=== PATIENT | female | born 1970 | race Caucasian/White ===

== ENCOUNTER 2020-01-05 12:04 | Emergency (ER) | payer OTHER, SELFPAY ==
[2020-01-05 12:15] VITALS: BP 154/70; PULSE 100; RESP 20; TEMP 37.1; O2SAT 98
--- NOTE | 2020-01-05 12:29 | ED.GENADULT ---
HPI - General Adult General Chief complaint: Skin/Abscess/Foreign Body Stated complaint: Bumps on arm Time Seen by Provider: 01/05/20 12:29 Source: patient and RN notes reviewed Mode of arrival: ambulatory Limitations: no limitations History of Present Illness HPI narrative: This is a 49 years old female presented office for evaluations of skin lesions on her left arm. Symptoms began with arm aches and pain prior to the onset of lesion. Lesions is sore at times with pain that goes up to her shoulder. Denies trauma or injury. She suspects this is shingles. 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 Admits to history of chicken pox. Related Data Home Medications Medication Instructions Recorded Confirmed atorvastatin 40 mg tablet 40 mg PO DAILY 05/18/19 01/05/20 Allergies Allergy/AdvReac Type Severity Reaction Status Date / Time Sulfa (Sulfonamide Allergy Unknown Rash Verified 01/05/20 12:23 Antibiotics) sulfanilamide Allergy Unknown Rash Verified 01/05/20 12:23 Review of Systems Review of Systems: Narrative: CONSTITUTIONAL: Denies fever, chills ENT: Denies rhinorrhea, congestion, sore throat, otalgia. CARDIOVASCULAR: Denies chest pain, palpitation RESPIRATORY: Denies dyspnea, wheezing, cough GASTROINTESTINAL: Denies abdominal pain, nausea, vomiting, diarrhea. SKIN: Reports painful lesions on her left arm and chest. MUSCULOSKELETAL: Denies joints pain NEUROLOGIC: Denies lightheaded All other systems reviewed are negative, except as documented in HPI. [facility] Past Medical History Medical History Diabetes mellitus HLD (hyperlipidemia) HTN (hypertension) Family History Family History Mother Depression Hypertension Family history of diabetes mellitus in first degree relative Family history of elevated blood lipids Diabetes mellitus, Onset Age: 64 Family history of coronary artery disease, Onset Age: 64 Family history of congestive heart failure Father Patient's father is in good health Family history of elevated blood lipids Family history of diabetes mellitus in first degree relative Hypertension Diabetes mellitus Acute myocardial infarction Family history of chronic obstructive pulmonary disease Sibling Patient's brother is in good health Other Cerebrovascular accident Family history of attention deficit hyperactivity disorder (ADHD) Family history of cardiovascular disease Family history of malignant neoplasm Family history of malignant neoplasm of breast Family history of premature coronary heart disease Social History Social History Smoking status: Never smoker Alcohol intake: never Gender identity (if verbalized by the patient): Female Comments At time of signature, I agree with nursing past medical, surgical, social and family history. There is no relevant family history pertinent to the presenting complaint. Exam Narrative: Exam Narrative: GENERAL: This is a well-nourished, well-developed patient, in no apparent distress. CARDIOVASCULAR: Regular rate and rhythm without murmurs, gallops, or rubs. RESPIRATORY: Clear to auscultation. Breath sounds equal bilaterally. No wheezes, rales, or rhonchi. GASTROINTESTINAL: Abdomen soft, non-tender, nondistended. Bowel sounds are active. No hepato-splenomegaly, or palpable masses. No guarding. SKIN: left anterior forearm and left upper arm noted group vesicular erythema lesions. Similar lesion noted of her chest; but it does not cross midline. NEURO: awake, alert, and oriented to person, place and time. There were no obvious focal neurologic abnormalities. Steady gait EXTREMITIES: Normal range of motion. No edema. [place] Coma Scale Eye Opening: Spontaneous 4 [place] Coma Scale Motor: Obeys Commands 6 Lori Coma Scale Verbal: Oriented 5 Course Vital Signs Jacque
== END 2020-01-05 12:45 | disposition home or self-care (01) ==
PROVIDERS: Emergency Provider Nurse Practitioner; PCP Emergency Medicine
DX: B02.9 Zoster without complications (principal); E11.9 Type 2 diabetes mellitus without complications; E78.5 Hyperlipidemia, unspecified; I10 Essential (primary) hypertension
CPT/HCPCS: 99213; G0463

== ENCOUNTER 2023-06-04 10:21 | Emergency (ER) | payer BC, SELFPAY ==
[2023-06-04 10:33] VITALS: BP 183/73; PULSE 92; RESP 16; TEMP 36.8; O2SAT 96
--- NOTE | 2023-06-04 10:41 | ED.GENADULT ---
HPI - General Adult General Chief complaint: Upper Respiratory Infection Stated complaint: Cough/Chest Congestion Source: patient, RN notes reviewed and old records reviewed Mode of arrival: ambulatory Limitations: no limitations History of Present Illness HPI narrative: 52-year-old female presents to [facility] with complaints cough, congestion, wheezing, shortness of breath this started 1 week ago. Patient taking [id number] medications with no relief. MD complaint: Cough, congestion Onset (ago): week(s) (1) Related Data Home Medications Medication Instructions Recorded Confirmed furosemide 80 mg tablet 80 mg PO DAILY 06/04/23 06/04/23 losartan 100 mg tablet 100 mg PO DAILY 06/04/23 06/04/23 metformin 1,000 mg tablet 1,000 mg PO BID 06/04/23 06/04/23 Allergies Allergy/AdvReac Type Severity Reaction Status Date / Time Sulfa (Sulfonamide Allergy Intermediate Rash Verified 06/04/23 10:48 Antibiotics) Review of Systems Constitutional: Constitutional: Reports no additional constitutional complaints, Reports body ache(s), Denies chills, Denies fatigue, Denies fever(s) and Denies headache(s) Eyes: Eyes: Reports no additional eye complaints and Denies blurry vision ENT: Reports system reviewed and no additional complaints, except as documented, Denies vertigo, Denies dizziness, Denies ear discharge, Denies otalgia, Denies facial pain, Denies headache(s), Reports nasal congestion, Denies nasal discharge, Denies sinus pain, Denies sinus pressure and Denies sore throat Cardiovascular: Cardiovascular: Reports no additional cardiovascular complaints, Denies chest pain, Denies chest pain at rest, Denies rapid heart rate and Denies dyspnea Respiratory: Respiratory: Reports no additional respiratory complaints, Denies chest congestion, Reports cough, Denies pain on inspiration, Denies pain with cough and Reports dyspnea Gastrointestinal: Gastrointestinal: Denies abdominal pain, Denies diarrhea, Denies nausea and Denies vomiting Integumentary/Breasts: Skin/Breast: Denies rash Neurologic: Reports system reviewed and no additional complaints, except as documented, Denies vertigo, Denies dizziness and Denies headache(s) Endocrine: Endocrine: Denies fatigue [facility] Past Medical History Medical History (Updated 06/04/23 @ 11:01 by Judi Baptiste APRN) Diabetes mellitus HLD (hyperlipidemia) HTN (hypertension) Family History Family History Mother Depression Hypertension Family history of diabetes mellitus in first degree relative Family history of elevated blood lipids Diabetes mellitus, Onset Age: 64 Family history of coronary artery disease, Onset Age: 64 Family history of congestive heart failure Father Patient's father is in good health Family history of elevated blood lipids Family history of diabetes mellitus in first degree relative Hypertension Diabetes mellitus Acute myocardial infarction Family history of chronic obstructive pulmonary disease Sibling Patient's brother is in good health Other Cerebrovascular accident Family history of attention deficit hyperactivity disorder (ADHD) Family history of cardiovascular disease Family history of malignant neoplasm Family history of malignant neoplasm of breast Family history of premature coronary heart disease Social History Social History Smoking status: Never smoker Alcohol intake: never Gender identity (if verbalized by the patient): Female Comments At the time of my signature, I reviewed and agree with the nursing past medical, surgical, social, and family history. There is no relevant family history pertinent to the patient complaint. Exam Const: General: cooperative, no acute distress, ill appearing acutely and well nourished Nutritional Appearance: well nourished Orientation/consciousness: patient loli
== END 2023-06-04 11:05 | disposition home or self-care (01) ==
PROVIDERS: Emergency Provider Registered Nurse
DX: J06.9 Acute upper respiratory infection, unspecified (principal); Z20.822 Contact with and (suspected) exposure to COVID-19; E11.9 Type 2 diabetes mellitus without complications; E78.5 Hyperlipidemia, unspecified; I10 Essential (primary) hypertension
CPT/HCPCS: 87426; 87804; 99213; C9803; G0463

== ENCOUNTER 2023-08-10 10:02 | Emergency (ER) | payer BC, SELFPAY ==
[2023-08-10 10:07] VITALS: BP 181/78; PULSE 76; RESP 16; TEMP 37.3; O2SAT 99
--- NOTE | 2023-08-10 10:41 | ED.URI ---
HPI - URI/Sore Throat General Chief Complaint: Upper Respiratory Infection Stated Complaint: upper respiratory Time Seen by Provider: 08/10/23 10:42 Source: patient, RN notes reviewed and old records reviewed Mode of arrival: ambulatory Limitations: no limitations History of Present Illness HPI Narrative: 52year old female who presents to [facility] care with complaints of sinus congestion and drainage, acute harsh cough since Tuesday with headache and did not a 100F temperature yesterday. Patient reports that she has history of CHF and hypertension and takes daily Lasix 80 mg and also is diabetic. Patient denies any acute shortness of breath has harsh cough and reports some noted wheezing. Patient reports that she has had exposure to COVID. MD elicited complaint: cough and sore throat Pertinent past history: pneumonia and other (CHF, HTN) Onset (ago): day(s) (4) Pain scale (0-10): 2 Able to tolerate fluids by mouth: Yes Treatments prior to arrival: acetaminophen Related Data Home Medications Medication Instructions Recorded Confirmed furosemide 80 mg tablet 80 mg PO DAILY 06/04/23 06/04/23 losartan 100 mg tablet 100 mg PO DAILY 06/04/23 06/04/23 Jardiance 08/10/23 Metoprolol 08/10/23 Prozac 08/10/23 amlodipine 5 mg tablet mg 08/10/23 Allergies Allergy/AdvReac Type Severity Reaction Status Date / Time Sulfa (Sulfonamide Allergy Intermediate Rash Verified 08/10/23 10:12 Antibiotics) Review of Systems Review of Systems: CONSTITUTIONAL: Reports malaise, chills, sweats, or fever. EYES: Denies visual changes, redness, or discharge. ENT: Reports rhinorrhea, congestion, sinus pain,no otalgia and no sore throat. CARDIOVASCULAR: Denies chest pain, palpitations, or edema. RESPIRATORY: Reports cough.? Denies dyspnea.reports wheezing GASTROINTESTINAL: Denies abdominal pain, nausea, vomiting, diarrhea SKIN: Denies rash or itching. MUSCULOSKELETAL: Denies myalgia. NEUROLOGIC:Reports headache. All systems reviewed & are unremarkable except as noted in HPI and below PMFSH Past Medical History Medical History (Updated 08/11/23 @ 10:05 by Doreen Cárdenas NP) Anxiety and depression Diabetes mellitus HLD (hyperlipidemia) HTN (hypertension) Pneumonia Sleep apnea Surgical History Surgical History (Updated 08/11/23 @ 10:04 by Doreen Cárdenas NP) History of carpal tunnel surgery History of ear surgery Family History Family History Mother Depression Hypertension Family history of diabetes mellitus in first degree relative Family history of elevated blood lipids Diabetes mellitus, Onset Age: 64 Family history of coronary artery disease, Onset Age: 64 Family history of congestive heart failure Father Patient's father is in good health Family history of elevated blood lipids Family history of diabetes mellitus in first degree relative Hypertension Diabetes mellitus Acute myocardial infarction Family history of chronic obstructive pulmonary disease Sibling Patient's brother is in good health Other Cerebrovascular accident Family history of attention deficit hyperactivity disorder (ADHD) Family history of cardiovascular disease Family history of malignant neoplasm Family history of malignant neoplasm of breast Family history of premature coronary heart disease Social History Social History (Updated 08/11/23 @ 10:05 by Doreen Cárdenas NP) Smoking status: Never smoker Alcohol intake: former Substance use type: does not use Gender identity (if verbalized by the patient): Female Comments At time of signature, agree with nursing past medical, surgical, social and family history. There is no relevant family history pertinent to the presenting complaint Exam Narrative: GENERAL: Well-appearing, well-nourished, and in no acute distress. HEAD: Normocephalic EYES: PERRLA, conjunctivae clear
== END 2023-08-10 11:12 | disposition home or self-care (01) ==
PROVIDERS: Emergency Provider Registered Nurse
DX: U07.1 COVID-19 (principal); E11.9 Type 2 diabetes mellitus without complications; E78.5 Hyperlipidemia, unspecified; I11.0 Hypertensive heart disease with heart failure; I50.9 Heart failure, unspecified
CPT/HCPCS: 87426; 87804; 99213; G0463

== ENCOUNTER 2024-05-12 08:03 | Emergency (ER) | payer OTHER, SELFPAY ==
[2024-05-12 08:23] VITALS: BP 140/86; PULSE 100; RESP 17; TEMP 36.8; O2SAT 100
--- NOTE | 2024-05-12 08:50 | ED_ITS ---
HPI - General Adult General Chief complaint: Unspecified Stated complaint: Unspecified Source: patient Mode of arrival: ambulatory Limitations: no limitations History of Present Illness HPI narrative: Patient presents requesting a note that indicates she should be able to perform her ADLs while in alcohol rehab. She is leaving for alcohol rehab tomorrow. She typically drinks 16 glasses of wine per day. Last drink was yesterday. She does have a slight tremor. Denies hallucinations, chest pain, palpitations. Denies any illicit drug use. Related Data Home Medications Medication Instructions Recorded Confirmed metformin 1,000 mg tablet 1,000 mg PO BID 05/12/24 05/12/24 pantoprazole 40 mg tablet,delayed 40 mg PO DAILY 05/12/24 05/12/24 release Allergies Allergy/AdvReac Type Severity Reaction Status Date / Time Sulfa (Sulfonamide Allergy Intermediate Rash Verified 05/12/24 08:32 Antibiotics) Review of Systems Review of Systems: CONSTITUTIONAL: Denies fever, chills, or sweats. EYES: Denies visual changes, redness, or discharge. ENT: Denies rhinorrhea, congestion, sore throat, or otalgia. CARDIOVASCULAR: Denies chest pain, palpitations, or edema. RESPIRATORY: Denies cough or dyspnea. GASTROINTESTINAL: Denies abdominal pain, nausea, vomiting, or diarrhea. GENITOURINARY: Denies dysuria or hematuria. SKIN: Denies rash or itching. MUSCULOSKELETAL: Denies back pain, joint pain, or myalgia. NEUROLOGIC:Reports tremor. Denies headache, numbness, dizziness, or weakness. PSYCHIATRIC: Denies anxiety or depression. [facility] Past Medical History Medical History Anxiety and depression Diabetes mellitus HLD (hyperlipidemia) HTN (hypertension) Pneumonia Sleep apnea Surgical History Surgical History History of carpal tunnel surgery History of ear surgery Family History Family History Mother Depression Hypertension Family history of diabetes mellitus in first degree relative Family history of elevated blood lipids Diabetes mellitus, Onset Age: 64 Family history of coronary artery disease, Onset Age: 64 Family history of congestive heart failure Father Patient's father is in good health Family history of elevated blood lipids Family history of diabetes mellitus in first degree relative Hypertension Diabetes mellitus Acute myocardial infarction Family history of chronic obstructive pulmonary disease Sibling Patient's brother is in good health Other Cerebrovascular accident Family history of attention deficit hyperactivity disorder (ADHD) Family history of cardiovascular disease Family history of malignant neoplasm Family history of malignant neoplasm of breast Family history of premature coronary heart disease Social History Social History Smoking status: Never smoker Alcohol intake: former Drinks per week: 112 Substance use type: does not use Living arrangements: with family Gender identity (if verbalized by the patient): Female Spiritual care concerns: No Exam Narrative: GENERAL: Well-appearing, well-nourished, and in no acute distress. HEAD: Normocephalic, atraumatic. EYES: PERRLA and EOMI. ENT: Overall poor dentition with diffuse dental decay. Nares clear, no rhinorrhea or epistaxis. Mucous membranes moist. Oropharynx without tonsillar hypertrophy exudate or other lesions. Bilateral TMs pearly dubois nonbulging NECK: Supple. No adenopathy or masses. No carotid bruits or JVD CHEST: Clear to auscultation. No respiratory distress. No wheezes rales or rhonchi HEART: Regular rate and rhythm. No murmur heard. Normal peripheral pulses. ABDOMEN: Soft, nontender, nondistended, normal active bowel sounds. EXTREMITIES: Normal range of motion. No edema. SKIN: Warm, dry, no rash. NEURO: Slight tremor present. No focal deficits. Alert and oriented x3. PSYCH: Normal mood and affect. Course Course Emergency Course: This is a 53-year-old female who came in today to receive a note that indicates she should be able to perform her ADL's while in alcohol rehab. This is a reasonable request. She is unable to get an appt with her primary care provider for 1.5 months. She was provided with a note and a small qty of ativan in the event that she experiences withdrawal symptoms. Pt in agreement with plan of care. Level of Care: Express Care Visit Vital Signs Vital signs: Vital Signs Temperature 36.8 C 05/12/24 08:23 Pulse Rate 100 05/12/24 08:23 Respiratory Rate 17 05/12/24 08:23 Blood Pressure 140/86 05/12/24 08:23 Pulse Oximetry 100 05/12/24 08:23 Oxygen Delivery Room Air 05/12/24 08:23 Temperature 36.8 C 05/12/24 08:23 Pulse Rate 100 05/12/24 08:23 Respiratory Rate 17 05/12/24 08:23 Blood Pressure 140/86 05/12/24 08:23 Pulse Oximetry 100 05/12/24 08:23 Oxygen Delivery Room Air 05/12/24 08:23 Medical Decision Making Vital Signs Vital Signs: Vital Signs Temperature 36.8 C 05/12/24 08:23 Pulse Rate 100 05/12/24 08:23 Respiratory Rate 17 05/12/24 08:23 Blood Pressure 140/86 05/12/24 08:23 Pulse Oximetry 100 05/12/24 08:23 Oxygen Delivery Room Air 05/12/24 08:23 Temperature 36.8 C 05/12/24 08:23 Pulse Rate 100 05/12/24 08:23 Respiratory Rate 17 05/12/24 08:23 Blood Pressure 140/86 05/12/24 08:23 Pulse Oximetry 100 05/12/24 08:23 Oxygen Delivery Room Air 05/12/24 08:23 Discharge Plan Discharge Clinical Impression: Anxiety, Alcohol abuse Patient Disposition: Home, Self-Care Condition: Stable Instructions: Antibiotic Form, Anxiety (ED), Alcohol Use Disorder (ED) Additional Instructions: In the event that you have hallucinations, chest pain or racing heart rate, please go to the emergency department Patient Language: Bengali Prescriptions: New lorazepam 1 mg tablet 1 mg PO TID PRN (Reason: alcohol withdrawal) Qty: 6 0RF No Action metformin 1,000 mg tablet 1,000 mg PO BID pantoprazole 40 mg tablet,delayed release (DR/EC) 40 mg PO DAILY Follow-up/Referrals: Moody Vasquez DO [Physician] - Stand Alone Forms: Work/School Release IP Time of Disposition: 08:43
== END 2024-05-12 08:45 | disposition home or self-care (01) ==
PROVIDERS: Emergency Provider Nurse Practitioner
DX: F41.9 Anxiety disorder, unspecified (principal); F10.10 Alcohol abuse, uncomplicated; E11.9 Type 2 diabetes mellitus without complications; Z79.84 Long term (current) use of oral hypoglycemic drugs; I10 Essential (primary) hypertension; E78.5 Hyperlipidemia, unspecified
CPT/HCPCS: 99213; G0463

== ENCOUNTER 2024-10-29 10:04 | Emergency (ER) | payer SELFPAY ==
--- OUTSIDE RECORDS SUMMARY | 2024-10-29 10:07 | XMS_ITS | Encounter Summary ---
Author Organization [employer] Address 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 diff 11/21/2023 11/21/2023 11/21/2023 12:5 2 PM CDT C Diff Comment:11/21/23 11/21/2023 11/21/2023 01/20/2024 1:16 AM C DT documented as of this encounter Care Teams Trolley Worker Relationship Specialty [place] [id number] [place] [address] PCP - General Shadow Graph Weight Operator 09/26/23 documented as of this encounter
--- OUTSIDE RECORDS SUMMARY | 2024-10-29 10:07 | XMS_ITS | Encounter Summary ---
Author Organization [employer] Address 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 diff 11/21/2023 11/21/2023 11/21/2023 12:5 2 PM CDT C Diff Comment:11/21/23 11/21/2023 11/21/2023 01/20/2024 1:16 AM C DT documented as of this encounter Care Teams Manager Category Relationship Specialty [place] [id number] [address] PCP - General Compliance Manager 09/26/23 documented as of this encounter
--- OUTSIDE RECORDS SUMMARY | 2024-10-29 10:07 | XMS_ITS | Encounter Summary ---
Author Organization [employer] Address 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 diff 11/21/2023 11/21/2023 11/21/2023 12:5 2 PM CDT C Diff Comment:11/21/23 11/21/2023 11/21/2023 01/20/2024 1:16 AM C DT documented as of this encounter Care Teams Assignment Editor Relationship Specialty [place] [id number] [address] PCP - General Heel Seat Laster 09/26/23 documented as of this encounter
--- OUTSIDE RECORDS SUMMARY | 2024-10-29 10:07 | XMS_ITS | Encounter Summary ---
Author Organization [employer] Address 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 diff 11/21/2023 11/21/2023 11/21/2023 12:5 2 PM CDT C Diff Comment:11/21/23 11/21/2023 11/21/2023 01/20/2024 1:16 AM C DT documented as of this encounter Care Teams Contamination Consultant Relationship Specialty [place] [id number] [address] PCP - General Firefighter Type One 09/26/23 documented as of this encounter
--- OUTSIDE RECORDS SUMMARY | 2024-10-29 10:07 | XMS_ITS | Encounter Summary ---
Author Organization [facility] Address 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 diff 11/21/2023 11/21/2023 11/21/2023 12:5 2 PM CDT C Diff Comment:11/21/23 11/21/2023 11/21/2023 01/20/2024 1:16 AM C DT documented as of this encounter Care Teams Scale Model Maker Relationship Specialty [place] [id number] [phone] PCP - General Mission Manager 09/26/23 documented as of this encounter
--- OUTSIDE RECORDS SUMMARY | 2024-10-29 10:07 | XMS_ITS | Encounter Summary ---
Author Organization [employer] Address [address] [place] [address] Care Team Providers Care Earth Science Technical Officer Name Role Phone Joss Carpio MD Primary Care Provider [phone] Encounter Details Date Type Department Care Team (Latest Contact Info) Description 07/16/2002 Inpatient Historical [facility] PATIENT IN A BED Fatemeh Schofield MD [address] [facility] [address] [place] [address] DEPRESS PSYCHOSIS-UNSPEC (Primary Dx) Social History Tobacco Use Types Packs/Day Years Used Date Smoking Tobacco: Never Assessed Comments Unknown Sex and Gender Information Value Date Recorded Sex Assigned at Not on file 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 diff 11/21/2023 11/21/2023 11/21/2023 12:5 2 PM CDT C Diff Comment:11/21/23 11/21/2023 11/21/2023 01/20/2024 1:16 AM C DT documented as of this encounter Care Teams Earth Science Technical Officer Relationship Specialty [place] [address] [phone] PCP - General Bar Pointer 09/26/23 documented as of this encounter
--- OUTSIDE RECORDS SUMMARY | 2024-10-29 10:07 | XMS_ITS | Encounter Summary ---
Author Organization [facility] Address 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 diff 11/21/2023 11/21/2023 11/21/2023 12:5 2 PM CDT C Diff Comment:11/21/23 11/21/2023 11/21/2023 01/20/2024 1:16 AM C DT documented as of this encounter Care Teams Ordnance Artificer Relationship Specialty [place] [address] [phone] PCP - General Sales Special Agent 09/26/23 documented as of this encounter
--- OUTSIDE RECORDS SUMMARY | 2024-10-29 10:07 | XMS_ITS | Encounter Summary ---
Author Organization [email or web address] Address 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 diff 11/21/2023 11/21/2023 11/21/2023 12:5 2 PM CDT C Diff Comment:11/21/23 11/21/2023 11/21/2023 01/20/2024 1:16 AM C DT documented as of this encounter Care Teams It Project Manager Relationship Specialty [place] [id number] [phone] PCP - General Deep Fryer Assembler 09/26/23 documented as of this encounter
--- OUTSIDE RECORDS SUMMARY | 2024-10-29 10:07 | XMS_ITS | Encounter Summary ---
Author Organization [employer] Address 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
--- OUTSIDE RECORDS SUMMARY | 2024-10-29 10:07 | XMS_ITS | Encounter Summary ---
Author Organization [facility] Address [address] [place] [address] Care Team Providers Care Tooth Cutter Pinion Name Role Phone Joss Carpio MD Primary Care Provider [phone] Encounter Details Date Type Department Care Team (Late st Contact Info) Description 10/25/2003 Outpatient Historical [facility] [address] [facility] [address] [place] [address] Terrell Le MD [address] [facility] [address] [place] [address] Social History Tobacco Use Types Packs/Day Years Used Date Smoking Tobacco: Never Assessed Comments Unknown Sex and Gender Information Value Date Recorded Sex Assigned at Not on file 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
--- OUTSIDE RECORDS SUMMARY | 2024-10-29 10:07 | XMS_ITS | Data Portability ---
Author Organization MURIEL LedezmaEmilee, [employer] Address [address] [place] [address] Assessment No assessment recorded. Plan of Treatment Reminders Order Date Submit Date Provider Last Modified By Organization Details Last Modified Time Details Appointments None recorded. Lab lipid panel, serum 2022 023 [email or web address] 3 Not available 09:29:53 hepatic function panel, serum 2022 023 [email or web address] 3 [facility], [address], [place], [address], 3 09:29:53 Referral None recorded. Procedures None recorded. Surgeries None recorded. Imaging US, liver 2022 023 [email or web address] 3 [facility], [address] [facility], [place], [address], 3 09:41:06 Medication Orders Cortisporin -TC 3.3 mg-3 mg-10 mg-0.5 mg/mL ear drops,suspe nsion 2022 023 [facility] #39834, [address] [place], [id number], 3 17:22:33 amoxicillin 875 mg tablet 2022 023 [facility] #26807, [address] [place], [id number], 3 17:22:31 Bystolic 20 mg tablet 2022 023 [facility], [address], [place], [place], [id number], 3 16:09:43 losartan 100 mg tablet 2022 023 [facility], [address], [place], [place], [id number], 3 16:09:44 rosuvastati n 10 mg tablet 2022 023 [facility], [address], [place], [place], [id number], 3 16:16:31 fluoxetine 40 mg capsule 2022 023 [facility], [address], [place], [place], [id number], 3 16:12:14 Ozempic 1 mg/dose (4 mg/3 mL) subcutaneou s pen injector 2022 023 Not available 3 16:20:50 fluconazole 150 mg tablet 2021 022 [facility], [address], [place], [place], [id number], 3 16:07:17 Mounjaro 2.5 mg/0.5 mL subcutaneou s pen injector 2021 022 [facility], [address], [place], [place], [id number], 3 16:12:10 pantoprazol e 40 mg tablet,cristina yed release [address] [facility] [facility] #76814, [address] [place], [id number], 10:47:31 Patient TargetsNo targets recorded. Patient Instructions Encounter Date Encounter Id Patient Instructions Last Modified By Organization Details Last Modified Time 09/07/2022 [id number] high blood pressure: care instructions Not available 09/07/2022 16:09:23 learning about high blood pressure Not available 09/07/2022 16:09:24 heart failure: care instructions Not available 09/07/2022 16:16:25 learning about heart failure Not available 09/07/2022 16:16:25 Medications were reviewed and any necessary updates and renewals were made. Discussed potential side effects of medications. Pt is with medications. Counseling was done on care goals and ways to prevent future hospitalizations. Emphasized preventive health measures and educated pt to help reduce health risks and promote healthy living. Scheduled follow-up appointment for / / to review health status and care plan and instructed pt whom to contact in case of emergency. Further treatment per orders below. [email or web address] Not available 09/07/2022 16:01:04 Reason for Referral None Reported. Results Created Date Observation Date Name Description Value Unit Range Abnormal Flag Note LastModifiedBy Organization Detail LastModifiedTime 09/23/1909/22/2022 US, abdom en, compl ete No observ ation record ed. [email or web address] [facility] [address] [place], [address], 09/23/2022 13:46:18 09/30/19 23 09/29/2022 CT, abdom en + pelvi s, w/o contr ast No observ ation record ed. [email or web address] [facility] [address] [place], [address], 09/30/2022 14:49:46 Result Notes None recorded. Problems Name Problem SNOMED Code Status Onset Date Resolution Date Notes Provider Name and Address Organization Details Recorded Time Vaginitis 54278012 Active 2021 Not Available [facility] 10:47:31 Gastroeso phageal reflux disease 579317384 Active 2021 Not Available [facility] 2 10:47:31 Benign hypertens ion 39566083 Active 2021 Not Available [facility] 2 10:47:31 Type 2 diabetes mellitus 56739461 Active 2021 Dr. Van, endocrinol ogy MURIEL Clayton Laurie 3 17:40:39 Congestiv e heart failure 22076943 Active 2021 Dr. 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 065317652 Active 2021 Not Available [facility] 2 10:47:31 Chronic diastolic heart failure 049894460 Active 2021 Not Available [facility] 2 10:47:31 Uncontrol led type 2 diabetes mellitus 751852027 Active 2021 Not Available [facility] 2 10:47:31 Essential hypertens ion 83380699 Active 2022 Emilee Ledezma MD [facility],[address], [address] , Emilee Owens 3 16:07:52 Hyperchol esterolem ia 23547388 Active 2022 Emilee Ledezma MD [facility] [address], [place], [address] , Emilee Owens 3 16:15:35 Liver enzymes level above reference range 134601079 Active 2022 with cirrhosis. Patient counseled to stop drinking. Emilee Ledezma MD [facility] [address], [place], [address] , Emilee Owens 3 16:17:00 Vitamin D deficienc y 40221554 Active 2022 Emilee Ledezma MD [address] [facility],[address], [address] [place] [address] , [place] - SenolEmilee 3 16:24:20 Abdominal pain 38236738 Active 2022 Emilee Ledezma MD [address] [facility],[address], [address] [place] [address] , [place] - SenEmilee rainey 3 17:46:07 Pain of ear 780301048 Active 2022 Emilee Ledezma MD [facility],[address], [address] [place] [address] , [place] - SenEmilee rainey 3 17:20:26 Pain of shoulder region 98632564 Active 2022 Emilee Ledezma MD [facility],[address], [address] [place] [address] , [place] - SenEmilee rainey 3 16:45:54 Anxiety 97865054 Active 2022 Emilee Ledezma MD [facility],[address], [address] [place] [address] , MURIEL - SenEmilee rainey 3 11:24:58 Notes:Some problems listed i n Document: #[id number] could not be added to this patient's chart. Please review this document and add these problems to the patient's chart manually as needed. Problem Notes None recorded. Medical Equipment None Reported. Allergies Allergen ID Allergen Name Allergen Category Reaction Reaction Severity Criticality Documentation Date Start Date Code Code System Note Provider Name and Address Organization Details Recorded Time 0813 Substance with sulfonami de structure and antibacte rial mechanism of action (substanc e) medicatio n Not available Not available Not available 02/11/2022 31919 8003 SNOMED Billie Fonseca MURIEL jorge Laurie 2 15:30:17 Medications Name Sig Start Date Stop Date Status Note LastModified by Organization Details LastModified Time fluoxetin e 40 mg capsule Take 2 capsules every day by oral route. 04/04/ 2023 active Not Available Not Available Not Avai lable potassium chloride ER 10 mEq capsule,e xtended release Take 1 capsule every day by oral route. active noted per Dr. Morrison visit note Not Available Not Available Not Available doxazosin 1 mg tablet Take 1 tablet every day by oral route. 09/07 completed Not Available Not Available Not Available diltiazem CD 180 mg capsule,e xtended release 24 hr 02/11 completed Not Available Not Available Not Available fluconazo le 150 mg tablet Take 1 tablet twice a week by oral route for 4 days. 09/07 completed Not Available Not Available Not Available tramadol 50 mg tablet Take 1 tablet every 6 hours by oral route as needed. 2022 active Not Available Not Available Not Avai lable ondansetr on 8 mg disintegr ating tablet Place 1 tablet twice a day by translin gual route. 2022 active Not Available Not Available Not Avai lable phenoxybe nzamine 10 mg capsule 02/11 completed Not Available Not Available Not Available amoxicill in 875 mg tablet Take 1 tablet every 12 hours by oral route. 2022 active Not Available Not Available Not Avai lable alprazola m 0.25 mg tablet Take 1 tablet 3 times a day by oral route as needed for 30 days. 2022 active Not Available Not Available Not Avai lable furosemid e 80 mg tablet TAKE 1 TABLET BY MOUTH EVERY DAY 2023 active Not Available Not Available Not Avai lable OneTouch Ultra Test strips Use as directed active Not Available Not Available No t Available pantopraz ole 40 mg tablet,de layed release Take 1 tablet every day by oral route. active Not Available Not Available No t Available hyoscyami ne sulfate 0.125 mg tablet Take 1 tablet every 4 hours by oral route as needed. 2022 active Not Available Not Available Not Avai lable metformin 1,000 mg tablet Take 1 tablet twice a day by oral route. active Not Available Not Available No t Available Cortispor in-TC 3.3 mg-3 mg-10 mg-0.5 mg/mL ear drops,ezekiel pension Instill 4 drops 3 times a day by otic route. 2022 active Not Available Not Available Not Avai lable losartan 100 mg tablet Take 1 tablet every day by oral route. 2022 active Not Available Not Available Not Avai lable rosuvasta tin 10 mg tablet Take 1 tablet every day by oral route. 2022 active Not Available Not Available Not Avai lable Bystolic 20 mg tablet Take 1 tablet every day by oral route. 2022 active noted on 08/16/[address] Morrison Not Available Not Available Not Available Farxiga 10 mg tablet Take 1 tablet every day by oral route. active per endocrin ologist Not Available Not Available Not Available OneTouch Delica Plus Lancet 33 gauge active Not Available Not Available Not Available Ozempic 1 mg/dose (4 mg/3 mL) subcutane ous pen injector Inject 1 mg every week by subcutan eous route. 2022 active Not Available Not Available Not Avai lable Mounjaro 2.5 mg/0.5 mL subcutane ous pen injector Inject 2.5 mg every week by subcutan eous route. 09/07 completed Not Available Not Available Not Available Vitals Date Recorded Body height Body mass index (BMI) Body weight Heart rate Oxygen saturation Oxygen saturation in Arterial blood by Pulse oximetry Systolic And Diastolic Provider Name and Address Organization Details Last Updated DateTime 3 140.97 cm 39.2 kg/m2 37714.4 5 g 95 /min 95 % 95 % 160/90 mm[Hg] Emilee Cox 3 16:01:19 Date Recorded Body height Body mass index (BMI) Body weight Heart rate Oxygen saturation Oxygen saturation in Arterial blood by Pulse oximetry Systolic And Diastolic Provider Name and Address Organization Details Last Updated DateTime 3 140.97 cm 38.8 kg/m2 34421.7 g 93 /min 97 % 97 % 194/80 mm[Hg] Emilee Cox 3 17:13:17 Date Recorded Body height Body mass index (BMI) Body weight Heart rate Oxygen saturation Oxygen saturation in Arterial blood by Pulse oximetry Systolic And Diastolic Provider Name and Address Organization Details Last Updated DateTime 2 140.97 cm 40.2 kg/m2 49743.9 8 g 104 /min 96 % 96 % 168/78 mm[Hg] Emilee Cox 15:29:57 Social History Question Answer Notes LastModified by Organizat ion Details LastModified Time Tobacco Smoking Status Never Smoker MURIEL Gresham Laurie 02/11/2022 15:33:39 Are You Blind Or Do You Have Difficulty Seeing? No [email or web address] Information n ot available 02/11/2022 What Is Your Level Of Caffeine Consumption? Occasional [email or web address] Information not available 02/11/2022 In The 14 Days Before Symptom Onset, Have You Had Close Contact With A Laboratory-confirm ed COVID-19 While That Case Was Ill? No [email or web address] Information n ot available 02/11/2022 In The 14 Days Before Symptom Onset, Have You Had Close Contact With A Person Who Is Under Investigation For COVID-19 While That Person Was Ill? No [email or web address] Information not available 02/11/2022 Have You Been To An Area Known To Be High Risk For COVID-19? No [email or web address] Information not available 02/11/2022 Are You Deaf Or Do You Have Serious Difficulty Hearing? No [email or web address] Information not available 02/11/2022 What Type Of Diet Are You Following? REGULAR [email or web address] Information n ot available 02/11/2022 Have You Recently Or Are You Planning To Travel To An Area With Zika Virus? No [email or web address] Information not available 02/11/2022 What Was The Date Of Your Most Recent Tobacco Screening? 02/11/2022 Information not available 02/11/2022 Have You Ever Been Counseled For Unhealthy Alcohol Use? No [email or web address] Information not available 02/11/2022 What Is Your Relationship Status? [email or web address] Information not available 02/11/2022 Do You Use Your Seat Belt Or Car Seat Routinely? Yes [email or web address] Information not available 02/11/2022 Has Tobacco Cessation Counseling Been Provided? No [email or web address] Information not available 02/11/2022 Do You Have Difficulty Walking Or Climbing Stairs? No [email or web address] Information not available 02/11/2022 Sex: Unknown Functional Status Question Answer Note LastModified by Organizat ion Details LastModified Time Do you use any illicit or recreational drugs? No Information not available 02/11/2022 Do you or have you ever used any other forms of tobacco or nicotine? No [email or web address] Information not available 02/11/2022 What is your level of alcohol consumption? Moderate 3-4 glasses wine daily [email or web address] Information not available 02/11/2022 Are you currently employed? Yes [email or web address] Information not available 02/11/2022 Do you have transportation difficulties? No [email or web address] Information not available 02/11/2022 Are you able to walk? YESWOREST [email or web address] Information not available 02/11/2022 Do you have difficulty doing errands alone? No [email or web address] Information not available 02/11/2022 Are you able to care for yourself? Yes [email or web address] Information n ot available 02/11/2022 Do you have difficulty dressing or bathing? No [email or web address] Information not available 02/11/2022 Mental Status Question Answer Note LastModified by Organization D etails LastModified Time Do you have difficulty concentrating, remembering or making decisions? No Information no t available 02/11/2022 Family History Nothing Reported. Medical History No medical history recorded. Gynecological HistoryNo gynecological history recorded. Obstetrics History GPAL:G 0 P 0 0 0 0 Past Encounters Encounter ID Performer Location Encounter Start Date Encounter Closed Date Diagnosis/Indication Diagnosis SNOMED-CT Code Diagnosis ICD10 Code Diagnosis Note [id number] Emilee Ledezma MD Main Office [address] [place], [place] [address] [place] [address] 02/11/2022 15:25:37 02/17/2022 10:42:59 Vaginitis 90132838 N76.0 Most likely due to to elevated blood sugars. Will give regular fluconazol e until blood sugars are controlled . Gastroesop hageal reflux disease 222773670 K21.9 Benign hypertension 1072 5009 I10 patients blood pressure is elevated because she did not take her medication s today Type 2 anthony betes mellitus 07622417 E11.49 Started feeling neuropathy in the last year. Has seen endo in the past. Takes Farxiga when gets samples. discussed with patient that I would like her to take a regular medication Will start her on Mounjaro weekly. Titrate up as needed. Chronic ki dney disease stage [address] Wood Hopson for this in past. Reviewed records from Dr. Hopson. 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 Chronic di astolic heart failure 376926733 I50.[address] Nieves in past for this. Reviewed notes from Dr. Nieves's office as well as ED reports due to this over the last few years. Uncontroll ed type 2 diabetes mellitus 401548520 E11.65 See below. 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 Prescripti on given so patient can show the doctor who will give her samples. [id number] Emilee Ledezma MD [facility] Office [address] [facility] [address] [place] [address] 09/07/2022 16:00:28 09/08/2022 11:25:44 Essential hypertension 20451573 I10 Benign hypertension 1072 5009 I10 Anxiety 00455573 F41.9 Congestive heart failure 91955026 I50.9 Hypercholesterolemia 136 97509 E78.00 Uncontroll ed type 2 diabetes mellitus 765445595 E11.65 Continue on metformin. Liver enzy mes level above reference range 179242362 R74.01 Vitamin D deficiency 347 81823 E55.9 Start 3000 IU vit D daily [id number] Emilee Ledezma MD [facility] Office [address] [facility] [address] [place] [address] 10/26/2022 17:12:45 11/04/2022 10:47:05 Pain of ear 241079163 H92.09 Patient with history of multiple ear infections . In past has been treated with oral antibiotic s as well as ear drops. Will do the same. Benign hypertension 1072 5009 I10 stable on current medication . Continue Liver enzy mes level above reference range 148038243 R74.01 DW patient that she really needs to cut down her alcohol intake, because cirrhosis was seen on previous scan. Patient states she is working on it and now only drinks 3 glasses of wine every other day. DW patient still needs to cut down in order to have her liver re-generat e. Chronic di astolic heart failure 550854784 I50.32 Currently stable. Health Concerns Section Related Observation LastModified by Organization [facility] LastModified Time None Recorded Concern Status LastModified by Organization Details LastModified Time None Recorded Advance Directives Directive None Recorded Payers Encounter Date Sequence Insurance Name Policy Number Policy Anderson Covered Member ID Anderson Member ID Guarantor Name 02/11/2022 1 [facility] [id number] Marlo Davey Bruce [id number] Krystin Bruce 09/07/2022 1 *SELF PAY* Derek Barrera 10/26/2022 1 *SELF PAY* Derek Barrera Notes Date Note Type Note Provider Name and Address Organization Details Recorded Time 02/11/2022 text/html Here to get established. Was in hospital in past for blood pressure. Emilee Ledezma MD [address] [facility] [address], [place], [address], Emilee Owens 02/17/2022 10:42:38 09/07/2022 text/html Here for fu of diabetes, chol Emilee Ledezma MD [address] [facility],[address], [place], [address], Emilee Owens 09/07/2022 16:33:22 10/26/2022 text/html right ear draining, also with pain with opening of jaw. History of cholesteotoma's and surgeries. Didn't take blood pressure meds this am. Sugars have been in 120;s. Abdomin pain is gone.Has a sponsor, goes to AA. Hasn't started cholesterol medication because it would be hard on her liver. Will do rosuvastatin days she doesn't drink wine.(5 mg). Emilee Ledezma MD [address] [facility],[address], [place], [address], Emilee Owens 11/02/2022 16:19:29 OBGyn Episode No OBEpisode recorded.
--- OUTSIDE RECORDS SUMMARY | 2024-10-29 10:07 | XMS_ITS | Encounter Summary ---
Author Organization [employer] Address 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 diff 11/21/2023 11/21/2023 11/21/2023 12:5 2 PM CDT C Diff Comment:11/21/23 11/21/2023 11/21/2023 01/20/2024 1:16 AM C DT documented as of this encounter Care Teams Central Office Inspector Relationship Specialty [place] [address] [address] PCP - General Spaghetti Machine Operator 09/26/23 documented as of this encounter
--- OUTSIDE RECORDS SUMMARY | 2024-10-29 10:07 | XMS_ITS | Encounter Summary ---
Author Organization [employer] Address 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 diff 11/21/2023 11/21/2023 11/21/2023 12:5 2 PM CDT C Diff Comment:11/21/23 11/21/2023 11/21/2023 01/20/2024 1:16 AM C DT documented as of this encounter Care Teams Bell Valet Relationship Specialty [place] [id number] [address] PCP - General Roof Tile Layer 09/26/23 documented as of this encounter
--- OUTSIDE RECORDS SUMMARY | 2024-10-29 10:07 | XMS_ITS | Data Portability ---
Author Organization Amy. Spencer Mai n Office Address [address] [place] [address] [place] [id number] Care Team Providers Care Property Assistant Name Role Phone BOBBY DEE Cloth Examiner Hand LIGIA LENZ Wreath Inspector Assessment Encounter Date Assessment Date Assessment LastModified by Organization Details LastModified Time 04/08/2021 04/08/2021 reviewed signs o f crisis with patient with plan to go to ER for worsening since pheochromocytoma can progress life threatening condition [email or web address] Not available 04/13/2021 12:25:32 Plan of Treatment Reminders Order Date Submit Date Provider Last Modified By Organization Details Last Modified Time Details Appointments None recorded. Lab BMP, serum or plasma 2022 023 [facility], [address], [place], [address], 3 16:53:06 magnesium, serum or plasma 2022 023 [facility], [address], [place], [address], 3 16:53:06 HbA1c (hemoglobin A1c), blood 2021 022 [email or web address] Main Office, [address] [facility], [address], [place], [address], 2 11:12:49 Referral sleep medicine referral - has malignant htn, and presumed obstruction please eval for dipika and treat 2021 022 [email or web address] [facility], [address] [place] [address] Rd, [place], [address], 2 10:54:[address] referral - current patient see my notes, concern for pheochromoc ytoma in nodule, MD mobile 2020 021 [email or web address] Bobby Dee MD, [address], [address], [place], [address], 1 12:34:33 endocrinolo gy referral - records previously sent please contact my office if unable to evaluate 2020 021 [email or web address] Aylin álvarez, [address] [facility], [address], [place], [address], 1 12:34:30 Procedures None recorded. Surgeries None recorded. Imaging XR, chest, 2 view 2022 023 [email or web address] [facility] Scheduling, [address] , [place], [address], 3 11:10:34 US, echocardiog horace, transthorac ic, complete 2022 023 [email or web address] [facility] Scheduling, [address] , [place], [address], 3 11:10:33 electrocard iogram 2022 023 [email or web address] Main Office, [address] [facility] [facility], [address], [place], [address], 3 11:09:05 MAMMO, screening, digital, bilateral 2021 022 [email or web address] [facility] (Radiology Scheduling), [address] [facility], [place], [address], 2 10:14:28 PET, limited - scan lung 1cm nodule [email or web address] (Radiology Scheduling), [address] [place] [address], [address], 10:12:56 PET-CT, skull base to mid-thigh scan - concern for pheochromoc ytoma (in lung nodule) [address] (Radiology Scheduling), [address] [place] [address], [address], 1 12:08:06 Medication Orders potassium chloride ER 10 mEq tablet,exte nded release 2022 023 [facility], [address], [place], [place], [id number], 3 11:35:12 doxazosin 1 mg tablet 2021 022 [facility], [address], [place], [place], [id number], 3 15:55:39 Prozac 40 mg capsule 2021 022 [facility]69288, [address], [place], [place], [id number], 2 12:36:25 Cardizem CD 240 mg capsule,ext ended release 2021 022 [facility], [address], [place], [place], [id number], 3 15:53:38 doxazosin 1 mg tablet 2021 022 [facility], [address], [place], [place], [id number], 3 15:55:39 furosemide 80 mg tablet 2021 022 [facility] #61523, [address] [place], [id number], 12:37:42 doxazosin 2 mg tablet 2020 021 [email or web address] #50686, [address] [place], [id number], 12:34:59 Patient TargetsNo targets recorded. Patient Instructions Encounter Date Encounter Id Patient Instructions Last Modified By Organization Details Last Modified Time 07/17/2021 [id number] learning about type 2 diabetes rkundra Not available 07/20/2021 11:12:49 type 2 diabetes: care instructions [email or web address] Not available 07/20/2021 11:12:49 08/16/2022 [id number] Please check you r blood pressure twice a day for a week and call in readings either to your PCP or to Dr. Morrison. [email or web address] Not available 08/16/2022 16:11:06 Reason for Referral Endocrinology Referral for P heochromocytoma pheochromocytoma records previously sent please contact my office if unable to evaluate [phone] Referring Physician: Wood Stuart, Internal Medicine, Encounter Date: 04/08/2021 Cloth Examiner Hand Referral for S olitary nodule of lung PET of pulmonary nodule complete (pheochromocytoma of concern in nodule) current patient see my notes, concern for pheochromocytoma in nodule, mobile [phone] Referring Physician: Wood Stuart, Internal Medicine, Encounter Date: 04/08/2021 Sleep Medicine Referral for Malignant hypertension has malignant htn, and presumed obstruction please eval for dipika and treat Referring Physician: Wood Stuart, Internal Medicine, Encounter Date: 10/15/2021 Results Created Date Observation Date Name Description Value Unit Range Abnormal Flag Note LastModifiedBy Organization Detail LastModifiedTime 07/17/19 22 07/17/2021 HbA1c (hemo globi n A1c), blood HbA1c 9.5 Not Available Main Offic e [address] [place], [address], 07/17/2021 13:01:52 03/18/2003/18/2021 PET-C T, skull base to mid-t high scan No observ ation record ed. [facility] (Radiology Scheduling) [address] [place] [address], [address], 04/13/2021 11:30:14 03/19/20 21 03/18/2021 PET-C T, skull base to mid-t high scan No observ ation record ed. [facility] (Radiology Scheduling) [address] [place] [address], [address], 04/13/2021 11:30:14 04/02/20 21 04/01/2021 PET, limit ed No observ ation record ed. [facility] (Mammogram) [address] [place] [address], [address], 04/13/2021 11:30:14 08/17/19 23 elect rocar diogr am No observ ation record ed. [email or web address] Main Office [address] [facility] [address], [place], [address], 08/16/2022 16:41:12 08/17/19 elect rocar diogr am No observ ation record ed. [email or web address] Not Available 2022 16:40:03 08/17/19 23 08/16/2022 elect rocar diogr am No observ ation record ed. [email or web address] Not Available 2022 16:56:40 Result Notes None recorded. Problems Name Problem SNOMED Code Status Onset Date Resolution Date Notes Provider Name and Address Organization Details Recorded Time Type 2 diabetes mellitus 83865226 Active MURIEL Nieto Amy. 12:48:45 History of rheumatic fever 169197611 Active MURIEL Nieto Amy. 12:49:21 History of meningitis 956992031 Active 2020 viral 1998 and 2007 MURIEL Nieto Amy. 1 12:50:14 Congestive heart failure 80910297 Active 2022 DO luisito Rees [place] - Beck, Amy. 3 15:51:02 Chronic chest pain 3938906821724 01 Active 2022 [place] l[place]ito [place] - Beck, Amy. 3 16:09:19 Essential hypertensio n 93089290 Active 2022 DO luisito [place] - Beck, Amy. 3 16:09:35 Problem Notes None recorded. Medical Equipment None Reported. Allergies Allergen ID Allergen Name Allergen Category Reaction Reaction Severity Criticality Documentation Date Start Date Code Code System Note Provider Name and Address Organization Details Recorded Time 2863 Substance with sulfonami de structure and antibacte rial mechanism of action (substanc e) medicatio n rash Not available Not available 01/29/2021 03129 8003 SNOMED MURIEL Nieto Amy. 1 16:57:45 Medications Name Sig Start Date Stop Date Status Note LastModified by Organization Details LastModified Time fluoxetine 40 mg capsule Take 2 capsules every day by oral route. active Not Available Not Available No t Available labetalol 200 mg tablet 10/15 completed Not Available Not Available Not Available doxazosin 1 mg tablet Take 1 tablet twice a day by oral route. 08/16 completed Not Available Not Available Not Available diltiazem CD 180 mg capsule,ext ended release 24 hr one cap by mouth twice per day as directed by 07/20 completed Not Available Not Available Not Available tizanidine 4 mg tablet 05/06 completed Not Available Not Available Not Available fluconazole 150 mg tablet Take 1 tablet by oral route. 10/15 completed Not Available Not Available Not Available benzonatate 200 mg capsule Take 1 capsule 3 times a day by oral route as needed. 08/16 completed Not Available Not Available Not Available hydrocodone 5 mg-acetamin ophen 325 mg tablet 01/29 completed Not Available Not Available Not Available prochlorper azine maleate 5 mg tablet 01/29 completed Not Available Not Available Not Available meloxicam 15 mg tablet 01/29 completed Not Available Not Available Not Available potassium chloride ER 10 mEq tablet,exte nded release Take 1 tablet every day by oral route. 2022 active Not Available Not Available Not Avai lable nifedipine ER 30 mg tablet,exte nded release 01/29 completed Not Available Not Available Not Available amlodipine 5 mg tablet Take 1 tablet every day by oral route. 03/09 completed Not Available Not Available Not Available ciprofloxac in 500 mg tablet Take 1 tablet every 12 hours by oral route. 03/09 completed Not Available Not Available Not Available tramadol 50 mg tablet 04/08 completed Not Available Not Available Not Available spironolact one 25 mg tablet active Not Available Not Available Not Available ondansetron 8 mg disintegrat ing tablet 01/29 completed Not Available Not Available Not Available phenoxybenz amine 10 mg capsule 1 cap po bid for 3 days then 1 cap qam and 2 cap qpm for 3 days then 2 cap bid and as directed 07/20 completed Not Available Not Available Not Available nortriptyli ne 25 mg capsule 04/08 completed Not Available Not Available Not Available propranolol 40 mg tablet 01/29 completed Not Available Not Available Not Available Cardizem CD 240 mg capsule,ext ended release Take 1 capsule every day by oral route. 08/16 completed Not Available Not Available Not Available furosemide 80 mg tablet Take 1 tablet every day by oral route. active Not Available Not Available No t Available dicyclomine 20 mg tablet 04/08 completed Not Available Not Available Not Available OneTouch Ultra Test strips Take 1 strip every day by miscell. route. active Not Available Not Available No t Available baclofen 10 mg tablet 01/29 completed Not Available Not Available Not Available pantoprazol e 40 mg tablet,cristina yed release Take 1 tablet every day by oral route. active Not Available Not Available No t Available metformin 1,000 mg tablet Take 1 tablet twice a day by oral route. active Not Available Not Available No t Available gabapentin 300 mg capsule 04/08 completed Not Available Not Available Not Available losartan 100 mg tablet Take 1 tablet every day by oral route. active Not Available Not Available No t Available atenolol 50 mg tablet 04/08 completed Not Available Not Available Not Available doxazosin 2 mg tablet Take 1 tablet every 6 hours by oral route. 07/17 completed Not Available Not Available Not Available amoxicillin 875 mg-potmathewiu m clavulanate 125 mg tablet Take 1 tablet every 12 hours by oral route. 07/17 completed Not Available Not Available Not Available nitrofurant oin monohydrate /macrocryst als 100 mg capsule 01/29 completed Not Available Not Available Not Available Lantus Solostar U-100 Insulin 100 unit/mL (3 mL) subcutaneou s pen 07/20 completed Not Available Not Available Not Available Humalog KwikPen (U-100) Insulin 100 unit/mL subcutaneou s 07/17 completed Not Available Not Available Not Available Bystolic 20 mg tablet Take 1 tablet every day by oral route. active Not Available Not Available No t Available Tradjenta 5 mg tablet 01/29 completed Not Available Not Available Not Available Contour Next Meter active Not Available Not Available N ot Available Farxiga 10 mg tablet Take 1 tablet every day by oral route. active Not Available Not Available No t Available Jardiance 25 mg tablet 07/20 completed Not Available Not Available Not Available Vitals Date Recorded Body weight Body temperature Heart rate Oxygen saturation Oxygen saturation in Arterial blood by Pulse oximetry Provider Name and Address Organization Details Last Updated DateTime 2 55116.9 3 g 98.7 [degF] 92 /min 93 % 93 % Amy. Lakesha 2 11:52:05 Date Recorded Body weight Respiratory rate Body temperature Heart rate Oxygen saturation Oxygen saturation in Arterial blood by Pulse oximetry Systolic And Diastolic Systolic And Diastolic Provider Name and Address Organization Details Last Updated DateTime 3 46884.3 g 16 /min 99.3 [degF] 79 /min 97 % 97 % 160/104 mm[Hg] 160/88 mm[Hg] Amy. Lakesha 3 15:43:57 Date Recorded Body weight Body temperature Heart rate Oxygen saturation Oxygen saturation in Arterial blood by Pulse oximetry Provider Name and Address Organization Details Last Updated DateTime 2 08507.4 8 g 99.4 [degF] 83 /min 96 % 96 % Amy. Lakesha 2 13:00:16 Date Recorded Respiratory rate Systolic And Diastolic Provider Name and Address Organization Details Last Updated DateTime 10/15/2021 0 /min 143/73 mm[Hg] Emelia Teixeira 10/15/2021 13:46:48 Date Recorded Body weight Body temperature Heart rate Oxygen saturation Oxygen saturation in Arterial blood by Pulse oximetry Provider Name and Address Organization Details Last Updated DateTime 1 93435.9 6 g 97.8 [degF] 107 /min 94 % 94 % Amy. Lakesha 1 15:40:41 Date Recorded Body weight Body temperature Heart rate Oxygen saturation Oxygen saturation in Arterial blood by Pulse oximetry Systolic And Diastolic Provider Name and Address Organization Details Last Updated DateTime 1 88215.3 3 g 98.7 [degF] 116 /min 97 % 97 % 186/94 mm[Hg] Amy. Lakesha 1 11:05:00 Social History Question Answer Notes LastModified by [employer] Details LastModified Time Tobacco Smoking Status Never Smoker MURIEL Nieto Amy. 02/04/2021 12:59:22 What Type Of Diet Are You Following? DIABETIC Information not available 02/04/2021 What Was The Date Of Your Most Recent Tobacco Screening? 01/29/2021 Information not available 02/04/2021 What Is Your Relationship Status? Information not available 02/04/2021 Are You Sexually Active? Yes Information not available 02/04/2021 Sex: Unknown Functional Status Question Answer Note LastModified by [employer] Details LastModified Time Do you use any illicit or recreational drugs? No Information not available 02/04/2021 Do you or have you ever used any other forms of tobacco or nicotine? No Information not available 02/04/2021 What is your level of alcohol consumption? None past regular to heavy alcohol ceased 09/04/2020 Information not available 02/04/2021 Mental Status None recorded. 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 Gynecological HistoryNo gynecological history recorded. Obstetrics History GPAL:G 0 P 0 0 0 0 Immunizations Vaccine Type Date Status Note Provider Nam e and Address Organization Details Recorded Time COVID-19, mRNA, LNP-S, PF, 30 mcg/0.3 mL dose 06/26/2020 completed MURIEL Rangel Amy. 01/29/2021 16:01:34 COVID-19, mRNA, LNP-S, PF, 30 mcg/0.3 mL dose 07/17/2020 completed MURIEL Rangel Amy. 01/29/2021 16:01:47 DTP 06/06/1996 completed MURIEL Rangel Amy. 03/11/2021 13:05:59 Hep A, adult 06/06/1996 completed MURIEL Rangel Amy. 03/11/2021 13:06:16 Hep A, pediatric, unspecified formulation 11/04/1998 completed MURIEL Rangel Amy. 03/11/2021 13:06:41 Hep A, pediatric, unspecified formulation 06/06/2020 MURIEL Gomes Amy. 03/11/2021 13:07:18 Hep B, unspecified formulation 11/04/1998 completed MURIEL Rangel Amy. 03/11/2021 13:07:45 Hep B, unspecified formulation 07/07/1998 MURIEL Gomes Amy. 03/11/2021 13:08:02 Hep B, unspecified formulation 06/06/1996 MURIEL Gomes Amy. 03/11/2021 13:08:23 MMR 06/06/1996 MURIEL Gomes Amy. 03/11/2021 13:08:48 OPV, Unspecified 06/06/1996 completed MURIEL Figueroa Amy. 03/11/2021 13:09:05 Tdap 06/06/1996 completed MURIEL Rangel Amy. 03/11/2021 13:09:27 Tdap 06/06/2008 completed MURIEL Rangel Amy. 03/11/2021 13:09:46 Past Encounters Encounter ID Performer Location Encounter Start Date Encounter Closed Date Diagnosis/Indication Diagnosis SNOMED-CT Code Diagnosis ICD10 Code Diagnosis Note [id number] Wood Stuart MD Main Office [address] [place], [place] [address] 01/29/2021 15:59:55 02/05/2021 14:21:13 Fever 619306704 R50.9 extensive blood testing ordered and plan was to treat with Cipro after labs drawn given signs of pyelonephr itis. However she contacted [place] 02/01 and had not started abx or had the labs. Very ill and directed to [facility] ERddx includes, lemierre's , hiv, cancer, tb, pyelonephr itis, osteomyeli tis, or rheum Liver func tion tests outside reference range 812643963 R94.[address] at [facility] with some resolution [id number] Wood Stuart MD Main Office [address] [place], [place] [address] 03/05/2021 15:40:12 03/16/2021 12:08:06 Solitary nodule of lung 589199558 R91.1 PET from skull through pelvis to eval for the Site of pheochromo cytoma as initial CT and imaging during hospitaliz ation was not revealings he has been having difficulty getting to the consultati on appointmen ts - due to work commitment s. and reports that since her visit with Dr. 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 Soco Paz of endocrinol ogy consulted at [facility] but Krystin has not made the recommende d follow up appt. (titrating meds at patient's request since she has been having difficulty getting to the consultati on appointmen ts - due to work commitment s. [id number] Wood Stuart MD Main Office [address] [place] [address] [place] [phone] 04/08/2021 10:03:47 04/13/2021 14:37:12 Pheochromocytoma 437359287 D35.00 increasing doxazoxin to 2 mg q 6 hours over next weekand resumed diltiazem 4 days prior to apptconcer n is that the PET Scan did not show discreet focus for surgerypos sible pheo cells in the pulmonary nodule a concernreq uesting endocrinol ogy assistance in managing and resolving condition as patient also hascholecy stitis signs and may need surgery soonThe patient agrees she will contact Dr. Dee about the follow up appt now that the PET Scan is done. Cholelithi asis without obstruction 06555102 K80.20 If her symptoms of fever and nausea return along with additional pain, will need surgery with close consultati on with endocrinol ogy given the Pheochromo cytoma Type 2 anthony betes mellitus 45147638 E11.9 I asked patient to also discuss ways to improve the diabetes control with endocrinol ogy.on lantus, humalog and metformin Solitary n odule of lung 343796670 R91.1 concern is that the PET Scan did not show discreet focus for surgery for pheochromo cytomaposs ible pheo cells in the pulmonary nodule a concernreq uesting endocrinol ogy assistance in managing and resolving condition as patient also hascholecy stitis signs and may need surgery soonThe patient agrees she will contact Dr. Dee about the follow up appt now that the PET Scan is done. Cirrhosis of liver 007 K74.60 prior history of alcohol use, will need further gi input but is off all alcohol. SIgns of hepatomega ly and splenomega ly on exam and imaging. [id number] Wood Stuart MD Main Office [address] [facility] [address] [place] [address] 07/17/2021 11:51:33 07/21/2021 11:53:14 Malignant hypertension 63858214 I10 responding to Cardiziem CD 180 mg but not at goal renew current meds, has hx of chf and mitral valve murmur possibly due to calcificat ion but no recent echocardio graphy, previous tx with Dr. Carroll of [facility]' 2016 after hospitaliz ation for chf Anxiety 78804014 F41.9 THis medication is helping her with anxiety which contribute s to the htn Type 2 anthony betes mellitus 78386335 E11.9 I asked patient to also discuss ways to improve the diabetes control with endocrinol ogy.off lantus, humalog and ON metformin. A1c 9.5 today done prior to her endocrinol ogy [place]. [id number] Wood Stuart MD Main Office [address] [place] [address] [place], [place] [phone] 10/15/2021 12:59:40 10/15/2021 13:56:33 Malignant hypertension 03899094 I10 responding to Cardiziem CD 240 mg but not at goal renew current meds, needs sleep study at [facility] with notes of malignant htn and presumed obstructio n due to hx of snoring. Screening mammography 24 944369 Z12.31 set up at [facility] digital [id number] Danisha Morrison DO Main Office [address] [place] [phone] 08/16/2022 15:35:05 08/23/2022 11:09:05 Type 2 diabetes mellitus 65070585 E11.9 uncertain control but she will be getting bloodwork done soon with dr Mcclain. Congestive heart failure 77675263 I50.9 uncertain precipitan t although likely dietary indiscreti on, perhaps HTN, hopefully not ACUTE THRMOBUS. she did have chest pain but per pt this is not unusual and she feels better today. she has had several negative LHC per her starting in 2020. Ideally I would admit her to ER to rule out ACS. But pt states she does not have insurance so she is very concerned about cost. she ensures me she will go to ER if chest pain recurs but currently she is asymptomat ic. EKG similar to prior but with long QTc I am hesitant to increase her lasix to bid until I get a BMP and magnesium. if nl, then we will increase her lasix and she will take KCl with it for 3 days. I recommend repeat cxr, TTE as well. she likely needs to see cardiology . I recommend she receive care at [facility] so she can take advantage of the [facility] care there and perhaps have some of her medical cost supplement ed if she qualifies. asked her to check her BP at home twice a day for next few days and call those in to me. Chronic chest pain [address]391 30144 08652 R07.9 per pt she gets chest pain every time she has dyspnea. denies palpitatio ns. see above Essential hypertension 44923902 I10 see above. Dyspnea 577833859 R06.00 nl now. see above. Epigastric pain 81372760 R10.13 possibly gastritis vs hernia with distention from heart failure exacerbati ng her symptoms. resolved with PPI. She eventually should see surgeon to eval if hernia related to intermitte nt pain and if not, go to GI. Heart murmur 78329645 R0 1.1 as above. repeating TTE. Health Concerns Section Related Observation LastModified by Organization Detai ls LastModified Time None Recorded Concern Status LastModified by Organization Details LastModified Time None Recorded Advance Directives Directive None Recorded Payers Encounter Date Sequence Insurance Name Policy Number Policy Anderson Covered Member ID Anderson Member ID Guarantor Name 03/05/2021 1 [facility] [id number] Krystin Foxreharrison [id number] Krystin Barrera 04/08/2021 1 [facility] [id number] Krystin Foxreharrison [id number] Krystin Barrera 07/17/2021 1 [facility] [id number] Krystin Schreharrison [id number] Krystin Foxreharrison 10/15/2021 1 [facility] [id number] Krystin Schreharrison [id number] Krystin Barrera Notes Date Note Type Note Provider Name and Address Organization Details Recorded Time 1 text/html Feb[facility] [address] [facility], [facility], knee pain, diagnosed with pna neg covid and 1 cm lung nodue awaiting PET scanprior in september quit alcohol and to[place]ecame ill again with malignant htn [facility] the [facility], echo and blood cultures negativebut the metanephrines positive without imaging source for presumed pheochromocytomathe incidental finding of cholelithiasis without evidence of obstruction but some prior enhancement on ct c/w inflammationDr. Soco Paz of endocrinology consulted at [facility] but Krystin has not made the recommended follow up appt. MURIEL Nieto Amy. 03/13/2021 13:53:58 1 text/html She is up to doxazosin 1 mg q 6 hours but bp in 180 with elevated hr off diltiazemwe reviewed the 2 PET scans to eval the lung noduleone with general tracer and 2nd with pheo specific tracer.except for mild uptake in lung nodule no specific locus for catecholamine secretion foundshe has had no further fever.intermittent abdomen discomfort but not ruqintermittent soft stool then constipation.continues to monitor blood sugar when she canPreceeding the appt info sent to endocrine office at [facility] reports she has not contacted Dr. Dee of Pulmonology as recommended (Dr. Dee first requested the PET scan shortly after her initial evaluation at hospital in [place])ros negative for further seizure, headache, confusion, syncope, fever, chills, nausea, emesis, bleedingno alcohol for many monthes. MURIEL Nieto Amy. 04/13/2021 12:25:37 2 text/html vitals based on home reading - with correlation to today 129/74 after long period of rest before taking readingDrCory Kay has excluded pheochromocytoma after labs and renal artery stenosis (by doppler u/s).She has no complaints related to the galstones.she has resumed use of alcohol but would prefer to quit. She plans to use her tools to aid recovery.Her needs lifting and care at home but at least he has qualified for disability. MURIEL Nieto Amy. 07/20/2021 11:16:20 2 text/html BG high and has appt with her endo [place] next weekfarxiga too expensiveshe has stopped all alcohol last weekdenies cp/morrow/worsening edema/jaundice/syncope/f ever/palpitations Needs doxazosin refill and probably metformin\\she is ready to pursue sleep study MURIEL Nieto Amy. 10/15/2021 13:50:37 3 text/html HPI: here for sick visit as her PCP is out of office today. last night water pill didn't help yesterday and was up all night not being able to breathe. feels wet cough. didn't sleep well. couldn't lie flat. has chronic chest pain that comes and goes. has been since 2020 when she was hospitalized with CHF. worse when she can't breathe. better today. has had 3 LHC and there were all nl. Also told that she has a ventral abd hernia. she thinks it is exacerbated. if she takes a PPI, the pain that she has with it stops. doesn't have insurance right now. she has been very bloated. has not been seeing cardiology. she doesn't know the cause of her heart failure but like diastolic based on description. last night had some ham but has never had issues with eating ham before. she does try to eat low sodium. no edema in legs. she has been on and off mounjaro. when she doesn't take mounjaro it is higher. DO luisito Rees [place] - Beck, Amy. 08/16/2022 17:48:18 OBGyn Episode No OBEpisode recorded.
--- OUTSIDE RECORDS SUMMARY | 2024-10-29 10:07 | XMS_ITS | Encounter Summary ---
Author Organization [employer] Address [address] [place] [address] Care Team Providers Care Inspector Brake Lining Name Role Phone Joss Carpio MD Primary Care Provider [phone] Encounter Details Date Type Department Care Team (Latest Contact Info) Description 12/25/2003 Outpatient Historical HIS [facility] Balaji Prakash MD NO ADDRESS ON FILE INFEC OTITIS EXTERNA NOS (Primary Dx) Social History Tobacco Use Types Packs/Day Years Used Date Smoking Tobacco: Never Assessed Comments Unknown Sex and Gender Information Value Date Recorded Sex Assigned at Not on file Legal Sex Female 2:51 AM HIP HOP PERFORMERS Gender Identity Not on file Sexual Orientation Not on file documented as of this encounter Plan of Treatment Not on file documented as of this encounter Visit Diagnoses Diagnosis Infective otitis externa, unspecified- Primary documented in this encounter Additional Health Concerns Infection Onset Date Last Indicated Resolved Time R/O C. diff 11/21/2023 11/21/2023 11/21/2023 12:5 2 PM CDT C Diff Comment:11/21/23 11/21/2023 11/21/2023 01/20/2024 1:16 AM C DT documented as of this encounter Care Teams Inspector Brake Lining Relationship Specialty [place] [address] [address] PCP - General Fluorescent Lighting Model Maker 09/26/23 documented as of this encounter
--- OUTSIDE RECORDS SUMMARY | 2024-10-29 10:07 | XMS_ITS | Encounter Summary ---
Author Organization [employer] Address [address] [place] [address] Care Team Providers Care Sr Account Executive Name Role Phone Joss Carpio MD Primary Care Provider [phone] Encounter Details Date Type Department Care Team (Late st Contact Info) Description 01/14/2002 Outpatient Historical [facility] Raquel Horan Er, Authorized P NO ADDRESS ON FILE UNSPEC DENTAL CARIES (Primary Dx) Social History Tobacco Use Types Packs/Day Years Used Date Smoking Tobacco: Never Assessed Comments Unknown Sex and Gender Information Value Date Recorded Sex Assigned at Not on file Legal Sex Female 2:51 AM DIETARY AIDE TEACHER Gender Identity Not on file Sexual Orientation [...] documented as of this encounter Care Teams Sr Account Executive Relationship Specialty [place] [address] [address] PCP - General Byproducts Extractor 09/26/23 documented as of this encounter
--- OUTSIDE RECORDS SUMMARY | 2024-10-29 10:07 | XMS_ITS | Encounter Summary ---
Author Organization [employer] Address 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 diff 11/21/2023 11/21/2023 11/21/2023 12:5 2 PM CDT C Diff Comment:11/21/23 11/21/2023 11/21/2023 01/20/2024 1:16 AM C DT documented as of this encounter Care Teams Community Health Planning Director Relationship Specialty [place] [address] [address] PCP - General Convention Planner 09/26/23 documented as of this encounter
--- OUTSIDE RECORDS SUMMARY | 2024-10-29 10:07 | XMS_ITS | Encounter Summary ---
Author Organization [employer] Address [address] [place] [address] Care Team Providers Care Rv Detailer Name Role Phone Joss Carpio MD Primary Care Provider [phone] Encounter Details Date Type Department Care Team (Late st Contact Info) Description 11/22/2001 Outpatient Historical [facility] Jose Angel Barros MD [address] [place] [address] [address] [place] [address] Er, Authorized P NO ADDRESS ON FILE OTHER POSTOP INFECTION (Primary Dx) Social History Tobacco Use Types Packs/Day Years Used Date Smoking Tobacco: Never Assessed Comments Unknown Sex and Gender Information Value Date Recorded Sex Assigned at Not on file Legal Sex Female 2:51 AM PRODUCT MARKETER Gender Identity Not on file Sexual Orientation [...] documented as of this encounter Care Teams Rv Detailer Relationship Specialty [place] [address] [address] PCP - General Popcorn Vendor 09/26/23 documented as of this encounter
--- OUTSIDE RECORDS SUMMARY | 2024-10-29 10:07 | XMS_ITS | Encounter Summary ---
Author Organization [employer] Address [address] [place] [address] Care Team Providers Care Outside Machinist Name Role Phone Joss Carpio MD Primary Care Provider [phone] Encounter Details Date Type Department Care Team (Late st Contact Info) Description 07/08/2002 [facility] Authorized P NO ADDRESS ON FILE OTALGIA NOS (Primary Dx) Social History Tobacco Use Types Packs/Day Years Used Date Smoking Tobacco: Never Assessed Comments Unknown Sex and Gender Information Value Date Recorded Sex Assigned at Not on file Legal Sex Female 2:51 AM PER DIEM RN Gender Identity Not on file Sexual Orientation [...] documented as of this encounter Care Teams Outside Machinist Relationship Specialty [place] [address] [address] PCP - General Superintendent Water And Sewer Systems 09/26/23 documented as of this encounter
--- OUTSIDE RECORDS SUMMARY | 2024-10-29 10:07 | XMS_ITS | Encounter Summary ---
Author Organization [email or web address] Address [address] [place] [address] Care Team Providers Care Technical Services Librarian Name Role Phone Joss Carpio MD Primary Care Provider Encounter Details Date Type Department Care Team (Late st Contact Info) Description 09/13/2002 Outpatient Historical [facility] Er, Authorized P NO ADDRESS ON FILE OTALGIA NOS (Primary Dx) Social History Tobacco Use Types Packs/Day Years Used Date Smoking Tobacco: Never Assessed Comments Unknown Sex and Gender Information Value Date Recorded Sex Assigned at Not on file Legal Sex Female 2:51 AM LAB TESTER Gender Identity Not on file Sexual Orientation [...] documented as of this encounter Care Teams Technical Services Librarian Relationship Specialty [place] [address] [address] PCP - General Umbrella Frame Maker 09/26/23 documented as of this encounter
--- OUTSIDE RECORDS SUMMARY | 2024-10-29 10:07 | XMS_ITS | Encounter Summary ---
Author Organization [employer] Address [address] [place] [address] Care Team Providers Care Deputy Court Clerk Name Role Phone Joss Carpio MD Primary Care Provider [phone] Encounter Details Date Type Department Care Team (Latest Contact Info) Description 07/13/2002 Outpatient Historical HIS [facility] Fatemeh Villafuerte MD [address] [facility] [address] [place] [address] RECURR DEPR PSYCHOS-UNSP (Primary Dx) Social History Tobacco Use Types Packs/Day Years Used Date Smoking Tobacco: Never Assessed Comments Unknown Sex and Gender Information Value Date Recorded Sex Assigned at Not on file Legal Sex Female 2:51 AM VIOLIN TEACHER Gender Identity Not on file Sexual Orientation Not on file documented as of this encounter Plan of Treatment Not on file documented as of this encounter Visit Diagnoses Diagnosis Major depressive disorder, recurrent episode, unspecified- Primary documented in this encounter Additional Health Concerns Infection Onset Date Last Indicated Resolved Time R/O C. diff 11/21/2023 11/21/2023 11/21/2023 12:5 2 PM CDT C Diff Comment:11/21/23 11/21/2023 11/21/2023 01/20/2024 1:16 AM C DT documented as of this encounter Care Teams Deputy Court Clerk Relationship Specialty [place] [address] [address] PCP - General Laboratory Asst 09/26/23 documented as of this encounter
--- OUTSIDE RECORDS SUMMARY | 2024-10-29 10:07 | XMS_ITS | Encounter Summary ---
Author Organization [facility] Address [address] [place] [address] Care Team Providers Care Warp Knitting Machine Operator Name Role Phone Joss Carpio MD Primary Care Provider [phone] Encounter Details Date Type Department Care Team (Late st Contact Info) Description 10/11/2001 Outpatient Historical [address] [place] [address] Brad Hernandez MD Social History Tobacco Use Types Packs/Day Years Used Date Smoking Tobacco: Never Assessed Comments Unknown Sex and Gender Information Value Date Recorded Sex Assigned at Not on file Legal Sex Female 2:51 AM PHYSICIAN/OPHTHALMOLOGIST Gender Identity Not on file Sexual Orientation [...] documented as of this encounter Care Teams Warp Knitting Machine Operator Relationship Specialty [place] [address] [address] PCP - General Health Promotion Coordinator 09/26/23 documented as of this encounter
--- OUTSIDE RECORDS SUMMARY | 2024-10-29 10:08 | XMS_ITS | Encounter Summary ---
Author Organization [employer] Address [address] [place] [address] Care Team Providers Care Instrument And Control Service Person Name Role Phone Joss Carpio MD Primary Care Provider Encounter Details Date Type Department Care Team (Latest Contact Info) Description 11/01/2004 Outpatient Historical HIS [facility] Martinez Alberto, DO * UNSPEC DENTAL CARIES (Primary Dx) Social History Tobacco Use Types Packs/Day Years Used Date Smoking Tobacco: Never Assessed Comments Unknown Sex and Gender Information Value Date Recorded Sex Assigned at Not on file Legal Sex Female 2:51 AM CHLOROBUTADIENE SCRUBBER OPERATOR Gender Identity Not on file Sexual [...] documented as of this encounter Care Teams Instrument And Control Service Person Relationship Specialty [place] [address] [address] PCP - General College Or University Faculty Member 09/26/23 documented as of this encounter
--- OUTSIDE RECORDS SUMMARY | 2024-10-29 10:08 | XMS_ITS | Clinical Summary ---
Author Organization [facility] Address [address] [place] [address] Care Team Providers Care Radio Sales Account Executive Name Role Phone Francisco Montemayor MD Unavailable [phone] Martinez Nieves MD Unavailable [phone] [facility],non-owned Affiliates and Associated Physician Practices is amultiple site organization consisting of ambulatory clinics and hospital sitesin [place], [place], [place] and [place]. This disclosure is being madepursuant to the Care Everywhere program and may not contain all information available regarding this patient. Last updated 18.[facility] Allergies Active Allergy Reactions Criticality Noted Date Comments Aspirin 03/28/2012 Lisinopril Cough Low 03/16/2016 Morphine 03/28/2012 Sulfa Drugs 03/28/2012 Medications * Be aware that medications may not be up to date on this document. Alwaysverify current medications with the patient. pseudoephedrin e (SUDAFED) 30 MG tabletIndicati ons:Cold Symptoms,Nasal Congestion Take 60 mg by mouth every 4 hours as needed. Indications: Cold Symptoms, Stuffy Nose Active acetaminophen (TYLENOL) 500 MG tablet Take 1,000 mg by mouth every 4 hours as needed. Maximum allowable Acetaminophen amount = 4 Grams (4000 mg) / 24 hours. Active hydrocodone-ac etaminophen (NORCO) 5-325 MG tablet Take 0.5-1 Tabs by mouth every 4 hours as needed for Pain 5 Tab 0 5 Active Additional Information Patient not taking.Reported on 03/16/2016 traMADol (ULTRAM) 50 MG tablet Take 1 Tab by mouth every 4 hours as needed for Pain 20 Tab 0 6 Active furosemide (LASIX) 80 MG tablet Take by mouth once daily Active FLUoxetine (PROZAC) 40 MG capsule Take 60 mg by mouth Active ibuprofen (MOTRIN) 200 MG tablet Take 400 mg by mouth every 6 hours as needed for Pain Active atenolol (TENORMIN) 50 MG tablet Take 1 Tab by mouth 2 times daily 60 Tab 5 6 Active Active Problems Problem Noted Date Diagnosed Date Chronic diastolic congestive heart failure 05/21 Chest pain, precordial 05/21/2016 HTN (hypertension) 05/10/2012 Low back pain 05/10/2012 Lumbar radiculopathy 05/10/2012 Lateral epicondylitis 03/31/2012 Overview (03/06/2015): Family History Medical History Relation Name Comments Diabetes Father Hypercholesterolemia Father Cancer Mother cevical Heart Failure Mother Hypertension Mother Diabetes Paternal Grandmother Relation Name Status Comments Brother 1 Alive Brother 2 Alive Father Alive Maternal Grandfather Maternal Grandmother Mother Paternal Grandfather Paternal Grandmother Social History Tobacco Use Types Packs/Day Years Used Date Smoking Tobacco: Never Alcohol Use Standard Drinks/Week Comments No 0 (1 standard drink = 0.6 oz pur e alcohol) Comments No Sex and Gender Information Value Date Recorded Sex Assigned at Not on file Legal Sex Female 6:21 AM ARCHITECTURAL EXAMINER Gender Identity Not on file Sexual Orientation Not on file Last Filed Vital Signs Vital Sign Reading Time Taken Comments Blood Pressure 160/98 05/21/2016 11:02 AM ARCHITECTURAL EXAMINER Pulse 86 05/21/2016 11:02 AM ARCHITECTURAL EXAMINER Temperature 36.9 C (98.4 F) 03/17/2016 11:30 AM CDT Respiratory Rate 18 03/17/2016 11:30 AM CDT Oxygen Saturation 98% 03/17/2016 11:30 AM CDT Inhaled Oxygen Concentration - - Weight 96.2 kg (212 lb) 05/21/2016 11:02 AM ARCHITECTURAL EXAMINER Height 139.7 cm (4' 7) 05/21/2016 11:02 AM ARCHITECTURAL EXAMINER Body Mass Index 49.27 05/21/2016 11:02 AM ARCHITECTURAL EXAMINER Plan of Treatment Health Maintenance Due Date Last Done Comments COLOGUARD (AGES 45-75) - COL ON CA SCREENING 1969 COLON MONITORING 1969 COLONOSCOPY - COLON CA SCREENING 1969 CT COLONOGRAPHY - COLON CA SCREENING 1969 Colorectal Cancer Screening 1969 FIT - COLON CA SCREENING 1969 FLEX SIG - COLON CA SCREENING 1969 LIPID TESTING 1969 MAMMOGRAM 1969 HIV SCREENING 1984 HEPATITIS C SCREENING 12/10/1987 DTAP/TDAP/TD VACCINES (1 - Tdap) 1988 HEPATITIS B VACCINE (1 of 3 - 19+ 3-dose series) 1988 PNEUMOCOCCAL VACCINE 50+ (1 of 2 - PCV) 1988 PAP SMEAR 05/16/2015 05/16/2012 (Previously completed) ZOSTER VACCINE (1 of 2) 12/15/2019 COVID-19 VACCINE (1 - 2023-2 5 season) 2024 DEPRESSION SCREENING 06/06/2024 INFLUENZA VACCINE (Season Ended) 2025 06/06/2006 HIB VACCINE Aged Out No longer eligi ble based on patient's age to complete this topic HPV VACCINE Aged Out No longer eligi ble based on patient's age to complete this topic MENINGOCOCCAL (Group B) VACCINE SHARED DECISION-MAKING Aged Out No longer eligible based on patient's age to complete this topic MENINGOCOCCAL GROUPS A/C/Y/W VACCINE Aged Out No longer eligible b ased on patient's age to complete this topic Insurance [facility] [place] [address] [facility] [place] [address] [facility] * Guarantor: KRYSTIN COLUNGA Account Type Relation to Patient Date of Phone Billing Address Personal/Family [address] [place] [id number] Advance Directives * Full Code (Latest Code Status on File) Date Activated Date Inactivated Comments 03/16/2016 2:35 PM 03/17/2016 5:16 PM Care Teams Radio Sales Account Executive Relationship Specialty Start Date End Date Francisco Montemayor MD Orthopedic Surgery 03/31/12 Martinez Nieves MD [address] [facility] [address] [place] [address] Cardiovascular Disease 06/21/16
--- OUTSIDE RECORDS SUMMARY | 2024-10-29 10:08 | XMS_ITS | Encounter Summary ---
Author Organization [facility] Address [address] [place] [address] Care Team Providers Care Assistant Casino Shift Manager Name Role Phone Joss Carpio MD Primary Care Provider Encounter Details Date Type Department Care Team (Late st Contact Info) Description 09/14/2001 Outpatient Historical [facility] [address] [address] Stormy Garcia MD NO ADDRESS ON FILE Social History Tobacco Use Types Packs/Day Years Used Date Smoking Tobacco: Never Assessed Comments Unknown Sex and Gender Information Value Date Recorded Sex Assigned at Not on file Legal Sex Female 2:51 AM RAWHIDE BONE ROLLER Gender Identity Not on file Sexual Orientation [...] documented as of this encounter Care Teams Assistant Casino Shift Manager Relationship Specialty [place] [address] [facility] [address] [place] [address] PCP - General Mine Manager 09/26/23 documented as of this encounter
--- OUTSIDE RECORDS SUMMARY | 2024-10-29 10:08 | XMS_ITS | Encounter Summary ---
Author Organization [facility] Address [address] [place] [address] Care Team Providers Care Object Oriented Developer Name Role Phone Joss Carpio MD Primary Care Provider [phone] Encounter Details Date Type Department Care Team (Late st Contact Info) Description 05/05/2001 Outpatient Historical [address] [place] [address] Brad Hernandez MD Social History Tobacco Use Types Packs/Day Years Used Date Smoking Tobacco: Never Assessed Comments Unknown Sex and Gender Information Value Date Recorded Sex Assigned at Not on file Legal Sex Female 2:51 AM MANAGER OF FINANCIAL PLANNING Gender Identity Not on file Sexual Orientation [...] documented as of this encounter Care Teams Object Oriented Developer Relationship Specialty [place] [address] [address] PCP - General Jewelry Bearing Maker 09/26/23 documented as of this encounter
--- OUTSIDE RECORDS SUMMARY | 2024-10-29 10:08 | XMS_ITS | Encounter Summary ---
Author Organization [facility] Address [address] [place] [address] Care Team Providers Care Parking Manager Name Role Phone Joss Carpio MD Primary Care Provider Encounter Details Date Type Department Care Team (Late st Contact Info) Description 04/25/2001 Outpatient Historical [facility] [address] [address] Stormy Garcia MD NO ADDRESS ON FILE Social History Tobacco Use Types Packs/Day Years Used Date Smoking Tobacco: Never Assessed Comments Unknown Sex and Gender Information Value Date Recorded Sex Assigned at Not on file Legal Sex Female 2:51 AM RADIATOR SPECIALIST Gender Identity Not on file Sexual Orientation [...] documented as of this encounter Care Teams Parking Manager Relationship Specialty [place] [address] [facility] [address] [place] [address] PCP - General Cotton Converter 09/26/23 documented as of this encounter
--- OUTSIDE RECORDS SUMMARY | 2024-10-29 10:08 | XMS_ITS | Encounter Summary ---
Author Organization [facility] Address [address] [place] [address] Care Team Providers Care Litigation Attorney Associate Name Role Phone Joss Carpio MD Primary Care Provider Encounter Details Date Type Department Care Team (Late st Contact Info) Description 11/30/2000 Outpatient Historical [facility] [address] [address] Stormy Garcia MD NO ADDRESS ON FILE Social History Tobacco Use Types Packs/Day Years Used Date Smoking Tobacco: Never Assessed Comments Unknown Sex and Gender Information Value Date Recorded Sex Assigned at Not on file Legal Sex Female 2:51 AM GRANULATOR OPERATOR Gender Identity Not on file Sexual [...] documented as of this encounter Care Teams Litigation Attorney Associate Relationship Specialty [place] [address] [facility] [address] [place] [address] PCP - General Radio Electronics Officer 09/26/23 documented as of this encounter
--- OUTSIDE RECORDS SUMMARY | 2024-10-29 10:08 | XMS_ITS | Encounter Summary ---
Author Organization [facility] Address [address] [place] [address] Care Team Providers Care Jira Developer Name Role Phone Joss Carpio MD Primary Care Provider [phone] Encounter Details Date Type Department Care Team (Late st Contact Info) Description 05/29/[address] [facility] [address] [place] [address] Marlo Joyner MD [address] [place] [id number] Social History Tobacco Use Types Packs/Day Years Used Date Smoking Tobacco: Never Assessed Comments Unknown Sex and Gender Information Value Date Recorded Sex Assigned at Not on file Legal Sex Female 2:51 AM WORKFORCE CONSULTANT Gender Identity Not on file Sexual Orientation [...] documented as of this encounter Care Teams Jira Developer Relationship Specialty [place] [id number] [address] PCP - General Adoption Coordinator 09/26/23 documented as of this encounter
--- OUTSIDE RECORDS SUMMARY | 2024-10-29 10:08 | XMS_ITS | Encounter Summary ---
Author Organization [facility] Address [address] [place] [address] Care Team Providers Care Blind Aide Name Role Phone Joss Carpio MD Primary Care Provider [phone] Encounter Details Date Type Department Care Team (Late st Contact Info) Description 12/19/2004 [place] [facility] [place] [address] [place] [address] LATERAL EPICONDYLITIS (Primary Dx) Social History Tobacco Use Types Packs/Day Years Used Date Smoking Tobacco: Never Assessed Comments Unknown Sex and Gender Information Value Date Recorded Sex Assigned at Not on file Legal Sex Female 2:51 AM BULK PICKER Gender Identity Not on file Sexual Orientation [...] documented as of this encounter Care Teams Blind Aide Relationship Specialty [place] [id number] [id number] PCP - General Recruitment Specialist 09/26/23 documented as of this encounter
--- OUTSIDE RECORDS SUMMARY | 2024-10-29 10:08 | XMS_ITS | Referral Summary ---
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 Sulfa (Sulfonamide Antibiotics) Hives,Rash Reaction: Hives, , Reaction: Rash, , Sulfanilamide Rash Reaction: Rash, , Reaction: Rash, , Sulfasalazine Hives Medium 04/14/2015 Medications FLUoxetine (PROzac) 40 mg capsuleIndicati ons:depression Take 2 capsules by mouth daily Active Lasix 40 mg tabletIndicatio ns:hypertension Take 1 tablet by mouth daily 09/08/2018 Active spironolactone (ALDACTONE) 50 mg tabletIndicatio ns:hypertension Take 1 tablet by mouth daily 11/26/2023 Active semaglutide (Ozempic) 0.25 mg or 0.5 mg (2 mg/3 mL) pen injector injection Inject 0.25 mg under the skin once a week 10/13/2023 Active metFORMIN (GLUCOPHAGE) 1,000 mg tablet Take 1 tablet (1,000 mg total) by mouth 2 (two) times a day with meals 60 tablet 05/03/2024 Active folic acid (FOLVITE) 1 mg tabletIndicatio ns:Folate Deficiency Take 1 tablet (1 mg total) by mouth daily 30 tablet 11 05/02/2024 05/02/[address] (PROTONIX) 40 mg EC tablet Take 1 tablet (40 mg total) by mouth daily 30 tablet 1 05/01/2024 Active zinc sulfate (ZINCATE) 50 mg zinc (220 mg) capsuleIndicati ons:Zinc Deficiency Take 1 capsule (220 mg total) by mouth 2 (two) times a day 60 capsule 1 06/04/2024 Active LORazepam (Ativan) 1 mg tabletIndicatio ns:Insomnia,anx iety Take 0.5 tablets (0.5 mg total) by mouth nightly as needed for anxiety 30 tablet 06/20/2024 Active magnesium oxide 400 mg magnesium capsuleIndicati ons:hypomagnese marlen Take 1 capsule by mouth 2 (two) times a day Active lactulose solution 10 gram/15mLIndica tions:ammonia levels Take 30 mL (20 g total) by mouth 2 (two) times a day 1800 mL 1 07/03/2024 Active levETIRAcetam (KEPPRA) 750 mg tabletIndicatio ns:seizure Take 1 tablet (750 mg total) by mouth 2 (two) times a day 60 tablet 1 07/03/2024 Active hydrOXYzine (ATARAX) 25 mg tabletIndicatio ns:anxiety Take 1 tablet (25 mg total) by mouth every 8 (eight) hours as needed for anxiety for up to 30 doses 30 tablet 07/03/2024 Active ibuprofen (ADVIL,MOTRIN) 400 mg tabletIndicatio ns:Pain Take 400 mg by mouth every 8 (eight) hours as needed for pain. 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 Patient presenting to the hospital with epigastric abdominal pain, with normal lipase, radiating to RUQ with sonographic evidence of acute cholecystitis. CT abdomen with possible esophagitis as well, could be causing patients pain, PUD could be possible given blood in stool over weekend however Hg remains stable at this time. LFT elevation consistent with cholestatic pattern. - Gen surgery consulted, appreciate recommendations. - MRCP no evidence of cholecystitis, cholangitis or choledocholithiasis. Abx discontinued. Diabetes mellitus 02/28/2024 Assessment & Plan (02/28/2024 4:48 PM CDT): Patient with history of DM, reports she is on Ozempic. No other oral hyperglycemics. She also states that when she is in the hospital in the past she has been on high dose insulin, but does not take. - Continue SSI at this time, accuchecks TID AC QHS, Hypoglycemia protocol place. Syncope 01/12/2021 Hypertensive emergency 01/12/2021 Troponin level elevated 01/12/2021 Lactic acidosis 01/12/2021 Elevated brain natriuretic peptide (BNP) level 0 01/12/2021 Hyperglycemia 01/12/2021 Liver cirrhosis 01/12/2021 Assessment & Plan (02/29/2024 6:06 PM CDT): #ETOH Cirrhosis (HE, EV) #Increased Bilirubin, concern for possible Alc Hepatitis Patient presenting with abdominal pain as per above, no CT evidence of large volume ascites. CPS B score. - Low concern for EV bleed at this time, no ascites on CT, and not encephalopathic right now. 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 - Continue Lactulose for 3-4 BM per day. - Continue to trend Slava Treviño In 27 at this time, would not benefit from Steroids if indeed this was Alcoholic Hepatitis, patient is at risk as recent alcohol use within the past 30 days. - Elevated liver enzymes likely from etoh use given no evidence of cholecystitis, cholangitis or choledocholithiasis on MRCP. MELD 3.0: 20 at 02/27/2024 9:20 PM MELD-Na: 19 at 02/27/2024 9:20 PM Calculated from: Serum Creatinine: 0.63 mg/dL (Using min of 1 mg/dL) at 02/27/2024 9:20 PM Serum Sodium: 137 mmol/L at 02/27/2024 9:20 PM Total Bilirubin: 7.7 mg/dL at 02/27/2024 9:20 PM Serum Albumin: 3.8 g/dL (Using max of 3.5 g/dL) at 02/27/2024 9:20 PM INR(ratio): 1.51 at 02/27/2024 7:27 AM Age at listing (hypothetical): 53 years Sex: Female at 02/27/2024 9:20 PM Hyperbilirubinemia 01/12/2021 Pyelonephritis 01/11/2021 HTN (hypertension) 09/29/2020 Assessment & Plan (02/28/2024 4:49 PM CDT): Continue Amlodipine, Losartan. Acute nonintractable headache 09/29/2020 Precordial pain 02/19/2018 Assessment & Plan (02/19/2018 6:41 AM CDT): Initial troponins are negative EKG negative for any acute ischemic changes Admit to telemetry Trend troponins Nitroglycerin Aspirin Echocardiogram is pending Patient has an appointment with her gas desulfurizer on Tuesday. If workup negative and EKG remains unchanged may consider discharging home with close follow-up with her gas desulfurizer. Fatty liver 02/18/2018 Assessment & Plan (02/19/2018 6:36 AM CDT): Patient had been referred for further evaluation for fatty liver, possible CHU Will need to have a follow-up outpatient with GI Alcohol dependence in remission 12/25/2013 Overview (09/09/2016): Alcohol addiction in remission Assessment & Plan (02/29/2024 6:12 PM CDT): Patient reports that she has not had alcohol in 2 weeks, does not have any history of withdrawals. ETOH low in ED as well. Offered vivitrol or naltrexone but pt did not want this. Assessment & Plan (02/19/2018 6:38 AM CDT): Continue with Prozac and lorazepam Tendinitis AND/OR tenosynovitis of the elbow reg ion 10/20/2013 Overview (09/10/2016): Elbow tendonitis Benign hypertension 10/20/2013 Overview (09/11/2016): BENIGN HYPERTENSION Assessment & Plan (02/19/2018 6:37 AM CDT): Blood pressure was elevated in the ED. Currently improved Continue with home cardiac pertinent medications Hydralazine as needed for blood pressure elevation above 160 Hypertension 10/20/2013 Overview (09/10/2016): HYPERTENSION NOS Hyperlipidemia 10/20/2013 Overview (09/10/2016): HYPERLIPIDEMIA NEC/NOS Assessment & Plan (02/19/2018 6:36 AM CDT): Not on statin due to elevated liver function test Continue aspirin Pure hyperglyceridemia 10/20/2013 Overview (09/10/2016): PURE HYPERGLYCERIDEMIA Atopic rhinitis 10/20/2013 Overview (09/10/2016): ALLERGIC RHINITIS NOS Adiposity 10/20/2013 Overview (09/10/2016): OBESITY NOS Assessment & Plan (02/19/2018 6:39 AM CDT): Weight loss encouraged Temporomandibular joint disorder 07/04/2013 Overview (09/09/2016): TMJ disease Sciatica 07/04/2013 Overview (09/10/2016): Sciatica History of drug abuse ([facility]) 06/06/2013 Overview (09/09/2016): History of drug abuse Acute chest pain Hypertensive heart disease with congestive heart failure Acute kidney injury Abdominal pain Assessment & Plan (02/29/2024 6:12 PM CDT): Given workup, likely from acute etoh hepatitis or esophagitis/gastritis/duodenitis. Recommended etoh cessation and PPI rx. Lung mass Elevated urine levels of catecholamines Immunizations Immunization Administration Dates Next Due DTP 06/06/1996 Hep A, Adult 06/06/1996 Hep A, Pediatric 11/04/1998,06/06/1998 Hep B Vaccine 06/06/1996 Hep B, Adolescent or Pediatric 11/04/1989,1989,06/06/1989 Influenza, Trivalent, IM (MDV) 02/04/2007 Influenza, Trivalent, Preser vative Free, Intramuscular 05/01/2024 MMR 06/06/1996,06/06/1996 OPV 06/06/1996 Td, adsorbed 06/06/1996 Tdap 12/17/2008,05/25/2007 Social History Tobacco Use Types Packs/Day Years Used Date Smoking Tobacco: Never Smokeless Tobacco: Never Alcohol Use Standard Drinks/Week Comments No 0 (1 standard drink = 0.6 oz pur e alcohol) OASIS [id number]: Social Isolation Answer Da te Recorded Frequency of experiencing loneliness or isolatio n Never 07/08/2024 [facility] Utilities Answer Date Recorded In the past 12 months has e [email or web address], gas, oil, or water [employer] threatened to shut off services in your home? No 06/28/2024 Social Connection and Isolat ion Panel [NHANES] Answer Date Recorded In a typical week, how many times do you talk on the phone with family, friends, or neighbors? More than three times a week 06/28/2024 How often do you get togethe r with friends or relatives? More than three times a week 06/28/2024 How often do you attend chur ch or quaker services? Patient declined 06/28/2024 Do you belong to any clubs o r organizations such as zoroastrian groups, unions, fraternal or athletic groups, or school groups? Patient declined 06/28/2024 How often do you attend meet ings of the clubs or organizations you belong to? Patient declined 06/28/2024 Are you , , di vorced, , never , or living with a partner? 06/28/2024 AUDIT-C Answer Date Recorded Q1: How often do you have a drink containing alcohol? 4 or more times a week 05/31/2024 Q2: How many drinks containi ng alcohol do you have on a typical day when you are drinking? 5 or 6 Q3: How often do you have si x or more drinks on one occasion? Daily or almost daily 05/31/2024 Overall Financial Resource Strain (CARDIA) Answe r Date Recorded How hard is it for you to pa y for the very basics like food, housing, medical care, and heating? Somewhat hard 06/28/2024 PHQ-2 Answer Date Recorded PHQ-2 Total Score 0 02/29/2024 Hunger Vital Sign Answer Date Recorded Within the past 12 months, y ou worried that your food would run out before you got the money to buy more. Never true 06/28/19 25 Within the past 12 months, t he food you bought just didn't last and you didn't have money to get more. Never true 06/28/2024 PRAPARE - Transportation Answer Date Re corded In the past 12 months, has l ack of transportation kept you from medical appointments or from getting medications? No 06/07 In the past 12 months, has l ack of transportation kept you from meetings, work, or from getting things needed for daily living? No 06/28/2024 Housing Stability Vital Sign Answer Kevon e Recorded In the last 12 months, was t here a time when you were not able to pay the mortgage or rent on time? No 04/23/2024 In the past 12 months, how m any times have you moved where you were living? 0 04/23/2024 At any time in the past 12 m [facility], were you homeless or living in a fpc (including now)? No 04/23/2024 Personal Safety Answer Date Recorded Have you ever been in or are you currently in a harmful physical or emotional relationship or is someone making you feel afraid or unsafe? Denies 06/28/2024 Comments No Sex and Gender Information Value Date Recorded Sex Assigned at Not on file Legal Sex Female 11:25 PM [employer] Gender Identity Not on file Sexual Orientation Not on file Last Filed Vital Signs Vital Sign Reading Time Taken Comments Blood Pressure 118/68 07/12/2024 11:06 AM [employer] Pulse 66 07/12/2024 11:06 AM [employer] Temperature 37.1 C (98.7 F) 07/08/2024 1:35 PM [employer] Respiratory Rate 18 07/12/2024 11:06 AM [employer] Oxygen Saturation 100% 07/12/2024 11:06 AM [employer] Inhaled Oxygen Concentration - - Weight 73 kg (161 lb) 06/29/2024 11:02 AM [employer] Height 139.7 cm (4' 7) 06/28/2024 2:00 AM [employer] Body Mass Index 37.42 06/28/2024 2:00 AM [employer] Plan of Treatment Not on file Procedures Procedure Name Priority Date/Time Associated Diagnosis Comments EGFR Routine 07/04/2024 3:41 AM [employer] HEPATITIS PANEL, ACUTE Routine 07/03/2024 3:22 AM [employer] LIPID PANEL STAT 02/27/2024 9:20 PM CDT HEMOGLOBIN A1C Routine 02/03/2021 12:38 PM CDT DIGITAL MAMMOGRAPHY Routine 10/17/2014 2 :44 PM CDT from Last 3 Months or Most Recently Relevant to Health Maintenance Results * eGFR (07/04/2024 3:41 AM [employer]) eGFR >90 >=60 mL/min/1. 73 m2 Comment: Interpretive Data Reference Interval Normal >/= 90 mL/min/1.73m2 Mildly decreased* 60 - 89 mL/min/1.73m2 Mildly to moderately decreased 45 - 59 mL/min/1.73m2 Moderately to severely decreased 30 - 44 mL/min/1.73m2 Severely decreased 15 - 29 mL/min/1.73m2 Kidney Failure < 15 mL/min/1.73m2 *Relative to young adult level Estimated glomerular filtration rate is determined by the 2020 CKD-EPI equation recommended by the National Kidney Foundation (A Unifying Approach to GFR Estimation: Recommendations of the NKF-ASK Task Force on Reassessing the Inclusion of Race in Diagnosing Kidney Disease, JASKristofer 2020). The CKD-EPI equation should not be used for patients with unstable renal function and has not been validated in children and those over 70. Current interpretive data was last reviewed 2021. Blood 07/04/2024 3:41 AM [employer] 07/04/2024 3:47 AM [employer] us Rinku Macdonald MD LAB BLOOD ORDERABLES Final Resu lt MAN NUR (BH[place]AR) 1 [facility] Department [place] [address] * Hepatitis panel, acute Blood (07/03/2024 3:22 AM [employer]) Hep A IgM Nonreactive Nonreactive Comment: Interpretive Data: If Hep A IgM Ab is reported as Equivocal, a new sample should be drawn in two weeks for testing. Current interpretive data was last revised on 19. Testing performed by: [address] [address] Hep B core IgM Nonreactive Nonreactive C KELLY NUR (BHASKAR) Comment: Interpretive Data If HepB Core IgM Ab is reported as Equivocal, a new sample should be drawn in two weeks for testing. Current interpretive data was last revised on 19. Testing performed by: [address] [address] Hep C Ab Nonreactive Nonreactive MAN NUR (BH[place]AR) Comment: Interpretive Data Nonreactive: Antibodies to HCV not detected. Does NOT exclude the possibility of recent exposure to HCV. Equivocal: Equivocal for HCV antibodies. Supplemental molecular testing will be automatically performed to determine infection status in accordance with current CDC screening recommendations. Reactive: Positive for HCV antibodies. This may represent current or past HCV infection. Supplemental molecular testing will be automatically performed to determine current infection status in accordance with current CDC screening recommendations. Interpretive data was last revised on 2019. Testing performed by: [address] [address] HepBsAg Nonreactive Nonreactive MAN NUR (BH[place]AR) Comment:Testing performed by : [address] [place]., [address] Blood 07/03/2024 3:22 AM [employer] 07/03/2024 11:41 AM [employer] us Jumana QUILES LAB MICROBIOLOGY - GENER AL ORDERABLES Final Result MAN NUR ([place]) 1 [facility] Department of Laboratories [place] [id number] * (ABNORMAL) Lipid panel (02/27/2024 9:20 PM CDT) Cholesterol 315(H) 30 - 199 mg/dL Comment: Interpretive Data Ages < or = 19 years Acceptable: <170 mg/dL Borderline high: 170-199 mg/dL High: >or= 200 mg/dL Ages > or = 20 years Desirable: <200 mg/dL Borderline high: 200-239 mg/dL High: >or= 240 mg/dL Literature References: 1. Expert Panel on Integrated Guidelines for Cardiovascular Health and Risk Reduction in Children and Adolescents. Pediatrics 2011;128:S213 2. NCEP Expert Panel. Circulation 2004;110:227 Current Interpretive Data was last revised on 2018. Triglycerides 156(H) <=149 mg/dL [facility] Comment: Interpretive Data Ages < or = 9 years Acceptable: <75 mg/dL Borderline high: 75-99 mg/dL High: >or= 100 mg/dL Ages 10 to 20 years Acceptable: <90 mg/dL Borderline high: 90-129 mg/dL High: >or= 130 mg/dL Ages > or = 20 years Desirable: <150 mg/dL Borderline high: 150-199 mg/dL High: 200-499 mg/dL Very high: >or= 499 mg/dL Literature References: 1. Expert Panel on Integrated Guidelines for Cardiovascular Health and Risk Reduction in Children and Adolescents. Pediatrics 2011;128:S213 2. NCEP Expert Panel. Circulation 2004;110:227 Current Interpretive Data was last revised on 2018. HDL 34(L) >=40 mg/dL [facility] Comment: Interpretive Data Ages < or = 19 years Acceptable: >45 mg/dL Borderline low: 40-45 mg/dL Low: <40 mg/dL Ages > or = 20 years Desirable: >or= 60 mg/dL Low: <40 mg/dL Literature References: 1. Expert Panel on Integrated Guidelines for Cardiovascular Health and Risk Reduction in Children and Adolescents. Pediatrics 2011;128:S213 2. NCEP Expert Panel. Circulation 2004;110:227 Current Interpretive Data was last revised on 2018. LDL, calculated 251(H) <=129 mg/dL [facility] Comment: Interpretive Data Ages < or = 19 years Acceptable: <110 mg/dL Borderline high: 110-129 mg/dL High: >or= 130 mg/dL Ages > or = 20 years Optimal: <100 mg/dL Near optimal: 100-129 mg/dL Borderline high: 130-159 mg/dL High: >160 mg/dL Calculated using the John LDL-C estimating equation. This equation was implemented on 2024. Prior to this date LDL-C was estimated using the Friedewald equation. Literature References: 1. Expert Panel on Integrated Guidelines for Cardiovascular Health and Risk Reduction in Children and Adolescents. Pediatrics 2011;128:S213 2. NCEP Expert Panel. Circulation 2004;110:227 3. John Canchola et al. CAT[employer]INA Cardiol. 2019October 04;5(5):540-548. doi: 10.1001/[email or web address].2020.0013 Current Interpretive Data was last revised on 2024. Non-HDL Cholesterol 281 mg/dL [facility] Comment: Interpretive Data Ages < or = 19 years Acceptable: <120 mg/dL Borderline high: 120-144 mg/dL High: >145 mg/dL Ages > or = 20 years When triglycerides are >200 mg/dL, Non-HDL cholesterol is a secondary target of therapy with treatment goals that are 30 mg/dL greater than the LDL cholesterol target. Literature References: 1. Expert Panel on Integrated Guidelines for Cardiovascular Health and Risk Reduction in Children and Adolescents. Pediatrics 2011;128:S213 2. NCEP Expert Panel. Circulation 2004;110:227 Current Interpretive Data was last revised on 2018. Chol/HDL ratio 9 [facility] Blood 02/27/2024 9:20 PM CDT 02/27/2024 10:01 PM CDT Narrative [facility] - 02/28/2024 8:22 AM CDT reflex us Susy George MD LAB BLOOD ORDERABLES Fin al Result Performing Organization Address [facility] Co de Phone Number [facility] Department [place] [address] * (ABNORMAL) Hemoglobin A1c (02/03/2021 12:38 PM CDT) Hgb A1C 10.3(H) 4.0 - 5.6 % [facility] Estimated Average Glucose 249 mg/dL [facility] Comment: The ADA recommends reporting an estimated Average Glucose (eAG) with all Hemoglobin A1c results using the equation derived from a study of 507 normal and diabetic adults. Minority populations were underrepresented and children were not included. (Diabetes Care 31:0267-1659, 2007). The eAG is not equivalent to a fasting glucose. Blood 02/03/2021 12:3 8 PM CDT 02/03/2021 1:06 PM CDT Ruth Ann Carreon DO LAB BLOOD ORDERABLES Final Result Performing Organization Address [facility] Co de Phone Number [facility] [address] Department [place] [address] * DIGITAL MAMMOGRAPHY (10/17/2014 2:44 PM CDT) Anatomical Region Laterality Modality Breast Mammography 10/17/2014 2:44 PM CDT Narrative 10/18/2014 1:48 PM CDT Mr Screening Mamm Bi Acc#: [id number] DATE OF EXAM: Oct 17 2014 Performed by: CLINICAL HISTORY: Routine screening. RESULT: Two views of each breast obtained. No prior study available for comparison. The breasts are predominantly fatty replaced. No dominant mass is demonstrated. No suspicious clusters of microcalcifications are evident. Digital technology was employed plus computer-aided detection software (R2) was utilized in interpretation of these images. This facility utilizes a reminder system to notify patients of yearly mammograms. IMPRESSION: NO BREAST NEOPLASM IDENTIFIED. ANNUAL MAMMOGRAPHIC FOLLOW-UP RECOMMENDED. BI-RADS CATEGORY 1 - NEGATIVE Interpreting Physician: ROSIE FINK M.D. Read on: Oct 17 2014 2:44P Transcribed by: mrr On: Oct 17 2014 4:13P Approved Electronically by: ROSIE FINK M.D. on: Oct 18 2014 1:48P Attending: NEEMA DANIELS Requesting: DR NEEMA DANIELS Requesting Fax: -- Attending Fax: -- Attending ID: [id number] Requesting ID: [id number] Report To 1 ID: [id number] Report To 1 Name: NEEMA DANIELS Report To 1 FAX: -- NextGen Order #: Procedure Note Provider, MD Toy - 09/23/2016 Mr Screening Mamm Bi Acc#: [id number] DATE OF EXAM: Oct 17 2014 Performed by: CLINICAL HISTORY: Routine screening. RESULT: Two views of each breast obtained. No prior study available forcomparison. The breasts are predominantly fatty replaced. No dominantmass is demonstrated. No suspicious clusters of microcalcifications areevident. Digital technology was employed plus computer-aided detectionsoftware (R2) was utilized in interpretation of these images. Thisfacility utilizes a reminder system to notify patients of yearlymammograms. IMPRESSION: NO BREAST NEOPLASM IDENTIFIED. ANNUAL MAMMOGRAPHIC FOLLOW-UPRECOMMENDED. BI-RADS CATEGORY 1 - NEGATIVE Interpreting Physician: ROSIE FINK M.D. Read on: Oct 17 2014 2:44P Transcribed by: mrr On: Oct 17 2014 4:13P Approved Electronically by: ROSIE FINK M.D. on: Oct 18 2014 1:48P Attending: NEEMA DANIELS Requesting: DR NEEMA DANIELS Requesting Fax: -- Attending Fax: -- Attending ID: [id number] Requesting ID: [id number] Report To 1 ID: [id number] Report To 1 Name: NEEMA DANIELS Report To 1 FAX: -- NextGen Order #: Historical Provider MD [facility] MAMMO PROCEDURES Ursula l Result from Last 3 Months or Most Recently Relevant to Health Maintenance Insurance [facility] CHOICE PLUS Advance Directives For more information, please contact: [phone] * Full Code (Latest Code Status on File) Date Activated Date Inactivated Comments 06/28/2024 1:32 AM 07/04/2024 4:13 PM * Full Code Date Activated Date Inactivated Comments 06/01/2024 7:46 PM 06/04/2024 4:19 PM * Full Code Date Activated Date Inactivated Comments 05/30/2024 10:07 PM 06/01/2024 4:42 PM * Full Code Date Activated Date Inactivated Comments 04/24/2024 12:10 PM 05/01/2024 6:25 PM * Full Code Date Activated Date Inactivated Comments 04/20/2024 11:30 AM 04/24/2024 12:10 PM Care Teams [employer] Work[employer] Relationship Specialty [place] [id number] [address] PCP - General Internal Medicine 02/27/24 Jacob Malone MD Consulting Physician Gastroenterology 01/14/21 Jailene Paz MD [address] [place] [id number] Endocrinology Diabetes & Metabolism 02/12/21
--- OUTSIDE RECORDS SUMMARY | 2024-10-29 10:08 | XMS_ITS | Encounter Summary ---
Author Organization [facility] Address 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
--- OUTSIDE RECORDS SUMMARY | 2024-10-29 10:08 | XMS_ITS | Encounter Summary ---
Author Organization [facility] Address [address] [place] [address] Care Team Providers Care District Sales Coordinator Name Role Phone Joss Carpio MD Primary Care Provider [phone] Encounter Details Date Type Department Care Team (Latest Contact Info) Description 01/14/2006 Outpatient Historical HIS [facility] [place] [address] [address] [facility] [address] [place] [address] Unspecified Infective Otitis Externa (Primary Dx) Social History Tobacco Use Types Packs/Day Years Used Date Smoking Tobacco: Never Assessed Comments Unknown Sex and Gender Information Value Date Recorded Sex Assigned at Not on file Legal Sex Female 2:51 AM SALESPERSON ART OBJECTS Gender Identity Not on file Sexual Orientation [...] documented as of this encounter Care Teams District Sales Coordinator Relationship Specialty [place] [address] [facility] [address] [place] [address] PCP - General Learning Strategist 09/26/23 documented as of this encounter
--- OUTSIDE RECORDS SUMMARY | 2024-10-29 10:08 | XMS_ITS | Encounter Summary ---
Author Organization [facility] Address [address] [place] [address] Care Team Providers Care Hull Grinder Name Role Phone Joss Carpio MD Primary Care Provider [phone] Encounter Details Date Type Department Care Team (Latest Contact Info) Description 06/12/2001 Outpatient Historical HIS [facility] LISA Garcia, Stormy Maldonado MD NO ADDRESS ON FILE SCREENING MAL NEOP-CERVIX (Primary Dx) Social History Tobacco Use Types Packs/Day Years Used Date Smoking Tobacco: Never Assessed Comments Unknown Sex and Gender Information Value Date Recorded Sex Assigned at Not on file Legal Sex Female 2:51 AM CANDY BUTCHER Gender Identity Not on file Sexual Orientation Not on file documented as of this encounter Plan of Treatment Not on file documented as of this encounter Visit Diagnoses Diagnosis Screening for malignant neoplasm of the cervix- Primary documented in this encounter Additional Health Concerns Infection Onset Date Last Indicated Resolved Time R/O C. diff 11/21/2023 11/21/2023 11/21/2023 12:5 2 PM CDT C Diff Comment:11/21/23 11/21/2023 11/21/2023 01/20/2024 1:16 AM C DT documented as of this encounter Care Teams Hull Grinder Relationship Specialty [place] [address] [address] PCP - General Tugboat Dispatcher 09/26/23 documented as of this encounter
--- OUTSIDE RECORDS SUMMARY | 2024-10-29 10:08 | XMS_ITS | Encounter Summary ---
Author Organization [facility] Address [address] [place] [address] Care Team Providers Care Digital Pre Press Operator Name Role Phone Joss Carpio MD Primary Care Provider [phone] Encounter Details Date Type Department Care Team (Latest Contact Info) Description 04/21/2001 Outpatient Historical HIS PATIENT IN A BED Billie Juarez MD NO ADDRESS ON FILE Stormy Garcia MD NO ADDRESS ON FILE PREG COMPL NEC-ANTEPART (Primary Dx) Social History Tobacco Use Types Packs/Day Years Used Date Smoking Tobacco: Never Assessed Comments Unknown Sex and Gender Information Value Date Recorded Sex Assigned at Not on file Legal Sex Female 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 diff 11/21/2023 11/21/2023 11/21/2023 12:5 2 PM CDT C Diff Comment:11/21/23 11/21/2023 11/21/2023 01/20/2024 1:16 AM C DT documented as of this encounter Care Teams Digital Pre Press Operator Relationship Specialty [place] [address] [address] PCP - General Residential Interior Designer 09/26/23 documented as of this encounter
--- OUTSIDE RECORDS SUMMARY | 2024-10-29 10:08 | XMS_ITS | Encounter Summary ---
Author Organization [facility] Address [address] [place] [address] Care Team Providers Care Liquor Grinder Mill Operator Name Role Phone Joss Carpio MD Primary Care Provider [phone] Encounter Details Date Type Department Care Team (Late st Contact Info) Description 12/16/2006 Outpatient [facility] Internal Medicine [address] [address] Enrike Little MD [address] [place] [address] Social History Tobacco Use Types Packs/Day Years Used Date Smoking Tobacco: Never Assessed Comments Unknown Sex and Gender Information Value Date Recorded Sex Assigned at Not on file Legal Sex Female 2:51 AM CHIEF CONCIERGE Gender Identity Not on file Sexual Orientation Not on file documented as of this encounter Last Filed Vital Signs Vital Sign Reading Time Taken Comments Blood Pressure 164/100 12/16/2006 9:00 AM CDT Pulse - - Temperature 36.7 C (98.1 F) 12/16/2006 9:00 AM CDT Respiratory Rate - - Oxygen Saturation - - Inhaled Oxygen Concentration - - Weight 75.3 kg (166 lb) 12/16/2006 9:00 AM CDT Height - - Body Mass Index - - documented in this encounter Plan of Treatment Not on file documented as of this encounter Visit Diagnoses Not on filedocumented in this encounter Additional Health Concerns Infection Onset Date Last Indicated Resolved Time R/O C. diff 11/21/2023 11/21/2023 11/21/2023 12:5 2 PM CDT C Diff Comment:11/21/23 11/21/2023 11/21/2023 01/20/2024 1:16 AM C DT documented as of this encounter Care Teams Liquor Grinder Mill Operator Relationship Specialty [place] [address] [phone] PCP - General Escrow Secretary 09/26/23 documented as of this encounter
--- OUTSIDE RECORDS SUMMARY | 2024-10-29 10:08 | XMS_ITS | Encounter Summary ---
Author Organization [facility] Address [address] [place] [address] Care Team Providers Care Machine Design Engineer Name Role Phone Joss Carpio MD Primary Care Provider [phone] Encounter Details Date Type Department Care Team (Late st Contact Info) Description 06/23/2001 Outpatient Historical [address] [place] [phone] Brad Hernandez MD Social History Tobacco Use Types Packs/Day Years Used Date Smoking Tobacco: Never Assessed Comments Unknown Sex and Gender Information Value Date Recorded Sex Assigned at Not on file Legal Sex Female 2:51 AM HEAT TREAT TECHNICIAN Gender Identity Not on file Sexual [...] documented as of this encounter Care Teams Machine Design Engineer Relationship Specialty [place] [address] [address] PCP - General Pipe Connector 09/26/23 documented as of this encounter
--- OUTSIDE RECORDS SUMMARY | 2024-10-29 10:08 | XMS_ITS | Encounter Summary ---
Author Organization [facility] Address [address] [place] [address] Care Team Providers Care Lpn Care Manager Name Role Phone Joss Carpio MD Primary Care Provider [phone] Encounter Details Date Type Department Care Team (Late st Contact Info) Description 08/22/[address] [facility] [address] [place] [address] Marlo Joyner MD [address] [place] [address] Social History Tobacco Use Types Packs/Day Years Used Date Smoking Tobacco: Never Assessed Comments Unknown Sex and Gender Information Value Date Recorded Sex Assigned at Not on file Legal Sex Female 2:51 AM BOOK JOGGER Gender Identity Not on file Sexual Orientation [...] documented as of this encounter Care Teams Lpn Care Manager Relationship Specialty [place] [address] [address] PCP - General Semiconductor Testing Group Leader 09/26/23 documented as of this encounter
--- OUTSIDE RECORDS SUMMARY | 2024-10-29 10:08 | XMS_ITS | Encounter Summary ---
Author Organization [facility] Address [address] [place] [address] Care Team Providers Care Care Tech Name Role Phone Joss Carpio MD Primary Care Provider [phone] Encounter Details Date Type Department Care Team (Late st Contact Info) Description 02/16/2001 Outpatient Historical [address] [place] [phone] Brad Hernandez MD Social History Tobacco Use Types Packs/Day Years Used Date Smoking Tobacco: Never Assessed Comments Unknown Sex and Gender Information Value Date Recorded Sex Assigned at Not on file Legal Sex Female 2:51 AM GRAIN ELEVATOR CLERK Gender Identity Not on file Sexual Orientation [...] documented as of this encounter Care Teams Care Tech Relationship Specialty [place] [address] [address] PCP - General Dermatology Physician Assistant 09/26/23 documented as of this encounter
--- OUTSIDE RECORDS SUMMARY | 2024-10-29 10:08 | XMS_ITS | Encounter Summary ---
Author Organization [facility] Address [address] [place] [address] Care Team Providers Care Primary Clinician Name Role Phone Joss Carpio MD Primary Care Provider [phone] Encounter Details Date Type Department Care Team (Latest Contact Info) Description 09/03/2004 Outpatient Historical HIS [facility] [place] [address] [facility] [address] [place] [address] OTALGIA NOS (Primary Dx) Social History Tobacco Use Types Packs/Day Years Used Date Smoking Tobacco: Never Assessed Comments Unknown Sex and Gender Information Value Date Recorded Sex Assigned at Not on file Legal Sex Female 2:51 AM BLEACH RANGE OPERATOR Gender Identity Not on file Sexual [...] documented as of this encounter Care Teams Primary Clinician Relationship Specialty [place] [address] [facility] [address] [place] [phone] PCP - General Label Rewinder 09/26/23 documented as of this encounter
--- OUTSIDE RECORDS SUMMARY | 2024-10-29 10:08 | XMS_ITS | CONTINUITY OF CARE DOCUMENT ---
Author Name anahi stephenfarzaneh Address Unknown Organization [facility] Address [address] [facility] [address] [place] [address] Phone [phone] Care Team Providers Care Laundrette Owner Name Role Phone Azael Tariq MD Unavailable [phone] RODERICK MCGHEE MD Unavailable [phone] RODERICK MCGHEE MD Unavailable [phone] PROBLEMS Condition Status Date Provider Notes Congestive Heart Failure active ? Azael Tariq MD Hyperlipidemia active ? Azael Tariq MD Dyspnea on exertion active Azael Tariq MD Leg pain, bilateral active Azael Tariq MD Palpitations active Azael Tariq MD Edema active Azael Tariq MD Abnormal EKG active Azael Tariq MD Hypertension active Azael Tariq MD CHEST PAIN active Azael Tariq MD Obesity active Azael Tariq MD Diabetes mellitus active Azael Tariq MD Elevated LFT's active Azael Tariq MD Tachycardia active Azael Tariq MD ENCOUNTERS Date Type Provider Location Encounter Diag nosis - In-person encounter Office Visit Azael Tariq MD [facility] Elevated LFT'sTachycardia - In-person encounter Office Visit Azael Tariq MD [facility] Leg pain, bilateralAbnormal EKGHypertensionCHEST PAINObesityDiabetes mellitus - In-person encounter Office Visit Azael Tariq MD [facility] - In-person encounter Office Visit Azael Tariq MD [facility] Congestive Heart FailureHyperlipidemiaDyspnea on exertionLeg pain, bilateralPalpitationsEdema VITAL SIGNS Date Observation Value Provider Body Mass Index (Ratio) 41.54 kg/m2 Tristin Rivers pulse rate 81 /min Earl Chaves erg blood pressure, diastolic 80 mm[Hg] Fidencio Hurtado blood pressure, systolic 180 mm[Hg] Carey Hurtado oxygen saturation, oximetry 96 % Alexander Hurtado respiratory rate E&M 18 /min Gianna Hurtado weight E&M 192 [lb_av] Alexander turner height E&M 57 [in_i] Alexander Trujillo alberto Body Mass Index (Ratio) 41.54 kg/m2 Tirstin Rivers blood pressure, resting Yes Azael Tariq MD blood pressure, cuff size regular Cy she Wild blood pressure, diastolic 102 mm[Hg] Cy she Wild blood pressure, systolic 188 mm[Hg] Neelima pily Wild respiratory rate E&M 16 /min Alexandra Wild oxygen saturation, oximetry 98 % Alexandra Wild pulse rate 96 /min Alexandra Costabel l weight E&M 192 [lb_av] Alexandra Campbel l height E&M 57 [in_i] Alexandra Campbel l blood pressure, diastolic, left arm 79 mm [Hg] Sushma Guillen blood pressure, systolic, left arm 134 mm [Hg] Sushma Guillen blood pressure, diastolic, right arm 81 m m[Hg] Sushma Guillen blood pressure, systolic, right arm 133 m m[Hg] Sushma Guillen blood pressure, diastolic 79 mm[Hg] Me prateek Guillen blood pressure, systolic 134 mm[Hg] Teresa flood Guillen Body Mass Index (Ratio) 45.44 kg/m2 Rose willis Guillen pulse rate 68 /min Sushma Guillen oxygen saturation, oximetry 98 % Sushma Guillen respiratory rate E&M 16 /min Sushma Guillen weight E&M 210 [lb_av] Sushma Guillen blood pressure, diastolic, left arm 93 mm [Hg] Aneatris Shay blood pressure, systolic, left arm 161 mm [Hg] Aneatris Brown blood pressure, diastolic, right arm 93 m m[Hg] Aneatris Brown blood pressure, systolic, right arm 154 m m[Hg] Aneatris Brown Body Mass Index (Ratio) 41.33 kg/m2 Anea su Shay blood pressure, diastolic 83 mm[Hg] An eatris Shay blood pressure, systolic 161 mm[Hg] Ane atris Shay pulse rate 72 /min Aneatris Brown oxygen saturation, oximetry 97 % Aneatris Shay respiratory rate E&M 17 /min Aneatri s Shay weight E&M 191 [lb_av] Aneatris Shay height E&M 57 [in_i] [facility] ALLERGIES Allergy Name Onset Date Reaction Criticality Status SIMVASTATIN elevated LFT High Criticality activ e SULFA High Criticality active RESULTS Date Observation Value Provider Reference Range Interpretation Location LDL cholesterol, serum 211 mg/dL Earl Rivers international normalized ratio (INR) 1.0 Nitza Manley platelet count 333 10*3/uL Nitza Manley hematocrit, blood 39.0 % Nitza Manley B-type natriuretic peptide 155 pg/mL Chetna Lebron alanine aminotransferase (SGPT), serum 23 1/L Chetna Lebron aspartate aminotransferase (SGOT), serum 22 1/L Chetna Lebron creatinine, serum 0.77 mg/dL Chetna Lebron potassium, serum 4.1 mmol/L Chetna Lebron sodium, serum 136 mmol/L Chetna Lebron HISTORY OF MEDICATION USE Medication Status Instructions Dates Provider Indications Com ments HYDRALAZINE HCL 50 MG ORAL TABLET active Take one tablet three times a day 5 Azael Tariq MD METOPROLOL TARTRATE 100 MG ORAL TABLET active one tablet twice daily 4 Azael Tariq MD LOSARTAN POTASSIUM 100 MG ORAL TABLET active Take once a day 4 Alexandra Wild CRESTOR 5 MG ORAL TABLET completed One tab daily 6 - 7 Sushma Guillen TRAZAMINE 50 MG ORAL completed one tab at bedtime NEEDED 7 - 4 Alexandra Wild LEVETIRACETAM 500 MG ORAL TABLET completed one tab twice daily - 5 Alexander Hurtado FLUOXETINE HCL 40 MG ORAL CAPSULE active 2 tabs once daily Alexander Hurtado LASIX 40 MG ORAL TABLET active Take one tablet daily 5 Jennifer Peguero ATENOLOL 50 MG ORAL TABLET completed ONE TAB. TWICE DAILY 7 - 4 Azael Tariq MD SOCIAL HISTORY Date Observation Value Provider alcohol use yes Azael Tariq MD social history reviewed E&M revi ewed - no changes required Azael Tariq MD smoking status Never smoker Alexander Sánchez social history E&M Smoking Histo ry: Casie schaeffer has never smoked. Earl Tita social history reviewed E&M revi ewed - no changes required Azael Tariq MD smoking status Never smoker Alexandra alvarado social history reviewed E&M revi ewed - no changes required Azael Tariq MD smoking status Never smoker Sushma conway smoking status Never smoker Aneatris Brow n FAMILY HISTORY Family Member Condition Mother Family History of CV A or Stroke: Mother Family History of Co ngestive Heart Failure: Daughter Family History Unkno wn INSURANCE PROVIDERS Payer name Policy type / Coverage type Tiny red alliance party ID [facility] [id number] Other [id number] ADVANCE DIRECTIVES Name Date DISCUSSED - NO DECISION MADE TREATMENT PLAN Date Name Performer Cardiology:LDL at AM H was 211, however her LFT's are elevated. She reports she has been tested for hepatitis and was negative. Earl [facility] Cardiology:LDL at AM H was 211, however her LFT's are elevated. She reports she has been tested for hepatitis and was negative. Earl [facility] Cardiology:BP is maria del carmen vated today. We will obtain a home sleep study, echo, renal artery duplex. Will add Hydralazine 50mg TID. She will take 80mg of Lasix everyday for a week and then reduce to 40mg daily with additional 40mg PRN. BP today: 180/80 P rior BP: 188/102 (03/29/2018) Her updated medication list for this problem includes: Hydralazine Hcl 50 Mg Oral Tablet (Hydralazine hcl) ..... Take one tablet three times a day Metoprolol Tartrate 100 Mg Oral Tablet (Metoprolol tartrate) ..... One tablet twice daily Losartan Potassium 100 Mg Oral Tablet (Losartan potassium) ..... Take once a day Lasix 40 Mg Oral Tablet (Furosemide) ..... Two tablets daily for one week, then one tablet daily Earl [facility] Cardiology:EKG showe d sinus tachycardia, with no new changes otherwise since EKG in 2013. Earl [facility] Cardiology:Pt compla ins of episodes of palpitations and tachycardia with HR in 150's-180's for the past few nights, waking her up from sleep. She also complains of dyspnea with minimal exertion. EKG showed sinus tachycardia, with no new changes otherwise since EKG in 2013. We will obtain a home sleep study, echo, and telesentry. Earl [facility] Cardiology:Pt compla ins of episodes of palpitations and tachycardia with HR in 150's-180's for the past few nights, waking her up from sleep. She also complains of dyspnea with minimal exertion. EKG showed sinus tachycardia, with no new changes otherwise since EKG in 2013. We will obtain a home sleep study, echo, and telesentry. [facility] Cardiology:Pt compla ins of episodes of palpitations and tachycardia with HR in 150's-180's for the past few nights, waking her up from sleep. She also complains of dyspnea with minimal exertion. BP is elevated today. EKG showed sinus tachycardia, with no new changes otherwise since EKG in 2013. We will obtain a home sleep study, PFT's, echo, renal artery duplex and telesentry. Will add Hydralazine 50mg TID. She will take 80mg of Lasix everyday for a week and then reduce to 40mg daily with additional 40mg PRN. Her updated medication list for this problem includes: Metoprolol Tartrate 100 Mg Oral Tablet (Metoprolol tartrate) ..... One tablet twice daily Losartan Potassium 100 Mg Oral Tablet (Losartan potassium) ..... Take once a day Lasix 40 Mg Oral Tablet (Furosemide) ..... Two tablets daily for one week, then one tablet daily [facility] Cardiology:She compl ains of dyspnea with minimal exertion. EKG showed sinus tachycardia, with no new changes otherwise since EKG in 2013. We will obtain PFT's, echo. She will take 80mg of Lasix everyday for a week and then reduce to 40mg daily with additional 40mg PRN. [facility] Cardiology [facility] follow up:Metoprolol increased. BP today: 188/102 P rior BP: 134/79 (05/22/2014) Her updated medication list for this problem includes: Metoprolol Tartrate 100 Mg Oral Tablet (Metoprolol tartrate) ..... One tablet twice daily Losartan Potassium 100 Mg Oral Tablet (Losartan potassium) ..... Take once a day Lasix 40 Mg Oral Tablet (Furosemide) ..... Take one tablet daily Orders: E KG (CPT-60269) R enal Artery Duplex (CPT-61778) S leep Study (CPT-11868) [facility] Cardiology [facility] follow up:Orders: E KG (CPT-82497) F VC - 92232 (13267) F RC - 32353 (35364) D LCO - 51267 (48966) Earl Rivers Cardiology hospital follow up:Her updated medication list for this problem includes: Metoprolol Tartrate 100 Mg Oral Tablet (Metoprolol tartrate) ..... One tablet twice daily Losartan Potassium 100 Mg Oral Tablet (Losartan potassium) ..... Take once a day Lasix 40 Mg Oral Tablet (Furosemide) ..... Take one tablet daily Interested in [employer]. Orders: E KG (CPT-94003) S leep Study (CPT-36275) Earl Rivers Date Name Renal Artery Duplex DLCO - 88946 FRC - 70669 FVC - 85566 Mobile Cardiac Tele Sleep Study Home Complete Echo Sleep Study DLCO - 22622 FRC - 96926 FVC - 44982 Renal Artery Duplex Sleep Study Full PFT Arterial Duplex Bi-L ower EX Venous Doppler Bilat eral LE - Standing Cardiac Cath - Left - [facility] Full PFT Mobile Cardiac Tele HISTORY OF PROCEDURES Procedure Date Procedure Name Provider Procedure Notes S tatus EKG Cruz Barriga MD complete d Event Monitor Azael Tariq MD complet ed EKG Azael Tariq MD completed
--- OUTSIDE RECORDS SUMMARY | 2024-10-29 10:08 | XMS_ITS | Encounter Summary ---
Author Organization [facility] Address [address] [place] [address] Care Team Providers Care Counter Sales Representative Name Role Phone Joss Carpio MD Primary Care Provider [phone] Encounter Details Date Type Department Care Team (Late st Contact Info) Description 08/16/[address] [facility] [address] [place] [address] Marlo Joyner MD [address] [place] [address] Social History Tobacco Use Types Packs/Day Years Used Date Smoking Tobacco: Never Assessed Comments Unknown Sex and Gender Information Value Date Recorded Sex Assigned at Not on file Legal Sex Female 2:51 AM MANAGER ZONE Gender Identity Not on file Sexual Orientation [...] documented as of this encounter Care Teams Counter Sales Representative Relationship Specialty [place] [address] [address] PCP - General Tire And Lube Technician 09/26/23 documented as of this encounter
--- OUTSIDE RECORDS SUMMARY | 2024-10-29 10:08 | XMS_ITS | Encounter Summary ---
Author Organization [employer] Address 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 diff 11/21/2023 11/21/2023 11/21/2023 12:5 2 PM CDT C Diff Comment:11/21/23 11/21/2023 11/21/2023 01/20/2024 1:16 AM C DT documented as of this encounter Care Teams Internet Application Developer Relationship Specialty [place] [id number] [address] PCP - General Chief Maintenance Supervisor 09/26/23 documented as of this encounter
--- OUTSIDE RECORDS SUMMARY | 2024-10-29 10:08 | XMS_ITS | Encounter Summary ---
Author Organization [employer] Address [address] [place] [address] Care Team Providers Care Masonry Teacher Name Role Phone Joss Carpio MD Primary Care Provider [phone] Encounter Details Date Type Department Care Team (Latest Contact Info) Description 02/18/2005 [place] [facility] [place]rak[place] NO ADDRESS ON FILE ACUTE URI NOS (Primary Dx) Social History Tobacco Use Types Packs/Day Years Used Date Smoking Tobacco: Never Assessed Comments Unknown Sex and Gender Information Value Date Recorded Sex Assigned at Not on file Legal Sex Female 2:51 AM HAND TURNER Gender Identity Not on file Sexual Orientation Not on file documented as of this encounter Plan of Treatment Not on file documented as of this encounter Visit Diagnoses Diagnosis Acute upper respiratory infections of unspecified site- Primary documented in this encounter Additional Health Concerns Infection Onset Date Last Indicated Resolved Time R/O C. diff 11/21/2023 11/21/2023 11/21/2023 12:5 2 PM CDT C Diff Comment:11/21/23 11/21/2023 11/21/2023 01/20/2024 1:16 AM C DT documented as of this encounter Care Teams Masonry Teacher Relationship Specialty [place] [id number] [address] PCP - General Industrial Analyst 09/26/23 documented as of this encounter
--- OUTSIDE RECORDS SUMMARY | 2024-10-29 10:08 | XMS_ITS | Continuity of Care Document ---
Author Organization [facility]. If a dditional information is needed, contact Health Information Management at [phone] [address] [place] [address] Phone Care Team Providers Care Electrotype Servicer Name Role Phone Unavailable Unavailable Unavailable Unavailable Unavailable Unavailable Unavailable Unavailable Unavailable Unavailable Unavailable Unavailable Unavailable Unavailable Unavailable Unavailable Unavailable Unavailable Unavailable Unavailable Unavailable Unavailable Unavailable Unavailable Unavailable Unavailable Unavailable Unavailable Unavailable Unavailable Unavailable Unavailable Unavailable Unavailable Unavailable Unavailable Unavailable Unavailable Unavailable Unavailable Unavailable Unavailable Unavailable Unavailable Unavailable Unavailable Unavailable Unavailable Unavailable Unavailable Unavailable Unavailable Unavailable Unavailable Unavailable Unavailable Unavailable Unavailable Unavailable Unavailable Unavailable Unavailable Unavailable Unavailable Unavailable Unavailable Unavailable Unavailable Unavailable Unavailable Unavailable Unavailable Unavailable Unavailable Unavailable Unavailable Unavailable Unavailable Unavailable Unavailable Unavailable Unavailable Unavailable Unavailable Unavailable Unavailable Unavailable Note Primitivo Pratt MD-May-2024 [facility] ([facility])Hospitalist Progress NoteREPORT#:[id number] REPORT STATUS: SignedDATE:05/28/24 TIME: 1445PATIENT: CLAYEUGENIO UNIT #: [id number]#: [id number] [facility]GE[facility] 53 SEX: F ATTEND: Terence Sauceda MDADM AUTHOR: Terence Sauceda MDREP SVR REP SVR TM: 1445* ALL edits or amendments must be made on the electronic/computer document *SubjectiveHPI:No overnight events. Regular BMs. HD stable. Alert/oriented x3.Review of SystemsFree Text ROS NotesFree Text ROS Notes:12 point review of the systems are otherwise unremarkable except for aboveObjectiveGeneralVS/I O:Vital Signs: Date Time Temp Pulse Resp B/P B/P Pulse O2 O2 Flow FiO2 Mean Ox Delivery Rate 05/28 1113 36.6 66 17 117/67 83.6 99 05/28 0814 36.9 63 17 104/70 81.0 100 05/28 0517 82 16 112/70 83.7 05/28 0515 78 16 129/75 92.7 05/28 0506 36.7 72 16 97/56 0.0 98 05/27 2322 36.7 64 18 109/72 84.5 97 05/27 1944 36.7 64 18 108/66 80.3 99 05/27 1611 36.8 64 18 107/59 74.7 100 Room air24 hour I O ending at 0700: 05/28 0700 05/27 1900 Intake Total Output Total Balance Number 1 Bowel Movements Number Voids 3PATIENT WEIGHT:Weight (lb): 168Weight (oz): 3.4Weight (kg): 76.300Medications:Active Meds + DC'd Last 24 HrsEnoxaparin Sodium (LOVENOX) 40 MG DAILY 1700 SUBQ (CKD)Chlordiazepoxide HCl (LIBRIUM) 10 MG DAILY PO (CKD)Rifaximin (Xifaxan) 550 MG BID POLactulose (LACTULOSE 20 G/30 ML UDCUP) 30 ML Q8 PO (CKD)Amlodipine Besylate (NORVASC) 5 MG DAILY POFolic Acid (FOLIC ACID) 1 MG DAILY POLisinopril (PRINIVIL 20 MG TABLET) 20 MG DAILY PO (CKD)Multivitamins Therapeutic (MULTIVITAMIN, THERA VITAMINS) 1 TAB DAILY PODextrose (B-D GLUCOSE) 3 TAB.CHEW PRN PRN PO (CKD)Dextrose (B-D GLUCOSE) 6 TAB.CHEW PRN PRN PO (CKD)Dextrose/Water (D10W) 250 ML BOLUS PRN IVFamotidine (PEPCID) 20 MG Q12HP PRN PO (CKD)Hydralazine HCl (APRESOLINE) 10 MG Q4H PRN PRN IV (CKD)Lorazepam (ATIVAN 2MG/ML VIAL) 2 MG Q1H PRN PRN IVLorazepam (ATIVAN 2MG/ML VIAL) 4 MG Q1H PRN PRN IVMelatonin (MELATONIN 3 MG TABLET) 6 MG BEDTIME PRN POOndansetron HCl (ZOFRAN 2MG/ML SDV VIAL) 4 MG Q8H PRN PRN IVThiamine HCl (THIAMINE HCL) 100 MG DAILY IVPhysical ExamHead/Eyes: atraumatic, clear cornea, EOMINeck: full range of motion, non-tender, normal thyroidCardiovascular: normal capillary refill, normal heart sounds, regular raterhythmRespiratory: aerating well, clear to auscultation, symmetric expansionAbdomen: non-tender, normal bowel soundsGenitourinary: no flank painExtremities: moves all, normal capillary refill, normal range of motionMusculoskeletal: normal inspection, painless range of motionNeuro/AIRCRAFT FUSELAGE FRAMER: alert, oriented X 3Skin: dry, intact, no rashPsychiatry: not homicidal, not suicidal, no hallucinationsResultsFindings/Data:Laboratory Tests 05/28 05/28 1111 0816 Chemistry POC Glucose (70 - 110 mg/dL) 158 H 149 HDiagnosis, Assessment PlanFree Text DxA P NotesFree text DxA P notes:This is a 53yr old female pt w/hx of HTN, HLP, DM, CHF, EtoH abuse who [facility].Hepatic encephalopathy-continues with regular BMs. On lactulose/rifaximin.Significantly improved.EtOH dependence on CIWA. Vitamin supplement. Ativan p.r.n.Thrombocytopenia-improved. Secondary to splenic sequestration.Cirrhosis-compensated. F/U GI as outpatient.HTN-well controlled.DMT-2-A1c 7.2%. On a sliding scale. Low carb diet. Hypoglycemia protocol. F/U PCP.DVT prophylaxis-bilateral SCD.[facility]All questions were answered to her satisfaction. at 1446RPT #: [id number] OF REPORT Primitivo Pratt MD-May-2024 [facility] ([facility])Hospitalist Discharge SummaryREPORT#:[id number] REPORT STATUS: SignedDATE:05/27/24 TIME: 1253PATIENT: EUGENIO BARRERA UNIT #: [id number]#: [id number] ROOM/BED: D.326-BDOB: [birth year] AGE: 53 SEX: F ATTEND: Terence Sauceda MDADM AUTHOR: Terence Sauceda MDREP SVR REP SVR TM: 1253* ALL edits or amendments must be made on the electronic/computer document *General InformationDischarge date: 05/27/24Discharge diagnosis:Alcohol withdrawalHepatic encephalopathyHospital course:This is a 53yr old female pt w/hx of HTN, HLP, DM, CHF, EtoH abuse who [facility].Hepatic encephalopathy-continues with regular BMs. On lactulose/rifaximin.Significantly improved.EtOH dependence on CIWA. Vitamin supplement. Ativan p.r.n.Thrombocytopenia-improved. Secondary to splenic sequestration.Cirrhosis-compensated. F/U GI as outpatient.HTN-well controlled.DMT-2-A1c 7.2%. On a sliding scale. Low carb diet. Hypoglycemia protocol. F/U PCP.DVT prophylaxis-bilateral SCD.[facility].All questions were answered to her satisfaction.Med RecMed RecDischarge meds:Continue taking these medications:Lisinopril (lisinopriL) 20 MG TAB 20 MILLIGRAM ORAL DAILYLisinopril (lisinopriL) 20 MG TAB 20 MILLIGRAM ORAL DAILYamLODIPine (NORVASC) 5 MG TAB 5 MILLIGRAM ORAL DAILYStart taking the following new medications:chlordiazePOXIDE (LIBRIUM) 10 MG CAP 10 MILLIGRAM ORAL DIRECTED Qty = 6 No Refills Instructions: 1 TABLET BID X2 DAYS, 1 TABLET DAILY X2 DAYS THEN STOP[XIFAXAN] 400 MILLIGRAM ORAL EVERY 12 HOURS Qty = 20 No RefillsFolic Acid (Folic Acid) 1 MG TAB 1 MILLIGRAM ORAL DAILY Qty = 30 No Refills[MULTIVITAMIN, THERA ] 1 TABLET ORAL DAILY Qty = 30 No RefillsThiamine HCl (Thiamine HCl) 100 MG/ML VIAL 100 MILLIGRAM INTRAVEN. DAILY Qty = 30 No RefillsLACTULOSE (ENULOSE ORAL) 10 GM/15 ML ORAL.SOLN 20 GRAM ORAL THREE TIMES A DAY Qty = 30 No RefillsObjectiveHead/Eyes: atraumatic, clear cornea, EOMINeck: full range of motion, non-tender, normal thyroidCardiovascular: normal capillary refill, normal heart sounds, regular raterhythmRespiratory: aerating well, clear to auscultation, symmetric expansionAbdomen: non-tender, normal bowel soundsGenitourinary: no flank painExtremities: moves all, normal capillary refill, normal range of motionMusculoskeletal: normal inspection, painless range of motionNeuro/AIRCRAFT FUSELAGE FRAMER: alert, oriented X 3Skin: dry, intact, no rashPsychiatry: not homicidal, not suicidal, no hallucinationsDischarge InstructionsPCPDischarge to: Alcoh/Drug Rehab FacilityAdditional Discharge Routines: PCP Follow-Up, Add. instructionsDiet: Resume Home Diet/FeedsAdditional instructions:NEED TO ESTABLISH CARE WITH A IT SYSTEMS ANALYST CONSULTANT DEMETRIUS. FOLLOW-UP WITH A OFFSET MACHINE OPERATOR REGARDING POSITIVE ANTIMITOCHONDRIAL ANTIBODIESFollow-up AppointmentsPCP follow-up: PCP follow up timeframe: 1WK at 1254RPT #: [id number] OF REPORT Primitivo Pratt MD-May-2024 [facility] ([facility])Hospitalist Progress NoteREPORT#:[id number] REPORT STATUS: SignedDATE:05/27/24 TIME: 1249PATIENT: EUGENIO BARRERA UNIT #: [id number]#: [id number] [address] [birth year] AGE: 53 SEX: F ATTEND: Terence Sauceda MDADM AUTHOR: Terence Sauceda MDREP SVR REP SVR TM: 1249* ALL edits or amendments must be made on the electronic/computer document *SubjectiveHPI:No overnight events. Regular BMs. HD stable. Alert/oriented x3.Review of SystemsFree Text ROS NotesFree Text ROS Notes:12 point review of the systems are otherwise unremarkable except for aboveObjectiveGeneralVS/I O:Vital Signs: Date Time Temp Pulse Resp B/P B/P Pulse O2 O2 Flow FiO2 Mean Ox Delivery Rate 05/27 1135 36.8 70 18 129/69 88.8 100 Room air 05/27 0830 36.6 65 18 122/75 90.9 97 Room air 05/27 0520 36.7 63 17 132/71 91.6 96 Room air 05/26 2357 36.5 59 17 107/68 80.8 95 Room air 05/26 2031 36.8 63 17 122/70 87.5 99 Room air 05/26 1640 36.6 62 16 135/73 93.7 99PATIENT WEIGHT:Weight (lb): 168Weight (oz): 3.4Weight (kg): 76.300Medications:Active Meds + DC'd Last 24 HrsEnoxaparin Sodium (LOVENOX) 40 MG DAILY 1700 SUBQ (CKD)Chlordiazepoxide HCl (LIBRIUM) 10 MG DAILY PO (CKD)Enoxaparin Sodium (LOVENOX) 40 MG NOW ONE SUBQ (DC)Rifaximin (Xifaxan) 550 MG BID POLactulose (LACTULOSE 20 G/30 ML UDCUP) 30 ML Q8 PO (CKD)Amlodipine Besylate (NORVASC) 5 MG DAILY POFolic Acid (FOLIC ACID) 1 MG DAILY POLisinopril (PRINIVIL 20 MG TABLET) 20 MG DAILY PO (CKD)Multivitamins Therapeutic (MULTIVITAMIN, THERA VITAMINS) 1 TAB DAILY PODextrose (B-D GLUCOSE) 3 TAB.CHEW PRN PRN PO (CKD)Dextrose (B-D GLUCOSE) 6 TAB.CHEW PRN PRN PO (CKD)Dextrose/Water (D10W) 250 ML BOLUS PRN IVFamotidine (PEPCID) 20 MG Q12HP PRN PO (CKD)Hydralazine HCl (APRESOLINE) 10 MG Q4H PRN PRN IV (CKD)Lorazepam (ATIVAN 2MG/ML VIAL) 2 MG Q1H PRN PRN IVLorazepam (ATIVAN 2MG/ML VIAL) 4 MG Q1H PRN PRN IVMelatonin (MELATONIN 3 MG TABLET) 6 MG BEDTIME PRN POOndansetron HCl (ZOFRAN 2MG/ML SDV VIAL) 4 MG Q8H PRN PRN IVThiamine HCl (THIAMINE HCL) 100 MG DAILY IVPhysical ExamHead/Eyes: atraumatic, clear cornea, EOMINeck: full range of motion, non-tender, normal thyroidCardiovascular: normal capillary refill, normal heart sounds, regular raterhythmRespiratory: aerating well, clear to auscultation, symmetric expansionAbdomen: non-tender, normal bowel soundsGenitourinary: no flank painExtremities: moves all, normal capillary refill, normal range of motionMusculoskeletal: normal inspection, painless range of motionNeuro/AIRCRAFT FUSELAGE FRAMER: alert, oriented X 3Skin: dry, intact, no rashPsychiatry: not homicidal, not suicidal, no hallucinationsResultsFindings/Data:Laboratory Tests 05/27 05/27 05/27 1134 0828 0619 Chemistry Sodium (135 - 145 mmol/L) 136 Potassium (3.5 - 5.2 mmol/L) 3.8 Chloride (95 - 110 mmol/L) 103 Carbon Dioxide (19 - 34 mmol/L) 21 BUN (6 - 22 mg/dL) 16 Creatinine (0.43 - 1.13 mg/dL) 0.50 Est GFR (CKD-EPI 2020) (>/=90) > 90 Glucose (70 - 110 mg/dL) 144 H POC Glucose (70 - 110 mg/dL) 219 H 144 H Calcium (8.4 - 10.2 mg/dL) 8.9 Corrected Calcium (8.4 - 10.2 mg/dl) 9.2 Total Bilirubin (0.1 - 1.2 mg/dL) 3.6 H AST (10 - 40 Units/L) 77 H ALT (10 - 60 Units/L) 46 Total Alk Phosphatase (20 - 130 Units/L) 237 H Total Protein (5.5 - 8.7 g/dL) 6.7 Albumin (3.2 - 5.0 g/dL) 3.6Laboratory Tests 05/27 0619 Hematology WBC (4.0 - 10.5 10 3/u) 3.3 L RBC (3.93 - 5.22 10 6/uL) 3.59 L Hgb (11.2 - 15.7 G/DL) 11.8 Hct (34.1 - 44.9 %) 34.8 MCV (79.4 - 94.8 fl) 96.9 H MCH (25.6 - 32.2 pg) 32.9 H MCHC (32.2 - 35.5 G/DL) 33.9 RDW (11.7 - 14.4 %) 13.6 Plt Count (150 - 400 10 3/uL) 90 L MPV (9.4 - 12.3 fl) 12.2 Nucleated RBC % (auto) (0.0 - 0.2 %) 0.0 Immature Gran % (0.0 - 0.4 %) 0.3 Seg Neutrophils % (34.0 - 71.1 %) 62.5 Lymphocytes % (19.3 - 51.7 %) 25.2 Monocytes % (4.7 - 12.5 %) 8.1 Eosinophils % (0.7 - 5.8 %) 3.3 Basophils % (0.1 - 1.2 %) 0.6 Immature Gran # (0.00 - 0.03 10*3/uL) 0.01 Neutrophils # (1.56 - 6.13 10 3/uL) 2.08 Lymphocytes # (1.18 - 3.74 10 3/uL) 0.84 L Monocytes # (0.24 - 0.63 10 3/uL) 0.27 Eosinophils # (0.04 - 0.36 10 3/uL) 0.11 Basophils # (0.01 - 0.08 10 3/uL) 0.02 Nucleated RBCs # (0.00 - 0.18 10 3/uL) 0.00Diagnosis, Assessment PlanFree Text DxA P NotesFree text DxA P notes:This is a 53yr old female pt w/hx of HTN, HLP, DM, CHF, EtoH abuse who [facility].Hepatic encephalopathy-continues with regular BMs. On lactulose/rifaximin.Significantly improved.EtOH dependence on CIWA. Vitamin supplement. Ativan p.r.n.Thrombocytopenia-improved. Secondary to splenic sequestration.Cirrhosis-compensated. F/U GI as outpatient.HTN-well controlled.DMT-2-A1c 7.2%. On a sliding scale. Low carb diet. Hypoglycemia protocol. F/U PCP.DVT prophylaxis-bilateral SCD.[facility].All questions were answered to her satisfaction. at 1253RPT #: [id number] OF REPORT 26-May-2024 Date of Initial Eval: since Initial Eval:8Subjective (quote):I AM MORE THAN READY TO WALK.Mental status:1:Awake, alert, oriented m4Hkkanb status:2:Follows commandsMental status:MUCH BETTER MOOD TODAYFacility use, Patient Equipment:IV:IVFacility use, Patient Equipment:T:TelemetryIs the patient experiencing pain:N:NoGait:Y:YesWeight bearing status:5:Full Weight bearingLevel of Assist:5:Supervision/set upDistance:250Gait device:NO DEVICEGait device:SNEAKERS ONGait comment:SUPERVISION WITH CUES FOR RECIPROCAL ARM SWING;Gait comment:250 FT X 2; DID EXPRESS FATIGUEGait Training Minutes:13Therapeutic activity:Y:YesTherapeutic activities comment:BED MOBILITY SUPERVISIONTherapeutic activities comment:TRANSFERS SUPERVISIONTherapy Activity Minutes:10Balance WDP:NSitting Balance- Static:2:GoodSitting Balance- Dynamic:3:Good -Standing Balance- Static:5:FairStanding Balance-Dynamic:5:FairTransfer LT:Transfer w/ independentTransfer target date:86429286Odomvylt goal progress:ONGOINGGait LTG:CLIENT WILL BE ABLE TO AMBULATE 300FT WITH ORGait LTG: WITHOUT AN AD 300FTGait target date:12251293Zxsx goal progress:ONGOINGImprove ROM/MMT LTG to:TO INCREASE BLE STRENGTH BY HALF GRADEROM/MMT target date:10457973BWZ/MMT goal progress:ONGOINGFunctional outcomes/ G Codes:YAssessment:PATIENT SEEN FOR TREATMENT; MOTIVATED TOAssessment:PARTICIPATE; SUPERVISION FOR ALL BED MOBILITY,Assessment:SUPERVISION FOR TRANSFERS, SUPERVISION FOR GAITAssessment:250 FT X 2 NO DEVICE; PATIENT IS MAKING GOODAssessment:PROGRESS.Patient/Family Goals[facility]Treatment interventions:1:Gait TrainingTreatment interventions:2:Transfer trainingTreatment interventions:3:Therapeutic exerciseFrequency based on individual needs:3X-5X WEEKTreatment Duration:1:15-30 min. as toleratedTherapist recommended discharge needs:Home:Home no therapyEquipment Recommendations:N:NoneGait TraininTherapy Actvities (TACT):10Total Minutes:23Total Minutes Reviewed:Y:YesTime In:0941Time Out:1004Handoff:BED:Pt left in bedHandoff:LOW:Bed low, brakes onHandoff:CALL:Call gan in reachHandoff:PHONE:Phone in reachHandoff:RN:RN notified Sari Sun MD-26-May-2024 [facility] ([facility])Hospitalist Progress NoteREPORT#:[id number] REPORT STATUS: SignedDATE:05/26/24 TIME: 727PATIENT: EUGENIO BARRERA UNIT #: [id number]#: [id number] ROOM/BED: [facility]-ADOB: [birth year] AGE: 53 SEX: F ATTEND: Corinne Guo MDADM AUTHOR: Corinne Guo MDREP SVR REP SVR TM: 727* ALL edits or amendments must be made on the electronic/computer document *SubjectiveHPI:This is a 53yr old female pt w/hx of HTN, HLP, DM, CHF, EtoH abuse who [facility]transfer[facility]. [facility] and while there, she became hypotensive and weak andsent to [facility] for further management. Per pt, she isn't c/o any abd pain but wasfound w/abnormal LFT's, Thrombocytopenia and elevated ammonia level. She iscurrently AAOx3, no focal or neuro defict. She is pending an abdominal US, Ctbrain and abd. She is hemodynamically stable, last drink was on Tuesday.Currently her b/p is stable and denies any SOB, CP, palpitations or dizziness.Comments:Seen patient at bedside in a.m., no acute events reported overnight, calmlysitting in bed, no agitation, no sitter.Review of SystemsFree Text ROS NotesFree Text ROS Notes:12 point review of the systems are otherwise unremarkable except for aboveObjectiveGeneralVS/I O:Vital Signs: Date Time Temp Pulse Resp B/P B/P Pulse O2 O2 Flow FiO2 Mean Ox Delivery Rate 05/26 2031 36.8 63 17 122/70 87.5 99 Room air 05/26 1640 36.6 62 16 135/73 93.7 99 05/26 1128 36.5 59 16 134/74 93.9 97 05/26 0851 36.9 59 18 112/66 81.6 99 05/26 0730 36.4 63 16 126/66 86.0 97 05/26 0522 36.7 52 18 102/56 71.2 98 Room air 05/25 2314 36.8 61 18 107/57 73.6 97 Room air24 hour I O ending at 0700: 05/26 0700 05/25 1900 Intake Total 600 Output Total Balance 600 Intake, Oral 600 Number 8 Bowel Movements Number Voids 5PATIENT WEIGHT:Weight (lb): 168Weight (oz): 3.4Weight (kg): 76.300Medications:Active Meds + DC'd Last 24 HrsChlordiazepoxide HCl (LIBRIUM) 10 MG DAILY PO (CKD)Rifaximin (Xifaxan) 550 MG BID POIbuprofen (MOTRIN) 400 MG ONCE ONE PO (DC)Lactulose (LACTULOSE 20 G/30 ML UDCUP) 30 ML Q8 PO (CKD)Rifaximin (XIFAXAN) 400 MG Q12 PO (DC)Chlordiazepoxide HCl (LIBRIUM) 10 MG BID PO (DC)Amlodipine Besylate (NORVASC) 5 MG DAILY POFolic Acid (FOLIC ACID) 1 MG DAILY POLisinopril (PRINIVIL 20 MG TABLET) 20 MG DAILY PO (CKD)Multivitamins Therapeutic (MULTIVITAMIN, THERA VITAMINS) 1 TAB DAILY PODextrose (B-D GLUCOSE) 3 TAB.CHEW PRN PRN PO (CKD)Dextrose (B-D GLUCOSE) 6 TAB.CHEW PRN PRN PO (CKD)Dextrose/Water (D10W) 250 ML BOLUS PRN IVFamotidine (PEPCID) 20 MG Q12HP PRN PO (CKD)Hydralazine HCl (APRESOLINE) 10 MG Q4H PRN PRN IV (CKD)Lorazepam (ATIVAN 2MG/ML VIAL) 2 MG Q1H PRN PRN IVLorazepam (ATIVAN 2MG/ML VIAL) 4 MG Q1H PRN PRN IVMelatonin (MELATONIN 3 MG TABLET) 6 MG BEDTIME PRN POOndansetron HCl (ZOFRAN 2MG/ML SDV VIAL) 4 MG Q8H PRN PRN IVThiamine HCl (THIAMINE HCL) 100 MG DAILY IVDietitian nutrition assessmentThe data set between the solid lines has been imported from the dietitian'sassessment. __BMI Calculated: 39.1Nutrition related diagnosis: ObeseNutrition diagnosis details: BMI 30-39.9Nutrition problem: Increased nutrient needsNutrition etiology: ETOH abuse disorderNutrition signs and symptoms: need for thiamine, folic acid,, MVINutrition prescription: Diet: Low Na, Carb Consistent/Diabetic 45gms carbs/mealContinue thiamine, folic acid, MVI. Recommend daily wts.Dietitian name: UMM LINDO, RDAssessment completed: 05/25/24 Physica l ExamGeneral appearance: alert, awake, oriented, pleasant, conversationalHead/Eyes: atraumatic, clear cornea, EOMINeck: full range of motion, non-tender, normal thyroidCardiovascular: normal capillary refill, normal heart sounds, regular raterhythmRespiratory: aerating well, clear to auscultation, symmetric expansionAbdomen: non-tender, normal bowel soundsGenitourinary: no flank painExtremities: moves all, normal capillary refill, normal range of motionMusculoskeletal: normal inspection, painless range of motionNeuro/AIRCRAFT FUSELAGE FRAMER: alert, oriented X 3Skin: dry, intact, no rashPsychiatry: not homicidal, not suicidal, no hallucinationsResultsFindings/Data:Laboratory Tests 05/26 05/26 05/26 1125 0912 0532 Chemistry POC Glucose (70 - 110 mg/dL) 197 H 140 H Ammonia (11 - 32 umol/L) 27Diagnosis, Assessment PlanFree Text DxA P NotesFree text DxA P notes:This is a 53yr old female pt w/hx of HTN, HLP, DM, CHF, EtoH abuse who [facility].Generalized weaknessIn the setting of alcohol abuse, hepatic encephalopathyHepatic encephalopathyAmmonia level slightly worse today, however clinically looks betterPatient has been getting lactulose every 3 hours except early in the morning didnot that few doses. Recommended to the nurse to give all the doses and documentBMs. Reportedly had at least 3 bowel movements yesterdayContinue lactulose, added rifaximinMentation betterEtOH dependence, reports last drink about 4 days ago-CIWA protocol, last drink was on Tuesday, david any recent seizures, last [id number] ago-ativan PRN-encourage abstaining-pt is [facility] and currently in alcohol rehabContinue thiamine, multivitamin folic acidThrombocytopenia, pancytopeniaSecondary to liver cirrhosis, improvingElevated LFTsSecondary to liver cirrhosisNoted ultrasound abdomen findings suggestive cholelithiasis, however noobstructing stone, no CBD dilation, findings of splenomegaly notedSeen by GI in the hospital She needs to establish care and follow-up with GI as outpatientPositive antimitochondrial antibodiesOrdered by GI as part of evaluation for chronic liver disease with elevated LFTsInformed patient about it and recommended to follow-up with evp business development athomeHTNHLPDMCHF, appears euvolemic nowFULL CODEDVT prophylaxis w/SCDPatient is doing much better today. Ambulated well without need for walker.Mental status much clear do ammonia level increasing. Clinically looks better,hence no need to trend ammonia levels unless there is any clinical change. Willdecrease the frequency of lactulose as patient has had 9 bowel movementsyesterday and continues to have more today. Titrate lactulose for at least 3soft BMs daily. Continue Xifaxan.Discussed with case management who mention that [facility] cannot take thepatient today as patient has a sitter. Okay to discharge to alcohol rehab whenthey can take her. Weaning off off Xaimgzr58/21/2024Clinical status continues to improve, no seizure at bedside, report muchimprovement anxiety and tremorLibrium decrease to 10 mg daily today, continue to wean off as toleratedContinue CIWA protocolAmmonia within normal limits today, Continuing proximal nocturnalContinue PT / OTDiscuss with case management team, once medically optimized for discharge wereinitiate approval for [facility], given the fact the patient is of sittermonitoring.Continue supportive careDiet : Low-sodiumThe prophylaxis SCDs LovenoxCode status full codeDispo: Wean off Librium, continue PT, continuous even current medicationregimen , goal to [facility]. [facility] at 2046RPT #: [id number] OF REPORT Geovanni Collier MD- [address] [place] [address] ([facility])Hospitalist Progress NoteREPORT#:[id number] REPORT STATUS: SignedDATE:05/25/24 TIME: 1730PATIENT: EUGENIO BARRERA UNIT #: [id number]#: [id number] ROOM/BED: [facility]-ADOB: [birth year] AGE: 53 SEX: F ATTEND: Amira Galarza MDADM AUTHOR: Amira Galarza MDREP SVR REP SVR TM: 1730* ALL edits or amendments must be made on the electronic/computer document *SubjectiveHPI:This is a 53yr old female pt w/hx of HTN, HLP, DM, CHF, EtoH abuse who [facility]transfer[facility]. [facility] and while there, she became hypotensive and weak andsent to [facility] management. Per pt, she isn't c/o any abd pain but wasfound w/abnormal LFT's, Thrombocytopenia and elevated ammonia level. She iscurrently AAOx3, no focal or neuro defict. She is pending an abdominal US, Ctbrain and abd. She is hemodynamically stable, last drink was on Tuesday.Currently her b/p is stable and denies any SOB, CP, palpitations or dizziness.Free Text Subj NotesFree Text Subj Notes:Patient is much better today physically and mentally.Review of SystemsFree Text ROS NotesFree Text ROS Notes:12 point review of the systems are otherwise unremarkable except for aboveObjectiveGeneralVS/I O:Vital Signs: Date Time Temp Pulse Resp B/P B/P Pulse O2 O2 Flow FiO2 Mean Ox Delivery Rate 05/25 1643 98.2 61 18 121/65 83.5 98 05/25 1130 98.1 60 18 116/63 80.6 97 Room air 05/25 0830 98.4 68 18 130/69 89.0 99 Room air 05/25 0513 98.1 66 18 106/67 79.9 97 Room air 05/25 0036 98.1 60 18 119/72 88.0 97 Room air 05/24 2016 97.3 64 18 107/68 81.0 96 Room air24 hour I O ending at 0700: 05/25 0700 05/24 1900 Intake Total 944 1300 Output Total Balance 944 1300 Intake, Oral 944 1300 Number 7 Bowel Movements Number Voids 4 4PATIENT WEIGHT:Weight (lb): 168Weight (oz): 3.4Weight (kg): 76.300Medications:Active Meds + DC'd Last 24 HrsLactulose (LACTULOSE 20 G/30 ML UDCUP) 30 ML Q8 PO (CKD)Rifaximin (XIFAXAN) 400 MG Q12 POChlordiazepoxide HCl (LIBRIUM) 10 MG BID PO (CKD)Rifaximin (XIFAXAN) 400 MG Q8HR PO (DC)Chlordiazepoxide HCl (LIBRIUM) 25 MG BID PO (DC)Chlordiazepoxide HCl (LIBRIUM) 25 MG TID PO (DC)Lactulose (LACTULOSE 20 G/30 ML UDCUP) 30 ML Q3 PO (DC)Rifaximin (XIFAXAN) 400 MG BID PO (DC)Amlodipine Besylate (NORVASC) 5 MG DAILY POFolic Acid (FOLIC ACID) 1 MG DAILY POLisinopril (PRINIVIL 20 MG TABLET) 20 MG DAILY PO (CKD)Multivitamins Therapeutic (MULTIVITAMIN, THERA VITAMINS) 1 TAB DAILY PODextrose (B-D GLUCOSE) 3 TAB.CHEW PRN PRN PO (CKD)Dextrose (B-D GLUCOSE) 6 TAB.CHEW PRN PRN PO (CKD)Dextrose/Water (D10W) 250 ML BOLUS PRN IVFamotidine (PEPCID) 20 MG Q12HP PRN PO (CKD)Hydralazine HCl (APRESOLINE) 10 MG Q4H PRN PRN IV (CKD)Lorazepam (ATIVAN 2MG/ML VIAL) 2 MG Q1H PRN PRN IVLorazepam (ATIVAN 2MG/ML VIAL) 4 MG Q1H PRN PRN IVMelatonin (MELATONIN 3 MG TABLET) 6 MG BEDTIME PRN POOndansetron HCl (ZOFRAN 2MG/ML SDV VIAL) 4 MG Q8H PRN PRN IVThiamine HCl (THIAMINE HCL) 100 MG DAILY IVPhysical ExamHead/Eyes: atraumatic, clear cornea, EOMINeck: full range of motion, non-tender, normal thyroidCardiovascular: normal capillary refill, normal heart sounds, regular raterhythmRespiratory: aerating well, clear to auscultation, symmetric expansionAbdomen: non-tender, normal bowel soundsGenitourinary: no flank painExtremities: moves all, normal capillary refill, normal range of motionMusculoskeletal: normal inspection, painless range of motionNeuro/AIRCRAFT FUSELAGE FRAMER: alert, oriented X 3Skin: dry, intact, no rashPsychiatry: normal affect, normal judgment/insight, normal moodResultsFindings/Data:Laboratory Tests 05/25 05/25 05/25 1643 1129 1025 Chemistry POC Glucose (70 - 110 mg/dL) 115 H 155 H Ammonia (11 - 32 umol/L) 58 HDiagnosis, Assessment PlanFree Text DxA P NotesFree text DxA P notes:This is a 53yr old female pt w/hx of HTN, HLP, DM, CHF, EtoH abuse who [facility].Generalized weaknessIn the setting of alcohol abuse, hepatic encephalopathyHepatic encephalopathyAmmonia level slightly worse today, however clinically looks betterPatient has been getting lactulose every 3 hours except early in the morning didnot that few doses. Recommended to the nurse to give all the doses and documentBMs. Reportedly had at least 3 bowel movements yesterdayContinue lactulose, added rifaximinMentation betterEtOH dependence, reports last drink about 4 days ago-WA protocol, last drink was on Tuesday, david any recent seizures, last [id number] ago-ativan PRN-encourage abstaining-pt is from [facility] and currently in alcohol rehabContinue thiamine, multivitamin folic acidThrombocytopenia, pancytopeniaSecondary to liver cirrhosis, improvingElevated LFTsSecondary to liver cirrhosisNoted ultrasound abdomen findings suggestive cholelithiasis, however noobstructing stone, no CBD dilation, findings of splenomegaly notedSeen by GI in the hospital She needs to establish care and follow-up with GI as outpatientPositive antimitochondrial antibodiesOrdered by GI as part of evaluation for chronic liver disease with elevated LFTsInformed patient about it and recommended to follow-up with evp business development athomeHTNHLPDMCHF, appears euvolemic nowFULL CODEDVT prophylaxis w/SCDPatient is doing much better today. Ambulated well without need for walker.Mental status much clear do ammonia level increasing. Clinically looks better,hence no need to trend ammonia levels unless there is any clinical change. Willdecrease the frequency of lactulose as patient has had 9 bowel movementsyesterday and continues to have more today. Titrate lactulose for at least 3soft BMs daily. Continue Xifaxan.Discussed with case management who mention that [facility] cannot take thepatient today as patient has a sitter. Okay to discharge to alcohol rehab whenthey can take her. Weaning off off Librium at 1733RPT #: [id number] OF REPORT 25-May-2024 Date of Initial Eval: since Initial Eval:7Subjective (quote):SAYS SHE FEELS MUCH BETTER TODAYMental status:1:Awake, alert, oriented h3Bgerhh status:2:Follows commandsMental status:MUCH BETTER MOOD TODAYFacility use, Patient Equipment:IV:IVFacility use, Patient Equipment:T:TelemetryIntegumentary assessment:YIntegumentary deficits:RN:See RN AssessmentIs the patient experiencing pain:N:NoTherapeutic exercise:Y:YesExercise:1:Ankle pump/circlesExercise:4:Hip & knee flex/extExercise:12:Seateed marchingExercise:13:Seated Add/ABDExercise Minutes:15Gait:Y:YesWeight bearing status:5:Full Weight bearingLevel of Assist:5:Supervision/set upDistance:250Gait device:NO DEVICEGait device:SNEAKERS ONGait comment:CLOSE CGA/CLOSE SGait Training Minutes:10Balance WDP:YTransfer LT:Transfer w/ independentTransfer target date:12739367Oixwuzgv goal progress:ONGOINGGait LTG:CLIENT WILL BE ABLE TO AMBULATE 300FT WITH ORGait LTG: WITHOUT AN AD 300FTGait target date:[id number] goal progress:ONGOINGImprove ROM/MMT LTG to:TO INCREASE BLE STRENGTH BY HALF GRADEROM/MMT target date:08036926ANS/MMT goal progress:ONGOINGAssessment:MUCH BETTER DISPOSITION TODAY. PATIENT SMILING.Assessment:BED MOB IAssessment:SITTING BALANCE GAssessment:SIT-STAND IAssessment:GAIT WITH NO DEVICE, SNEAKERS ON CLOSE CGA/CLOSE SAssessment:FOR 250FT. NO LOB. MUCH LESS DEVIATIONS IN GAIT;Assessment:BETTER BALANCE TODAYPatient/Family Goals:[facility]Treatment interventions:1:Gait TrainingTreatment interventions:2:Transfer trainingTreatment interventions:3:Therapeutic exerciseFrequency based on individual needs:3X-5X WEEKTreatment Duration:1:15-30 min. as toleratedTherapist recommended discharge needs:Home:Home no therapyEquipment Recommendations:N:NoneTherapy Exercise:15Gait TraininTotal Minutes:25Total Minutes Reviewed:Y:YesTime In:1200Time Out:1225 Geovanni Collier MD- 024 [facility] ([facility])Hospitalist Progress NoteREPORT#:[id number] REPORT STATUS: SignedDATE:05/24/24 TIME: 1042PATIENT: EUGENIO BARRERA UNIT #: [id number]#: [id number] [facility] AGE: 53 SEX: F ATTEND: Amira Galarza MDADM AUTHOR: Amira Galarza MDREP SVR REP SVR TM: 1042* ALL edits or amendments must be made on the electronic/computer document *SubjectiveHPI:This is a 53yr old female pt w/hx of HTN, HLP, DM, CHF, EtoH abuse who [facility]. [facility] and while there, she became hypotensive and weak andsent to [facility] management. Per pt, she isn't c/o any abd pain but wasfound w/abnormal LFT's, Thrombocytopenia and elevated ammonia level. She iscurrently AAOx3, no focal or neuro defict. She is pending an abdominal US, Ctbrain and abd. She is hemodynamically stable, last drink was on Tuesday.Currently her b/p is stable and denies any SOB, CP, palpitations or dizziness.Free Text Subj NotesFree Text Subj Notes:Doing even more better todayReview of SystemsFree Text ROS NotesFree Text ROS Notes:12 point review of the systems are otherwise unremarkable except for aboveObjectiveGeneralMedications:Active Meds + DC'd Last 24 HrsIbuprofen (MOTRIN) 400 MG ONCE ONE PO (DC)Chlordiazepoxide HCl (LIBRIUM) 25 MG TID PO (CKD)Lactulose (LACTULOSE 20 G/30 ML UDCUP) 30 ML Q3 PO (CKD)Rifaximin (XIFAXAN) 400 MG BID POAmlodipine Besylate (NORVASC) 5 MG DAILY POFolic Acid (FOLIC ACID) 1 MG DAILY POLisinopril (PRINIVIL 20 MG TABLET) 20 MG DAILY PO (CKD)Multivitamins Therapeutic (MULTIVITAMIN, THERA VITAMINS) 1 TAB DAILY PODextrose (B-D GLUCOSE) 3 TAB.CHEW PRN PRN PO (CKD)Dextrose (B-D GLUCOSE) 6 TAB.CHEW PRN PRN PO (CKD)Dextrose/Water (D10W) 250 ML BOLUS PRN IVFamotidine (PEPCID) 20 MG Q12HP PRN PO (CKD)Hydralazine HCl (APRESOLINE) 10 MG Q4H PRN PRN IV (CKD)Lorazepam (ATIVAN 2MG/ML VIAL) 2 MG Q1H PRN PRN IVLorazepam (ATIVAN 2MG/ML VIAL) 4 MG Q1H PRN PRN IVMelatonin (MELATONIN 3 MG TABLET) 6 MG BEDTIME PRN POOndansetron HCl (ZOFRAN 2MG/ML SDV VIAL) 4 MG Q8H PRN PRN IVThiamine HCl (THIAMINE HCL) 100 MG DAILY IVPhysical ExamHead/Eyes: atraumatic, clear cornea, EOMINeck: full range of motion, non-tender, normal thyroidCardiovascular: normal capillary refill, normal heart sounds, regular raterhythmRespiratory: aerating well, clear to auscultation, symmetric expansionAbdomen: non-tender, normal bowel soundsGenitourinary: no flank painExtremities: moves all, normal capillary refill, normal range of motionMusculoskeletal: normal inspection, painless range of motionNeuro/AIRCRAFT FUSELAGE FRAMER: alert, oriented X 3Skin: dry, intact, no rashPsychiatry: normal affect, normal judgment/insight, normal moodResultsFindings/Data:Laboratory Tests 05/24 05/24 05/24 05/23 05/23 0824 0820 0525 1939 1545 Chemistry Sodium (135 - 145 mmol/L) 142 Potassium (3.5 - 5.2 mmol/L) 4.0 Chloride (95 - 110 mmol/L) 106 Carbon Dioxide (19 - 34 mmol/L) 21 BUN (6 - 22 mg/dL) 13 Creatinine (0.43 - 1.13 mg/dL) 0.65 Est GFR (CKD-EPI 2020) (>/=90) > 90 Glucose (70 - 110 mg/dL) 186 H POC Glucose (70 - 110 mg/dL) 192 H 134 H 120 H Calcium (8.4 - 10.2 mg/dL) 10.1 Ammonia (11 - 32 umol/L) 36 HLaboratory Tests 05/24 08 Hematology WBC (4.0 - 10.5 10 3/u) 3.4 L RBC (3.93 - 5.22 10 6/uL) 3.79 L Hgb (11.2 - 15.7 G/DL) 12.6 Hct (34.1 - 44.9 %) 37.0 MCV (79.4 - 94.8 fl) 97.6 H MCH (25.6 - 32.2 pg) 33.2 H MCHC (32.2 - 35.5 G/DL) 34.1 RDW (11.7 - 14.4 %) 13.9 Plt Count (150 - 400 10 3/uL) 92 L MPV (9.4 - 12.3 fl) 12.2 Nucleated RBC % (auto) (0.0 - 0.2 %) 0.0 Immature Gran % (0.0 - 0.4 %) 0.3 Seg Neutrophils % (34.0 - 71.1 %) 61.4 Lymphocytes % (19.3 - 51.7 %) 24.5 Monocytes % (4.7 - 12.5 %) 8.8 Eosinophils % (0.7 - 5.8 %) 4.4 Basophils % (0.1 - 1.2 %) 0.6 Immature Gran # (0.00 - 0.03 10*3/uL) 0.01 Neutrophils # (1.56 - 6.13 10 3/uL) 2.08 Lymphocytes # (1.18 - 3.74 10 3/uL) 0.83 L Monocytes # (0.24 - 0.63 10 3/uL) 0.30 Eosinophils # (0.04 - 0.36 10 3/uL) 0.15 Basophils # (0.01 - 0.08 10 3/uL) 0.02 Nucleated RBCs # (0.00 - 0.18 10 3/uL) 0.00Radiology data:Recent Impressions:RADIOLOGY - KNEE 3V RIGHT 05/23 1405 Report Impression - Status: SIGNED Entered: 05/23/2024 1526IMPRESSION:No acute fracture or dislocation.Workstation ID: [id number] By: ORION ORTIZ D.O.Diagnosis, Assessment PlanFree Text DxA P NotesFree text DxA P notes:This is a 53yr old female pt w/hx of HTN, HLP, DM, CHF, EtoH abuse who [facility].Generalized weaknessIn the setting of alcohol abuse, hepatic encephalopathyHepatic encephalopathyAmmonia level slightly worse today, however clinically looks betterPatient has been getting lactulose every 3 hours except early in the morning didnot that few doses. Recommended to the nurse to give all the doses and documentBMs. Reportedly had at least 3 bowel movements yesterdayContinue lactulose, added rifaximinDiscussed with GI, increased lactulose to every 3 hoursMentation betterEtOH dependence, reports last drink about 4 days ago-CIWA protocol, last drink was on Tuesday, david any recent seizures, last [id number] ago-ativan PRN-encourage abstaining-pt is from [facility] and currently in alcohol rehabContinue thiamine, multivitamin folic acidThrombocytopeniaElevated LFTsSecondary to liver cirrhosisNoted ultrasound abdomen findings suggestive cholelithiasis, however noobstructing stone, no CBD dilation, findings of splenomegaly notedConsulted GIPositive antimitochondrial antibodiesOrdered by GI as part of evaluation for chronic liver disease with elevated LFTsInformed patient about it and recommended to follow-up with evp business development athomeHTNHLPDMCHF, appears euvolemic nowFULL CODEDVT prophylaxis w/SCDDiscussed with nursing staff. Patient is unsteady on her feet. Hence orderedPT, OT evaluation. Seen by PT, no discharge needs from their standpoint.Anticipate discharge to alcohol rehab in 1-2 days if hepatic encephalopathyneeds to improve. She needs to establish care and follow-up with GI asoutpatientAnticipate discharge to alcohol rehab whenever she is accepted as she ismedically clearedPancytopenia improving at 1849RPT #: [id number] OF REPORT 23-May-2024 Date of Initial Eval: since Initial Eval:5Subjective (quote):UPSET BECAUSE SHE SAYS A 'LARGE MAN' THREW HER INSubjective (quote):BED LAST NIGHT. I REPORTED THIS TO CHARGE NURSESubjective (quote):BUT THERE WAS NO MALE PCT OR NUSE ON LAST NIGHT.Subjective (quote):SHE IS ALSO IN A CAMERA ROOMMental status:4:Alert, oriented [id number] status:ANXIOUS, TEARFUL AT TIMESFacility use, Patient Equipment:IV:IVFacility use, Patient Equipment:T:TelemetryIntegumentary assessment:YIntegumentary deficits:N:No deficits notedIs the patient experiencing pain:Y:YesComment:BEHIND R KNEE AND R CALF: REPORTED TO CHARGE NURSETherapeutic exercise:Y:YesExercise:1:Ankle pump/circlesExercise:4:Hip & knee flex/extExercise:12:Seateed marchingExercise Minutes:10Gait:Y:YesWeight bearing status:5:Full Weight bearingLevel of Assist:4:Minimal assist (25%)Distance:200Gait device:2:Rolling walkerGait device:SNEAKERS ONGait comment:VEERING PAUL INTO OBJECTS ON HER L SIDEGait Training Minutes:15Balance WDP:NSitting Balance- Static:5:FairSitting Balance- Dynamic:5:FairStanding Balance-Static:6:Fair - Standing Balance-Dynamic:7:Poor +Transfer LT:Transfer w/ independentTransfer target date:60529927Etslxvsq goal progress:ONGOINGGait LTG:CLIENT WILL BE ABLE TO AMBULATE 300FT WITH ORGait LTG: WITHOUT AN AD 300FTGait target date:13594064Hbbd goal progress:ONGOINGImprove ROM/MMT LTG to:TO INCREASE BLE STRENGTH BY HALF GRADEROM/MMT target date:16794430FMY/MMT goal progress:ONGOINGAssessment:SUPINE-SIT IAssessment:SITTING BALANCE GAssessment:SIT-STAND W/WLKR CLOSE CGA OF 1Assessment:GAIT W/WLKR, SNEAKERS ON FOR 200FT WITH CLARISSE OF 1.Assessment:NEEDS HELP STEERING THE PAUL BECAUSE SHE KEEPS ONAssessment:VEERING INTO OBJECTS, THE WALL , ON HER L SIDE.Assessment:SIT-SUPINE IPatient/Family Goals:[facility]Treatment interventions:1:Gait TrainingTreatment interventions:2:Transfer trainingTreatment interventions:3:Therapeutic exerciseFrequency based on individual needs:3X-5X WEEKTreatment Duration:1:15-30 min. as toleratedTherapist recommended discharge needs:Home:Home no therapyEquipment Recommendations:RWLKRTherapy Exercise:10Gait TraininTotal Minutes:25Total Minutes Reviewed:Y:YesTime In:1105Time Out:1130Pain scale utilized:Verbal:Verbal numericNumeric pain scale:7:Severe pain-7Pain intensity:7 Geovanni Collier MD [address] [place] [address] ([facility])Hospitalist Progress NoteREPORT#:[id number] REPORT STATUS: SignedDATE:05/23/24 TIME: 923PATIENT: EUGENIO BARRERA UNIT #: [id number]#: [id number] ROOM/BED: [facility]-ADOB: [birth year] AGE: 53 SEX: F ATTEND: Amira Galarza MDADM AUTHOR: Amira Galarza MDREP SVR REP SVR TM: 923* ALL edits or amendments must be made on the electronic/computer document *SubjectiveHPI:This is a 53yr old female pt w/hx of HTN, HLP, DM, CHF, EtoH abuse who [facility]. [facility] and while there, she became hypotensive and weak andsent to [facility] further management. Per pt, she isn't c/o any abd pain but wasfound w/abnormal LFT's, Thrombocytopenia and elevated ammonia level. She iscurrently AAOx3, no focal or neuro defict. She is pending an abdominal US, Ctbrain and abd. She is hemodynamically stable, last drink was on Tuesday.Currently her b/p is stable and denies any SOB, CP, palpitations or dizziness.Free Text Subj NotesFree Text Subj Notes:More awake and alert today. Noted slightly increased ammonia level, howeverclinically looks betterReview of SystemsFree Text ROS NotesFree Text ROS Notes:12 point review of the systems are otherwise unremarkable except for aboveObjectiveGeneralMedications:Active Meds + DC'd Last 24 HrsChlordiazepoxide HCl (LIBRIUM) 25 MG TID PO (UNVr)Lactulose (LACTULOSE 20 G/30 ML UDCUP) 30 ML Q3 PO (CKD)Rifaximin (XIFAXAN) 400 MG BID POAmlodipine Besylate (NORVASC) 5 MG DAILY POFolic Acid (FOLIC ACID) 1 MG DAILY POLisinopril (PRINIVIL 20 MG TABLET) 20 MG DAILY PO (CKD)Multivitamins Therapeutic (MULTIVITAMIN, THERA VITAMINS) 1 TAB DAILY PODextrose (B-D GLUCOSE) 3 TAB.CHEW PRN PRN PO (CKD)Dextrose (B-D GLUCOSE) 6 TAB.CHEW PRN PRN PO (CKD)Dextrose/Water (D10W) 250 ML BOLUS PRN IVFamotidine (PEPCID) 20 MG Q12HP PRN PO (CKD)Hydralazine HCl (APRESOLINE) 10 MG Q4H PRN PRN IV (CKD)Lorazepam (ATIVAN 2MG/ML VIAL) 2 MG Q1H PRN PRN IVLorazepam (ATIVAN 2MG/ML VIAL) 4 MG Q1H PRN PRN IVMelatonin (MELATONIN 3 MG TABLET) 6 MG BEDTIME PRN POOndansetron HCl (ZOFRAN 2MG/ML SDV VIAL) 4 MG Q8H PRN PRN IVThiamine HCl (THIAMINE HCL) 100 MG DAILY IVPhysical ExamHead/Eyes: atraumatic, clear cornea, EOMINeck: full range of motion, non-tender, normal thyroidCardiovascular: normal capillary refill, normal heart sounds, regular raterhythmRespiratory: aerating well, clear to auscultation, symmetric expansionAbdomen: non-tender, normal bowel soundsGenitourinary: no flank painExtremities: moves all, normal capillary refill, normal range of motionMusculoskeletal: normal inspection, painless range of motionNeuro/AIRCRAFT FUSELAGE FRAMER: alert, oriented X 3Skin: dry, intact, no rashPsychiatry: normal affect, normal judgment/insight, normal moodResultsFindings/Data:Laboratory Tests 05/23 05/23 05/23 0841 0637 0637 Chemistry Sodium (135 - 145 mmol/L) 139 Potassium (3.5 - 5.2 mmol/L) 4.0 Chloride (95 - 110 mmol/L) 103 Carbon Dioxide (19 - 34 mmol/L) 24 BUN (6 - 22 mg/dL) 10 Creatinine (0.43 - 1.13 mg/dL) 0.57 Est GFR (CKD-EPI 2020) (>/=90) > 90 Glucose (70 - 110 mg/dL) 126 H POC Glucose (70 - 110 mg/dL) 161 H Calcium (8.4 - 10.2 mg/dL) 9.7 Corrected Calcium (8.4 - 10.2 mg/dl) 9.9 Total Bilirubin (0.1 - 1.2 mg/dL) 4.2 H AST (10 - 40 Units/L) 86 H ALT (10 - 60 Units/L) 56 Total Alk Phosphatase (20 - 130 Units/L) 181 H Ammonia (11 - 32 umol/L) 38 H Total Protein (5.5 - 8.7 g/dL) 6.7 Albumin (3.2 - 5.0 g/dL) 3.7Diagnosis, Assessment PlanFree Text DxA P NotesFree text DxA P notes:This is a 53yr old female pt w/hx of HTN, HLP, DM, CHF, EtoH abuse who [facility].Generalized weaknessIn the setting of alcohol abuse, hepatic encephalopathyHepatic encephalopathyAmmonia level slightly worse today, however clinically looks betterPatient has been getting lactulose every 3 hours except early in the morning didnot that few doses. Recommended to the nurse to give all the doses and documentBMs. Reportedly had at least 3 bowel movements yesterdayContinue lactulose, added rifaximinDiscussed with GI, increased lactulose to every 3 hoursMentation betterEtOH dependence, reports last drink about 4 days ago-CIWA protocol, last drink was on Tuesday, david any recent seizures, last [id number] ago-ativan PRN-encourage abstaining-pt is from [facility] and currently in alcohol rehabContinue thiamine, multivitamin folic acidThrombocytopeniaElevated LFTsSecondary to liver cirrhosisNoted ultrasound abdomen findings suggestive cholelithiasis, however noobstructing stone, no CBD dilation, findings of splenomegaly notedConsulted GIHTNHLPDMCHF, appears euvolemic nowFULL CODEDVT prophylaxis w/SCDDiscussed with nursing staff. Patient is unsteady on her feet. Hence orderedPT, OT evaluation. Seen by PT, no discharge needs from their standpoint.Anticipate discharge to alcohol rehab in 1-2 days if hepatic encephalopathyneeds to improve. She needs to establish care and follow-up with GI asoutpatientAnticipate discharge to alcohol rehab tomorrow. Started on scheduled Librium at 1757RPT #: [id number] OF REPORT Geovanni Collier MD- 024 [facility] ([facility])Hospitalist Progress NoteREPORT#:[id number] REPORT STATUS: SignedDATE:05/22/24 TIME: 2321PATIENT: EUGENIO BARRERA UNIT #: [id number]#: [id number] ROOM/BED: [facility]-ADOB: [birth year] AGE: 53 SEX: F ATTEND: Amira Galarza MDADM AUTHOR: Amira Galarza MDREP SVR REP SVR TM: 2321* ALL edits or amendments must be made on the electronic/computer document *SubjectiveHPI:This is a 53yr old female pt w/hx of HTN, HLP, DM, CHF, EtoH abuse who [facility]. [facility] and while there, she became hypotensive and weak andsent to [facility] management. Per pt, she isn't c/o any abd pain but wasfound w/abnormal LFT's, Thrombocytopenia and elevated ammonia level. She iscurrently AAOx3, no focal or neuro defict. She is pending an abdominal US, Ctbrain and abd. She is hemodynamically stable, last drink was on Tuesday.Currently her b/p is stable and denies any SOB, CP, palpitations or dizziness.Free Text Subj NotesFree Text Subj Notes:More awake and alert now.Review of SystemsFree Text ROS NotesFree Text ROS Notes:12 point review of the systems are otherwise unremarkable except for aboveObjectiveGeneralVS/I O:Vital Signs: Date Time Temp Pulse Resp B/P B/P Pulse O2 O2 Flow FiO2 Mean Ox Delivery Rate 05/22 1933 98.6 69 16 124/69 87.3 96 Room air 05/22 1647 98.8 77 18 120/70 86.9 96 Room air 05/22 1230 98.8 64 17 119/73 88.7 95 Room air 05/22 0835 98.8 80 18 121/66 84.5 94 Room air 05/22 0531 99.3 84 18 134/73 93.2 94 05/21 2357 99.3 84 18 134/77 96.0 96 Room airPATIENT WEIGHT:Weight (lb): 168Weight (oz): 3.4Weight (kg): 76.300Medications:Active Meds + DC'd Last 24 HrsLactulose (LACTULOSE 20 G/30 ML UDCUP) 30 ML Q3 PO (CKD)Rifaximin (XIFAXAN) 400 MG BID POAmlodipine Besylate (NORVASC) 5 MG DAILY POFolic Acid (FOLIC ACID) 1 MG DAILY POLisinopril (PRINIVIL 20 MG TABLET) 20 MG DAILY PO (CKD)Multivitamins Therapeutic (MULTIVITAMIN, THERA VITAMINS) 1 TAB DAILY PODextrose (B-D GLUCOSE) 3 TAB.CHEW PRN PRN PO (CKD)Dextrose (B-D GLUCOSE) 6 TAB.CHEW PRN PRN PO (CKD)Dextrose/Water (D10W) 250 ML BOLUS PRN IVFamotidine (PEPCID) 20 MG Q12HP PRN PO (CKD)Hydralazine HCl (APRESOLINE) 10 MG Q4H PRN PRN IV (CKD)Lorazepam (ATIVAN 2MG/ML VIAL) 2 MG Q1H PRN PRN IVLorazepam (ATIVAN 2MG/ML VIAL) 4 MG Q1H PRN PRN IVMelatonin (MELATONIN 3 MG TABLET) 6 MG BEDTIME PRN POOndansetron HCl (ZOFRAN 2MG/ML SDV VIAL) 4 MG Q8H PRN PRN IVThiamine HCl (THIAMINE HCL) 100 MG DAILY IVPhysical ExamHead/Eyes: atraumatic, clear cornea, EOMINeck: full range of motion, non-tender, normal thyroidCardiovascular: normal capillary refill, normal heart sounds, regular raterhythmRespiratory: aerating well, clear to auscultation, symmetric expansionAbdomen: non-tender, normal bowel soundsGenitourinary: no flank painExtremities: moves all, normal capillary refill, normal range of motionMusculoskeletal: normal inspection, painless range of motionNeuro/AIRCRAFT FUSELAGE FRAMER: alert, oriented X 3Skin: dry, intact, no rashPsychiatry: normal affect, normal judgment/insight, normal moodResultsFindings/Data:Laboratory Tests 05/22 05/22 0633 0633 Chemistry Sodium (135 - 145 mmol/L) 136 Potassium (3.5 - 5.2 mmol/L) 3.9 Chloride (95 - 110 mmol/L) 102 Carbon Dioxide (19 - 34 mmol/L) 25 BUN (6 - 22 mg/dL) 8 Creatinine (0.43 - 1.13 mg/dL) 0.56 Est GFR (CKD-EPI 2020) (>/=90) > 90 Glucose (70 - 110 mg/dL) 139 H Calcium (8.4 - 10.2 mg/dL) 9.5 Corrected Calcium (8.4 - 10.2 mg/dl) 9.9 Total Bilirubin (0.1 - 1.2 mg/dL) 4.7 H AST (10 - 40 Units/L) 92 H ALT (10 - 60 Units/L) 56 Total Alk Phosphatase (20 - 130 Units/L) 175 H Ammonia (11 - 32 umol/L) 29 Total Protein (5.5 - 8.7 g/dL) 6.3 Albumin (3.2 - 5.0 g/dL) 3.5Diagnosis, Assessment PlanFree Text DxA P NotesFree text DxA P notes:This is a 53yr old female pt w/hx of HTN, HLP, DM, CHF, EtoH abuse who [facility] evaluation.Generalized weaknessIn the setting of alcohol abuse, hepatic encephalopathyHepatic encephalopathyAmmonia level improvingContinue lactulose, added rifaximinDiscussed with GI, increased lactulose to every 3 hoursMentation betterEtOH dependence, reports last drink about 4 days ago-CIWA protocol, last drink was on Tuesday, david any recent seizures, last aut71osp ago-ativan PRN-encourage abstaining-pt is from [facility] and currently in alcohol rehabContinue thiamine, multivitamin folic acidThrombocytopeniaElevated LFTsSecondary to liver cirrhosisNoted ultrasound abdomen findings suggestive cholelithiasis, however noobstructing stone, no CBD dilation, findings of splenomegaly notedConsulted GIHTNHLPDMCHF, appears euvolemic nowFULL CODEDVT prophylaxis w/SCDDiscussed with nursing staff. Patient is unsteady on her feet. Hence orderedPT, OT evaluation. Seen by PT, no discharge needs from their standpoint.Anticipate discharge to alcohol rehab in 1-2 days if hepatic encephalopathyneeds to improve. She needs to establish care and follow-up with GI asoutpatientClosely monitor still with CIWA score being on high side. Transferred to [facility] night as CIWA score was 18, however patient was in a quad room yesterdaywith other people who are agitated/demented and that likely could havecontributed to her agitation/anxiety yesterday. She is currently in a privateroom and doing better at 2323RPT #: [id number] OF REPORT 22-May-2024 Date of Initial Eval: since Initial Eval:4Subjective (quote):CRYING SAYING SHE WANTS TO MOVEMental status:1:Awake, alert, oriented y0Oipyxj status:ANXIOUS, TEARFULFacility use, Patient Equipment:IV:IVFacility use, Patient Equipment:T:TelemetryIntegumentary assessment:YIntegumentary deficits:N:No deficits notedIs the patient experiencing pain:N:NoGait:Y:YesWeight bearing status:5:Full Weight bearingLevel of Assist:4:Minimal assist (25%)Distance:200Gait device:2:Rolling walkerGait device:SNEAKERS ONGait comment:MIN TO MODA OF 1Gait comment:SEE ASSESSGait Training Minutes:10Therapeutic activity:Y:YesTherapeutic activities comment:ASSIST TO/FROM BRTherapy Activity Minutes:15Balance WDP:NSitting Balance- Static:4:Fair +Sitting Balance- Dynamic:5:FairStanding Balance-Static:6:Fair -Standing Balance-Dynamic:7:Poor +Transfer LT:Transfer w/ independentTransfer target date:61065101Nywwbdeo goal progress:ONGOINGGait LTG:CLIENT WILL BE ABLE TO AMBULATE 300FT WITH ORGait LTG: WITHOUT AN AD 300FTGait target date:24904412Eqwr goal progress:ONGOINGImprove ROM/MMT LTG to:TO INCREASE BLE STRENGTH BY HALF GRADEROM/MMT target date:62775737VVX/MMT goal progress:ONGOINGAssessment:TEARFUL. IN ROOM WITH SITTERAssessment:SIT-STAND WITH WLKR AND CLARISSE OF 1Assessment:GAIT W/WLKR , SNEAKERS ON, MIN TO MODA OF 1, CUESAssessment:FOR 200FT. KEPT VEERING WALKER TO THE L ANDAssessment:RUNNING INTO OBJECTS/WALL IF NOT ASSISTED. VERYAssessment:UNSAFE.Assessment:ASSISTED TO/FROM BR AND ON/OFF TOILET W/WLKR ANDAssessment:CLARISSE OF 1.Patient/Family Goals:1:Go homeTreatment interventions:1:Gait TrainingTreatment interventions:2:Transfer trainingTreatment interventions:3:Therapeutic exerciseFrequency based on individual needs:3X WEEKTreatment Duration:1:15-30 min. as toleratedTherapist recommended discharge needs:Home:Home no therapyEquipment Recommendations:TBDGait TraininTherapy Actvities (TACT):15Total Minutes:25Total Minutes Reviewed:Y:YesTime In:0950Time Out:1020 Asael Vee MD-21-May-2024 [facility] ([facility])Gastroenterology Progress NoteREPORT#:[id number] REPORT STATUS: SignedDATE:05/21/24 TIME: 1625PATIENT: EUGENIO BARRERA UNIT #: [id number]#: [id number] [facility] AGE: 53 SEX: F ATTEND: Amira Galarza MDADM AUTHOR: Mariusz Vyas MDREP SVR REP SVR TM: 1625* ALL edits or amendments must be made on the electronic/computer document *SubjectiveHPI:Patient more alert and interactive. She continues to trigger alcohol withdrawalprotocol and recently received Ativan. She is denying any melena orhematochezia. She would like to go back once she is out of the withdrawalprotocol.ObjectiveGeneralVS/I O:Last Documented: Result Date Time Pulse Ox 96 05/21 1619 B/P 121/64 05/21 1619 B/P Mean 83.3 05/21 1619 O2 Delivery Room air 05/21 1619 Temp 36.9 05/21 1619 Pulse 79 05/21 1619 Resp 18 12/16 1619PATIENT WEIGHT:Weight (lb): 168Weight (oz): 3.4Weight (kg): 76.300Medications:Active Meds + DC'd Last 24 HrsLactulose (LACTULOSE 20 G/30 ML UDCUP) 30 ML Q3 PO (CKD)Sodium Chloride (SODIUM CHLORIDE 0.9% 1000 ML BAG) 1,000 ML ASDIR IV (DC)Rifaximin (XIFAXAN) 400 MG BID POAmlodipine Besylate (NORVASC) 5 MG DAILY POFolic Acid (FOLIC ACID) 1 MG DAILY POLisinopril (PRINIVIL 20 MG TABLET) 20 MG DAILY PO (CKD)Multivitamins Therapeutic (MULTIVITAMIN, THERA VITAMINS) 1 TAB DAILY PODextrose (B-D GLUCOSE) 3 TAB.CHEW PRN PRN PO (CKD)Dextrose (B-D GLUCOSE) 6 TAB.CHEW PRN PRN PO (CKD)Dextrose/Water (D10W) 250 ML BOLUS PRN IVFamotidine (PEPCID) 20 MG Q12HP PRN PO (CKD)Hydralazine HCl (APRESOLINE) 10 MG Q4H PRN PRN IV (CKD)Lorazepam (ATIVAN 2MG/ML VIAL) 2 MG Q1H PRN PRN IVLorazepam (ATIVAN 2MG/ML VIAL) 4 MG Q1H PRN PRN IVMelatonin (MELATONIN 3 MG TABLET) 6 MG BEDTIME PRN POOndansetron HCl (ZOFRAN 2MG/ML SDV VIAL) 4 MG Q8H PRN PRN IVThiamine HCl (THIAMINE HCL) 100 MG DAILY IVResultsFindings/Data:Laboratory Tests05/21/24 0421:[Embedded Image Not Available]Laboratory Tests 05/211 0421 1856 1653 Chemistry Sodium (135 - 145 mmol/L) 140 Potassium (3.5 - 5.2 mmol/L) 3.9 Chloride (95 - 110 mmol/L) 103 Carbon Dioxide (19 - 34 mmol/L) 23 BUN (6 - 22 mg/dL) 8 Creatinine (0.43 - 1.13 mg/dL) 0.57 Est GFR (CKD-EPI 2020) (>/=90) > 90 Glucose (70 - 110 mg/dL) 127 H Calcium (8.4 - 10.2 mg/dL) 9.4 Corrected Calcium (8.4 - 10.2 mg/dl) 9.5 Total Bilirubin (0.1 - 1.2 mg/dL) 4.7 H AST (10 - 40 Units/L) 101 H ALT (10 - 60 Units/L) 60 Total Alk Phosphatase (20 - 130 Units/L) 187 H Ammonia (11 - 32 umol/L) 20 Troponin I (0.000 - 0.034 ng/mL) < 0.012 < 0.012 Total Protein (5.5 - 8.7 g/dL) 7.1 Albumin (3.2 - 5.0 g/dL) 3.9Diagnosis, Assessment PlanFree Text A P:55 yo transfer from rehab for further evaluation of AMS and hypotension. GIconsulted for hepatic encephalopathy:Impression:* Hepatic encephalopathy: --Remote hx of ETOH abuse, came from [place] for rehab --Ammonia level (44) --Thrombocytopenia --Meld-Na: (17) --Patient labs suggestive of liver disease --US Abd: Splenomegaly. Liver normal echotexture. No evidence of mass. NoIHBD --CT AP WC: No acute abdnomalityRecommendations:* Chronic liver disease workup negative so far* Lactulose/xifaxan TID to maintain 2-3 soft stool watch for diarrhea* Low NA diet* Continue alcohol withdrawal protocol* Patient to discharge back to rehab once out of withdrawal protocol. She willneed to establish care with a hospital superintendent [place] liver related surveillance including EGD and imaging to ruleout HCC every 6 monthsGI will sign off. Please re-consult if needed at 1628RPT #: [id number] OF REPORT Geovanni Collier MD- [address] [place] [address] ([facility])Hospitalist Progress NoteREPORT#:[id number] REPORT STATUS: SignedDATE:05/21/24 TIME: 0834PATIENT: EUGENIO BARRERA UNIT #: [id number]#: [id number] ROOM[facility]BED: [facility]-ADOB: [birth year] AGE: 53 SEX: F ATTEND: Amira Galarza MDADM AUTHOR: Amira Galarza MDREP SVR REP SVR TM: 0834* ALL edits or amendments must be made on the electronic/computer document *SubjectiveHPI:This is a 53yr old female pt w/hx of HTN, HLP, DM, CHF, EtoH abuse who [facility]. [facility] and while there, she became hypotensive and weak andsent to [facility] for further management. Per pt, she isn't c/o any abd pain but wasfound w/abnormal LFT's, Thrombocytopenia and elevated ammonia level. She iscurrently AAOx3, no focal or neuro defict. She is pending an abdominal US, Ctbrain and abd. She is hemodynamically stable, last drink was on Tuesday.Currently her b/p is stable and denies any SOB, CP, palpitations or dizziness.Free Text Subj NotesFree Text Subj Notes:Still scoring high on CIWA. Patient reportedly got Ativan 1 hour before I wentto see her, hence very drowsy.Review of SystemsFree Text ROS NotesFree Text ROS Notes:12 point review of the systems are otherwise unremarkable except for aboveObjectiveGeneralMedications:Active Meds + DC'd Last 24 HrsLactulose (LACTULOSE 20 G/30 ML UDCUP) 30 ML Q3 PO (CKD)Sodium Chloride (SODIUM CHLORIDE 0.9% 1000 ML BAG) 1,000 ML ASDIR IV (DC)Rifaximin (XIFAXAN) 400 MG BID POAmlodipine Besylate (NORVASC) 5 MG DAILY POFolic Acid (FOLIC ACID) 1 MG DAILY POLisinopril (PRINIVIL 20 MG TABLET) 20 MG DAILY PO (CKD)Multivitamins Therapeutic (MULTIVITAMIN, THERA VITAMINS) 1 TAB DAILY PODextrose (B-D GLUCOSE) 3 TAB.CHEW PRN PRN PO (CKD)Dextrose (B-D GLUCOSE) 6 TAB.CHEW PRN PRN PO (CKD)Dextrose/Water (D10W) 250 ML BOLUS PRN IVFamotidine (PEPCID) 20 MG Q12HP PRN PO (CKD)Hydralazine HCl (APRESOLINE) 10 MG Q4H PRN PRN IV (CKD)Lorazepam (ATIVAN 2MG/ML VIAL) 2 MG Q1H PRN PRN IVLorazepam (ATIVAN 2MG/ML VIAL) 4 MG Q1H PRN PRN IVMelatonin (MELATONIN 3 MG TABLET) 6 MG BEDTIME PRN POOndansetron HCl (ZOFRAN 2MG/ML SDV VIAL) 4 MG Q8H PRN PRN IVThiamine HCl (THIAMINE HCL) 100 MG DAILY IVPhysical ExamHead/Eyes: atraumatic, clear cornea, EOMINeck: full range of motion, non-tender, normal thyroidCardiovascular: normal capillary refill, normal heart sounds, regular raterhythmRespiratory: aerating well, clear to auscultation, symmetric expansionAbdomen: non-tender, normal bowel soundsGenitourinary: no flank painExtremities: moves all, normal capillary refill, normal range of motionMusculoskeletal: normal inspection, painless range of motionNeuro/AIRCRAFT FUSELAGE FRAMER: alert, oriented X 3Skin: dry, intact, no rashPsychiatry: normal affect, normal judgment/insight, normal moodResultsFindings/Data:Laboratory Tests 05/21 05/21 05/20 05/20 05/20 0421 0421 1856 1653 1620Chemistry Sodium (135 - 145 mmol/L) 140 Potassium (3.5 - 5.2 mmol/L) 3.9 Chloride (95 - 110 mmol/L) 103 Carbon Dioxide (19 - 34 mmol/L) 23 BUN (6 - 22 mg/dL) 8 Creatinine (0.43 - 1.13 mg/dL) 0.57 Est GFR (CKD-EPI 2020) (>/=90) > 90 Glucose (70 - 110 mg/dL) 127 H POC Glucose (70 - 110 mg/dL) 103 Calcium (8.4 - 10.2 mg/dL) 9.4 Corrected Calcium (8.4 - 10.2 mg/dl) 9.5 Total Bilirubin (0.1 - 1.2 mg/dL) 4.7 H AST (10 - 40 Units/L) 101 H ALT (10 - 60 Units/L) 60 Total Alk Phosphatase (20 - 130 187 HUnits/L) Ammonia (11 - 32 umol/L) 20 Troponin I (0.000 - 0.034 ng/mL) < 0.012 < 0.012 Total Protein (5.5 - 8.7 g/dL) 7.1 Albumin (3.2 - 5.0 g/dL) 3.9 05/20 1157 Chemistry POC Glucose (70 - 110 mg/dL) 146 HDiagnosis, Assessment PlanFree Text DxA P NotesFree text DxA P notes:This is a 53yr old female pt w/hx of HTN, HLP, DM, CHF, EtoH abuse who wastransferred [facility].Generalized weaknessIn the setting of alcohol abuse, hepatic encephalopathyHepatic encephalopathyAmmonia level improvingContinue lactulose, added rifaximinDiscussed with GI, increased lactulose to every 3 hoursMentation betterEtOH dependence, reports last drink about 4 days ago-CIWA protocol, last drink was on Tuesday, david any recent seizures, last [id number] ago-ativan PRN-encourage abstaining-pt is from [facility] and currently in alcohol rehabContinue thiamine, multivitamin folic acidThrombocytopeniaElevated LFTsSecondary to liver cirrhosisNoted ultrasound abdomen findings suggestive cholelithiasis, however noobstructing stone, no CBD dilation, findings of splenomegaly notedConsulted GIHTNHLPDMCHF, appears euvolemic nowFULL CODEDVT prophylaxis w/SCDDiscussed with nursing staff. Patient is unsteady on her feet. Hence orderedPT, OT evaluation. Seen by PT, no discharge needs from their standpoint.Anticipate discharge to alcohol rehab in 1-2 days if hepatic encephalopathyneeds to improve. She needs to establish care and follow-up with GI asoutpatientClosely monitor still with CIWA score being on high side at 1804RPT #: [id number] OF REPORT Prakash Rebolledo MD-15-May-2024 [facility] ([facility])Gastroenterology Progress NoteREPORT#:[id number] REPORT STATUS: SignedDATE:05/20/24 TIME: 1523PATIENT: EUGENIO BARRERA UNIT #: [id number]#: [id number] [address] [birth year] AGE: 53 SEX: F ATTEND: Amira Galarza MDADM AUTHOR: Amaury Randall MDREP SVR REP SVR TM: 1523* ALL edits or amendments must be made on the electronic/computer document *SubjectiveExternal recordPatient with alcoholic cirrhosis and hepatic encephalopathy also withdrawingfrom alcohol.Patient looks slightly better than yesterday. Patient had multiple bowelmovements today. We can titrate the lactulose dose and frequency down toachieve 4 bowel movements a day. Continue rifaximin and continue supportivecare at 1524RPT #: [id number] OF REPORT Geovanni Collier MD- 024 [facility] ([facility])Hospitalist Progress NoteREPORT#:[id number] REPORT STATUS: SignedDATE:05/20/24 TIME: 930PATIENT: EUGENIO BARRERA UNIT #: [id number]#: [id number] ROOM/BED: [facility]-BDOB: [birth year] AGE: 53 SEX: F ATTEND: Amira Galarza MDADM AUTHOR: Amira Galarza MDREP SVR REP SVR TM: 0931* ALL edits or amendments must be made on the electronic/computer document *SubjectiveHPI:This is a 53yr old female pt w/hx of HTN, HLP, DM, CHF, EtoH abuse who [facility]transferred [facility]. [facility] [place] [facility] and while there, she became hypotensive and weak andsent to [facility] for further management. Per pt, she isn't c/o any abd pain but wasfound w/abnormal LFT's, Thrombocytopenia and elevated ammonia level. She iscurrently AAOx3, no focal or neuro defict. She is pending an abdominal US, Ctbrain and abd. She is hemodynamically stable, last drink was on Tuesday.Currently her b/p is stable and denies any SOB, CP, palpitations or dizziness.Free Text Subj NotesFree Text Subj Notes:More awake and alert today. Had 1 bowel movement during daytime yesterday and 2or 3 last nightReview of SystemsFree Text ROS NotesFree Text ROS Notes:12 point review of the systems are otherwise unremarkable except for aboveObjectiveGeneralMedications:Active Meds + DC'd Last 24 HrsLactulose (LACTULOSE 20 G/30 ML UDCUP) 30 ML Q3 PO (CKD)Sodium Chloride (SODIUM CHLORIDE 0.9% 1000 ML BAG) 1,000 ML ASDIR IVRifaximin (XIFAXAN) 400 MG BID POLactulose (LACTULOSE 20 G/30 ML UDCUP) 30 ML TID PO (DC)Amlodipine Besylate (NORVASC) 5 MG DAILY POFolic Acid (FOLIC ACID) 1 MG DAILY POLisinopril (PRINIVIL 20 MG TABLET) 20 MG DAILY PO (CKD)Multivitamins Therapeutic (MULTIVITAMIN, THERA VITAMINS) 1 TAB DAILY PODextrose (B-D GLUCOSE) 3 TAB.CHEW PRN PRN PO (CKD)Dextrose (B-D GLUCOSE) 6 TAB.CHEW PRN PRN PO (CKD)Dextrose/Water (D10W) 250 ML BOLUS PRN IVFamotidine (PEPCID) 20 MG Q12HP PRN PO (CKD)Hydralazine HCl (APRESOLINE) 10 MG Q4H PRN PRN IV (CKD)Lorazepam (ATIVAN 2MG/ML VIAL) 2 MG Q1H PRN PRN IVLorazepam (ATIVAN 2MG/ML VIAL) 4 MG Q1H PRN PRN IVMelatonin (MELATONIN 3 MG TABLET) 6 MG BEDTIME PRN POOndansetron HCl (ZOFRAN 2MG/ML SDV VIAL) 4 MG Q8H PRN PRN IVThiamine HCl (THIAMINE HCL) 100 MG DAILY IVSodium Chloride (SODIUM CHLORIDE 0.9% PF 10 ML VIAL) 10 ML PROCEDURE PRNIV (DC)Physical ExamHead/Eyes: atraumatic, clear cornea, EOMINeck: full range of motion, non-tender, normal thyroidCardiovascular: normal capillary refill, normal heart sounds, regular raterhythmRespiratory: aerating well, clear to auscultation, symmetric expansionAbdomen: non-tender, normal bowel soundsGenitourinary: no flank painExtremities: moves all, normal capillary refill, normal range of motionMusculoskeletal: normal inspection, painless range of motionNeuro/AIRCRAFT FUSELAGE FRAMER: alert, oriented X 3Skin: dry, intact, no rashPsychiatry: normal affect, normal judgment/insight, normal moodResultsFindings/Data:Laboratory Tests 05/20 05/20 05/19 05/19 05/19 0554 0554 2059 1640 1148Chemistry Sodium (135 - 145 mmol/L) 138 Potassium (3.5 - 5.2 mmol/L) 4.5 Chloride (95 - 110 mmol/L) 102 Carbon Dioxide (19 - 34 mmol/L) 23 BUN (6 - 22 mg/dL) 10 Creatinine (0.43 - 1.13 mg/dL) 0.61 Est GFR (CKD-EPI 2020) (>/=90) > 90 Glucose (70 - 110 mg/dL) 149 H POC Glucose (70 - 110 mg/dL) 129 H 137 H 139 H Calcium (8.4 - 10.2 mg/dL) 9.5 Corrected Calcium (8.4 - 10.2 mg/dl) 9.6 Total Bilirubin (0.1 - 1.2 mg/dL) 4.8 H AST (10 - 40 Units/L) 100 H ALT (10 - 60 Units/L) 59 Total Alk Phosphatase (20 - 130 208 HUnits/L) Ammonia (11 - 32 umol/L) 45 H Total Protein (5.5 - 8.7 g/dL) 7.1 Albumin (3.2 - 5.0 g/dL) 3.9Diagnosis, Assessment PlanFree Text DxA P NotesFree text DxA P notes:This is a 53yr old female pt w/hx of HTN, HLP, DM, CHF, EtoH abuse who wastransfer[facility].Generalized weaknessIn the setting of alcohol abuse, hepatic encephalopathyHepatic encephalopathyAmmonia level improvingContinue lactulose, added rifaximinDiscussed with GI, increased lactulose to every 3 hoursMentation betterEtOH dependence, reports last drink about 4 days ago-CIWA protocol, last drink was on Tuesday, david any recent seizures, last eiw70eva ago-ativan PRN-encourage abstaining-pt is from [facility] and currently in alcohol rehabContinue thiamine, multivitamin folic acidThrombocytopeniaElevated LFTsSecondary to liver cirrhosisNoted ultrasound abdomen findings suggestive cholelithiasis, however noobstructing stone, no CBD dilation, findings of splenomegaly notedConsulted GIHTNHLPDMCHF, appears euvolemic nowFULL CODEDVT prophylaxis w/SCDDiscussed with nursing staff. Patient is unsteady on her feet. Hence orderedPT, OT evaluation. Seen by PT, no discharge needs from their standpoint.Anticipate discharge to alcohol rehab in 1-2 days if hepatic encephalopathyneeds to improve. She needs to establish care and follow-up with GI asoutpatient at 1447RPT #: [id number] OF REPORT Prakash Rebolledo MD-19-May-2024 [facility] ([facility])Gastroenterology Progress NoteREPORT#:[id number] REPORT STATUS: SignedDATE:05/19/24 TIME: 151PATIENT: EUGENIO BARRERA UNIT #: [id number]#: [id number] [address] [birth year] AGE: 53 SEX: F ATTEND: Amira Galarza MDADM AUTHOR: Amaury Randall MDREP SVR REP SVR TM: 1516* ALL edits or amendments must be made on the electronic/computer document *SubjectiveHPI:53-year-old female admitted with alcoholic cirrhosis and hepatic encephalopathy. Patient is on lactulose and rifaximin. Clinically she has not shown a lot ofimprovement yet.She is still confused and lethargic. Please increase the lactulose to 45 ccevery 3 hours until patient gets 4-5 bowel movements then we can decrease thedose. Check CBC CMP every day. Monitor bowel movements and stool output. IVfluids slow hydration at 1517RPT #: [id number] OF REPORT Geovanni Collier MD- 024 [facility] ([facility])Hospitalist Progress NoteREPORT#:[id number] REPORT STATUS: SignedDATE:05/19/24 TIME: 1022PATIENT: EUGENIO BARRERA UNIT #: [id number]#: [id number] ROOM/BED: D276BDOB: [birth year] AGE: 53 SEX: F ATTEND: KennethDionne morenoAmira MDADM AUTHOR: NellieDionne grijalvaelima MDREP SVR REP SVR TM: 1022* ALL edits or amendments must be made on the electronic/computer document *SubjectiveHPI:This is a 53yr old female pt w/hx of HTN, HLP, DM, CHF, EtoH abuse who [facility]. [facility] [place] [facility] and while there, she became hypotensive and weak andsent to [facility] further management. Per pt, she isn't c/o any abd pain but wasfound w/abnormal LFT's, Thrombocytopenia and elevated ammonia level. She iscurrently AAOx3, no focal or neuro defict. She is pending an abdominal US, Ctbrain and abd. She is hemodynamically stable, last drink was on Tuesday.Currently her b/p is stable and denies any SOB, CP, palpitations or dizziness.Free Text Subj NotesFree Text Subj Notes:Still very confused.Review of SystemsFree Text ROS NotesFree Text ROS Notes:12 point review of the systems are otherwise unremarkable except for aboveObjectiveGeneralMedications:Active Meds + DC'd Last 24 HrsRifaximin (XIFAXAN) 400 MG BID POLactulose (LACTULOSE 20 G/30 ML UDCUP) 30 ML TID PO (CKD)Amlodipine Besylate (NORVASC) 5 MG DAILY POFolic Acid (FOLIC ACID) 1 MG DAILY POLisinopril (PRINIVIL 20 MG TABLET) 20 MG DAILY PO (CKD)Multivitamins Therapeutic (MULTIVITAMIN, THERA VITAMINS) 1 TAB DAILY PODextrose (B-D GLUCOSE) 3 TAB.CHEW PRN PRN PO (CKD)Dextrose (B-D GLUCOSE) 6 TAB.CHEW PRN PRN PO (CKD)Dextrose/Water (D10W) 250 ML BOLUS PRN IVFamotidine (PEPCID) 20 MG Q12HP PRN PO (CKD)Hydralazine HCl (APRESOLINE) 10 MG Q4H PRN PRN IV (CKD)Lorazepam (ATIVAN 2MG/ML VIAL) 2 MG Q1H PRN PRN IVLorazepam (ATIVAN 2MG/ML VIAL) 4 MG Q1H PRN PRN IVMelatonin (MELATONIN 3 MG TABLET) 6 MG BEDTIME PRN POOndansetron HCl (ZOFRAN 2MG/ML SDV VIAL) 4 MG Q8H PRN PRN IVThiamine HCl (THIAMINE HCL) 100 MG DAILY IVSodium Chloride (SODIUM CHLORIDE 0.9% PF 10 ML VIAL) 10 ML PROCEDURE PRNIVPhysical ExamHead/Eyes: atraumatic, clear cornea, EOMINeck: full range of motion, non-tender, normal thyroidCardiovascular: normal capillary refill, normal heart sounds, regular raterhythmRespiratory: aerating well, clear to auscultation, symmetric expansionAbdomen: non-tender, normal bowel soundsGenitourinary: no flank painExtremities: moves all, normal capillary refill, normal range of motionMusculoskeletal: normal inspection, painless range of motionNeuro/AIRCRAFT FUSELAGE FRAMER: alert, oriented X 3Skin: dry, intact, no rashPsychiatry: normal affect, normal judgment/insight, normal moodResultsFindings/Data:Laboratory Tests 05/19 05/19 05/19 05/18 05/18 0611 0545 0545 7824 1615Chemistry Sodium (135 - 145 mmol/L) 136 Potassium (3.5 - 5.2 mmol/L) 4.1 Chloride (95 - 110 mmol/L) 102 Carbon Dioxide (19 - 34 mmol/L) 23 BUN (6 - 22 mg/dL) 13 Creatinine (0.43 - 1.13 mg/dL) 0.62 Est GFR (CKD-EPI 2020) (>/=90) > 90 Glucose (70 - 110 mg/dL) 126 H POC Glucose (70 - 110 mg/dL) 160 H 119 H 165 H Calcium (8.4 - 10.2 mg/dL) 9.0 Corrected Calcium (8.4 - 10.2 mg/dl) 9.3 Total Bilirubin (0.1 - 1.2 mg/dL) 5.0 H AST (10 - 40 Units/L) 83 H ALT (10 - 60 Units/L) 50 Total Alk Phosphatase (20 - 130 185 HUnits/L) Ammonia (11 - 32 umol/L) 43 H Total Protein (5.5 - 8.7 g/dL) 6.7 Albumin (3.2 - 5.0 g/dL) 3.6 05/18 05/18 1541 1138 Chemistry POC Glucose (70 - 110 mg/dL) 146 H Zgnri-2-Hlxzdzrhuui (90 - 200 mg/dL) 171.9Laboratory Tests 05/18 1541 Immunology Anti-Nuclear Antibody (Negative) NegativeDiagnosis, Assessment PlanFree Text DxA P NotesFree text DxA P notes:This is a 53yr old female pt w/hx of HTN, HLP, DM, CHF, EtoH abuse who [facility].Generalized weaknessIn the setting of alcohol abuse, hepatic encephalopathyHepatic encephalopathyAmmonia level improvingContinue lactulose, added rifaximinHowever patient still very drowsy. Discussed with GI today who recommended toincrease lactulose to every 3 hoursEtOH dependence, reports last drink about 4 days ago-CIWA protocol, last drink was on Tuesday, david any recent seizures, last [id number] ago-ativan PRN-encourage abstaining-pt is from [facility] and currently in alcohol rehabContinue thiamine, multivitamin folic acidThrombocytopeniaElevated LFTsSecondary to liver cirrhosisNoted ultrasound abdomen findings suggestive cholelithiasis, however noobstructing stone, no CBD dilation, findings of splenomegaly notedConsulted GIHTNHLPDMCHF, appears euvolemic nowFULL CODEDVT prophylaxis w/SCDDiscussed with nursing staff. Patient is unsteady on her feet. Hence orderedPT, OT evaluation. at 5272RPT #: [id number] OF REPORT PIERRE Staton-18-May-2024 [facility] [facility])GE Consultation NoteREPORT#:[id number] REPORT STATUS: SignedDATE:05/18/24 TIME: 1453PATIENT: EUGENIO BARRERA UNIT #: [id number]#: [id number] [address] [birth year] AGE: 53 SEX: F ATTEND: Amira Galarza MDADM AUTHOR: Brionna Pierson ARNPREP SVR REP SVR TM: 1453* ALL edits or amendments must be made on the electronic/computer document *BRIONNA PIERSON 05/18/24 1453:History of Present IllnessRequesting clinician: Dr. Smith for consult:Hepatic encephalopathyChief complaint:AMSHPI:CHIEF COMPLAINT: AMSREASON FOR CONSULT: Hepatic encephalopathyHPI:53 yo female PMHx/PSHx; ETOH abuse, leukopenia, thrombocytoenia, Hepaticencephalopathy, CHF. [facility]fer [facility] further eval [facility]MS. [facility] while in rehab she was found to behypotensive. GI consuled for HE. Ammonia level (44)Elevated bili and LFTsPMH: Per HPIPSH: Per HPISHX: REmote ERTOH abuseFAMILY HX: UnknownROS: Uknown due to patients statusHx Obtained From Patient chartHistory - Adult longitudinalAllergies:Coded Allergies:Sulfa (Sulfonamide Antibiotics) (U 01/07/11)ObjectivePhysical ExamVS/I O:Last Documented: Result Date Time Pulse Ox 93 05/18 1140 B/P 119/65 05/18 1140 B/P Mean 82.8 05/18 1140 O2 Delivery Room air 05/18 1140 Temp 37.0 05/18 1140 Pulse 67 05/18 1140 Resp 17 05/18 1140PATIENT WEIGHT:Weight (lb): 168Weight (oz): 3.4Weight (kg): 76.300General appearance: altered mental status, frail, alert, awake, no acutedistressHEENT: anictericCardiovascular: normal capillary refillRespiratory: clear to auscultation, no distressAbdomen: non-tender, normal bowel sounds, soft, no distentionSkin: dryResultsFindings/Data:Laboratory Tests05/18/24 0603:[Embedded Image Not Available]Laboratory Tests 05/18 05/18 05/18 05/17 1138 0924 062013 Chemistry Sodium (135 - 145 mmol/L) 136 Potassium (3.5 - 5.2 mmol/L) 4.2 Chloride (95 - 110 mmol/L) 104 Carbon Dioxide (19 - 34 mmol/L) 23 BUN (6 - 22 mg/dL) 16 Creatinine (0.43 - 1.13 mg/dL) 0.64 Est GFR (CKD-EPI 2020) (>/=90) > 90 Glucose (70 - 110 mg/dL) 136 H POC Glucose (70 - 110 mg/dL) 146 H 151 H Calcium (8.4 - 10.2 mg/dL) 8.8 Corrected Calcium (8.4 - 10.2 mg/dl) 9.1 Total Bilirubin (0.1 - 1.2 mg/dL) 4.9 H AST (10 - 40 Units/L) 71 H ALT (10 - 60 Units/L) 50 Total Alk Phosphatase (20 - 130 Units/L) 210 H Ammonia (11 - 32 umol/L) 44 H Total Protein (5.5 - 8.7 g/dL) 6.6 Albumin (3.2 - 5.0 g/dL) 3.6Laboratory Tests 05/18 06 Hematology WBC (4.0 - 10.5 10 3/u) 3.1 L RBC (3.93 - 5.22 10 6/uL) 3.43 L Hgb (11.2 - 15.7 G/DL) 11.3 Hct (34.1 - 44.9 %) 33.4 L MCV (79.4 - 94.8 fl) 97.4 H MCH (25.6 - 32.2 pg) 32.9 H MCHC (32.2 - 35.5 G/DL) 33.8 RDW (11.7 - 14.4 %) 15.1 H Plt Count (150 - 400 10 3/uL) 48 L MPV (9.4 - 12.3 fl) 12.2 Nucleated RBC % (auto) (0.0 - 0.2 %) 0.0 Immature Gran % (0.0 - 0.4 %) 0.3 Seg Neutrophils % (34.0 - 71.1 %) 60.5 Lymphocytes % (19.3 - 51.7 %) 25.6 Monocytes % (4.7 - 12.5 %) 10.1 Eosinophils % (0.7 - 5.8 %) 2.9 Basophils % (0.1 - 1.2 %) 0.6 Immature Gran # (0.00 - 0.03 10*3/uL) 0.01 Neutrophils # (1.56 - 6.13 10 3/uL) 1.86 Lymphocytes # (1.18 - 3.74 10 3/uL) 0.79 L Monocytes # (0.24 - 0.63 10 3/uL) 0.31 Eosinophils # (0.04 - 0.36 10 3/uL) 0.09 Basophils # (0.01 - 0.08 10 3/uL) 0.02 Nucleated RBCs # (0.00 - 0.18 10 3/uL) 0.00Results: labs reviewed, vital signs reviewedDiagnosis, Assessment PlanPlan discussed with: nurseFree Text DxA P NotesFree Text DxA P Notes:55 yo transfer from rehab for further evaluation of AMS and hypotension. GIconsulted for hepatic encephalopathy:ImP:* Hepatic encephalopathy: --Remote hx of ETOH abuse, came from [place] for rehab --Ammonia level (44) --Thrombocytopenia --Meld-Na: (17) --Patient labs suggestive of liver disease --US Abd: Splenomegaly. Liver normal echotexture. No evidence of mass. NoIHBD --CT AP WC: No acute abdnomalityRec:* CLD w/u* Lactulose/xifaxan TID to maintain 2-3 soft stool watch for diarrhea* Low NA diet* CIWA* Will need EGD at somept for surveillance of esophageal varices* Monitor mentation* Evaluation and management of acute/chronic conditions from primary teamPatient asssessed and case discussed w Dr. Porter. Further recommendations CARMEN Mary 05/18/24 1720:ObjectivePhysical ExamGeneral appearance: altered mental status, frail, alert, awakeDiagnosis, Assessment PlanFree Text DxA P NotesFree Text DxA P Notes:I have personally interviewed and examined the patient. I have also reviewedmedical records including labs and radiology images. I agree with aboveassessment and plan. The report has been created by voice recognition software.It may contain errors which are inherent in voice recognition technology.Suspected decompensated alcoholic liver cirrhosis with hepatic encephalopathyMinimize narcoticsMinimize benzodiazepineLactulose to optimize to have a 2-4 bowel movement todayXifaxanAlcohol withdrawal protocolThanks for allowing us to participate in this patient. at 1513 at 1721RPT #: [id number] OF REPORT Geovanni Collier MD- 024 [facility] ([facility])Hospitalist Progress NoteREPORT#:[id number] REPORT STATUS: SignedDATE:05/18/24 TIME: 826PATIENT: EUGENIO BARRERA UNIT #: [id number]#: [id number] [facility] AGE: 53 SEX: F ATTEND: Amira Galarza MDADM AUTHOR: Amira Galarza MDREP SVR REP SVR TM: 0827* ALL edits or amendments must be made on the electronic/computer document *SubjectiveHPI:This is a 53yr old female pt w/hx of HTN, HLP, DM, CHF, EtoH abuse who [facility]. [facility] and while there, she became hypotensive and weak andsent to [facility] for further management. Per pt, she isn't c/o any abd pain but wasfound w/abnormal LFT's, Thrombocytopenia and elevated ammonia level. She iscurrently AAOx3, no focal or neuro defict. She is pending an abdominal US, Ctbrain and abd. She is hemodynamically stable, last drink was on Tuesday.Currently her b/p is stable and denies any SOB, CP, palpitations or dizziness.Free Text Subj NotesFree Text Subj Notes:Still slightly drowsy, however arousable to verbal stimuli , says feels tiredReview of SystemsFree Text ROS NotesFree Text ROS Notes:12 point review of the systems are otherwise unremarkable except for aboveObjectiveGeneralMedications:Active Meds + DC'd Last 24 HrsRifaximin (XIFAXAN) 400 MG BID POLactulose (LACTULOSE 20 G/30 ML UDCUP) 30 ML TID PO (CKD)Amlodipine Besylate (NORVASC) 5 MG DAILY POFolic Acid (FOLIC ACID) 1 MG DAILY POLisinopril (PRINIVIL 20 MG TABLET) 20 MG DAILY PO (CKD)Multivitamins Therapeutic (MULTIVITAMIN, THERA VITAMINS) 1 TAB DAILY POLactulose (LACTULOSE 20 G/30 ML UDCUP) 30 ML BID PO (DC)Dextrose (B-D GLUCOSE) 3 TAB.CHEW PRN PRN PO (CKD)Dextrose (B-D GLUCOSE) 6 TAB.CHEW PRN PRN PO (CKD)Dextrose/Water (D10W) 250 ML BOLUS PRN IVFamotidine (PEPCID) 20 MG Q12HP PRN PO (CKD)Hydralazine HCl (APRESOLINE) 10 MG Q4H PRN PRN IV (CKD)Lorazepam (ATIVAN 2MG/ML VIAL) 2 MG Q1H PRN PRN IVLorazepam (ATIVAN 2MG/ML VIAL) 4 MG Q1H PRN PRN IVMelatonin (MELATONIN 3 MG TABLET) 6 MG BEDTIME PRN POOndansetron HCl (ZOFRAN 2MG/ML SDV VIAL) 4 MG Q8H PRN PRN IVThiamine HCl (THIAMINE HCL) 100 MG DAILY IVSodium Chloride (SODIUM CHLORIDE 0.9% PF 10 ML VIAL) 10 ML PROCEDURE PRNIVPhysical ExamHead/Eyes: atraumatic, clear cornea, EOMINeck: full range of motion, non-tender, normal thyroidCardiovascular: normal capillary refill, normal heart sounds, regular raterhythmRespiratory: aerating well, clear to auscultation, symmetric expansionAbdomen: non-tender, normal bowel soundsGenitourinary: no flank painExtremities: moves all, normal capillary refill, normal range of motionMusculoskeletal: normal inspection, painless range of motionNeuro/AIRCRAFT FUSELAGE FRAMER: alert, oriented X 3Skin: dry, intact, no rashPsychiatry: normal affect, normal judgment/insight, normal moodResultsFindings/Data:Laboratory Tests 05/17 2014 Chemistry POC Glucose (70 - 110 mg/dL) 151 HDiagnosis, Assessment PlanFree Text DxA P NotesFree text DxA P notes:This is a 53yr old female pt w/hx of HTN, HLP, DM, CHF, EtoH abuse who wastransferred [facility].Generalized weaknessIn the setting of alcohol abuse, hepatic encephalopathyHepatic encephalopathyAmmonia level improvingContinue lactulose, added rifaximinEtOH dependence, reports last drink about 4 days ago-CIWA protocol, last drink was on Tuesday, david any recent seizures, last [id number] ago-ativan PRN-encourage abstaining-pt is from [facility] and currently in alcohol rehabContinue thiamine, multivitamin folic acidThrombocytopeniaElevated LFTsSecondary to liver cirrhosisNoted ultrasound abdomen findings suggestive cholelithiasis, however noobstructing stone, no CBD dilation, findings of splenomegaly notedConsulted GIHTNHLPDMCHF, appears euvolemic nowFULL CODEDVT prophylaxis w/SCDDiscussed with nursing staff. Patient is unsteady on her feet. Hence orderedPT, OT evaluation. at 2150RPT #: [id number] OF REPORT Geovanni Collier MD- [address] [place] [address] ([facility])Hospitalist Progress NoteREPORT#:[id number] REPORT STATUS: SignedDATE:05/17/24 TIME: 0953PATIENT: EUGENIO BARRERA UNIT #: [id number]#: [id number] ROOM/BED: [facility]-ADOB: [birth year] AGE: 53 SEX: F ATTEND: Amira Galarza MDADM AUTHOR: Amira Galarza MDREP SVR REP SVR TM: 0953* ALL edits or amendments must be made on the electronic/computer document *SubjectiveHPI:This is a 53yr old female pt w/hx of HTN, HLP, DM, CHF, EtoH abuse who wastransferred [facility]. [facility] and while there, she became hypotensive and weak andsent to [facility] for further management. Per pt, she isn't c/o any abd pain but wasfound w/abnormal LFT's, Thrombocytopenia and elevated ammonia level. She iscurrently AAOx3, no focal or neuro defict. She is pending an abdominal US, Ctbrain and abd. She is hemodynamically stable, last drink was on Tuesday.Currently her b/p is stable and denies any SOB, CP, palpitations or dizziness.Free Text Subj NotesFree Text Subj Notes:Slightly drowsy, still feels weak.Review of SystemsFree Text ROS NotesFree Text ROS Notes:12 point review of the systems are otherwise unremarkable except for aboveObjectiveGeneralMedications:Active Meds + DC'd Last 24 HrsLactulose (LACTULOSE 20 G/30 ML UDCUP) 30 ML TID PO (UNVr)Amlodipine Besylate (NORVASC) 5 MG DAILY POFolic Acid (FOLIC ACID) 1 MG DAILY PO (UNV)Lisinopril (PRINIVIL 20 MG TABLET) 20 MG DAILY PO (CKD)Multivitamins Therapeutic (MULTIVITAMIN, THERA VITAMINS) 1 TAB DAILY PO(UNVr)Lactulose (LACTULOSE 20 G/30 ML UDCUP) 30 ML BID PO (DCr)Dextrose (B-D GLUCOSE) 3 TAB.CHEW PRN PRN PO (CKD)Dextrose (B-D GLUCOSE) 6 TAB.CHEW PRN PRN PO (CKD)Dextrose/Water (D10W) 250 ML BOLUS PRN IVFamotidine (PEPCID) 20 MG Q12HP PRN PO (CKD)Hydralazine HCl (APRESOLINE) 10 MG Q4H PRN PRN IV (CKD)Lorazepam (ATIVAN 2MG/ML VIAL) 2 MG Q1H PRN PRN IVLorazepam (ATIVAN 2MG/ML VIAL) 4 MG Q1H PRN PRN IVMelatonin (MELATONIN 3 MG TABLET) 6 MG BEDTIME PRN POOndansetron HCl (ZOFRAN 2MG/ML SDV VIAL) 4 MG Q8H PRN PRN IVThiamine HCl (THIAMINE HCL) 100 MG DAILY IVIopamidol (ISOVUE- 300) 100 ML PROCEDURE PRN IV (DC)Sodium Chloride (SODIUM CHLORIDE 0.9% PF 10 ML VIAL) 10 ML PROCEDURE PRNIVPhysical ExamHead/Eyes: atraumatic, clear cornea, EOMINeck: full range of motion, non-tender, normal thyroidCardiovascular: normal capillary refill, normal heart sounds, regular raterhythmRespiratory: aerating well, clear to auscultation, symmetric expansionAbdomen: non-tender, normal bowel soundsGenitourinary: no flank painExtremities: moves all, normal capillary refill, normal range of motionMusculoskeletal: normal inspection, painless range of motionNeuro/AIRCRAFT FUSELAGE FRAMER: alert, oriented X 3Skin: dry, intact, no rashPsychiatry: normal affect, normal judgment/insight, normal moodResultsFindings/Data:Laboratory Tests 05/17 05/17 05/17 05/17 05/16 0458 0458 0458 0455 2210Chemistry Sodium (135 - 145 mmol/L) 135 Potassium (3.5 - 5.2 mmol/L) 4.2 Chloride (95 - 110 mmol/L) 105 Carbon Dioxide (19 - 34 mmol/L) 23 BUN (6 - 22 mg/dL) 24 H Creatinine (0.43 - 1.13 mg/dL) 0.83 Est GFR (CKD-EPI 2020) (>/=90) 84 L Glucose (70 - 110 mg/dL) 205 H Calcium (8.4 - 10.2 mg/dL) 8.4 Corrected Calcium (8.4 - 10.2 mg/dl) 8.9 Total Bilirubin (0.1 - 1.2 mg/dL) 4.2 H Conjugated Bilirubin (0.0 - 0.3 mg/dL) 0.0 Unconjugated Bilirubin (0.0 - 1.1 mg/d/L) 2.1 H AST (10 - 40 Units/L) 67 H ALT (10 - 60 Units/L) 49 Total Alk Phosphatase (20 - 130 Units/L) 259 H Ammonia (11 - 32 umol/L) 59 H NT-Pro-B Natriuret Pep (0 - 217 pg/mL) 48 Total Protein (5.5 - 8.7 g/dL) 6.3 Albumin (3.2 - 5.0 g/dL) 3.4 TSH (0.465 - 4.680 mcInU/mL) 2.680 2.730 05/16 05/16 221 2210 Chemistry Sodium (135 - 145 mmol/L) 138 Potassium (3.5 - 5.2 mmol/L) 4.3 Chloride (95 - 110 mmol/L) 103 Carbon Dioxide (19 - 34 mmol/L) 23 BUN (6 - 22 mg/dL) 28 H Creatinine (0.43 - 1.13 mg/dL) 0.99 Est GFR (CKD-EPI 2020) (>/=90) 68 L Glucose (70 - 110 mg/dL) 166 H Calcium (8.4 - 10.2 mg/dL) 8.6 Total Bilirubin (0.1 - 1.2 mg/dL) 4.2 H Conjugated Bilirubin (0.0 - 0.3 mg/dL) 0.1 Unconjugated Bilirubin (0.0 - 1.1 mg/d/L) 1.8 H AST (10 - 40 Units/L) 71 H ALT (10 - 60 Units/L) 52 Total Alk Phosphatase (20 - 130 Units/L) 354 H Ammonia (11 - 32 umol/L) 80 H Troponin I (0.000 - 0.034 ng/mL) < 0.012 Total Protein (5.5 - 8.7 g/dL) 6.8 Albumin (3.2 - 5.0 g/dL) 3.8 Lipase (23 - 300 U/L) 353 HLaboratory Tests 05/16 2210 Coagulation PT (10.0 - 12.8 Seconds) 16.1 H INR (0.8 - 1.0) 1.4 H APTT (25 - 38 SECONDS) 41 HLaboratory Tests 05/17 05/16 0458 2210 Hematology WBC (4.0 - 10.5 10 3/u) 3.2 L 3.3 L RBC (3.93 - 5.22 10 6/uL) 3.23 L 3.59 L Hgb (11.2 - 15.7 G/DL) 10.8 L 11.9 Hct (34.1 - 44.9 %) 31.0 L 33.8 L MCV (79.4 - 94.8 fl) 96.0 H 94.2 MCH (25.6 - 32.2 pg) 33.4 H 33.1 H MCHC (32.2 - 35.5 G/DL) 34.8 35.2 RDW (11.7 - 14.4 %) 15.3 H 15.2 H Plt Count (150 - 400 10 3/uL) 47 L MPV (9.4 - 12.3 fl) 12.4 H 12.1 Nucleated RBC % (auto) (0.0 - 0.2 %) 0.0 0.0 Immature Gran % (0.0 - 0.4 %) 0.6 H 0.3 Seg Neutrophils % (34.0 - 71.1 %) 66.6 67.6 Lymphocytes % (19.3 - 51.7 %) 18.9 L 20.4 Monocytes % (4.7 - 12.5 %) 10.1 8.1 Eosinophils % (0.7 - 5.8 %) 3.5 3.0 Basophils % (0.1 - 1.2 %) 0.3 0.6 Immature Gran # (0.00 - 0.03 10*3/uL) 0.02 0.01 Neutrophils # (1.56 - 6.13 10 3/uL) 2.12 2.26 Lymphocytes # (1.18 - 3.74 10 3/uL) 0.60 L 0.68 L Monocytes # (0.24 - 0.63 10 3/uL) 0.32 0.27 Eosinophils # (0.04 - 0.36 10 3/uL) 0.11 0.10 Basophils # (0.01 - 0.08 10 3/uL) 0.01 0.02 Nucleated RBCs # (0.00 - 0.18 10 3/uL) 0.00 0.00 Platelet Estimate (plt/hpf) DecreasedLaboratory Tests 05/16 Toxicology Salicylates (2.8 - 20.0 MG/DL) < 1.0 L Urine Opiates Screen (Not Detect) Negative Acetaminophen (10 - 30 ug/mL) < 10.0 L Ur Barbiturates Screen (Not Detect) Negative Ur Phencyclidine Scrn (Not Detect) Negative Ur Amphetamines Screen (Not Detect) Negative U Benzodiazepines Scrn (Not Detect) Negative Ur Cocaine Metabolite (Not Detect) Negative U Cannabinoids Screen (Not Detect) NegativeLaboratory Tests 05/16 2210 Urines Urine Color (Yellow) Yellow Urine Appearance (Clear) Turbid A Urine pH (5.0 - 9.0) 6.5 Ur Specific [place] (1.005 - 1.030) >1.030 Urine Protein (Neg - Trace mg/dL) 20 (Trace) Urine Ketones (Neg - Trace mg/dL) Negative Urine Blood (Neg - Trace mg/dL) 0.03 (Trace) Urine Nitrite (Negative) Negative Urine Bilirubin (Negative mg/dL) Negative Urine Urobilinogen (Normal mg/dL) 3.0 (1+) H Ur Leukocyte Esterase (Negative - 25 Elsie/uL) Negative Urine Glucose (Norm - Trace mg/dL) NormalRadiology data:Recent Impressions:ULTRASOUND - US ABDOMEN COMPLETE 05/17 10 Report Impression - Status: SIGNED Entered: 05/17/2024 0133IMPRESSION:1. Cholelithiasis with no evidence of cholecystitis.2. Splenomegaly.Impression By: KARRIE - MERVIN PLAZA,MDDiagnosis, Assessment PlanFree Text DxA P NotesFree text DxA P notes:This is a 53yr old female pt w/hx of HTN, HLP, DM, CHF, EtoH abuse who [facility].Generalized weaknessIn the setting of alcohol abuse, hepatic encephalopathyHepatic encephalopathyAmmonia level improved to 50Continue lactulose, added rifaximinEtOH dependence, reports last drink about 4 days ago-CIWA protocol, last drink was on Tuesday, david any recent seizures, last [id number] ago-ativan PRN-encourage abstaining-pt is from [facility] and currently in alcohol rehabThrombocytopeniaElevated LFTsSecondary to liver cirrhosisNoted ultrasound abdomen findings suggestive cholelithiasis, however noobstructing stone, no CBD dilation, findings of splenomegaly notedHTNHLPDMCHF, appears euvolemic nowFULL CODEDVT prophylaxis w/SCD at 1826RPT #: [id number] OF REPORT PIERRE Arreaga -2023 [facility] ([facility])Hospitalist History PhysicalREPORT#:[id number] REPORT STATUS: SignedDATE:05/16/24 TIME: 2336PATIENT: EUGENIO BARRERA UNIT #: [id number]#: [id number] ROOM/BED: 276-BDOB: [birth year] AGE: 53 SEX: F ATTEND: Amira Galarza MDADM AUTHOR: Lolly Chavez SVR REP SVR TM: 2336* ALL edits or amendments must be made on the electronic/computer document *History of Present IllnessHPIHPI:This is a 53yr old female pt w/hx of HTN, HLP, DM, CHF, EtoH abuse who wastransfer[facility]. [facility] and while there, she became hypotensive and weak andsent to [facility] further management. Per pt, she isn't c/o any abd pain but wasfound w/abnormal LFT's, Thrombocytopenia and elevated ammonia level. She iscurrently AAOx3, no focal or neuro defict. She is pending an abdominal US, Ctbrain and abd. She is hemodynamically stable, last drink was on Tuesday.Currently her b/p is stable and denies any SOB, CP, palpitations or dizziness.HistoryPast medical history:Reports: Hypertension.Smoking status for patients 13 years old or older: Never SmokerMedication/Allergy-Vaccine HxAllergies:Coded Allergies:Sulfa (Sulfonamide Antibiotics) (U 01/07/11)Review of SystemsFree Text ROS NotesFree Text ROS Notes:12 point review of the systems are otherwise unremarkable except for aboveObjectiveGeneralVS/I O:Vital Signs: Date Time Temp Pulse Resp B/P B/P Pulse O2 O2 Flow FiO2 Mean Ox Delivery Rate 05/16 2129 97.9 74 17 140/102 114 97 Room air 05/16 2129 97.9 74 17 140/102 114 97 Room airPATIENT WEIGHT:Weight (lb):Weight (oz):Weight (kg): 72.727Medications:Active Meds + DC'd Last 24 HrsIopamidol (ISOVUE-300) 100 ML PROCEDURE PRN IVSodium Chloride (SODIUM CHLORIDE 0.9% PF 10 ML VIAL) 10 ML PROCEDURE PRNIVPhysical ExamGeneral appearance: alert, awake, orientedHead/Eyes: atraumatic, clear cornea, EOMINeck: full range of motion, non-tender, normal thyroidCardiovascular: normal capillary refill, normal heart sounds, regular raterhythmRespiratory: aerating well, clear to auscultation, symmetric expansionAbdomen: non-tender, normal bowel soundsGenitourinary: no flank painExtremities: moves all, normal capillary refill, normal range of motionMusculoskeletal: normal inspection, painless range of motionNeuro/AIRCRAFT FUSELAGE FRAMER: alert, oriented X 3Skin: dry, intact, no rashPsychiatry: normal affect, normal judgment/insight, normal moodResultsFindings/Data:Laboratory Tests 05/16 Chemistry Sodium (135 - 145 mmol/L) 138 Potassium (3.5 - 5.2 mmol/L) 4.3 Chloride (95 - 110 mmol/L) 103 Carbon Dioxide (19 - 34 mmol/L) 23 BUN (6 - 22 mg/dL) 28 H Creatinine (0.43 - 1.13 mg/dL) 0.99 Est GFR (CKD-EPI 2020) (>/=90) 68 L Glucose (70 - 110 mg/dL) 166 H Calcium (8.4 - 10.2 mg/dL) 8.6 Total Bilirubin (0.1 - 1.2 mg/dL) 4.2 H Conjugated Bilirubin (0.0 - 0.3 mg/dL) 0.1 Unconjugated Bilirubin (0.0 - 1.1 mg/d/L) 1.8 H AST (10 - 40 Units/L) 71 H ALT (10 - 60 Units/L) 52 Total Alk Phosphatase (20 - 130 Units/L) 354 H Ammonia (11 - 32 umol/L) 80 H Troponin I (0.000 - 0.034 ng/mL) < 0.012 Total Protein (5.5 - 8.7 g/dL) 6.8 Albumin (3.2 - 5.0 g/dL) 3.8 Lipase (23 - 300 U/L) 353 HLaboratory Tests 05/16 2210 Coagulation PT (10.0 - 12.8 Seconds) 16.1 H INR (0.8 - 1.0) 1.4 H APTT (25 - 38 SECONDS) 41 HLaboratory Tests 05/16 2210 Hematology WBC (4.0 - 10.5 10 3/u) 3.3 L RBC (3.93 - 5.22 10 6/uL) 3.59 L Hgb (11.2 - 15.7 G/DL) 11.9 Hct (34.1 - 44.9 %) 33.8 L MCV (79.4 - 94.8 fl) 94.2 MCH (25.6 - 32.2 pg) 33.1 H MCHC (32.2 - 35.5 G/DL) 35.2 RDW (11.7 - 14.4 %) 15.2 H Plt Count (150 - 400 10 3/uL) 47 L MPV (9.4 - 12.3 fl) 12.1 Nucleated RBC % (auto) (0.0 - 0.2 %) 0.0 Immature Gran % (0.0 - 0.4 %) 0.3 Seg Neutrophils % (34.0 - 71.1 %) 67.6 Lymphocytes % (19.3 - 51.7 %) 20.4 Monocytes % (4.7 - 12.5 %) 8.1 Eosinophils % (0.7 - 5.8 %) 3.0 Basophils % (0.1 - 1.2 %) 0.6 Immature Gran # (0.00 - 0.03 10*3/uL) 0.01 Neutrophils # (1.56 - 6.13 10 3/uL) 2.26 Lymphocytes # (1.18 - 3.74 10 3/uL) 0.68 L Monocytes # (0.24 - 0.63 10 3/uL) 0.27 Eosinophils # (0.04 - 0.36 10 3/uL) 0.10 Basophils # (0.01 - 0.08 10 3/uL) 0.02 Nucleated RBCs # (0.00 - 0.18 10 3/uL) 0.00 Platelet Estimate (plt/hpf) DecreasedLaboratory Tests 05/16 05/16 2210 2210 Toxicology Salicylates (2.8 - 20.0 MG/DL) < 1.0 L Urine Opiates Screen (Not Detect) Negative Acetaminophen (10 - 30 ug/mL) < 10.0 L Ur Barbiturates Screen (Not Detect) Negative Ur Phencyclidine Scrn (Not Detect) Negative Ur Amphetamines Screen (Not Detect) Negative U Benzodiazepines Scrn (Not Detect) Negative Ur Cocaine Metabolite (Not Detect) Negative U Cannabinoids Screen (Not Detect) NegativeLaboratory Tests 05/16 2210 Urines Urine Color (Yellow) Yellow Urine Appearance (Clear) Turbid A Urine pH (5.0 - 9.0) 6.5 Ur Specific [place] (1.005 - 1.030) >1.030 Urine Protein (Neg - Trace mg/dL) 20 (Trace) Urine Ketones (Neg - Trace mg/dL) Negative Urine Blood (Neg - Trace mg/dL) 0.03 (Trace) Urine Nitrite (Negative) Negative Urine Bilirubin (Negative mg/dL) Negative Urine Urobilinogen (Normal mg/dL) 3.0 (1+) H Ur Leukocyte Esterase (Negative - 25 Elsie/uL) Negative Urine Glucose (Norm - Trace mg/dL) NormalDiagnosis, Assessment PlanFree Text DxA P NotesFree Text DxA P Notes:This is a 53yr old female pt w/hx of HTN, HLP, DM, CHF, EtoH abuse who [facility].Generalized weaknessEtOH dependenceThrombocytopeniaHTNHLPDMCHF-admit to tele-AAOx3, abd soft non tender- CT bArain and abd are both unremarkable-LFts noted-Abd US shows splenomegaly-plt 45, unknown baseline, likely s/t EtOH abuse-monitor for bleeding-CIWA protocol, last drink was on Tuesday, david any recent seizures, last [id number] ago-ativan PRN-encourage abstaining-pt is from [facility] and currently in rehab-SSI w/coverage, check [id number] leval noted, given lactulose prior to transfer. Currently AAOx3-BMI 39, encourage diet, wt.loss and lifestyle changes-check orthostatic-labs in amFULL CODEDVT w/SCDspent 45 minVSS, labs reviewed. Admit and monitor for improvement of symptoms. f/u lab, PLTin am. Cont CIWA protocol. If stable, dc back to rehab. Pt to f/u w/PCPreji she returns to [facility] attending lectronically Signed by Lolly Chavez on 05/17/24 at 0618 at 1325RPT #: [id number] OF REPORT Luann Kumar VW-91-Cnc16-May-20 [facility] ([facility])EMERGENCY PROVIDER REPORTREPORT#:[id number] REPORT STATUS: SignedDATE:05/16/24 TIME: ATIENT: EUGENIO BARRERA UNIT #: [id number]#: [id number] [address] AGE: 53 SEX: F PCP PHYS: No Primary or Family PhysicianSERVICE AUTHOR: Raghu Kong DOREP SRV REP SRV TM: 2212* ALL edits or amendments must be made on the electronic/computer document *HPI-Altered Mental StatusFree Text HPI NotesFree Text HPI Qngyz31-ctof-cfw female with past medical history of hypertension, diabetes, CHF aswell as daily alcohol abuse [facility] to [facility].GeneralInitial Greet Date/Time 05/16/24 2144PresentationChief Complaint Confused, Not acting rightLast Known Well Unknown LKW Unknown when last wellRisk-Altered Mental StatusNIH Stroke Scale NIH Stroke Scale Response Value NIHSS Applicable? Yes 0 Level of Consciousness Alert and responsive (0) 0 Ask Month Age Both questions right (0) 0 Blink Eyes/Squeeze Hands Performs both tasks (0) 0 Horizontal EOM NL side/side eye mvmt (0) 0 Visual Saucedo No visual loss (0) 0 Facial Palsy Normal symmetry (0) 0 Right Arm Motor Drift (10s) No drift 10 sec (0) 0 Left Arm Motor Drift (10s) No drift 10 sec (0) 0 Right Leg Motor Drift (5s) No drift 5 sec (0) 0 Left Leg Motor Drift (5s) No drift 5 sec (0) 0 Limb Ataxia FNF/Heel- Rondon No ataxia (0) 0 Sensation (Arms/Legs/Face) No sensory loss (0) 0 Language Aphasia No aphasia, normal (0) 0 Dysarthria No dysarthria (0) 0 Extinction/Inattention No extinct/inattent (0) 0 Total 0Stroke Risk factors reviewed, EtOH use, Hypertension, Diabetes mellitusGlasgow Coma Score: Copyright Sir Rakesh Palomoale Copyright Sir Lindaam Carmelina Eye opening: (4) Spontaneous Verbal response: (5) Oriented Best motor response: (6) Obeys commands GCS Score: 15Intracranial Bleed Risk factors reviewed, EtOH useSubarachnoid Hemorrhage Risk factors reviewed, No risk factorsReview of SystemsROS StatementsAll systems rev neg except as marked.Focused Review of SystemsNeurologicReports: Confusion.Past Medical History - AdultStated Complaint HYPATIC ENCEPHOLAPATHYAllergiesCoded Allergies:Sulfa (Sulfonamide Antibiotics) (U 01/07/11)Home MedicationsReported MedicationsLisinopril (lisinopriL) 20 MG PO DAILYLisinopril (lisinopriL) 20 MG PO DAILYamLODIPine (NORVASC) 5 MG PO DAILYReview of Nursing Notes Rev avail, and agreePt reports no significant: Past surgical history, Family history, Social historyPast Medical History:Reports: Congestive heart failure, Diabetes mellitus, Hypertension.Alcohol Use Alcohol use (16 glasses of wine per day), patient reports she quitdrinking 4 days ago but prior to that drank approx 16 glasses of wine per day.Drug Use Denies recreational drugsPhysical ExamVital SignsVital SignsFirst Documented: Result Date Time Pulse Ox 97 05/16 2129 B/P 140/102 05/16 2129 B/P Mean 114 05/16 2129 O2 Delivery Room air 05/16 2129 Temp 36.6 05/16 2129 Pulse 74 05/16 2129 Resp 17 05/16 2129Last Documented: Result Date Time Pulse Ox 97 05/16 2339 B/P 147/62 05/16 2339 B/P Mean 90 05/16 2339 O2 Delivery Room air 05/16 2339 Pulse 88 05/16 2339 Resp 18 05/16 2339 Temp 36.6 05/16 2129Review of Vital Signs ReviewedFocused PEGeneral/Const General/Const Awake, Alert, No acute distress, Well developed, Well hydrated,Well nourished, Cooperative, Not toxic appearingEyes Eyes Atraumatic, PERRL, EOMI, No nystagmus, No photophobiaMS Neck Neck Atraumatic, No meningismus, No JVD, No tracheal deviationResp/Chest Respiratory/Chest Atraumatic, Breath sounds NL, Breath sounds = bilat, Norespiratory distressCardiovascular Cardiovascular Heart rate NL, Regular rhythm, Heart sounds NL, No murmurs,Cap refill not delayed, Peripheral circulation NL, Pulses = bilaterallyNeurologic Neurologic Oriented X3, Speech NL, No motor deficits, No sensory deficits, CNII - XII intact, Cerebellar NL, Gait NLInterpretation DiagnosticsLab Results InterpretationConsiderations Independ review imaging, Reviewed prior recordsResultsLaboratory Tests05/16/242209:[Embedded Image Not Available]Laboratory Tests: 05/16 Chemistry Sodium (135 - 145 mmol/L) 138 Potassium (3.5 - 5.2 mmol/L) 4.3 Chloride (95 - 110 mmol/L) 103 Carbon Dioxide (19 - 34 mmol/L) 23 BUN (6 - 22 mg/dL) 28 H Creatinine (0.43 - 1.13 mg/dL) 0.99 Est GFR (CKD-EPI 2020) (>/=90) 68 L Glucose (70 - 110 mg/dL) 166 H Calcium (8.4 - 10.2 mg/dL) 8.6 Total Bilirubin (0.1 - 1.2 mg/dL) 4.2 H Conjugated Bilirubin (0.0 - 0.3 mg/dL) 0.1 Unconjugated Bilirubin (0.0 - 1.1 mg/d/L) 1.8 H AST (10 - 40 Units/L) 71 H ALT (10 - 60 Units/L) 52 Total Alk Phosphatase (20 - 130 Units/L) 354 H Ammonia (11 - 32 umol/L) 80 H Troponin I (0.000 - 0.034 ng/mL) < 0.012 Total Protein (5.5 - 8.7 g/dL) 6.8 Albumin (3.2 - 5.0 g/dL) 3.8 Lipase (23 - 300 U/L) 353 H TSH (0.465 - 4.680 mcInU/mL) 2.730 Coagulation PT (10.0 - 12.8 Seconds) 16.1 H INR (0.8 - 1.0) 1.4 H APTT (25 - 38 SECONDS) 41 H Hematology WBC (4.0 - 10.5 10 3/u) 3.3 L RBC (3.93 - 5.22 10 6/uL) 3.59 L Hgb (11.2 - 15.7 G/DL) 11.9 Hct (34.1 - 44.9 %) 33.8 L MCV (79.4 - 94.8 fl) 94.2 MCH (25.6 - 32.2 pg) 33.1 H MCHC (32.2 - 35.5 G/DL) 35.2 RDW (11.7 - 14.4 %) 15.2 H Plt Count (150 - 400 10 3/uL) 47 L MPV (9.4 - 12.3 fl) 12.1 Nucleated RBC % (auto) (0.0 - 0.2 %) 0.0 Immature Gran % (0.0 - 0.4 %) 0.3 Seg Neutrophils % (34.0 - 71.1 %) 67.6 Lymphocytes % (19.3 - 51.7 %) 20.4 Monocytes % (4.7 - 12.5 %) 8.1 Eosinophils % (0.7 - 5.8 %) 3.0 Basophils % (0.1 - 1.2 %) 0.6 Immature Gran # (0.00 - 0.03 10*3/uL) 0.01 Neutrophils # (1.56 - 6.13 10 3/uL) 2.26 Lymphocytes # (1.18 - 3.74 10 3/uL) 0.68 L Monocytes # (0.24 - 0.63 10 3/uL) 0.27 Eosinophils # (0.04 - 0.36 10 3/uL) 0.10 Basophils # (0.01 - 0.08 10 3/uL) 0.02 Nucleated RBCs # (0.00 - 0.18 10 3/uL) 0.00 Platelet Estimate (plt/hpf) Decreased Toxicology Salicylates (2.8 - 20.0 MG/DL) < 1.0 L Urine Opiates Screen (Not Detect) Negative Acetaminophen (10 - 30 ug/mL) < 10.0 L Ur Barbiturates Screen (Not Detect) Negative Ur Phencyclidine Scrn (Not Detect) Negative Ur Amphetamines Screen (Not Detect) Negative U Benzodiazepines Scrn (Not Detect) Negative Ur Cocaine Metabolite (Not Detect) Negative U Cannabinoids Screen (Not Detect) Negative Urines Urine Color (Yellow) Yellow Urine Appearance (Clear) Turbid A Urine pH (5.0 - 9.0) 6.5 Ur Specific [place] (1.005 - 1.030) >1.030 Urine Protein (Neg - Trace mg/dL) 20 (Trace) Urine Ketones (Neg - Trace mg/dL) Negative Urine Blood (Neg - Trace mg/dL) 0.03 (Trace) Urine Nitrite (Negative) Negative Urine Bilirubin (Negative mg/dL) Negative Urine Urobilinogen (Normal mg/dL) 3.0 (1+) H Ur Leukocyte Esterase (Negative - 25 Elsie/uL) Negative Urine Glucose (Norm - Trace mg/dL) Normal Lab Imaging StatementLaboratory radiographic studies reviewed and considered in the medicaldecision-making.Re-Evaluation MDMED CourseMedication(s) OrderedMedication(s) Ordered:Cardiovascular Drugs Sig/Ruddy Start time Last Medication Dose Route Stop Time Status Admin Hydralazine HCl 10 MG Q4H PRN PRN 05/16 2355 CKD IVCentral Nervous System Agents Sig/Ruddy Start time Last Medication Dose Route Stop Time Status Admin Lorazepam 2 MG Q1H PRN PRN 05/16 2355 AC IV Lorazepam 4 MG Q1H PRN PRN 05/16 2355 AC IVDiagnostic Agents Sig/Ruddy Start time Last Medication Dose Route Stop Time Status Admin Iopamidol 100 ML PROCEDURE PRN 05/16 2315 DC 05/17 IV 05/19 2359 0011Electrolytic, Caloric, And Guillermo Sig/Ruddy Start time Last Medication Dose Route Stop Time Status Admin Dextrose 3 TAB.CHEW PRN PRN 05/16 2355 CKD PO Dextrose 6 TAB.CHEW PRN PRN 05/16 2355 CKD PO Dextrose/Water 250 ML BOLUS PRN 05/16 2355 AC IV Sodium Chloride 10 ML PROCEDURE PRN 05/16 2315 AC IV 05/19 2359Gastrointestinal Drugs Sig/Ruddy Start time Last Medication Dose Route Stop Time Status Admin Famotidine 20 MG Q12HP PRN 05/16 2355 CKD PO Ondansetron HCl 4 MG Q8H PRN PRN 05/16 2355 AC IVMiscellaneous Therapeutic Agen Sig/Ruddy Start time Last Medication Dose Route Stop Time Status Admin Melatonin 6 MG BEDTIME PRN 05/16 2355 AC POVitamins Sig/Ruddy Start time Last Medication Dose Route Stop Time Status Admin Thiamine HCl 100 MG DAILY 05/16 2355 AC IVDifferential Diagnosis)( Differential Diagnosis Cerebrovascular accident, EtOH intoxication,Hypercalcemia, Hypernatremia, Hypoglycemia, Hyponatremia, Intracerebralhemorrhage, Mass lesion, Subarachnoid hemorrhage, Uremia, Urinary tractinfection, Hepatic encephalopathyFree Text MDM NotesFree Text [facility] [id number] female presents to [facility] ED for evaluation of confusion andfindings of hepatic encephalopathy. [facility]. Differential diagnosis is not limited to but canbe seen above. Diagnostic studies were performed which did assist in my medicaldecision making. Twelve lead EKG obtained on arrival showing normal sinusrhythm heart rate of 72. Left axis deviation present. NH interval 170milliseconds, QRS 90 milliseconds and QTC prolonged at 549 milliseconds. No STelevations or depressions and no STEMI seen. Blood work obtained and reviewed.Leukopenia of 3.3 [place] [address] present. Coagulationmarkers slightly elevated as well. Hyperbilirubinemia present with totalbilirubin of 4.2. Ammonia level found to be elevated at 80. According torecords at prior with lactulose however the [facility] and no further records were able to be sent over. CTbrain as well as CT abdomen and pelvis ordered with results pending. Patientwill be time for further inpatient management of hepatic encephalopathy. Casediscussed with admitting hospitalist. She is stable for admission at this time.Patient Discharge DepartureVital Signs/ConditionVital SignsFirst Documented: Result Date Time Pulse Ox 97 05/16 2129 B/P 140/102 05/16 2129 B/P Mean 114 05/16 2129 O2 Delivery Room air 05/16 2129 Temp 36.6 05/16 2129 Pulse 74 05/16 2129 Resp 17 05/16 2129Last Documented: Result Date Time Pulse Ox 97 05/16 2339 B/P 147/62 05/16 2339 B/P Mean 90 05/16 2339 O2 Delivery Room air 05/16 2339 Pulse 88 05/16 2339 Resp 18 05/16 2339 Temp 36.6 12/11 2129All vital signs available at the time of this entry have been reviewed.Condition StableClinical ImpressionClinical ImpressionPrimary Impression: Hepatic encephalopathySecondary Impressions: Elevated AST (SGOT), Hyperammonemia, Hyperbilirubinemia,Leukopenia, ThrombocytopeniaDisposition DecisionHospitalize )( Accepts Hospitalization Yes )( Accepted Time 2320 )( Accepted Date 05/16/24Discharge/Care PlanCounseled Regarding Diagnosis, Lab results, Imaging studies, Need for admissionReferralsProvider Referral: No Primary or Family Physician Admit NoteI have spoken with the patient and/or caregivers. I have explained the patient'scondition, diagnoses and treatment plan based on the information available to meat this time. I have answered the patient's and/or caregiver's questions andaddressed any concerns. The patient and/or caregivers have as good anunderstanding of the patient's diagnosis, condition and treatment plan as can beexpected at this point. The patient has been stabilized within the capability ofthe emergency department. The patient will be transported for further care andmanagement or will be moved to an observation or inpatient service. I havecommunicated with the staff or medical practitioner taking over this patient'scare. at 0013RPT #: [id number] OF REPORT Problems Leukopenia Onset:16-May-2024 Luann Kumar DO Hepatic encephalopathy Onset:16-May-2024 Luann Kumar DO Thrombocytopenic disorder Onset:16-May-2024 Luann Kumar DO Hyperammonemia Onset:16-May-2024 Luann Kumar DO Hyperbilirubinemia Onset:16-May-2024 Luann Kumar DO Aspartate aminotransferase s edgar level above reference range Onset:16-May-2024 Luann Kumar DO Mental Status Cognitive function finding 17-May-2024 Allergies and Adverse Reactions Sulfa(Sulfonamide Antibiotic s)(Allergy) Onset: 07-Jan-2011 Reaction:U Medications 0.4 ML enoxaparin sodium 100 MG/ML Prefilled Syringe;40 MILLIGRAM DAILY 1700 Quantity:1 Sari Sun MD Start:27-May-2024 Status:Discontinued Comments:[id number] Administration Instructions:DOSE HAS BEEN ROUNDED PER ENOXAPARIN DOSING POLICYSHOULD NOT BE USED IN CONJUNCTION WITH EPIDURALSAnticoagulantsIncreased Bleeding, Bruising chlordiazePOXIDE hydrochloride 5 MG Oral Capsule;10 MILLIGRAM DAILY Quantity:2 Sari Sun MD Start:27-May-2024 Status:Discontinued Comments:[id number] Administration Instructions:SedativesSedation, Dizziness 0.4 ML enoxaparin sodium 100 MG/ML Prefilled Syringe;40 MILLIGRAM NOW Quantity:1 Sari Sun MD Start:60-Pyj-7190Tfq:2023 Comments:[id number] Administration Instructions:DOSE HAS BEEN ROUNDED PER ENOXAPARIN DOSING POLICYSHOULD NOT BE USED IN CONJUNCTION WITH EPIDURALSAnticoagulantsIncreased Bleeding, Bruising RIFAXIMIN 550 MG TABLET;550 MILLIGRAM BID Quantity:1 Geovanni Collier MD Start:25-May-2024 Status:Discontinued Comments:[id number] Administration Instructions:AntibioticFlatulence, abdominal pain, nausea ibuprofen 400 MG Oral Tablet;400 MILLIGRAM ONCE Quantity:1 Rod Bender MD Start:00-Mkx-9567Xao:2023 Comments:[id number] Administration Instructions:Antiarthritics/Non-Narc AnalgIncreased Bruising, Stomach Upset RIFAXIMIN_XIFA200T;400 MILLIGRAM Q12 Quantity:2 Geovanni Collier MD Start:16-Qwh-7680Nrt:30-May-2024 Status:Discontinued Comments:[id number] Administration Instructions:AntibioticFlatulence, abdominal pain, nausea lactulose 667 MG/ML Oral Solution;30 MILLILITER Q8 Quantity:1 Geovanni Collier MD Start:25-May-2024 Status:Discontinued Comments:[id number] Administration Instructions:LaxativesAbdominal Pain or Cramping, Diarrhea josédiazePOXIDE hydrochloride 5 MG Oral Capsule;10 MILLIGRAM BID Quantity:2 Geovanni Collier MD Start:25-May-2024 Status:Discontinued Comments:[id number] Administration Instructions:SedativesSedation, Dizziness RIFAXIMIN_XIFA200T;400 MILLIGRAM Q8HR Quantity:2 Geovanni Collier MD Start:27-Jms-6335Mxv:30-May-2024 Status:Discontinued Comments:[id number] Administration Instructions:AntibioticFlatulence, abdominal pain, nausea chlordiazePOXIDE hydrochloride 25 MG Oral Capsule;25 MILLIGRAM BID Quantity:1 Geovanni Collier MD Start:25-May-2024 Status:Discontinued Comments:[id number] Administration Instructions:SedativesSedation, Dizziness chlordiazePOXIDE hydrochloride 10 MG Oral Capsule;10 MILLIGRAM PO ASDIR Start:25-May-2024 Status:Discontinued Comments:10 MG PO ASDIR MULTIVITAMIN, THERA;1 TABLET PO DAILY Start:25-May-2024 Comments:1 TAB PO DAILY Thiamine HCl;100 MILLIGRAM INTRAVENOUS DAILY Start:25-May-2024 Comments:100 MG IV DAILY lactulose 667 MG/ML Oral Solution;20 GRAM PO TID Start:25-May-2024 Comments:20 GM PO TID chlordiazePOXIDE hydrochloride 10 MG Oral Capsule;10 MILLIGRAM PO ASDIR Start:25-May-2024 Comments:10 MG PO ASDIR folic acid 1 MG Oral Tablet;1 MILLIGRAM PO DAILY Start:25-May-2024 Comments:1 MG PO DAILY XIFAXAN;400 MILLIGRAM PO Q12HR Start:25-May-2024 Comments:400 MG PO Q12HR ibuprofen 400 MG Oral Tablet;400 MILLIGRAM ONCE Quantity:1 Geovanni Collier MD Start:32-Ktl-1700Auf:24-May-2024 Comments:[id number] Administration Instructions:Antiarthritics/Non-Narc AnalgIncreased Bruising, Stomach Upset chlordiazePOXIDE hydrochloride 25 MG Oral Capsule;25 MILLIGRAM TID Quantity:1 Geovanni Collier MD Start:23-May-2024 Status:Discontinued Comments:[id number] Administration Instructions:SedativesSedation, Dizziness sodium chloride 9 MG/ML Injectable Solution;[id number] Geovanni Collier MD Start:80-Ede-2445Pcq:21-May-2024 Comments:[id number] lactulose 667 MG/ML Oral Solution;30 MILLILITER Q3 Quantity:1 Geovanni Collier MD Start:19-May-2024 Status:Discontinued Comments:[id number] Administration Instructions:LaxativesAbdominal Pain or Cramping, Diarrhea RIFAXIMIN_XIFA200T;400 MILLIGRAM BID Quantity:2 Geovanni Collier MD Start:59-Luf-3602Set:24-May-2024 Comments:[id number] Administration Instructions:AntibioticFlatulence, abdominal pain, nausea lactulose 667 MG/ML Oral Solution;30 MILLILITER TID Quantity:1 Geovanni Collier MD Start:17-May-2024 Status:Discontinued Comments:[id number] Administration Instructions:LaxativesAbdominal Pain or Cramping, Diarrhea lisinopril 20 MG Oral Tablet [Prinivil];20 MILLIGRAM DAILY Quantity:1 Rod Bender MD Start:17-May-2024 Status:Discontinued Comments:[id number] Administration Instructions:Hold and contact prescriber if SBP less than 100 mmHgCardiovascularDecreased Blood Pressure, Cough amLODIPine 5 MG Oral Tablet [Norvasc];5 MILLIGRAM DAILY Quantity:1 Rod Bender MD Start:17-May-2024 Status:Discontinued Comments:[id number] Administration Instructions:Hold and contact prescriber if SBP less than 100 mmHgAntihypertensiveEdema, palpitations, fatigue folic acid 1 MG Oral Tablet;1 MILLIGRAM DAILY Quantity:1 Geovanni Collier MD Start:17-May-2024 Status:Discontinued Comments:[id number] Administration Instructions:VitaminsAbdominal Pain, Nausea Finafta Multi Oral;1 TABLET DAILY Quantity:1 Geovanni Collier MD Start:17-May-2024 Status:Discontinued Comments:[id number] Administration Instructions:VitaminsAbdominal Pain, Nausea lactulose 667 MG/ML Oral Solution;30 MILLILITER BID Quantity:1 Rod Bender MD Start:17-May-2024 Status:Discontinued Comments:[id number] Administration Instructions:LaxativesAbdominal Pain or Cramping, Diarrhea 250 ML glucose 100 MG/ML Injection;[id number] Administration Instructions:If patient is alert and able to swallow:* Blood glucose 50-70 mg/dL:Give 4 oz. fruit juice or 3 glucose tablets* Blood glucose less than 50 mg/dL:Give 8 oz. fruit juice or 6 glucose tablets Rod Bender MD Start:16-May-2024 Status:Discontinued Comments:[id number] Administration Instructions:If patient is alert and able to swallow:* Blood glucose 50-70 mg/dL:Give 4 oz. fruit juice or 3 glucose tablets* Blood glucose less than 50 mg/dL:Give 8 oz. fruit juice or 6 glucose tablets glucose 4000 MG Chewable Tablet;3 TAB CHEW PRN Quantity:3 Rod Bender MD Start:16-May-2024 Status:Discontinued Comments:[id number] Administration Instructions:RE-CHECK BLOOD GLUCOSE IN 15 MINUTESIf patient is alert and able to swallow:* Blood glucose 50-70 mg/dL:Give 4 oz. fruit juice or 3 glucose tablets* Blood glucose less than 50 mg/dL:Give 8 oz. fruit juice or 6 glucose tablets glucose 4000 MG Chewable Tablet;6 TAB CHEW PRN Quantity:6 Rod Bender MD Start:16-May-2024 Status:Discontinued Comments:[id number] Administration Instructions:RE-CHECK BLOOD GLUCOSE IN 15 MINUTESIf patient is alert and able to swallow:* Blood glucose 50-70 mg/dL:Give 4 oz. fruit juice or 3 glucose tablets* Blood glucose less than 50 mg/dL:Give 8 oz. fruit juice or 6 glucose tablets famotidine 20 MG Oral Tablet;20 MILLIGRAM Q12HP Quantity:1 Rod Bender MD Start:16-May-2024 Status:Discontinued Comments:[id number] Administration Instructions:FORMULARY SUBSTITUTION FOR:ZANTAC, TAGAMET, AXIDAnti-UlcerAbdominal Pain, Diarrhea 1 ML hydrALAZINE hydrochloride 20 MG/ML Injection;10 MILLIGRAM Q4H PRN Quantity:1 Rod Bender MD Start:16-May-2024 Status:Discontinued Comments:[id number] Administration Instructions:Hold and contact prescriber if SBP less than 100 mmHg Caution: LOOK-ALIKE, SOUND-ALIKE MEDICATION 1 ML LORazepam 2 MG/ML Injection;2 MILLIGRAM Q1H PRN Quantity:1 Rod Bender MD Start:16-May-2024 Status:Discontinued Comments:[id number] Administration Instructions: DILUTE 1:1 WITH NORMAL SALINE WHEN GIVING IV SedativesSedation, Dizziness 1 ML LORazepam 2 MG/ML Injection;4 MILLIGRAM Q1H PRN Quantity:2 Rod Bender MD Start:16-May-2024 Status:Discontinued Comments:[id number] Administration Instructions: DILUTE 1:1 WITH NORMAL SALINE WHEN GIVING IV SedativesSedation, Dizziness melatonin 3 MG Oral Tablet;6 MILLIGRAM BEDTIME Quantity:2 Rod Bender MD Start:16-May-2024 Status:Discontinued Comments:[id number] Administration Instructions:NeurohormonceHeadache, somnolence 2 ML ondansetron 2 MG/ML Injection;4 MILLIGRAM Q8H PRN Quantity:1 Rod Bender MD Start:16-May-2024 Status:Discontinued Comments:[id number] Administration Instructions:DILUTE PRIOR TO USEFirst line treatment for N/V if not relieved in 30 minutesand experiencing sedation give Metoclopramide, if NOTexperiencing sedation give PromethazineAntinauseantsHeadache, Diarrhea thiamine hydrochloride 100 MG/ML Injectable Solution;100 MILLIGRAM DAILY Quantity:1 Rod Bender MD Start:16-May-2024 Status:Discontinued Comments:[id number] Administration Instructions:Undiluted IV push over 1 min sodium chloride 9 MG/ML Injectable Solution;10 MILLILITER PROCEDURE Quantity:1 Luann Kumar DO Start:22-Hxo-6493Lkc:2023 Comments:[id number] Administration Instructions:USE 10 MLS OF NS BEFORE AND AFTER CONTRAST ADMINISTRATION iopamidol;100 MILLILITER PROCEDURE Quantity:1 Luann Kumar DO Start:36-Cvs-9207Txb:2023 Status:Discontinued Comments:[id number] Administration Instructions:2 ML/SECOND - PEDS 1.5 ML/KG NOT TO EXCEED 100 MLSTo be disposed of in the BLACK container. lisinopril 20 MG Oral Tablet;20 MILLIGRAM PO DAILY Start:13-Jun-2011 Comments:20 MG PO DAILY amLODIPine 5 MG Oral Tablet;5 MILLIGRAM PO DAILY Start:13-Jun-2011 Comments:5 MG PO DAILY lisinopril 20 MG Oral Tablet;20 MILLIGRAM PO DAILY Start:07-Jan-2011 Comments:20 MG PO DAILY Procedures Detoxification Services for Substance Ab use Treatment Date:17-May-2024 KNEE 3V RIGHTResult:[facility] Name: EUGENIO BARRERA [address] [place] [address] Phys: Amira Galarza MD [address] : 1970 Age: 53 Sex: [place] [address] Acct: [id number] Loc: D.359 A PHONE #: [phone] Exam Date: 05/23/2024 Status: ADM IN FAX #: [phone] Unit: [id number] PACS: [id number] Exam Completed: 05/23/24 @ 1410 EXAMS: CPT CODE: [id number] KNEE 3V RIGHT 89410 HISTORY: Pain. Three views of the right knee were obtained. Findings: No acute fracture or dislocation. A vague lucent lesions seen within the distal femoral shaft. No evidence of joint effusion. No evidence of radiopaque foreign bodies. Overlying soft tissues are within normal limits. IMPRESSION: No acute fracture or dislocation. Workstation ID: [id number] at 1522 Reported and signed by: SB ORTIZ D.O. CC: Amira Galarza MD Dictated Date/Time: 05/23/2024 (1522)Technologist: RT Joel RAJAN Transcribed Date/Time: 05/23/2024 (1522)General Ii Farmworker: UMR:[place] Electronic Signature Date/Time: 05/23/2024 (1522)Printed Date/Time: 05/23/2024 (1526) BATCH NO: N/A PAGE 1 Signed Report Date:23-May-2024 Status:Completed US ABDOMEN COMPLETEResult:[facility] Name: EUGENIO BARRERA [address] [place] [address] Phys: Napoleon Velasco MD [address] : 1970 Age: 53 Sex: [place] [address] Acct: [id number] Loc: Sorin Kapoor PHONE #: [phone] Exam Date: 05/17/2024 Status: ADM IN FAX #: [phone] Unit: [id number] PACS: [id number] Exam Completed: 05/17/24 @ 0042 EXAMS: CPT CODE: [id number] US ABDOMEN COMPLETE 24559 INDICATION: Elevated LFT''S; GENERALIZED WEAKNESS, THROMBOCYTOPENIA, ETOH DEPEC EXAMINATION: Ultrasound US Abdomen Complete TECHNIQUE: Bob-scale and color Doppler imaging was performed of the abdomen. COMPARISON: None. FINDINGS: LIVER: Normal echotexture. No evidence of a mass. No intrahepatic duct dilation. GALLBLADDER: Mildly distended. Stones and sludge are present. Normal wall thickness. No pericholecystic fluid. Negative sonographic Reagan''s sign. COMMON BILE DUCT: Normal measuring 2 mm in diameter. PANCREAS: Visualized portions of the pancreas appear normal. RIGHT KIDNEY: Unremarkable. LEFT KIDNEY: Unremarkable. SPLEEN: Mild splenomegaly. ABDOMINAL AORTA: No evidence of aneurysm in the visualized abdominal aorta. IVC: Visualized portions unremarkable. FREE FLUID: No free fluid in the upper abdomen. IMPRESSION: 1. Cholelithiasis with no evidence of cholecystitis. 2. Splenomegaly. at 0132 Reported and signed by: MERVIN PLAZA MD CC: Napoleon Velasco MD Dictated Date/Time: 05/17/2024 (131)Technologist: LINH YOUSSEF RDMS()(RVT) Transcribed Date/Time: 05/17/2024 (131)General Ii Farmworker: ALONSOR:[place] Electronic Signature Date/Time: 05/17/2024 (131)Printed Date/Time: 05/17/2024 (0133) BATCH NO: N/A PAGE 1 Signed Report Date:17-May-2024 Status:Completed CT ABDOMEN AND PELVIS W CONTResult:[facility] Name: EUGENIO BARRERA [address] [facility] Phys: Raghu Kong DO [address] : 1970 Age: 53 Sex: F [facility] [address] Acct: [id number] Loc: D.324 A PHONE #: [phone] Exam Date: 05/17/2024 Status: ADM IN FAX #: [phone] Unit: [id number] PACS: [id number] Exam Completed: 05/17/24 @ 0020 EXAMS: CPT CODE: [id number] CT ABDOMEN AND PELVIS W CONT 50562 INDICATION: Hepatic encephalopathy; GENERALIZED WEAKNESS, THROMBOCYTOPENIA, ETOH DEPEC EXAMINATION: CT Abdomen And Pelvis W/ Contrast Injection TECHNIQUE: Helically acquired images were obtained of the abdomen and pelvis with sagittal and coronal reconstructed images. Individualized dose optimization techniques were used for this CT. IV contrast dosage and agent: 100 mL of Isovue 300. Oral contrast: None. COMPARISON: None. FINDINGS: VESSELS: No abdominal aortic aneurysm or dissection. LIVER: No evidence of a mass. No intrahepatic or extrahepatic biliary duct dilation. GALLBLADDER: Small layering calcified stones. No evidence of cholecystitis. PANCREAS: No focal solid or cystic mass. No evidence of pancreatitis. SPLEEN: Normal. ADRENAL GLANDS: Normal. KIDNEYS AND URETERS: No urinary tract stone. No hydronephrosis or hydroureter. No significant asymmetric perinephric stranding. URINARY BLADDER: Unremarkable. BOWEL: No evidence of diverticulosis or diverticulitis. Appendix appears normal. No evidence of bowel obstruction. REPRODUCTIVE ORGANS: No evidence of a pelvic mass. PERITONEUM: No intraabdominal free fluid or free air. LYMPH NODES: No pathologically enlarged mesenteric or retroperitoneal lymph nodes. ABDOMINAL WALL: No abdominal or pelvic wall hernia. BONES: No acute abnormality. LOWER CHEST: Small hiatal hernia. IMPRESSION: No acute abnormality. at 0122 Reported and signed by: MERVIN PLAZA MD PAGE 1 Signed Report (CONTINUED) [facility] Name: EUGENIO BARRERA [address] [place] [address] Phys: LuannRaghu yu DO [address] : 1970 Age: 53 Sex: F [place] [id number] Acct: [id number] Loc: D.324 A PHONE #: [phone] Exam Date: 05/17/2024 Status: ADM IN FAX #: [phone] Unit: [id number] PACS: [id number] Exam Completed: 05/17/24 @ 0020 EXAMS: CPT CODE: [id number] CT ABDOMEN AND PELVIS W CONT 11490 <Continued>CC: Raghu Kong DO Dictated Date/Time: 05/17/2024 (0122)Technologist: Berta PADILLA(Joel)(C) Transcribed Date/Time: 05/17/2024 (012)General Ii Farmworker: VICKIE:[place] Electronic Signature Date/Time: 05/17/2024 (012)Printed Date/Time: 05/17/2024 (012) BATCH NO: N/A PAGE 2 Signed Report Date:17-May-2024 Status:Completed CT BRAIN WO CONTRASTResult:[facility] Name: EUGENIO BARRERA [address] [facility] Phys: Raghu Kong DO [address] : 1970 Age: 53 Sex: F [facility] [id number] Acct: [id number] Loc: D.324 A PHONE #: [phone] Exam Date: 05/17/2024 Status: ADM IN FAX #: [phone] Unit: [id number] PACS: [id number] Exam Completed: 05/17/24 @ 0020 EXAMS: CPT CODE: [id number] CT BRAIN WO CONTRAST 89965 INDICATION: AMS/Change Mental Status; GENERALIZED WEAKNESS, THROMBOCYTOPENIA, ETOH DEPEC EXAMINATION: CT BRAIN - CT Head or Brain W/O Contrast Injection TECHNIQUE: Multiple axial images were obtained of the head with sagittal and coronal reconstructed images. Individualized dose optimization techniques were used for this CT. IV contrast dosage and agent: None. COMPARISON: None. FINDINGS: BRAIN PARENCHYMA: No evidence of an acute infarct or intracranial hemorrhage. No evidence of a mass. CSF SPACES: The ventricles, sulci and subarachnoid cisterns are appropriate for age. CALVARIUM, SKULL BASE, PARANASAL SINUSES AND MASTOID AIR CELLS: No fracture. Mastoid air cells are clear. Visualized paranasal sinuses are unremarkable. ORBITS: The globes, extraocular muscles, optic nerves and retrobulbar fat are unremarkable. IMPRESSION: Normal noncontrast CT of the head. at 0100 Reported and signed by: MERVIN PLAZA MD CC: Raghu Kong DO Dictated Date/Time: 05/17/2024 (0100)Technologist: Berta PADILLA(Joel)(C) Transcribed Date/Time: 05/17/2024 (0100)General Ii Farmworker: UMR:RAD Electronic Signature Date/Time: 05/17/2024 (0100)Printed Date/Time: 05/17/2024 (0101) BATCH NO: N/A PAGE 1 Signed Report Date:17-May-2024 Status:Completed Social History Smoking Status Never smoked tobacco Recorded: 17-May-2024 Results GLUCOSE BY MONITORING DEVICE Ordered On:28-May-2024 15:57 GLUCOSE BY MONITORIN G OFTDSP528jl/dL(High) Range:70mg/dL-110mg/dL GLUCOSE BY MONITORING DEVICE Ordered On:28-May-2024 11:13 GLUCOSE BY MONITORIN G AMYKRC960tr/dL(High) Range:70mg/dL-110mg/dL GLUCOSE BY MONITORING DEVICE Ordered On:28-May-2024 08:17 GLUCOSE BY MONITORIN G AIUALB762ud/dL(High) Range:70mg/dL-110mg/dL GLUCOSE BY MONITORING DEVICE Ordered On:27-May-2024 11:35 GLUCOSE BY MONITORIN G GUULTR920dz/dL(High) Range:70mg/dL-110mg/dL GLUCOSE BY MONITORING DEVICE Ordered On:27-May-2024 08:30 GLUCOSE BY MONITORIN G GJSUTR408th/dL(High) Range:70mg/dL-110mg/dL CBC WITH DIFFERENTIAL Ordered On:27-May-2024 07:00 MCH32.9pg(High) Range:25.6pg-3 2.2pg IMMATURE GRANULOCYTE S #0.0110*3/uL(Normal) Range:010*3/uL-0.0310*3/uL MCHC33.9g/dL(Normal) Range:32.2g /dL-35.5g/dL NUCLEATED RBC #0.0010*3/uL(Normal) Range:010*3/uL-0.1810*3/uL NEUTROPHIL ABSOLUTE #2.0810*3/uL(Normal) Range:1.5610*3/uL-6.1310*3/uL MPV12.2fL(Normal) Range:9.4fL-12 .3fL EOSINOPHIL3.3%(Normal) Range:0.7 %-5.8% ZSOJFYPAKB35.8g/dL(Normal) Range :11.2g/dL-15.7g/dL WMCTQTDTVX23.8%(Normal) Range:34 .1%-44.9% NUCLEATED RBC0.0%(Normal) Range: 0%-0.2% SEGMENTED FWJOLNLGNS92.5%(Normal) Range:34%-71.1% PLATELET UXNFT6877*3/uL(Low) Ran ge:79137*3/uL-78843*3/uL LYMPHOCYTE ABSOLUTE #0.8410*3/uL(Low) Range:1.1810*3/uL-3.7410*3/uL BASOPHIL ABSOLUTE #0.0210*3/uL(Normal) Range:0.0110*3/uL-0.0810*3/uL MONOCYTE ABSOLUTE #0.2710*3/uL(Normal) Range:0.2410*3/uL-0.6310*3/uL EOSINOPHIL ABSOLUTE #0.1110*3/uL(Normal) Range:0.0410*3/uL-0.3610*3/uL BASOPHIL0.6%(Normal) Range:0.1%- 1.2% MCV96.9fL(High) Range:79.4fL-94. 8fL RED BLOOD CELL COUNT3.5910*6/uL(Low) Range:3.9310*6/uL-5.2210*6/uL WHITE BLOOD CELL COUNT3.3{10_3/u}(Low) Range:4{10_3/u}-10.5{10_3/u} IMMATURE GRANULOCYTES0.3%(Normal) Range:0%-0.4% RBC DISTRIBUTION WIDTH13.6%(Normal) Range:11.7%-14.4% URNQCFQATG58.2%(Normal) Range:19 .3%-51.7% MONOCYTE8.1%(Normal) Range:4.7%- 12.5% COMPLETE METABOLIC PANEL Ordered On:27-May-2024 07:12 ALBUMIN3.6g/dL(Normal) Range:3 .2g/dL-5g/dL ALKALINE BLUNPTJPDUJ340I/L(High) Range:20U/L-130U/L ALT (SGPT)46U/L(Normal) Range:10 U/L-60U/L Comments:Venipuncture should occur prior to sulfasalazine orsulfapyridine administration due to the potential forfalsely depressed results. AST (SGOT)77U/L(High) Range:10U/ L-40U/L TOTAL BILIRUBIN3.6mg/dL(High) Ra nge:0.1mg/dL-1.2mg/dL UREA-N (BUN)16mg/dL(Normal) Rang e:6mg/dL-22mg/dL CALCIUM8.9mg/dL(Normal) Range:8. 4mg/dL-10.2mg/dL Corrected Calcium9.2mg/dL(Normal) Range:8.4mg/dL-10.2mg/dL Comments:Calcium corrected for Albumin. FCOYSRWK328ctgy/L(Normal) Range: 95mmol/L-110mmol/L SDKRCHWRJGY73lfiw/L(Normal) Rang e:19mmol/L-34mmol/L CREATININE0.50mg/dL(Normal) Rang e:0.43mg/dL-1.13mg/dL Comments:The eGFR is calculated using the 2020 CKD-EPI Cr equation,which includes serum Cr, age, and sex but does not include arace coefficient. The National Kidney Foundation recommendsthis formula for calculating eGFR in adults. GFR will notcalculate if sex is unknown, patient age is <18 years or ifserum Creatinine is <0.20 mg/dL or non-numerical. eGFR> 90 Range:>/=90 Comments:Ref range: >/= 90 mL/min/1.73 m2 MQRVHZL143jg/dL(High) Range:70mg /dL-110mg/dL POTASSIUM3.8mmol/L(Normal) Range :3.5mmol/L-5.2mmol/L GCQRBQ694sufz/L(Normal) Range:13 5mmol/L-145mmol/L TOTAL PROTEIN6.7g/dL(Normal) Ran ge:5.5g/dL-8.7g/dL GLUCOSE BY MONITORING DEVICE Ordered On:26-May-2024 11:27 GLUCOSE BY MONITORIN G ESAPNO181da/dL(High) Range:70mg/dL-110mg/dL AMMONIA Ordered On:26-May-2024 09:30 VQXSBNN10igpu/L(Normal) Range: 11umol/L-32umol/L GLUCOSE BY MONITORING DEVICE Ordered On:26-May-2024 05:33 GLUCOSE BY MONITORIN G UYXAOR988jq/dL(High) Range:70mg/dL-110mg/dL GLUCOSE BY MONITORING DEVICE Ordered On:25-May-2024 16:44 GLUCOSE BY MONITORIN G VIPXFI697aw/dL(High) Range:70mg/dL-110mg/dL GLUCOSE BY MONITORING DEVICE Ordered On:25-May-2024 11:30 GLUCOSE BY MONITORIN G GXUENV850it/dL(High) Range:70mg/dL-110mg/dL AMMONIA Ordered On:25-May-2024 10:46 EHQOTLI82bflr/L(High) Range:11 umol/L-32umol/L GLUCOSE BY MONITORING DEVICE Ordered On:24-May-2024 16:02 GLUCOSE BY MONITORIN G DFFTFA228ou/dL(High) Range:70mg/dL-110mg/dL Comments:Notified RN GLUCOSE BY MONITORING DEVICE Ordered On:24-May-2024 11:26 GLUCOSE BY MONITORIN G LVGOOI299wj/dL(High) Range:70mg/dL-110mg/dL Comments:Notified RN AMMONIA Ordered On:24-May-2024 08:50 CPQOUDC24ornz/L(High) Range:11 umol/L-32umol/L CBC WITH DIFFERENTIAL Ordered On:24-May-2024 09:01 BASOPHIL ABSOLUTE #0.0210*3/uL(Normal) Range:0.0110*3/uL-0.0810*3/uL BASOPHIL0.6%(Normal) Range:0.1%- 1.2% EOSINOPHIL4.4%(Normal) Range:0.7 %-5.8% IKJKFDILWE73.5%(Normal) Range:19 .3%-51.7% MONOCYTE8.8%(Normal) Range:4.7%- 12.5% NUCLEATED RBC #0.0010*3/uL(Normal) Range:010*3/uL-0.1810*3/uL NUCLEATED RBC0.0%(Normal) Range: 0%-0.2% EOSINOPHIL ABSOLUTE #0.1510*3/uL(Normal) Range:0.0410*3/uL-0.3610*3/uL SEGMENTED SECALWZYON64.4%(Normal) Range:34%-71.1% TIKGYJFCQB54.0%(Normal) Range:34 .1%-44.9% SPGEIUFARP14.6g/dL(Normal) Range :11.2g/dL-15.7g/dL IMMATURE GRANULOCYTE S #0.0110*3/uL(Normal) Range:010*3/uL-0.0310*3/uL IMMATURE GRANULOCYTES0.3%(Normal) Range:0%-0.4% LYMPHOCYTE ABSOLUTE #0.8310*3/uL(Low) Range:1.1810*3/uL-3.7410*3/uL MCH33.2pg(High) Range:25.6pg-32. 2pg MCHC34.1g/dL(Normal) Range:32.2g /dL-35.5g/dL MCV97.6fL(High) Range:79.4fL-94. 8fL MONOCYTE ABSOLUTE #0.3010*3/uL(Normal) Range:0.2410*3/uL-0.6310*3/uL MPV12.2fL(Normal) Range:9.4fL-12 .3fL NEUTROPHIL ABSOLUTE #2.0810*3/uL(Normal) Range:1.5610*3/uL-6.1310*3/uL PLATELET GSTCE0851*3/uL(Low) Ran ge:05196*3/uL-26641*3/uL RED BLOOD CELL COUNT3.7910*6/uL(Low) Range:3.9310*6/uL-5.2210*6/uL RBC DISTRIBUTION WIDTH13.9%(Normal) Range:11.7%-14.4% WHITE BLOOD CELL COUNT3.4{10_3/u}(Low) Range:4{10_3/u}-10.5{10_3/u} GLUCOSE BY MONITORING DEVICE Ordered On:24-May-2024 08:21 GLUCOSE BY MONITORIN G QZFUXH788eh/dL(High) Range:70mg/dL-110mg/dL BASIC METABOLIC PROFILE Ordered On:24-May-2024 09:53 UREA-N (BUN)13mg/dL(Normal) Ra nge:6mg/dL-22mg/dL TNTEFSI73.1mg/dL(Normal) Range:8 .4mg/dL-10.2mg/dL GVWHZLRI935poax/L(Normal) Range: 95mmol/L-110mmol/L KWAIQASJUUO08adph/L(Normal) Rang e:19mmol/L-34mmol/L CREATININE0.65mg/dL(Normal) Rang e:0.43mg/dL-1.13mg/dL Comments:The eGFR is calculated using the 2020 CKD-EPI Cr equation,which includes serum Cr, age, and sex but does not include arace coefficient. The National Kidney Foundation recommendsthis formula for calculating eGFR in adults. GFR will notcalculate if sex is unknown, patient age is <18 years or ifserum Creatinine is <0.20 mg/dL or non-numerical. eGFR> 90 Range:>/=90 Comments:Ref range: >/= 90 mL/min/1.73 m2 IWMCIKI695ey/dL(High) Range:70mg /dL-110mg/dL POTASSIUM4.0mmol/L(Normal) Range :3.5mmol/L-5.2mmol/L ZCABNS047vbyd/L(Normal) Range:13 5mmol/L-145mmol/L GLUCOSE BY MONITORING DEVICE Ordered On:23-May-2024 19:41 GLUCOSE BY MONITORIN G LMZINV933rj/dL(High) Range:70mg/dL-110mg/dL Comments:Notified RN GLUCOSE BY MONITORING DEVICE Ordered On:23-May-2024 15:46 GLUCOSE BY MONITORIN G FTHNQT061sz/dL(High) Range:70mg/dL-110mg/dL GLUCOSE BY MONITORING DEVICE Ordered On:23-May-2024 08:42 GLUCOSE BY MONITORIN G QLWAMV466hx/dL(High) Range:70mg/dL-110mg/dL AMMONIA Ordered On:23-May-2024 07:15 ULRHCVV63sedb/L(High) Range:11 umol/L-32umol/L COMPLETE METABOLIC PANEL Ordered On:23-May-2024 07:44 ALBUMIN3.7g/dL(Normal) Range:3 .2g/dL-5g/dL ALKALINE OCVEXXPSJML242N/L(High) Range:20U/L-130U/L ALT (SGPT)56U/L(Normal) Range:10 U/L-60U/L Comments:Venipuncture should occur prior to sulfasalazine orsulfapyridine administration due to the potential forfalsely depressed results. AST (SGOT)86U/L(High) Range:10U/ L-40U/L TOTAL BILIRUBIN4.2mg/dL(High) Ra nge:0.1mg/dL-1.2mg/dL UREA-N (BUN)10mg/dL(Normal) Rang e:6mg/dL-22mg/dL CALCIUM9.7mg/dL(Normal) Range:8. 4mg/dL-10.2mg/dL Corrected Calcium9.9mg/dL(Normal) Range:8.4mg/dL-10.2mg/dL Comments:Calcium corrected for Albumin. XBDMERNM532eodg/L(Normal) Range: 95mmol/L-110mmol/L AXMQCTOVBFU04yash/L(Normal) Rang e:19mmol/L-34mmol/L CREATININE0.57mg/dL(Normal) Rang e:0.43mg/dL-1.13mg/dL Comments:The eGFR is calculated using the 2020 CKD-EPI Cr equation,which includes serum Cr, age, and sex but does not include arace coefficient. The National Kidney Foundation recommendsthis formula for calculating eGFR in adults. GFR will notcalculate if sex is unknown, patient age is <18 years or ifserum Creatinine is <0.20 mg/dL or non-numerical. eGFR> 90 Range:>/=90 Comments:Ref range: >/= 90 mL/min/1.73 m2 AUUKKKV552qm/dL(High) Range:70mg /dL-110mg/dL POTASSIUM4.0mmol/L(Normal) Range :3.5mmol/L-5.2mmol/L RXIDOZ946gaud/L(Normal) Range:13 5mmol/L-145mmol/L TOTAL PROTEIN6.7g/dL(Normal) Ran ge:5.5g/dL-8.7g/dL COMPLETE METABOLIC PANEL Ordered On:22-May-2024 07:04 ALBUMIN3.5g/dL(Normal) Range:3 .2g/dL-5g/dL ALKALINE VFLDQVXRHXK179Y/L(High) Range:20U/L-130U/L ALT (SGPT)56U/L(Normal) Range:10 U/L-60U/L Comments:Venipuncture should occur prior to sulfasalazine orsulfapyridine administration due to the potential forfalsely depressed results. AST (SGOT)92U/L(High) Range:10U/ L-40U/L TOTAL BILIRUBIN4.7mg/dL(High) Ra nge:0.1mg/dL-1.2mg/dL UREA-N (BUN)8mg/dL(Normal) Range :6mg/dL-22mg/dL CALCIUM9.5mg/dL(Normal) Range:8. 4mg/dL-10.2mg/dL Corrected Calcium9.9mg/dL(Normal) Range:8.4mg/dL-10.2mg/dL Comments:Calcium corrected for Albumin. HPDOUMHF125nyzw/L(Normal) Range: 95mmol/L-110mmol/L PTTTRQSJDRD72alby/L(Normal) Rang e:19mmol/L-34mmol/L CREATININE0.56mg/dL(Normal) Rang e:0.43mg/dL-1.13mg/dL Comments:The eGFR is calculated using the 2020 CKD-EPI Cr equation,which includes serum Cr, age, and sex but does not include arace coefficient. The National Kidney Foundation recommendsthis formula for calculating eGFR in adults. GFR will notcalculate if sex is unknown, patient age is <18 years or ifserum Creatinine is <0.20 mg/dL or non-numerical. eGFR> 90 Range:>/=90 Comments:Ref range: >/= 90 mL/min/1.73 m2 OUDOOLB877kv/dL(High) Range:70mg /dL-110mg/dL POTASSIUM3.9mmol/L(Normal) Range :3.5mmol/L-5.2mmol/L CQHGNU553ahlc/L(Normal) Range:13 5mmol/L-145mmol/L TOTAL PROTEIN6.3g/dL(Normal) Ran ge:5.5g/dL-8.7g/dL AMMONIA Ordered On:22-May-2024 07:11 EWYMLDY56yvuh/L(Normal) Range: 11umol/L-32umol/L AMMONIA Ordered On:21-May-2024 04:48 OSPGWRU05yuve/L(Normal) Range: 11umol/L-32umol/L COMPLETE METABOLIC PANEL Ordered On:21-May-2024 06:04 ALBUMIN3.9g/dL(Normal) Range:3 .2g/dL-5g/dL ALKALINE UNWMVQKTMFQ342K/L(High) Range:20U/L-130U/L ALT (SGPT)60U/L(Normal) Range:10 U/L-60U/L Comments:Venipuncture should occur prior to sulfasalazine orsulfapyridine administration due to the potential forfalsely depressed results. AST (SGOT)101U/L(High) Range:10U /L-40U/L TOTAL BILIRUBIN4.7mg/dL(High) Ra nge:0.1mg/dL-1.2mg/dL UREA-N (BUN)8mg/dL(Normal) Range :6mg/dL-22mg/dL CALCIUM9.4mg/dL(Normal) Range:8. 4mg/dL-10.2mg/dL Corrected Calcium9.5mg/dL(Normal) Range:8.4mg/dL-10.2mg/dL Comments:Calcium corrected for Albumin. PMFPLAAT076uiiu/L(Normal) Range: 95mmol/L-110mmol/L LVMEDVMPQKU17jszt/L(Normal) Rang e:19mmol/L-34mmol/L CREATININE0.57mg/dL(Normal) Rang e:0.43mg/dL-1.13mg/dL Comments:The eGFR is calculated using the 2020 CKD-EPI Cr equation,which includes serum Cr, age, and sex but does not include arace coefficient. The National Kidney Foundation recommendsthis formula for calculating eGFR in adults. GFR will notcalculate if sex is unknown, patient age is <18 years or ifserum Creatinine is <0.20 mg/dL or non-numerical. eGFR> 90 Range:>/=90 Comments:Ref range: >/= 90 mL/min/1.73 m2 RQTSIRO931lg/dL(High) Range:70mg /dL-110mg/dL POTASSIUM3.9mmol/L(Normal) Range :3.5mmol/L-5.2mmol/L IJZSWG079kgfs/L(Normal) Range:13 5mmol/L-145mmol/L TOTAL PROTEIN7.1g/dL(Normal) Ran ge:5.5g/dL-8.7g/dL TROPONIN I CARDIAC Ordered On:20-May-2024 19:40 TROPONIN I CARDIAC< 0.012ng/mL(Normal) Range:0ng/mL-0.034ng/mL Comments:Comment:Reference Interval encompassing the 99th percentile: <0.012-0.034 ng/mlCardiac Troponin I level of > 0.034 ng/ml indicatesincreasing risk for myocardial damage. AMI diagnostic cutoff is 0.120 ng/mL. The National Academy of Clinical Biochemistry Standards ofLaboratory Practices (NACB) and the International Federationof Clinical Chemistry (IFCC) recommend a minimum of threeserial blood samples within 24 hours of admission. Serialsampling is recommended to detect the temporal rise and fallof cTnI levels characteristic of AMI. Increased cTnI concentrations can be found in conditionsother than AMI such as: sepsis, congestive heart failure,hypertension with left ventricular hypertrophy, hemodynamiccompromise, myocarditis, mechanical injury including cardiacsurgery, defibrillation and cardiac toxins such asanthracyclines. Factors such as these should be consideredwhen interpreting results from any cTnI test method. TROPONIN I CARDIAC Ordered On:20-May-2024 17:37 TROPONIN I CARDIAC< 0.012ng/mL(Normal) Range:0ng/mL-0.034ng/mL Comments:Comment:Reference Interval encompassing the 99th percentile: <0.012-0.034 ng/mlCardiac Troponin I level of > 0.034 ng/ml indicatesincreasing risk for myocardial damage. AMI diagnostic cutoff is 0.120 ng/mL. The National Academy of Clinical Biochemistry Standards ofLaboratory Practices (NACB) and the International Federationof Clinical Chemistry (IFCC) recommend a minimum of threeserial blood samples within 24 hours of admission. Serialsampling is recommended to detect the temporal rise and fallof cTnI levels characteristic of AMI. Increased cTnI concentrations can be found in conditionsother than AMI such as: sepsis, congestive heart failure,hypertension with left ventricular hypertrophy, hemodynamiccompromise, myocarditis, mechanical injury including cardiacsurgery, defibrillation and cardiac toxins such asanthracyclines. Factors such as these should be consideredwhen interpreting results from any cTnI test method. GLUCOSE BY MONITORING DEVICE Ordered On:20-May-2024 17:19 GLUCOSE BY MONITORIN G DOAQML570wj/dL(Normal) Range:70mg/dL-110mg/dL GLUCOSE BY MONITORING DEVICE Ordered On:20-May-2024 12:40 GLUCOSE BY MONITORIN G WUGUPB886uj/dL(High) Range:70mg/dL-110mg/dL AMMONIA Ordered On:20-May-2024 06:45 HZGCZYT91nqku/L(High) Range:11 umol/L-32umol/L COMPLETE METABOLIC PANEL Ordered On:20-May-2024 06:52 ALBUMIN3.9g/dL(Normal) Range:3 .2g/dL-5g/dL ALKALINE RFWHCIVHYFC778B/L(High) Range:20U/L-130U/L ALT (SGPT)59U/L(Normal) Range:10 U/L-60U/L Comments:Venipuncture should occur prior to sulfasalazine orsulfapyridine administration due to the potential forfalsely depressed results. AST (SGOT)100U/L(High) Range:10U /L-40U/L TOTAL BILIRUBIN4.8mg/dL(High) Ra nge:0.1mg/dL-1.2mg/dL UREA-N (BUN)10mg/dL(Normal) Rang e:6mg/dL-22mg/dL CALCIUM9.5mg/dL(Normal) Range:8. 4mg/dL-10.2mg/dL Corrected Calcium9.6mg/dL(Normal) Range:8.4mg/dL-10.2mg/dL Comments:Calcium corrected for Albumin. VWEPGPGG440aiwb/L(Normal) Range: 95mmol/L-110mmol/L ZDRXCSZHMXE62bhrd/L(Normal) Rang e:19mmol/L-34mmol/L CREATININE0.61mg/dL(Normal) Rang e:0.43mg/dL-1.13mg/dL Comments:The eGFR is calculated using the 2020 CKD-EPI Cr equation,which includes serum Cr, age, and sex but does not include arace coefficient. The National Kidney Foundation recommendsthis formula for calculating eGFR in adults. GFR will notcalculate if sex is unknown, patient age is <18 years or ifserum Creatinine is <0.20 mg/dL or non-numerical. eGFR> 90 Range:>/=90 Comments:Ref range: >/= 90 mL/min/1.73 m2 EQWXXNQ665dr/dL(High) Range:70mg /dL-110mg/dL POTASSIUM4.5mmol/L(Normal) Range :3.5mmol/L-5.2mmol/L KXHMYV970ujfo/L(Normal) Range:13 5mmol/L-145mmol/L TOTAL PROTEIN7.1g/dL(Normal) Ran ge:5.5g/dL-8.7g/dL GLUCOSE BY MONITORING DEVICE Ordered On:19-May-2024 21:07 GLUCOSE BY MONITORIN G PYECGI883fs/dL(High) Range:70mg/dL-110mg/dL GLUCOSE BY MONITORING DEVICE Ordered On:19-May-2024 16:42 GLUCOSE BY MONITORIN G ZMKULW153rg/dL(High) Range:70mg/dL-110mg/dL GLUCOSE BY MONITORING DEVICE Ordered On:19-May-2024 11:50 GLUCOSE BY MONITORIN G IIBBKC350yo/dL(High) Range:70mg/dL-110mg/dL GLUCOSE BY MONITORING DEVICE Ordered On:19-May-2024 06:21 GLUCOSE BY MONITORIN G BUOBYN980go/dL(High) Range:70mg/dL-110mg/dL AMMONIA Ordered On:19-May-2024 06:34 JESQZDW13kfsx/L(High) Range:11 umol/L-32umol/L COMPLETE METABOLIC PANEL Ordered On:19-May-2024 06:38 ALBUMIN3.6g/dL(Normal) Range:3 .2g/dL-5g/dL ALKALINE TXAWFQGTBQL781J/L(High) Range:20U/L-130U/L ALT (SGPT)50U/L(Normal) Range:10 U/L-60U/L Comments:Venipuncture should occur prior to sulfasalazine orsulfapyridine administration due to the potential forfalsely depressed results. AST (SGOT)83U/L(High) Range:10U/ L-40U/L TOTAL BILIRUBIN5.0mg/dL(High) Ra nge:0.1mg/dL-1.2mg/dL UREA-N (BUN)13mg/dL(Normal) Rang e:6mg/dL-22mg/dL CALCIUM9.0mg/dL(Normal) Range:8. 4mg/dL-10.2mg/dL Corrected Calcium9.3mg/dL(Normal) Range:8.4mg/dL-10.2mg/dL Comments:Calcium corrected for Albumin. QAPOOYEV679mgkp/L(Normal) Range: 95mmol/L-110mmol/L ZQFJEXEHGEA05iqfp/L(Normal) Rang e:19mmol/L-34mmol/L CREATININE0.62mg/dL(Normal) Rang e:0.43mg/dL-1.13mg/dL Comments:The eGFR is calculated using the 2020 CKD-EPI Cr equation,which includes serum Cr, age, and sex but does not include arace coefficient. The National Kidney Foundation recommendsthis formula for calculating eGFR in adults. GFR will notcalculate if sex is unknown, patient age is <18 years or ifserum Creatinine is <0.20 mg/dL or non-numerical. eGFR> 90 Range:>/=90 Comments:Ref range: >/= 90 mL/min/1.73 m2 PFNKWKZ539ru/dL(High) Range:70mg /dL-110mg/dL POTASSIUM4.1mmol/L(Normal) Range :3.5mmol/L-5.2mmol/L PZHEUG618hvtu/L(Normal) Range:13 5mmol/L-145mmol/L TOTAL PROTEIN6.7g/dL(Normal) Ran ge:5.5g/dL-8.7g/dL GLUCOSE BY MONITORING DEVICE Ordered On:18-May-2024 21:15 GLUCOSE BY MONITORIN G ZOKLTO707bw/dL(High) Range:70mg/dL-110mg/dL GLUCOSE BY MONITORING DEVICE Ordered On:18-May-2024 16:19 GLUCOSE BY MONITORIN G YKJTBX793kb/dL(High) Range:70mg/dL-110mg/dL THEO Ordered On:18-May-2024 14:08 ANANegative Range:Negative Comments:Although this THEO screening test is negative, if clinicalautoimmune disease is still suspected, the followingspecific tests may be considered: anti-phospholipid antibodyfor Polymyositis/Dermatomyositis; and anti-Cardiolipinantibody and Lupus Anticoagulant for the AntiphospholipidSyndrome.THEO testing is performed using the [employer] 2200Multiplex Flow Immunoassay methodology. MITOCHONDRIAL AB QL Ordered On:18-May-2024 14:08 MITOCHONDRIAL AB QL1.52{index_val}(Abnormal) Range:0{index_val}-0.9{index_ delgaod} Comments:Reference Range:< 0.90 = Negative0.91 - 1.09 = Borderline> 1.10 = Positive Actin (Smooth Muscle) Ordered On:18-May-2024 14:08 Actin (Smooth Muscle)8U Range: 0U-19U Comments:Negative 0 - 19 Weak positive 20 - 30 Moderate to strong positive >30 Actin Antibodies are found in 52-85% of patients with autoimmune hepatitis or chronic active hepatitis and in 22% of patients with primary biliary cirrhosis.Performed At: [facility] [id number] [place], [place] [id number] Sanjai MD Ph:[phone] [id number] Ordered On:18-May-2024 14:08 WEXIF-2-UNNRQMELBBQ652.9mg/dL Range:90mg/dL-200mg/dL CERULOPLASMIN Ordered On:18-May-2024 14:08 CPRSLKPVISNHP58.3mg/dL Range:1 9mg/dL-39mg/dL Comments:Performed At: [facility] [id number] [place], [place] [id number] Sean MD Ph:[phone] GLUCOSE BY MONITORING DEVICE Ordered On:18-May-2024 11:42 GLUCOSE BY MONITORIN G FHUJMK249qw/dL(High) Range:70mg/dL-110mg/dL AMMONIA Ordered On:18-May-2024 10:05 NKISWNJ87jffl/L(High) Range:11 umol/L-32umol/L CBC WITH DIFFERENTIAL Ordered On:18-May-2024 08:32 BASOPHIL ABSOLUTE #0.0210*3/uL(Normal) Range:0.0110*3/uL-0.0810*3/uL BASOPHIL0.6%(Normal) Range:0.1%- 1.2% EOSINOPHIL2.9%(Normal) Range:0.7 %-5.8% SNRASDCQKG31.6%(Normal) Range:19 .3%-51.7% JCDKIHCW56.1%(Normal) Range:4.7% -12.5% NUCLEATED RBC #0.0010*3/uL(Normal) Range:010*3/uL-0.1810*3/uL NUCLEATED RBC0.0%(Normal) Range: 0%-0.2% EOSINOPHIL ABSOLUTE #0.0910*3/uL(Normal) Range:0.0410*3/uL-0.3610*3/uL SEGMENTED GYLHLDMYNO75.5%(Normal) Range:34%-71.1% UOROWHOHEB15.4%(Low) Range:34.1% -44.9% APLSGOVNIL58.3g/dL(Normal) Range :11.2g/dL-15.7g/dL IMMATURE GRANULOCYTE S #0.0110*3/uL(Normal) Range:010*3/uL-0.0310*3/uL IMMATURE GRANULOCYTES0.3%(Normal) Range:0%-0.4% LYMPHOCYTE ABSOLUTE #0.7910*3/uL(Low) Range:1.1810*3/uL-3.7410*3/uL MCH32.9pg(High) Range:25.6pg-32. 2pg MCHC33.8g/dL(Normal) Range:32.2g /dL-35.5g/dL MCV97.4fL(High) Range:79.4fL-94. 8fL MONOCYTE ABSOLUTE #0.3110*3/uL(Normal) Range:0.2410*3/uL-0.6310*3/uL MPV12.2fL(Normal) Range:9.4fL-12 .3fL NEUTROPHIL ABSOLUTE #1.8610*3/uL(Normal) Range:1.5610*3/uL-6.1310*3/uL PLATELET EQUEL9011*3/uL(Low) Ran ge:37219*3/uL-33029*3/uL RED BLOOD CELL COUNT3.4310*6/uL(Low) Range:3.9310*6/uL-5.2210*6/uL RBC DISTRIBUTION WIDTH15.1%(High) Range:11.7%-14.4% WHITE BLOOD CELL COUNT3.1{10_3/u}(Low) Range:4{10_3/u}-10.5{10_3/u} COMPLETE METABOLIC PANEL Ordered On:18-May-2024 09:22 ALBUMIN3.6g/dL(Normal) Range:3 .2g/dL-5g/dL ALKALINE YANCAJTIYLS054R/L(High) Range:20U/L-130U/L ALT (SGPT)50U/L(Normal) Range:10 U/L-60U/L Comments:Venipuncture should occur prior to sulfasalazine orsulfapyridine administration due to the potential forfalsely depressed results. AST (SGOT)71U/L(High) Range:10U/ L-40U/L TOTAL BILIRUBIN4.9mg/dL(High) Ra nge:0.1mg/dL-1.2mg/dL UREA-N (BUN)16mg/dL(Normal) Rang e:6mg/dL-22mg/dL CALCIUM8.8mg/dL(Normal) Range:8. 4mg/dL-10.2mg/dL Corrected Calcium9.1mg/dL(Normal) Range:8.4mg/dL-10.2mg/dL Comments:Calcium corrected for Albumin. VYLEXYFL338oztb/L(Normal) Range: 95mmol/L-110mmol/L ZXGUNEZLWPH56bgro/L(Normal) Rang e:19mmol/L-34mmol/L CREATININE0.64mg/dL(Normal) Rang e:0.43mg/dL-1.13mg/dL Comments:The eGFR is calculated using the 2020 CKD-EPI Cr equation,which includes serum Cr, age, and sex but does not include arace coefficient. The National Kidney Foundation recommendsthis formula for calculating eGFR in adults. GFR will notcalculate if sex is unknown, patient age is <18 years or ifserum Creatinine is <0.20 mg/dL or non-numerical. eGFR> 90 Range:>/=90 Comments:Ref range: >/= 90 mL/min/1.73 m2 ZCNHIZY532mq/dL(High) Range:70mg /dL-110mg/dL POTASSIUM4.2mmol/L(Normal) Range :3.5mmol/L-5.2mmol/L WVPBRA088ldex/L(Normal) Range:13 5mmol/L-145mmol/L TOTAL PROTEIN6.6g/dL(Normal) Ran ge:5.5g/dL-8.7g/dL GLUCOSE BY MONITORING DEVICE Ordered On:17-May-2024 20:25 GLUCOSE BY MONITORIN G PUOOGE216gs/dL(High) Range:70mg/dL-110mg/dL LIVER PROFILE Ordered On:17-May-2024 Comments: Changed from CBN to lab draw at 0036 on 05/17/24 @KARIN Harvey 17-May-2024 05:56 ALBUMIN3.4g/dL(Normal) Range:3 .2g/dL-5g/dL ALKALINE MHORIRQBCEI482A/L(High) Range:20U/L-130U/L ALT (SGPT)49U/L(Normal) Range:10 U/L-60U/L Comments:Venipuncture should occur prior to sulfasalazine orsulfapyridine administration due to the potential forfalsely depressed results. AST (SGOT)67U/L(High) Range:10U/ L-40U/L BILIRUBIN CONJUGATED0.0mg/dL(Normal) Range:0mg/dL-0.3mg/dL TOTAL BILIRUBIN4.2mg/dL(High) Ra nge:0.1mg/dL-1.2mg/dL BILIRUBIN UNCONJUGATED2.1mg/d/L(High) Range:0mg/d/L-1.1mg/d/L TOTAL PROTEIN6.3g/dL(Normal) Ran ge:5.5g/dL-8.7g/dL COMPLETE METABOLIC PANEL(Pending) Ordered On:17-May-2024 Comments:Changed from CBN to lab draw at 0036 on 05/17/24 @KARIN Harvey 17-May-2024 05:56 UREA-N (BUN)24mg/dL(High) Rang e:6mg/dL-22mg/dL CALCIUM8.4mg/dL(Normal) Range:8. 4mg/dL-10.2mg/dL Corrected Calciummg/dL Range:8.4 mg/dL-10.2mg/dL GTOPZURQ157eulf/L(Normal) Range: 95mmol/L-110mmol/L HFJVTLOWGSB64vprw/L(Normal) Rang e:19mmol/L-34mmol/L CREATININE0.83mg/dL(Normal) Rang e:0.43mg/dL-1.13mg/dL Comments:The eGFR is calculated using the 2020 CKD-EPI Cr equation,which includes serum Cr, age, and sex but does not include arace coefficient. The National Kidney Foundation recommendsthis formula for calculating eGFR in adults. GFR will notcalculate if sex is unknown, patient age is <18 years or ifserum Creatinine is <0.20 mg/dL or non-numerical. eGFR84(Low) Range:>/=90 Comments:Ref range: >/= 90 mL/min/1.73 m2 USCSQMP076na/dL(High) Range:70mg /dL-110mg/dL POTASSIUM4.2mmol/L(Normal) Range :3.5mmol/L-5.2mmol/L NCKIXU786vzwh/L(Normal) Range:13 5mmol/L-145mmol/L AMMONIA Ordered On:17-May-2024 Comments: Changed from CBN to lab draw at 0036 on 05/17/24 @KARIN Harvey 17-May-2024 05:54 TZVUWMV35xicn/L(High) Range:11 umol/L-32umol/L TSH c Reflex FT4 Ordered On:17-May-2024 06:26 TSH c Reflex FT42.680{mcInU/mL}(Normal) Range:0.465{mcInU/mL}-4.68{mc InU/mL} CBC WITH DIFFERENTIAL Ordered On:17-May-2024 [facility] ments:Changed from CBN to lab draw at 0035 on 05/17/24 @KARIN Harvey 17-May-2024 11:51 BASOPHIL ABSOLUTE #0.0110*3/uL(Normal) Range:0.0110*3/uL-0.0810*3/uL BASOPHIL0.3%(Normal) Range:0.1%- 1.2% EOSINOPHIL3.5%(Normal) Range:0.7 %-5.8% XRYFLPCTBJ86.9%(Low) Range:19.3% -51.7% SVJZURNF11.1%(Normal) Range:4.7% -12.5% NUCLEATED RBC #0.0010*3/uL(Normal) Range:010*3/uL-0.1810*3/uL NUCLEATED RBC0.0%(Normal) Range: 0%-0.2% EOSINOPHIL ABSOLUTE #0.1110*3/uL(Normal) Range:0.0410*3/uL-0.3610*3/uL SEGMENTED FLDYSZPMZP23.6%(Normal) Range:34%-71.1% UGFQNBJSYV67.0%(Low) Range:34.1% -44.9% GEIIPBWWJQ08.8g/dL(Low) Range:11 .2g/dL-15.7g/dL IMMATURE GRANULOCYTE S #0.0210*3/uL(Normal) Range:010*3/uL-0.0310*3/uL IMMATURE GRANULOCYTES0.6%(High) Range:0%-0.4% LYMPHOCYTE ABSOLUTE #0.6010*3/uL(Low) Range:1.1810*3/uL-3.7410*3/uL MCH33.4pg(High) Range:25.6pg-32. 2pg MCHC34.8g/dL(Normal) Range:32.2g /dL-35.5g/dL MCV96.0fL(High) Range:79.4fL-94. 8fL MONOCYTE ABSOLUTE #0.3210*3/uL(Normal) Range:0.2410*3/uL-0.6310*3/uL MPV12.4fL(High) Range:9.4fL-12.3 fL NEUTROPHIL ABSOLUTE #2.1210*3/uL(Normal) Range:1.5610*3/uL-6.1310*3/uL PLATELET JMDJH3246*3/uL(Low) Ran ge:10221*3/uL-32539*3/uL RED BLOOD CELL COUNT3.2310*6/uL(Low) Range:3.9310*6/uL-5.2210*6/uL RBC DISTRIBUTION WIDTH15.3%(High) Range:11.7%-14.4% WHITE BLOOD CELL COUNT3.2{10_3/u}(Low) Range:4{10_3/u}-10.5{10_3/u} CORONARY RISK PROFILE Ordered On:17-May-2024 16:36 WAOPXCKTACN847ch/dL(Abnormal) Range:0mg/dL-200mg/dL OMG84wt/dL Range:0mg/dL-60m g/dL GMD043ug/dL(Abnormal) Range:0mg/ dL-130mg/dL NON-ZIA820lb/dL CHOLESTEROL/HDL RATIO4.9 Range:1 .5-5.6 PLIGBLWOLMKY935tk/dL(Abnormal) R kelvin:0mg/dL-150mg/dL Comments:If patient is taking N-Acetylcycteine, Triglycerides may befalsely decreased.If patient is taking Metamizole, Triglycerides and HDL maybe falsely decreased. GLYHB Ordered On:17-May-2024 18:30 eAG MMOL.L160mg/dL(Abnormal) R kelvin:0-125mg/dL Comments:EAG = estimated Average Glucose over 2-3 months GLYCOHEMOGLOBIN A1C7.2%(Abnormal) Range:0-5.7% Comments:A1C < 5.7% - CnbtdzH0E 5.7%-6.4% - For screening of jvqfcujlesoZ3A > OR = 6.5 - DiabetesNote: New above reference intervals follow the ADArecommendations NT-proBNP II Ordered On:17-May-2024 Comments: Add To Specimen In Lab [[id number] 05/17/24 0641] 17-May-2024 09:11 NT-proBNP II48pg/mL(Normal) Ra nge:0pg/mL-217pg/mL Comments:ED patients with acute or worsening dyspnea and clinical suspicion of HFResult(pg/ml) Age(years) Interpretation <300 All Negative: Heart Failure Unlikely >=450 22-49 >=900 50-74 Positive: Heart Failure Likely >=1800 >75 Outpatients with clinical suspicion of HF, no prior diagnosed and at least one sign, symptom or risk factor for HFResult(pg/ml) Age(years) Interpretation <125 All Negative: Heart Failure Unlikely Consider Heart Failure as well as >=125 All other causes of NT-proBNP elevation WHITE BLOOD CELL SEPSIS REFLEX Ordered On:16-May-2024 22:35 WHITE BLOOD CELL SEP SIS REFLEXABNORMAL CBC WITH DIFFERENTIAL Ordered On:16-May-2024 23:09 BASOPHIL ABSOLUTE #0.0210*3/uL(Normal) Range:0.0110*3/uL-0.0810*3/uL BASOPHIL0.6%(Normal) Range:0.1%- 1.2% EOSINOPHIL3.0%(Normal) Range:0.7 %-5.8% MLIBOUXKRH63.4%(Normal) Range:19 .3%-51.7% MONOCYTE8.1%(Normal) Range:4.7%- 12.5% NUCLEATED RBC #0.0010*3/uL(Normal) Range:010*3/uL-0.1810*3/uL NUCLEATED RBC0.0%(Normal) Range: 0%-0.2% EOSINOPHIL ABSOLUTE #0.1010*3/uL(Normal) Range:0.0410*3/uL-0.3610*3/uL SEGMENTED LFPXFZBLWS52.6%(Normal) Range:34%-71.1% DYNWDCUHQH36.8%(Low) Range:34.1% -44.9% KDXLVQMEWH40.9g/dL(Normal) Range :11.2g/dL-15.7g/dL IMMATURE GRANULOCYTE S #0.0110*3/uL(Normal) Range:010*3/uL-0.0310*3/uL IMMATURE GRANULOCYTES0.3%(Normal) Range:0%-0.4% LYMPHOCYTE ABSOLUTE #0.6810*3/uL(Low) Range:1.1810*3/uL-3.7410*3/uL MCH33.1pg(High) Range:25.6pg-32. 2pg MCHC35.2g/dL(Normal) Range:32.2g /dL-35.5g/dL MCV94.2fL(Normal) Range:79.4fL-9 4.8fL MONOCYTE ABSOLUTE #0.2710*3/uL(Normal) Range:0.2410*3/uL-0.6310*3/uL MPV12.1fL(Normal) Range:9.4fL-12 .3fL NEUTROPHIL ABSOLUTE #2.2610*3/uL(Normal) Range:1.5610*3/uL-6.1310*3/uL PLATELET QDQUD2678*3/uL(Low) Ran ge:36338*3/uL-93594*3/uL RED BLOOD CELL COUNT3.5910*6/uL(Low) Range:3.9310*6/uL-5.2210*6/uL RBC DISTRIBUTION WIDTH15.2%(High) Range:11.7%-14.4% WHITE BLOOD CELL COUNT3.3{10_3/u}(Low) Range:4{10_3/u}-10.5{10_3/u} Platelet Morphology Ordered On:16-May-2024 23:09 PLATELET ESTIMATEDecreased{plt/hpf} TROPONIN I CARDIAC Ordered On:16-May-2024 22:56 TROPONIN I CARDIAC< 0.012ng/mL(Normal) Range:0ng/mL-0.034ng/mL Comments:Comment:Reference Interval encompassing the 99th percentile: <0.012-0.034 ng/mlCardiac Troponin I level of > 0.034 ng/ml indicatesincreasing risk for myocardial damage. AMI diagnostic cutoff is 0.120 ng/mL. The National Academy of Clinical Biochemistry Standards ofLaboratory Practices (NACB) and the International Federationof Clinical Chemistry (IFCC) recommend a minimum of threeserial blood samples within 24 hours of admission. Serialsampling is recommended to detect the temporal rise and fallof cTnI levels characteristic of AMI. Increased cTnI concentrations can be found in conditionsother than AMI such as: sepsis, congestive heart failure,hypertension with left ventricular hypertrophy, hemodynamiccompromise, myocarditis, mechanical injury including cardiacsurgery, defibrillation and cardiac toxins such asanthracyclines. Factors such as these should be consideredwhen interpreting results from any cTnI test method. BASIC METABOLIC PROFILE Ordered On:16-May-2024 22:56 UREA-N (BUN)28mg/dL(High) Rang e:6mg/dL-22mg/dL CALCIUM8.6mg/dL(Normal) Range:8. 4mg/dL-10.2mg/dL ZZWPQKJG250gjku/L(Normal) Range: 95mmol/L-110mmol/L ZFLZASPQGBP58ipsz/L(Normal) Rang e:19mmol/L-34mmol/L CREATININE0.99mg/dL(Normal) Rang e:0.43mg/dL-1.13mg/dL Comments:The eGFR is calculated using the 2020 CKD-EPI Cr equation,which includes serum Cr, age, and sex but does not include arace coefficient. The National Kidney Foundation recommendsthis formula for calculating eGFR in adults. GFR will notcalculate if sex is unknown, patient age is <18 years or ifserum Creatinine is <0.20 mg/dL or non-numerical. eGFR68(Low) Range:>/=90 Comments:Ref range: >/= 90 mL/min/1.73 m2 HKSZELF138cv/dL(High) Range:70mg /dL-110mg/dL POTASSIUM4.3mmol/L(Normal) Range :3.5mmol/L-5.2mmol/L UMPSAA259wgxx/L(Normal) Range:13 5mmol/L-145mmol/L LIVER PROFILE Ordered On:16-May-2024 22:56 ALBUMIN3.8g/dL(Normal) Range:3 .2g/dL-5g/dL ALKALINE YKQUJQACZWD371A/L(High) Range:20U/L-130U/L ALT (SGPT)52U/L(Normal) Range:10 U/L-60U/L Comments:Venipuncture should occur prior to sulfasalazine orsulfapyridine administration due to the potential forfalsely depressed results. AST (SGOT)71U/L(High) Range:10U/ L-40U/L BILIRUBIN CONJUGATED0.1mg/dL(Normal) Range:0mg/dL-0.3mg/dL TOTAL BILIRUBIN4.2mg/dL(High) Ra nge:0.1mg/dL-1.2mg/dL BILIRUBIN UNCONJUGATED1.8mg/d/L(High) Range:0mg/d/L-1.1mg/d/L TOTAL PROTEIN6.8g/dL(Normal) Ran ge:5.5g/dL-8.7g/dL LIPASE Ordered On:16-May-2024 22:56 PLRZGU946V/L(High) Range:23U/L -300U/L TYLENOL (ACETAMINOPHEN) Ordered On:16-May-2024 22:56 TYLENOL (ACETAMINOPH EN)< 10.0ug/mL(Low) Range:10ug/mL-30ug/mL SALICYLATE Ordered On:16-May-2024 22:56 SALICYLATE< 1.0mg/dL(Low) Rang e:2.8mg/dL-20mg/dL PROTHROMBIN TIME Ordered On:16-May-2024 Comments :On anticoagulants: Unknown 16-May-2024 22:41 PT MZHQKAW06.1s(High) Range:10 s-12.8s INT'L NORMALIZED RATIO1.4(High) Range:0.8-1 Comments:Use INR for clinical decision makingRecommended Therapeutic Range:INDICATION TARGETED INR RANGEPrevention and treatment of VTE 2.0-3.0Atrial Fibrillation 2.0-3.0Acute myocardial infarction 2.0-3.0Valvular heart disease 2.0-3.0Prosthetic tissue heart valves 2.5-3.5Recurrent Thromboembolism 2.5-3.5Targeted INR range of 2-3 is appropriate for patients whohave a mechanical bileaflet in the aortic position, normalcardiac chamber size, and no other risk factors for stroke.Co-administration of argatroban and warfarin produces acombined effect on INR. Consult pharmacist or physician todetermine if warfarin dose should be held when INR iselevated and patient is receiving argatroban. PTT PATIENT Ordered On:16-May-2024 Comments: On anticoagulants: Unknown 16-May-2024 22:41 PTT RYGLEQJ17d(High) Range:25s -38s Comments:Therapeutic heparin range is 58-92 seconds. AMMONIA Ordered On:16-May-2024 22:42 OYUTRMV52liep/L(High) Range:11 umol/L-32umol/L URINALYSIS WITH CULT REFLX Ordered On:16-May-2024 Comments:Indication for culture: Suprapubic Pain 16-May-2024 23:19 URINE BILIRUBINNegativemg/dL(Normal) Range:Negative mg/dL URINE BLOOD0.03 (Trace)mg/dL(Normal) Range:Neg-Trace mg/dL URINE CLARITYTurbid(Abnormal) Ra nge:Clear URINE COLORYellow(Normal) Range: Yellow URINE GLUCOSENormalmg/dL(Normal) Range:Norm-Trace mg/dL URINE KETONENegativemg/dL(Normal) Range:Neg-Trace mg/dL LEUKOCYTESNegative{L eu/uL}(Tatiana l) Range:0-25{Elsie/uL} NITRITENegative(Normal) Range:Ne gative pH6.5(Normal) Range:5-9 URINE FITIUKM44 (Trace)mg/dL(Normal) Range:Neg-Trace mg/dL SPECIFIC GRAVITY>1.030 Range:1.0 05-1.03 UROBILINOGEN3.0 (1+)mg/dL(Abnormal) Range:Normal mg/dL DRUG SCREEN, URINE Ordered On:16-May-2024 23:35 AMPHETAMINENegative Range:Not Detect BARBITURATENegative Range:Not De tect BENZODIAZEPINENegative Range:Not Detect CANNABINOIDSNegative Range:Not D etect COCAINE METABOLITENegative Range :Not Detect OPIATENegative Range:Not Detect PHENCYCLIDINENegative Range:Not Detect Comments:These are screening test results for medical purposesonly. Any positive result is considered unconfirmed.A negative result indicates that no drug is presentin the sample or is present at concentrations belowthe cutoff level. Cutoff levels are as follows:Amphetamine/Methamphe tamine 1000 ng/mLBarbiturate 200 ng/mLBenzodiazepine 200 ng/mLCocaine 300 ng/mLOpiates 300 ng/mLCannabinoids (THC) 50 ng/mLPhencyclidine (PCP) 25 ng/mL TSH c Reflex FT4 Ordered On:16-May-2024 00:07 TSH c Reflex FT42.730{mcInU/mL}(Normal) Range:0.465{mcInU/mL}-4.68{mc InU/mL} Vital Signs 28-May-2024 15:56 TEMP KRVRMXO91.8c Comments:36.8 Pulse68 Comments:68 Respiratory Rate18 Comments:18 O2 SAT97% Comments:97 BP Eqzjfrim547xg[Hg] Comments:12 9 BP Zeqsbrtzh53ke[Hg] Comments:77 28-May-2024 11:13 TEMP MVMDOFN07.6c Comments:36.6 Pulse66 Comments:66 Respiratory Rate17 Comments:17 O2 SAT99% Comments:99 BP Unkigzpr889rt[Hg] Comments:11 7 BP Getoffggo29uk[Hg] Comments:67 28-May-2024 08:14 TEMP FBGMXGY25.9c Comments:36.9 Pulse63 Comments:63 Respiratory Rate17 Comments:17 O2 ALU724% Comments:100 BP Olxppntl924kh[Hg] Comments:10 4 BP Gwvglnggq79al[Hg] Comments:70 28-May-2024 05:17 Pulse82 Comments:82 Respiratory Rate16 Comments:16 BP Swtbpvfq577mt[Hg] Comments:11 2 BP Wohwueajy03ey[Hg] Comments:70 28-May-2024 05:15 Pulse78 Comments:78 Respiratory Rate16 Comments:16 BP Ekjfiwhm844re[Hg] Comments:12 9 BP Vtpsteulg04nh[Hg] Comments:75 28-May-2024 05:06 TEMP PFHHXFB61.7c Comments:36.7 Pulse72 Comments:72 Respiratory Rate16 Comments:16 O2 SAT98% Comments:98 BP Iwwlonth62gs[Hg] Comments:97 BP Cwfjakvho37mk[Hg] Comments:56 27-May-2024 23:22 TEMP NZUZDPX41.7c Comments:36.7 Pulse64 Comments:64 Respiratory Rate18 Comments:18 O2 SAT97% Comments:97 BP Wxzfbgit767bt[Hg] Comments:10 9 BP Kimfmixkl61zt[Hg] Comments:72 27-May-2024 19:44 TEMP MRCBDTT77.7c Comments:36.7 Pulse64 Comments:64 Respiratory Rate18 Comments:18 O2 SAT99% Comments:99 BP Uhkihfpq612cq[Hg] Comments:10 8 BP Wtsqzugvu56tc[Hg] Comments:66 27-May-2024 16:11 TEMP XSPHZGJ19.8c Comments:36.8 Pulse64 Comments:64 Respiratory Rate18 Comments:18 O2 KKZ866% Comments:100 BP Dpwsosud648vi[Hg] Comments:10 7 BP Mynsujzxj57gz[Hg] Comments:59 27-May-2024 11:35 TEMP SCIEQJU57.8c Comments:36.8 Pulse70 Comments:70 Respiratory Rate18 Comments:18 O2 RZT027% Comments:100 BP Rhpbhtkm692el[Hg] Comments:12 9 BP Efqurvdpe19bi[Hg] Comments:69 27-May-2024 08:30 TEMP DSYOPVG27.6c Comments:36.6 Pulse65 Comments:65 Respiratory Rate18 Comments:18 O2 SAT97% Comments:97 BP Dcmmknsi036ow[Hg] Comments:12 2 BP Trxjzccfg42bz[Hg] Comments:75 27-May-2024 05:20 TEMP VJNSGUV34.7c Comments:36.7 Pulse63 Comments:63 Respiratory Rate17 Comments:17 O2 SAT96% Comments:96 BP Ytfzggdx725nu[Hg] Comments:13 2 BP Qyyohwviz98ie[Hg] Comments:71 26-May-2024 23:57 TEMP XEQUWMI26.5c Comments:36.5 Pulse59 Comments:59 Respiratory Rate17 Comments:17 O2 SAT95% Comments:95 BP Tsswceeu561ct[Hg] Comments:10 7 BP Wedpioygy31fr[Hg] Comments:68 26-May-2024 20:31 TEMP RNXGGXB94.8c Comments:36.8 Pulse63 Comments:63 Respiratory Rate17 Comments:17 O2 SAT99% Comments:99 BP Zuwqzery367wm[Hg] Comments:12 2 BP Kmzuigfax83dp[Hg] Comments:70 26-May-2024 16:40 TEMP BNEWARW03.6c Comments:36.6 Pulse62 Comments:62 Respiratory Rate16 Comments:16 O2 SAT99% Comments:99 BP Mqhecnog354ax[Hg] Comments:13 5 BP Lledvbknt24lw[Hg] Comments:73 26-May-2024 11:28 TEMP LVEVPDS57.5c Comments:36.5 Pulse59 Comments:59 Respiratory Rate16 Comments:16 O2 SAT97% Comments:97 BP Loufkhmt688qp[Hg] Comments:13 4 BP Aujmfuvlt14cn[Hg] Comments:74 26-May-2024 08:51 TEMP ISDXDGW42.9c Comments:36.9 Pulse59 Comments:59 Respiratory Rate18 Comments:18 O2 SAT99% Comments:99 BP Qsnqxywv621rf[Hg] Comments:11 2 BP Hyugisgmn39kr[Hg] Comments:66 26-May-2024 07:30 TEMP NUHWOTE45.4c Comments:36.4 Pulse63 Comments:63 Respiratory Rate16 Comments:16 O2 SAT97% Comments:97 BP Tkongjpi167hm[Hg] Comments:12 6 BP Ofeitaefh68xy[Hg] Comments:66 26-May-2024 05:22 TEMP GNYXBTH86.7c Comments:36.7 Pulse52 Comments:52 Respiratory Rate18 Comments:18 O2 SAT98% Comments:98 BP Duleffht388vy[Hg] Comments:10 2 BP Vxwauomed54qv[Hg] Comments:56 25-May-2024 23:14 TEMP PJNVANH10.8c Comments:36.8 Pulse61 Comments:61 Respiratory Rate18 Comments:18 O2 SAT97% Comments:97 BP Cqxqxztv480dz[Hg] Comments:10 7 BP Igrhsxmxz29tm[Hg] Comments:57 25-May-2024 19:54 TEMP BXNZPHY43.7c Comments:36.7 Pulse63 Comments:63 Respiratory Rate18 Comments:18 O2 SAT99% Comments:99 BP Tfplfusx665lv[Hg] Comments:12 3 BP Fmwawwpzn61ri[Hg] Comments:73 25-May-2024 16:43 TEMP PZFDEME27.8c Comments:36.8 Pulse61 Comments:61 Respiratory Rate18 Comments:18 O2 SAT98% Comments:98 BP Tfeohnkl251en[Hg] Comments:12 1 BP Glmhkccrb28wl[Hg] Comments:65 25-May-2024 11:30 TEMP XOMZNHF96.7c Comments:36.7 Pulse60 Comments:60 Respiratory Rate18 Comments:18 O2 SAT97% Comments:97 BP Nabgabio958lx[Hg] Comments:11 6 BP Ucvbncvwv78nq[Hg] Comments:63 25-May-2024 08:30 TEMP YBKVGBG27.9c Comments:36.9 Pulse68 Comments:68 Respiratory Rate18 Comments:18 O2 SAT99% Comments:99 BP Cyhsbjby708bx[Hg] Comments:13 0 BP Ojrputkgp05fr[Hg] Comments:69 25-May-2024 05:13 TEMP PNHFVHC35.7c Comments:36.7 Pulse66 Comments:66 Respiratory Rate18 Comments:18 O2 SAT97% Comments:97 BP Bytdaoij331tf[Hg] Comments:10 6 BP Jkxmslqaw53dv[Hg] Comments:67 25-May-2024 00:36 TEMP PLVJHYH85.7c Comments:36.7 Pulse60 Comments:60 Respiratory Rate18 Comments:18 O2 SAT97% Comments:97 BP Xekjfbyx108ds[Hg] Comments:11 9 BP Bseblbbdk60sh[Hg] Comments:72 24-May-2024 20:16 TEMP AHYNUQX81.3c Comments:36.3 Pulse64 Comments:64 Respiratory Rate18 Comments:18 O2 SAT96% Comments:96 BP Oixfdmuy963rb[Hg] Comments:10 7 BP Mnleghpni86yn[Hg] Comments:68 24-May-2024 16:03 TEMP DAYTYHV13.8c Comments:36.8 Pulse79 Comments:79 Respiratory Rate17 Comments:17 O2 SAT97% Comments:97 BP Fdhsuvuz533yk[Hg] Comments:13 3 BP Zucbmcxfd13ex[Hg] Comments:75 24-May-2024 11:27 TEMP SOQKNJS57.9c Comments:36.9 Pulse65 Comments:65 Respiratory Rate17 Comments:17 O2 SAT97% Comments:97 BP Xktqxjae695mb[Hg] Comments:11 8 BP Xaoeuqzmt44zr[Hg] Comments:71 24-May-2024 08:19 TEMP GJCREGT25.8c Comments:36.8 Pulse61 Comments:61 Respiratory Rate18 Comments:18 O2 SAT96% Comments:96 BP Sdziutbo450mn[Hg] Comments:11 5 BP Tyodxkkco65xf[Hg] Comments:67 24-May-2024 05:48 TEMP QQSHVET87.6c Comments:36.6 Pulse79 Comments:79 Respiratory Rate16 Comments:16 O2 SAT97% Comments:97 BP Znezxdtv190om[Hg] Comments:13 2 BP Vzazuqjvz33xl[Hg] Comments:74 24-May-2024 00:46 TEMP EKHOUVY42.9c Comments:36.9 Pulse67 Comments:67 Respiratory Rate18 Comments:18 O2 SAT97% Comments:97 BP Slkpetzf491hv[Hg] Comments:11 1 BP Obmkligug87fm[Hg] Comments:64 23-May-2024 19:34 TEMP RTDISKZ31.8c Comments:36.8 Pulse62 Comments:62 Respiratory Rate18 Comments:18 O2 SAT95% Comments:95 BP Hpfcqfcy831lo[Hg] Comments:10 8 BP Zcsebbjfv48hx[Hg] Comments:64 23-May-2024 17:21 Pulse91 Comments:91 BP Dkvshhdy615uu[Hg] Comments:15 8 BP Lehaekfio26we[Hg] Comments:78 23-May-2024 15:41 TEMP MRUYTGV61.1c Comments:37.1 Pulse78 Comments:78 Respiratory Rate18 Comments:18 O2 SAT96% Comments:96 BP Wgjnezxo486jn[Hg] Comments:12 2 BP Kcrtqnrso44pa[Hg] Comments:72 23-May-2024 15:05 Numeric pain scale:7 Comments:Se rodrigues pain-7 23-May-2024 11:47 TEMP IRPVSET20.8c Comments:36.8 Pulse76 Comments:76 Respiratory Rate18 Comments:18 O2 SAT98% Comments:98 BP Vdkfwwse369hz[Hg] Comments:13 8 BP Mpxxjdzvb78pj[Hg] Comments:78 23-May-2024 08:44 TEMP SHLCOQP19.8c Comments:36.8 Pulse77 Comments:77 Respiratory Rate18 Comments:18 O2 SAT97% Comments:97 BP Kiucqxhs093af[Hg] Comments:12 1 BP Bkergrqmj17fh[Hg] Comments:68 23-May-2024 03:59 TEMP HQJFMNI23.2c Comments:37.2 Pulse80 Comments:80 Respiratory Rate18 Comments:18 O2 SAT96% Comments:96 BP Wmdvjkil247ah[Hg] Comments:10 8 BP Okkkqxwly16uv[Hg] Comments:66 23-May-2024 00:16 TEMP JIXULPU01.2c Comments:37.2 Pulse70 Comments:70 Respiratory Rate18 Comments:18 O2 SAT98% Comments:98 BP Hyfftxie771po[Hg] Comments:11 3 BP Zaccmeywe26wk[Hg] Comments:53 22-May-2024 19:33 TEMP BXUOEFO26o Comments:37.0 Pulse69 Comments:69 Respiratory Rate16 Comments:16 O2 SAT96% Comments:96 BP Xmqwvnhd948uf[Hg] Comments:12 4 BP Cpvecllxc84mf[Hg] Comments:69 22-May-2024 16:47 TEMP FKSKMVA85.1c Comments:37.1 Pulse77 Comments:77 Respiratory Rate18 Comments:18 O2 SAT96% Comments:96 BP Ihwjufdw852nt[Hg] Comments:12 0 BP Fvrsgbwwm53si[Hg] Comments:70 22-May-2024 12:30 TEMP POREAVU16.1c Comments:37.1 Pulse64 Comments:64 Respiratory Rate17 Comments:17 O2 SAT95% Comments:95 BP Oqrxxzzm831ak[Hg] Comments:11 9 BP Qmnvylvok25ce[Hg] Comments:73 22-May-2024 08:35 TEMP RPBABCU89.1c Comments:37.1 Pulse80 Comments:80 Respiratory Rate18 Comments:18 O2 SAT94% Comments:94 BP Mubtefig850ru[Hg] Comments:12 1 BP Gxnphgrjb10ny[Hg] Comments:66 22-May-2024 05:31 TEMP XDEQDDC61.4c Comments:37.4 Pulse84 Comments:84 Respiratory Rate18 Comments:18 O2 SAT94% Comments:94 BP Hguxphiy426ap[Hg] Comments:13 4 BP Dszklnnzb45sn[Hg] Comments:73 21-May-2024 23:57 TEMP XEWIWMS72.4c Comments:37.4 Pulse84 Comments:84 Respiratory Rate18 Comments:18 O2 SAT96% Comments:96 BP Pwgqkrul549au[Hg] Comments:13 4 BP Uveyrwpuk46ws[Hg] Comments:77 21-May-2024 22:41 TEMP VBPQREA35g Comments:37.0 Pulse66 Comments:66 Respiratory Rate14 Comments:14 O2 SAT94% Comments:94 BP Pmprgnij422tx[Hg] Comments:10 3 BP Niozlbwvg60fu[Hg] Comments:64 21-May-2024 19:52 TEMP BSRPSFY37.1c Comments:37.1 Pulse66 Comments:66 Respiratory Rate16 Comments:16 O2 SAT97% Comments:97 BP Rtovazgx295rx[Hg] Comments:13 5 BP Iclsssukx16gt[Hg] Comments:68 21-May-2024 16:19 TEMP UNFMGPM26.9c Comments:36.9 Pulse79 Comments:79 Respiratory Rate18 Comments:18 O2 SAT96% Comments:96 BP Ctmlnvvn727ke[Hg] Comments:12 1 BP Puwstgvwo36nr[Hg] Comments:64 21-May-2024 07:56 TEMP KGTMSRJ90.8c Comments:36.8 Pulse81 Comments:81 Respiratory Rate17 Comments:17 O2 SAT99% Comments:99 BP Bzmcoafw268mn[Hg] Comments:11 4 BP Myqeqgmkc96qw[Hg] Comments:66 21-May-2024 05:47 TEMP ANMNKKO01.6c Comments:36.6 Pulse65 Comments:65 Respiratory Rate16 Comments:16 O2 SAT95% Comments:95 BP Tfefwerq750sn[Hg] Comments:13 6 BP Udlzxfodm49qy[Hg] Comments:77 21-May-2024 04:43 TEMP HXRTMDV07.9c Comments:36.9 Pulse65 Comments:65 Respiratory Rate17 Comments:17 O2 SAT96% Comments:96 BP Akxlxvth916bo[Hg] Comments:11 6 BP Upayctbsy96ey[Hg] Comments:67 20-May-2024 21:08 TEMP LYLBCKL79.9c Comments:36.9 Pulse65 Comments:65 Respiratory Rate17 Comments:17 O2 SAT96% Comments:96 BP Dexenoev459kb[Hg] Comments:12 4 BP Mtgrmmytt55oq[Hg] Comments:67 20-May-2024 20:57 TEMP GTXVVIF04.8c Comments:36.8 Pulse69 Comments:69 Respiratory Rate16 Comments:16 O2 SAT98% Comments:98 BP Kqzwabzz459tt[Hg] Comments:13 0 BP Mhdaqfypa42pz[Hg] Comments:70 20-May-2024 16:18 TEMP GVEGTHK11.7c Comments:36.7 Pulse81 Comments:81 Respiratory Rate18 Comments:18 O2 SAT96% Comments:96 BP Lsqrioda527fx[Hg] Comments:14 6 BP Ogjoeveqa25vs[Hg] Comments:73 20-May-2024 12:06 TEMP HWTYTBN90.7c Comments:36.7 Pulse65 Comments:65 Respiratory Rate18 Comments:18 O2 SAT96% Comments:96 BP Selvdwwo724ab[Hg] Comments:12 4 BP Nnibhvxda16iz[Hg] Comments:71 20-May-2024 07:36 TEMP IRUDFDH24.8c Comments:36.8 Pulse76 Comments:76 Respiratory Rate18 Comments:18 O2 SAT95% Comments:95 BP Afrbhmuv495nz[Hg] Comments:11 8 BP Vhhkqcgxg57rw[Hg] Comments:61 20-May-2024 04:27 TEMP GFZWJUQ19.7c Comments:36.7 Pulse76 Comments:76 Respiratory Rate18 Comments:18 O2 SAT96% Comments:96 BP Mtmxwlaa225vj[Hg] Comments:11 4 BP Dnxbvynlo04se[Hg] Comments:71 19-May-2024 23:44 TEMP UEYNDIW04.7c Comments:36.7 Pulse69 Comments:69 Respiratory Rate18 Comments:18 O2 SAT97% Comments:97 BP Flqntwvp140hp[Hg] Comments:11 1 BP Gpazymaex98we[Hg] Comments:67 19-May-2024 19:51 TEMP OCENFCX09.1c Comments:37.1 Pulse65 Comments:65 Respiratory Rate17 Comments:17 O2 SAT96% Comments:96 BP Wbyuvots679yv[Hg] Comments:12 6 BP Pqgmisdxf99qo[Hg] Comments:65 19-May-2024 16:41 TEMP YMTRAMY26.3c Comments:36.3 Pulse75 Comments:75 Respiratory Rate17 Comments:17 O2 SAT96% Comments:96 BP Ekbbfozy688wk[Hg] Comments:11 2 BP Gliianzje06dc[Hg] Comments:63 19-May-2024 11:49 TEMP HVEPXFI22.9c Comments:36.9 Pulse66 Comments:66 Respiratory Rate17 Comments:17 O2 SAT96% Comments:96 BP Nhopxcag198el[Hg] Comments:12 1 BP Fmbydidnu29ku[Hg] Comments:64 19-May-2024 08:20 TEMP UWMNYKZ77.8c Comments:36.8 Pulse69 Comments:69 Respiratory Rate17 Comments:17 O2 SAT96% Comments:96 BP Pjlsrype817xf[Hg] Comments:12 7 BP Ymvxmhrny01qa[Hg] Comments:66 19-May-2024 04:38 TEMP OPFKOZT64h Comments:37.0 Pulse77 Comments:77 Respiratory Rate17 Comments:17 O2 SAT97% Comments:97 BP Pgkvomux186pa[Hg] Comments:14 6 BP Orlrhyktj70iz[Hg] Comments:72 18-May-2024 23:31 TEMP GKTWZUZ31n Comments:37.0 Pulse78 Comments:78 Respiratory Rate17 Comments:17 O2 SAT93% Comments:93 BP Zcjgjcvm058pv[Hg] Comments:11 4 BP Xzweajsci70zn[Hg] Comments:62 18-May-2024 19:41 TEMP LXBCUFN25.9c Comments:36.9 Pulse63 Comments:63 Respiratory Rate17 Comments:17 O2 SAT91% Comments:91 BP Mzlmzihv862am[Hg] Comments:12 6 BP Zmcdvxani23rn[Hg] Comments:63 18-May-2024 19:07 Pulse81 Comments:81 Respiratory Rate14 Comments:14 O2 SAT95% Comments:95 BP Wbglqwxg820eu[Hg] Comments:12 6 BP Iqvspvnqg85bb[Hg] Comments:67 18-May-2024 16:11 TEMP VUWZSVL78.9c Comments:36.9 Pulse66 Comments:66 Respiratory Rate17 Comments:17 O2 SAT95% Comments:95 BP Zcwuxecc849me[Hg] Comments:11 3 BP Wdbmysmtb61ab[Hg] Comments:65 18-May-2024 15:14 Numeric pain scale:4 Comments:Mo derate pain-4 18-May-2024 11:40 TEMP VIAKYZI08e Comments:37.0 Pulse67 Comments:67 Respiratory Rate17 Comments:17 O2 SAT93% Comments:93 BP Plulozij277vz[Hg] Comments:11 9 BP Fpijogadg90qn[Hg] Comments:65 18-May-2024 05:07 TEMP YMHZPGD39.2c Comments:37.2 Pulse81 Comments:81 Respiratory Rate14 Comments:14 O2 SAT95% Comments:95 BP Okaqyzwg633hk[Hg] Comments:12 6 BP Wquhtmduf35xc[Hg] Comments:67 18-May-2024 00:59 TEMP TCICQTW19.9c Comments:36.9 Pulse87 Comments:87 Respiratory Rate14 Comments:14 O2 SAT93% Comments:93 BP Uqehzcsi256qw[Hg] Comments:11 6 BP Qcrjkagit71mv[Hg] Comments:55 17-May-2024 22:29 TEMP GQGLZEX98a Comments:37.0 Pulse85 Comments:85 Respiratory Rate14 Comments:14 O2 SAT94% Comments:94 BP Fsxgiqnz695da[Hg] Comments:12 4 BP Kjdkaffun34ld[Hg] Comments:68 17-May-2024 20:39 Pulse93 Comments:93 Respiratory Rate18 Comments:18 BP Wucvjvzx465wo[Hg] Comments:15 5 BP Hzjpsupyb41uq[Hg] Comments:81 17-May-2024 20:37 Pulse92 Comments:92 Respiratory Rate18 Comments:18 BP Tvwxbjpe347ts[Hg] Comments:14 7 BP Uyjpiozfh38wq[Hg] Comments:79 17-May-2024 20:10 TEMP SHFDVOH10.6c Comments:37.6 Pulse72 Comments:72 Respiratory Rate18 Comments:18 O2 SAT93% Comments:93 BP Rwxjuacm219ky[Hg] Comments:13 0 BP Yeijsryow67nm[Hg] Comments:64 17-May-2024 16:15 TEMP XACKHQB15.3c Comments:37.3 Pulse81 Comments:81 Respiratory Rate18 Comments:18 O2 SAT94% Comments:94 BP Ohjnplku535sn[Hg] Comments:11 2 BP Thvpbrsil22yg[Hg] Comments:66 17-May-2024 12:22 TEMP GYLTQRR31.1c Comments:37.1 Pulse77 Comments:77 Respiratory Rate18 Comments:18 O2 SAT94% Comments:94 BP Hnxdkcrw692hb[Hg] Comments:14 6 BP Rhfiacmyf33sn[Hg] Comments:78 17-May-2024 08:19 TEMP CVWMLLU20.7c Comments:36.7 Pulse80 Comments:80 Respiratory Rate18 Comments:18 O2 SAT97% Comments:97 BP Qeukxkoq751xg[Hg] Comments:15 4 BP Wwqjkilgh50jr[Hg] Comments:76 17-May-2024 05:35 TEMP CWIJQDC45.9c Comments:36.9 Pulse87 Comments:87 Respiratory Rate17 Comments:17 O2 SAT96% Comments:96 BP Fxmicpgp572gd[Hg] Comments:12 2 BP Jcsccofxx64ju[Hg] Comments:68 17-May-2024 03:21 Height4.7012313[ft_us] Comments: 4 Rgjvjf06.3kg Comments:76.300 17-May-2024 03:21 BMI39.1kg/m2 Comments:39.1 16-May-2024 23:39 Pulse88 Comments:88 Respiratory Rate18 Comments:18 O2 SAT97% Comments:97 BP Hvovyycx217xe[Hg] Comments:14 7 BP Pcjyfvbfs52af[Hg] Comments:62 16-May-2024 21:29 TEMP BDOJKPV45.6c Comments:36.6 Pulse74 Comments:74 Respiratory Rate17 Comments:17 O2 SAT97% Comments:97 BP Jdodgswu638ed[Hg] Comments:14 0 BP Ruvcpnxih900tx[Hg] Comments:1 02 Height4.9495526[ft_us] Comments: 4 Zwzwct44.727kg Comments:72.727 16-May-2024 21:29 TEMP HPNLFGP80.6c Comments:36.6 Pulse74 Comments:74 Respiratory Rate17 Comments:17 O2 SAT97% Comments:97 BP Sutklbnu579ji[Hg] Comments:14 0 BP Rffcszotg501we[Hg] Comments:1 02 Encounters Inpatient encounter Encounter Reason:GENERALIZED WEAKNESS, THROMBOCYTOPENIA, ETOH DEPEC Encounter Diagnosis:442,Other pancytopenia,Anxiety due to dementia,Alcohol dependence with withdrawal, unspecified,Alcoholic cirrhosis of liver without ascites,Type 2 diabetes mellitus without complications,Hyperlipidemia, unspecified,Alcohol dependence, uncomplicated,Hypertensive heart disease with heart failure,Heart failure, unspecified,Other disorders of bilirubin metabolism,Altered mental status, unspecified,HEPATIC ENCEPHALOPATHY 16-May-2024 23:24Bl27-[id number] 16:37 EDDOC Generic for YASMINE SHAVER (Attending) [facility] [id number]-[id number] [facility] [address] [facility] [place] [address] Case Management ReportPATIENT NAME: EUGENIO BARRERA ROOM #: D.326DATE OF : 68 UNIT #: [id number]: Terence Sauceda MD ADMISSION DATE: 05/16/24 ----- HCM SUPPORT SERVICES ----- ---HCM Support Services User Saucedo:Comments:[facility] Date Entered: 05/17/2024Service Type: *Case ManagementCase Worker: Addie [email or web address] Date: 05/29/2024ayer: [facility] CHOICEComments:--- 05/28/2024 03:56 PM by Sami Brown ---Spoke by phone with Madelin a nursing equipment operator/laborer/supervisor at [facility] whom called toreview the case. After reviewing patient's medical progression and order fordischarge, Madelin shared that a party bus driver will be coming shortly to take patientback to rehab and patient is in agreement. This justowriter operator then called and spoketo patient's spouse Marlo P: [phone] to inform him of this. No additionalneeds indicated at this time.--- 05/28/2024 03:15 PM by Sami Brown ---Spoke by phone with Tayo Cordero a mud mixer helper at [facility] whomstates that Stacy from the facility is going to be calling the hospital toreview this case. This justowriter operator asked Tayo to have Stacy call me directlysince I am the discharging director of social services, which he states that he will do.This justowriter operator then met in room with patient to inform her of the current status.Plan of care ongoing.--- 05/28/2024 02:53 PM by Sami Brown ---Late entry for 1:00 p.m. 05/28/2024: [facility]riter [facility] [phone] and this time spoke with Puneet, whom reports that he isaware of the case and can see the notes and adds that a equipment operator/laborer/supervisor is going toreview the case now. Plan of care ongoing.--- 05/28/2024 11:12 AM by Sami Brown ---Spoke by phone with Puneet in admissions at [facility] P: [phone] inform him of patient's medical progression of care since Tuesday and hercurrent discharge order for return to [facility]. This justowriter operator shared thatpatient has been off of the sitter since Fridays' conversation and is walking PATIENT NAME: EUGENIO BARRERA independent without a device. Per Puneet, he will review thisinformation with a equipment operator/laborer/supervisor whom will reach out to this justowriter operator for follow-up. Plan of care ongoing.--- 05/25/2024 05:41 PM by Sami Brown ---Received a return call from nurse Syl at [facility] whom reports that shespoke with the floor nurse regarding patient's status and was informed thatpatient has a sitter and that they are not accepting her back at this level.Syl states that they do not have the staffing for a sitter patient. Assuch, this justowriter operator asked Syl to have her equipment operator/laborer/supervisor call this justowriter operator. Thiswriter then received a call from their automotive warranty administrator Madelin whom reviewed thecase. This justowriter operator shared that patient is alert and oriented and look andreports feeling much improved from her admission date. This justowriter operator shared thatif patient goes without a sitter and shows more independence, that our goal isto send her to their facility as soon as Tuesday (the date at which Madelin wouldreconsider). Madelin states that she will take this to her medical engineer andfollow-up on Tuesday to assess patient's status. This justowriter operator then calledpatient's spouse Marlo Barrera P: [phone] to provide him an update. Thiswriter shared that if patient is not accepted to the facility on Tuesday, theneither family will have to fly down here to pick her [place] and [place], and/or we will need to look for another inpatient rehab facility toaccept that takes patient's insurance. Spouse in in agreement and plan of careongoing.--- 05/25/2024 04:13 PM by Sami Brown ---Received word patient's floor nurse Lj that patient is now medically stablefor discharge and does not need a walker. As such, this justowriter operator met with patientto inform her of this and she is agreeable to return. Patient provided writtenconsent on patient choice. This justowriter operator then [facility] P: [phone] and spoke by phone with Berto at the mainline P: [phone], whom will work on arranging transportation. Bertoprovided with the phone number to the nurses station to call when they areready to coordinate a pick-up. No additional case management needs indicated.--- 05/24/2024 05:33 PM by Katelynn Ray ---Per PT notes patient needs RW, CM spoke with Alexystim at [facility] [phone] who stated that patient can go to the facility however she has to beindependent with ambulation and self care. Patient now receiving assistancewith care and her balance is off.--- 05/24/2024 04:04 PM by Katelynn Ray ---P: Discharge planningA: CM received consult to have patient go back to her drug rehabI: CM placed call to [facility] [phone] but unable to reach anyone.VM left on nursing dept phone. Also placed call to their main office line [phone] and spoke with Leola to assist. Informed that patient has a dc orderin and needs to be picked up. Per Leola they are arranging for someonepatient pick. RN updated P: CM to follow--- 05/17/2024 05:43 PM by Sami Brown --- PATIENT NAME: EUGENIO BARRERA in room with patient to complete assessment and review Demographics.Patient is a transfer from [facility] and [place]. Patient states [place]att[place] inpatient alcohol rehab program with [facility]. Patient reportsabusing alcohol for 10+ years and drinks wine/Zinfandel. Patient reportshaving tries rehab in the past 4X but that it has been several years. Patientreports she is seeking help now due to having medical problems includingjaundice etc. Patient is willing to return to rehab once medically stable fordischarge. Plan of care ongoing. ----- ---HCM DISCHARGE PLANNING ----- ---HCM Discharge Planning Comments: ----- ----HCM DISCHARGE PLANNING EVALUATION ----- -----Case Workers: Marcelo Brown Status: Spouse-partnerSetting: Home-residenceADL Limits: None or n/aDME: NoneHCM Discharge Planning User Saucedo:Community Services Prior to Admission: None or NACurrent Mental Status/Cognition: Alert and OrientedInformation obtained from: PatientMedical RecordsDischarge Barriers, select all that apply: Abuse-Substance, ETOHReadmission (unplanned) in the last 30 days: NoPatient goals and preferences after discharge[facility] on information gathered, is it likely that the patient's care needs canbe met in the environment from which he/she entered the hospital?: YesProposed Discharge Plan, select one: FacilityFacility Type Needed: Substance Abuse CenterTransportation needs at discharge: Facility StaffDischarge Plan Discussed with: PatientHave you discussed with the patient how his/her care needs may change overtime?: NoPatient/public utilities sales representative agrees with discharge plan: Yes PATIENT NAME: EUGENIO BARRERA expected insurance coverage and/or out of pocket expenses: NoComments:: Plan is return to [facility] alcohol rehab.Date / Time: 05/17/2024 5:49 PMEvaluated by: Sami Brown ===== Updated by: HIS ROSALIND () - 05/29/2024 9:18 AM == PATIENT NAME: EUGENIO BARRERA Plan of Treatment Future Tests Future scheduled test information is unavailable Pending Tests Pending diagnostic test information is unavailable Future Visits Future appointment information is unavailable Referrals to Other Providers Referral information is unavailable Future Procedures Future procedure information is unavailable Future Medications Future medication information is unavailable Patient Instructions Instruction Admit Date Alcohol and Older Adults May 16, 2024 8:29pm Alcoholism and Family History May 062023 8:29pm Alcohol Addiction May 16, 2024 8:29pm Ethanol (Blood) May 16, 2024 8:29pm Goals Acute Goals Standards of Practice will b e met See Health Plan of Care See Health Plan of Care See Health Plan of Care See Health Plan of Care See Health Plan of Care See Health Plan of Care See Health Plan of Care See Health Plan of Care See Health Plan of Care See Health Plan of Care Assessments Diagnosis Onset Date Resolution Status Admit Date Hepatic encephalopathy Active De cember 2023 8:29pm Leukopenia Active May 16, 2024 8:29pm Thrombocytopenia Active May 16, 2024 8:29pm Hyperbilirubinemia Active Decemb er 2023 8:29pm Hyperammonemia Active May 062023 8:29pm Elevated AST (SGOT) Active Decem tao 2023 8:29pm
--- OUTSIDE RECORDS SUMMARY | 2024-10-29 10:08 | XMS_ITS | Encounter Summary ---
Author Organization [email or web address] Address [address] [place] [address] Care Team Providers Care Form Setter Metal Road Forms Name Role Phone Joss Carpio MD Primary Care Provider Encounter Details Date Type Department Care Team (Latest Contact Info) Description 11/29/2006 Outpatient Historical [facility] Valorie Ruggiero MD Unspecified Disease of the Jaws (Primary Dx) Social History Tobacco Use Types Packs/Day Years Used Date Smoking Tobacco: Never Assessed Comments Unknown Sex and Gender Information Value Date Recorded Sex Assigned at Not on file Legal Sex Female 2:51 AM SYSTEMS INTEGRATION ADVISOR Gender Identity Not on file Sexual Orientation Not on file documented as of this encounter Plan of Treatment Not on file documented as of this encounter Visit Diagnoses Diagnosis Unspecified disease of the jaws- Primary documented in this encounter Additional Health Concerns Infection Onset Date Last Indicated Resolved Time R/O C. diff 11/21/2023 11/21/2023 11/21/2023 12:5 2 PM CDT C Diff Comment:11/21/23 11/21/2023 11/21/2023 01/20/2024 1:16 AM C DT documented as of this encounter Care Teams Form Setter Metal [employer] Forms Relationship Specialty [place] [address] [address] PCP - General Betting Agency Counter Clerk 09/26/23 documented as of this encounter
--- OUTSIDE RECORDS SUMMARY | 2024-10-29 10:08 | XMS_ITS | Encounter Summary ---
Author Organization [facility] Address [address] [place] [address] Care Team Providers Care Long Chain Quiller Tender Name Role Phone Joss Carpio MD Primary Care Provider [phone] Encounter Details Date Type Department Care Team (Late st Contact Info) Description 04/18/2001 Outpatient Historical [facility] [address] [address] Stormy Garcia MD NO ADDRESS ON FILE Social History Tobacco Use Types Packs/Day Years Used Date Smoking Tobacco: Never Assessed Comments Unknown Sex and Gender Information Value Date Recorded Sex Assigned at Not on file Legal Sex Female 2:51 AM BALANCE WHEEL HAND FILER Gender Identity Not on file Sexual Orientation [...] documented as of this encounter Care Teams Long Chain Quiller Tender Relationship Specialty [place] [address] [facility] [address] [place] [address] PCP - General Practice Specialist 09/26/23 documented as of this encounter
--- OUTSIDE RECORDS SUMMARY | 2024-10-29 10:08 | XMS_ITS | Encounter Summary ---
Author Organization [facility] Address [address] [place] [address] Care Team Providers Care Bead Inspector Name Role Phone Joss Carpio MD Primary Care Provider [phone] Encounter Details Date Type Department Care Team (Late st Contact Info) Description 04/26/2001 Outpatient Historical [facility] [address] [address] Stormy Garcia MD NO ADDRESS ON FILE Social History Tobacco Use Types Packs/Day Years Used Date Smoking Tobacco: Never Assessed Comments Unknown Sex and Gender Information Value Date Recorded Sex Assigned at Not on file Legal Sex Female 2:51 AM INSURANCE VERIFIER Gender Identity Not on file Sexual Orientation [...] documented as of this encounter Care Teams Bead Inspector Relationship Specialty [place] [address] [facility] [address] [place] [address] PCP - General Biology Department Chair 09/26/23 documented as of this encounter
--- OUTSIDE RECORDS SUMMARY | 2024-10-29 10:08 | XMS_ITS | Encounter Summary ---
Author Organization [facility] Address [address] [place] [address] Care Team Providers Care Radio Machinist Name Role Phone Joss Carpio MD Primary Care Provider [phone] Encounter Details Date Type Department Care Team (Late st Contact Info) Description 02/16/2001 Outpatient Historical [facility] [address] [address] Stormy Garcia MD NO ADDRESS ON FILE Social History Tobacco Use Types Packs/Day Years Used Date Smoking Tobacco: Never Assessed Comments Unknown Sex and Gender Information Value Date Recorded Sex Assigned at Not on file Legal Sex Female 2:51 AM SUPERINTENDENT O[employer] Gender Identity Not on file Sexual Orientation [...] documented as of this encounter Care Teams Radio Machinist Relationship Specialty [place] [address] [facility] [address] [place] [address] PCP - General Farmworker Livestock 09/26/23 documented as of this encounter
--- OUTSIDE RECORDS SUMMARY | 2024-10-29 10:08 | XMS_ITS | Encounter Summary ---
Author Organization [facility] Address [address] [place] [address] Care Team Providers Care Senior Digital Designer Name Role Phone Joss Carpio MD Primary Care Provider [phone] Reason for Visit * Reason Onset Date Comments Hepatic encephalopathy 11/20/2023 spoke divya/ [email or web address] Encounter Details Date Type Department Care Team (Late st Contact Info) Description 11/20/2023 Telephone [facility] Admitting [address] [place] [address] [place] [address] [facility] [address] [place] [address] Hepatic encephalopathy (spoke divya/ [email or web address]) Social History Tobacco Use Types Packs/Day Years Used Date Smoking Tobacco: Never Smokeless Tobacco: Never Alcohol Use Standard Drinks/Week Comments Yes 0 (1 standard drink = 0.6 oz pure alcohol) 2.5 L of wine per day for the last 6 years with last drink being 2 weeks ago. Feeling Safe Answer Date Recorded Are you in a relationship wi th someone who hurts you emotionally and/or physically? No 11/20/2023 Food Insecurity Answer Date Recorded Social/Environmental Concerns No concerns Transportation Needs Answer Date Record ed Social/Environmental Concerns No concerns Housing Stability Answer Date Recorded Social/Environmental Concerns No concerns Utility Needs Answer Date Recorded Social/Environmental Concerns No concerns Comments No Sex and Gender Information Value Date Recorded Sex Assigned at Not on file Legal Sex Female 2:51 AM SOLE SCRAPER Gender Identity Not on file Sexual Orientation Not on file Occupation Industry Job Start Date Job End Date Not on file Not on file Not on file Not on file documented as of this encounter Plan of Treatment Not on file documented as of this encounter Visit Diagnoses Not on filedocumented in this encounter Additional Health Concerns Infection Onset Date Last Indicated Resolved Time R/O C. diff 11/21/2023 11/21/2023 11/21/2023 12:5 2 PM CDT C Diff Comment:11/21/23 11/21/2023 11/21/2023 01/20/2024 1:16 AM C DT Assessment Noted Time PHQ-9 Depression Total Score: 1 11/15/19 2:00 PM CDT documented as of this encounter Care Teams Senior Digital Designer Relationship Specialty [place] [address] [address] PCP - General Pastry Cook Apprentice 09/26/23 documented as of this encounter
--- OUTSIDE RECORDS SUMMARY | 2024-10-29 10:08 | XMS_ITS | Encounter Summary ---
Author Organization [facility] Address [address] [place] [address] Care Team Providers Care Franchise Sales Director Name Role Phone Joss Carpio MD Primary Care Provider [phone] Encounter Details Date Type Department Care Team (Late st Contact Info) Description 05/17/[address] [facility] [address] [place] [address] Marlo Joyner MD [address] [place] [address] Social History Tobacco Use Types Packs/Day Years Used Date Smoking Tobacco: Never Assessed Comments Unknown Sex and Gender Information Value Date Recorded Sex Assigned at Not on file Legal Sex Female 2:51 AM TRANSCRIPTER Gender Identity Not on file Sexual Orientation [...] documented as of this encounter Care Teams Franchise Sales Director Relationship Specialty [place] [address] [address] PCP - General Manager Hardware 09/26/23 documented as of this encounter
--- OUTSIDE RECORDS SUMMARY | 2024-10-29 10:08 | XMS_ITS | Encounter Summary ---
Author Organization [facility] Address [address] [place] [address] Care Team Providers Care Shipper Name Role Phone Joss Carpio MD Primary Care Provider [phone] Encounter Details Date Type Department Care Team (Late st Contact Info) Description 11/15/2006 Outpatient [facility] Internal Medicine [address] [address] Enrike Little MD [address] [place] [address] Social History Tobacco Use Types Packs/Day Years Used Date Smoking Tobacco: Never Assessed Comments Unknown Sex and Gender Information Value Date Recorded Sex Assigned at Not on file Legal Sex Female 2:51 AM MOVER Gender Identity Not on file Sexual Orientation Not on file documented as of this encounter Last Filed Vital Signs Vital Sign Reading Time Taken Comments Blood Pressure 168/100 11/15/2006 11:30 AM CDT Pulse - - Temperature 36.5 C (97.7 F) 11/15/2006 11:30 AM CDT Respiratory Rate - - Oxygen Saturation - - Inhaled Oxygen Concentration - - Weight 74.8 kg (165 lb) 11/15/2006 11:30 AM CDT Height - - Body Mass [...] documented as of this encounter Care Teams Shipper Relationship Specialty [place] [address] [phone] PCP - General Supervisor Plasma 09/26/23 documented as of this encounter
--- OUTSIDE RECORDS SUMMARY | 2024-10-29 10:08 | XMS_ITS | Encounter Summary ---
Author Organization [employer] Address [address] [place] [address] Care Team Providers Care Audiometric Technician Name Role Phone Joss Carpio MD Primary Care Provider [phone] Encounter Details Date Type Department Care Team (Latest Contact Info) Description 02/14/2005 Outpatient Historical [facility] [place] Cazares MD NO ADDRESS ON FILE TM JOINT DISORDER NOS (Primary Dx) Social History Tobacco Use Types Packs/Day Years Used Date Smoking Tobacco: Never Assessed Comments Unknown Sex and Gender Information Value Date Recorded Sex Assigned at Not on file Legal Sex Female 2:51 AM STAVE MACHINE TENDER Gender Identity Not on file Sexual Orientation Not on file documented as of this encounter Plan of Treatment Not on file documented as of this encounter Visit Diagnoses Diagnosis Temporomandibular joint disorders, unspecified- Primary documented in this encounter Additional Health Concerns Infection Onset Date Last Indicated Resolved Time R/O C. diff 11/21/2023 11/21/2023 11/21/2023 12:5 2 PM CDT C Diff Comment:11/21/23 11/21/2023 11/21/2023 01/20/2024 1:16 AM C DT documented as of this encounter Care Teams Audiometric Technician Relationship Specialty [place] [address] [address] PCP - General School Bus Driver 09/26/23 documented as of this encounter
--- OUTSIDE RECORDS SUMMARY | 2024-10-29 10:08 | XMS_ITS | Encounter Summary ---
Author Organization [facility] [place] [facility] Address 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 HISTORY: HISTORY: 796.2-BLOOD PRESSURE ELEVATED W/O DX OF HTN The patient denies chest pain, shortness of breath, dyspnea on exertion, pedal edema, or headache.runs in family 461.9-SINUSITIS UNSPECIFIED sinus congestion , ears full , worse on right with pain, x s1-2 weeks PHYSICAL EXAMINATION: CONSTITUTIONAL: GENERAL APPEARANCE: Healthy appearing patient in no distress. EARS, NOSE, MOUTH AND THROAT: EARS: CERUMEN IN RIGHT EAR INCREASED, EFFUSION PRESENT BILATERALLY. ORAL: Inspection of gums, lips, palate, and teeth normal. No scars, lesions, or masses. Oral mucosaunremarkable with non-inflamed posterior pharynx. NECK/THYROID: Trachea midline. No thyroid enlargement, tenderness, or mass. No supraclavicular or cervical adenopathy. RESPIRATORY: Clear to auscultation and percussion. Normal respiratory effort. CARDIOVASCULAR: CARDIAC: Regular rhythm. No murmurs, rubs, or gallops. ARTERIAL: No aortic bruits. EDEMA/VARICOSITIES OF EXTREMITIES: No edema or varicosities. GASTROINTESTINAL: ABDOMEN: Soft, non-tender, without masses. Bowel sounds active. LIVER/SPLEEN/KIDNEY: No hepatosplenomegaly, tenderness or nodularity. Kidneys not palpable. ASSESSMENT/PLAN: 796.2-BLOOD PRESSURE ELEVATED W/O DX OF HTN home monitor, may need med, reassess, pt instructed to send readings in 3-4 weeks LAB ORDERS: Order number: [id number] Test Ordered: CBC W/ DIFFERENTIAL 3150 Order number: [id number] Test Ordered: COMPREHENSIVE METABOLIC PANEL & GFR 1112 Order number: [id number] Test Ordered: LIPID PANEL 1078 Order number: [id number] Test Ordered: TSH 1720 461.9-SINUSITIS UNSPECIFIED rx--has wax , may need lavage, call if persists MEDICATIONS: ZITHROMAX Z-FESTUS ORAL TABLET 250 MG, DIRECTED, 1 Dispensed, status: NEW PRESCRIPTION, 11/15/2006. FLONASE NASAL SUSPENSION 50 MCG/ACT, 2 Every Morning, 1 Dispensed, status: NEW PRESCRIPTION, 11/15/2006. CORTISPORIN OTIC SOLUTION 3.5-14381-2, DIRECTED, 10 Duration/Days Supply, status: NEW PRESCRIPTION, 11/15/2006, Comment: 4 gtt qid x 10d. TRAMADOL HCL ORAL TABLET 50 MG, 1 Every Six Hours, As Needed, 60 Dispensed, 1 Fills, 90 Duration/Days Supply, status: CONTINUED, 11/15/2006. PREVENTIVE COUNSELING The patient was counseled regarding diet, regular sustained exercise for at least 30 minutes 3-4 times per week, the appropriate use of alcohol. RETURN VISIT : Patient instructed to return in 2 months. Electronically Signed by: Enrike Little MD on Wednesday, November 15, 2006 documented in this encounter Plan of Treatment Not on file documented as of this encounter Visit Diagnoses Not on filedocumented in this encounter Additional Health Concerns Infection Onset Date Last Indicated Resolved Time R/O C. diff 11/21/2023 11/21/2023 11/21/2023 12:5 2 PM CDT C Diff Comment:11/21/23 11/21/2023 11/21/2023 01/20/2024 1:16 AM C DT documented as of this encounter Care Teams Tablet Coater Relationship Specialty [place] [address] [phone] PCP - General Kiln Burner Helper 09/26/23 documented as of this encounter
--- OUTSIDE RECORDS SUMMARY | 2024-10-29 10:08 | XMS_ITS | Encounter Summary ---
Author Organization [employer] Address 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
--- OUTSIDE RECORDS SUMMARY | 2024-10-29 10:08 | XMS_ITS | Encounter Summary ---
Author Organization [employer] Address 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
--- OUTSIDE RECORDS SUMMARY | 2024-10-29 10:08 | XMS_ITS | Encounter Summary ---
Author Organization [facility] Address [address] [facility] [place] [address] Care Team Providers Care Search Analyst Name Role Phone Francisco Montemayor MD Unavailable [phone] Martinez Nieves MD Unavailable Encounter Details Date Type Department Care Team (Late st Contact Info) Description 06/22/2024 Lab Requisition [facility] [address] [place] [address] [place] [address] Social History Tobacco Use Types Packs/Day Years Used Date Smoking Tobacco: Never Alcohol Use Standard Drinks/Week Comments No 0 (1 standard drink = 0.6 oz pur e alcohol) Comments No Sex and Gender Information Value Date Recorded Sex Assigned at Not on file Legal Sex Female 6:21 AM RNP Gender Identity Not on file Sexual Orientation Not on file documented as of this encounter Functional Status * Is person deaf or have serious hearing difficulty? Answer Date of Assessment Author No 03/17/2016 1:26 PM KAITLYNNT Lupe Torres RN * Is person blind or have serious difficulty seeing? Answer Date of Assessment Author No 03/17/2016 1:26 PM KAITLYNNT Lupe Torres RN * Does person have serious difficulty walking/climbing stairs? Answer Date of Assessment Author No 03/17/2016 1:26 PM CDT Lupe Torres RN * Does person have difficulty dressing/bathing? Answer Date of Assessment Author No 03/17/2016 1:26 PM CDT Lupe Torres RN * Does person have difficulty doing errands alone? Answer Date of Assessment Author No 03/17/2016 1:26 PM Lupe Earl RN documented as of this encounter Mental Status * Does person have difficulty concentrating/remembering/making decisions? Answer Entry Date Author No 03/17/2016 1:26 PM CDT Lupe Torres RN documented in this encounter Plan of Treatment Not on file documented as of this encounter Procedures Procedure Name Priority Date/Time Associated Diagnosis Comments AMMONIA STAT 06/22/2024 9:45 AM RNP documented in this encounter Results * (ABNORMAL) AMMONIA (06/22/2024 9:45 AM RNP) Ammonia 84(H) 18 - 72 umol/L 06/22/2024 1:42 PM RNP [facility] Blood BLOOD SPECIMEN / Unknown Venipuncture / Unknown 06/22/2024 9:45 AM RNP 06/22/2024 1:03 PM RNP [facility] LAB - CHEMISTRY ORDERABLES Ursula l Result Performing Organization Address [facility]/State/[facility] Co de Phone Number [facility] [address] [place] [address] documented in this encounter Visit Diagnoses Not on filedocumented in this encounter Care Teams Search Analyst Relationship Specialty Start Date End Date Francisco Montemayor MD Orthopedic Surgery 03/31/12 Martinez Nieves MD [facility] [facility] [address] [place] [address] Cardiovascular Disease 06/21/16 documented as of this encounter
--- OUTSIDE RECORDS SUMMARY | 2024-10-29 10:08 | XMS_ITS | Encounter Summary ---
Author Organization [facility] Address 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
--- OUTSIDE RECORDS SUMMARY | 2024-10-29 10:08 | XMS_ITS | Encounter Summary ---
Author Organization [facility] Address [address] [place] [address] Care Team Providers Care Hand Collator Name Role Phone Joss Carpio MD Primary Care Provider [phone] Encounter Details Date Type Department Care Team (Late st Contact Info) Description 06/30/[address] [facility] [address] [place] [address] Marlo Joyner MD [address] [place] [address] Social History Tobacco Use Types Packs/Day Years Used Date Smoking Tobacco: Never Assessed Comments Unknown Sex and Gender Information Value Date Recorded Sex Assigned at Not on file Legal Sex Female 2:51 AM TURN OPERATOR Gender Identity Not on file Sexual [...] documented as of this encounter Care Teams Hand Collator Relationship Specialty [place] [address] [address] PCP - General Purchasing/Receiving 09/26/23 documented as of this encounter
--- OUTSIDE RECORDS SUMMARY | 2024-10-29 10:08 | XMS_ITS | Encounter Summary ---
Author Organization [facility] Address 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
--- OUTSIDE RECORDS SUMMARY | 2024-10-29 10:08 | XMS_ITS | Encounter Summary ---
Author Organization [email or web address] Address [address] [place] [address] Care Team Providers Care Die Trouble Shooter Name Role Phone Joss Carpio MD Primary Care Provider [phone] Encounter Details Date Type Department Care Team (Latest Contact Info) Description 03/05/2005 Outpatient Historical HIS [facility] [place] [address] [place] [place] [phone] LATERAL EPICONDYLITIS (Primary Dx) Social History Tobacco Use Types Packs/Day Years Used Date Smoking Tobacco: Never Assessed Comments Unknown Sex and Gender Information Value Date Recorded Sex Assigned at Not on file Legal Sex Female 2:51 AM COAL HAULER 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
--- OUTSIDE RECORDS SUMMARY | 2024-10-29 10:08 | XMS_ITS | Encounter Summary ---
Author Organization [employer] Address [address] [place] [address] Care Team Providers Care Funeral Attendant Name Role Phone Joss Carpio MD Primary Care Provider [phone] Encounter Details Date Type Department Care Team (Late st Contact Info) Description 09/10/2001 [facility]patient [facility] P NO ADDRESS ON FILE FEMALE GENITAL SYMPTOMS NOS (Primary Dx) Social History Tobacco Use Types Packs/Day Years Used Date Smoking Tobacco: Never Assessed Comments Unknown Sex and Gender Information Value Date Recorded Sex Assigned at Not on file Legal Sex Female 2:51 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 diff 11/21/2023 11/21/2023 11/21/2023 12:5 2 PM CDT C Diff Comment:11/21/23 11/21/2023 11/21/2023 01/20/2024 1:16 AM C DT documented as of this encounter Care Teams Funeral Attendant Relationship Specialty [place] [address] [address] PCP - General Clinical Documentation Improvement Specialist 09/26/23 documented as of this encounter
--- OUTSIDE RECORDS SUMMARY | 2024-10-29 10:08 | XMS_ITS | Encounter Summary ---
Author Organization [facility] Address [address] [place] [address] Care Team Providers Care Patternmaker Apprentice Wood Name Role Phone Joss Carpio MD Primary Care Provider Encounter Details Date Type Department Care Team (Late st Contact Info) Description 06/12/2001 Outpatient Historical [facility] [address] [place] [address] Stormy Garcia MD NO ADDRESS ON FILE Social History Tobacco Use Types Packs/Day Years Used Date Smoking Tobacco: Never Assessed Comments Unknown Sex and Gender Information Value Date Recorded Sex Assigned at Not on file Legal Sex Female 2:51 AM NURSE MONITORING Gender Identity Not on file Sexual Orientation [...] documented as of this encounter Care Teams Patternmaker Apprentice Wood Relationship Specialty [place] [address] [facility] [address] [place] [address] PCP - General Public Policy Coordinator 09/26/23 documented as of this encounter
--- OUTSIDE RECORDS SUMMARY | 2024-10-29 10:08 | XMS_ITS | Encounter Summary ---
Author Organization [employer] Address [address] [place] [address] Care Team Providers Care Director Child Name Role Phone Joss Carpio MD Primary Care Provider [phone] Encounter Details Date Type Department Care Team (Latest Contact Info) Description 12/10/2005 Outpatient Historical [facility] [place] Candy Carlos MD Pain in Soft Tissues of Limb (Primary Dx) Social History Tobacco Use Types Packs/Day Years Used Date Smoking Tobacco: Never Assessed Comments Unknown Sex and Gender Information Value Date Recorded Sex Assigned at Not on file Legal Sex Female 2:51 AM ZIPPER IRONER Gender Identity Not on file Sexual Orientation Not on file documented as of this encounter Plan of Treatment Not on file documented as of this encounter Visit Diagnoses Diagnosis Pain in limb- Primary documented in this encounter Additional Health Concerns Infection Onset Date Last Indicated Resolved Time R/O C. diff 11/21/2023 11/21/2023 11/21/2023 12:5 2 PM CDT C Diff Comment:11/21/23 11/21/2023 11/21/2023 01/20/2024 1:16 AM C DT documented as of this encounter Care Teams Director Child Relationship Specialty [place] [address] [address] PCP - General Paint Mixer 09/26/23 documented as of this encounter
--- OUTSIDE RECORDS SUMMARY | 2024-10-29 10:08 | XMS_ITS | Encounter Summary ---
Author Organization [employer] Address 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 diff 11/21/2023 11/21/2023 11/21/2023 12:5 2 PM CDT C Diff Comment:11/21/23 11/21/2023 11/21/2023 01/20/2024 1:16 AM CDT documented as of this encounter Care Teams Speech And Language Assistant Relationship Specialty [place] [address] [address] PCP - General Manager Medicaid 09/26/23 documented as of this encounter
--- OUTSIDE RECORDS SUMMARY | 2024-10-29 10:08 | XMS_ITS | Clinical Summary ---
Author Organization [facility] Address [address] [place] [address] Care Team Providers Care Stumper Feller Name Role Phone Jacob Malone MD Unavailable [phone] Jailene Paz MD Unavailable [phone] Joss Carpio MD Primary Care Provider [phone] Allergies Active Allergy Reactions Criticality Noted Date [...] pending Patient has an appointment with her interlacer on Tuesday. If workup negative and EKG remains unchanged may consider discharging home with close follow-up with her interlacer. Fatty liver 02/18/2018 Assessment & Plan (02/19/2018 [...] Overview (09/10/2016): Sciatica History of drug abuse ([facility]) 06/06/2013 Overview (09/09/2016): History of drug abuse [...] OPV 06/06/1996 Td, adsorbed 06/06/1996 Tdap 12/17/2008,05/25/2007 Surgical History Surgery Date Site/Laterality Comments OTHER SURGICAL HISTORY 2008 Chest pain: Hospitalization OTHER SURGICAL HISTORY Cholesteatoma Tumor Right Ear OTHER SURGICAL HISTORY 1998 Deviated Septum Repair and Sinus Surgery CARPAL TUNNEL RELEASE 1994 Carpal tunnel release OTHER SURGICAL HISTORY cholesteatoma x 4: Excision OTHER SURGICAL HISTORY 1998 nasal sinus surgery SINUS SURGERY Sinus Surgery CARPAL TUNNEL RELEASE Carpal Tunnel TUBAL LIGATION Tubes OTHER SURGICAL HISTORY 3 cholestiatomas R-ear OTHER SURGICAL HISTORY bilateral CTR Medical History Medical History Date Comments Hx Other Medical post dep ression Hypertension Hypertension Hx Other Medical murmur Hx Other Medical 2006 Meningitis, Vir al Hx Other Medical 1992 4 right ear jeanine gies between 81-93 Hx Other Medical 2001 breast reductio n Hx Other Medical 1998 sinus surgery Hx Other Medical 1994 bilateral CTR Hx Other Medical 2007 Chest pain; Out come: improved Hx Other Medical Left Wrist Tend onitis Hx Other Medical Chronic Sinusit is Hyperlipidemia Hyperlipidemia Rheumatic fever 1980 Rheumatic fever History of multiple allergies al lergies Hx Other Medical 1998 Meningitis, Vir al Hx Other Medical cholesteatoma x 4 Hx Other Medical tourette's; Com ments: LISA 12/25/2013 - Seizure disorder (HCC) 04/16/1111 Seizure d isorder 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; Comments: LISA 12/25/2013 - Hx Other Medical allergic rhinit is; Comments: MPLaura 12/13/2014 - Systolic heart failure (HCC) DM (diabetes mellitus) (HCC) Family History Medical History Relation Name Comments Other Brother two Alive and well; Coronary artery disease Father Diabetes Father Diabetes mellit us; /Diabetes mellitus; Diabetes type II Father Diabetes -T ype 2; Heart attack Father OR; Hyperlipidemia Father Hyperlipidemi a; Other Father Alive and well; Diabetes type I Father's Brother Diabetes -Type 1; Cancer Mother Cancer -; Decea sed Cervical cancer Mother Cancer, cerv ical; /Cancer, cervical; Coronary artery disease Mother Immanuel nary artery disease; /Coronary artery disease, premature; Cause of : Coronary artery disease, premature Diabetes Mother Diabetes mellit us; /Diabetes mellitus; Diabetes type II Mother Diabetes -T ype 2; Heart attack Mother OR; Heart disease Mother Heart disease; Cause of : Heart disease Heart failure Mother Congestive hea rt failure; /Congestive heart failure; /CHF; Hypertension Mother Hypertension; / Hypertension; /Hypertension; Migraines Mother Migraines; Other Mother Cancer -pelvic; Ovarian cancer Mother Cancer, ovari an; Breast cancer Mother's Sister Cancer, jose ast; Cancer Other 1 Family history of Cancer; Diabetes Other 2 Family history of Diabetes mellitus; Heart disease Other 3 Family history of Heart disease; Hypertension Other 4 Family history of Hypertension; Diabetes type I Paternal Grandmother Diab etes -Type 1; Relation Name Status Comments Brother two Alive Father Alive Father's Brother Mother (Age 64) Mother's Sister Other 1 Other 2 Other 3 Other 4 Paternal Grandmother Social History Tobacco Use Types Packs/Day Years Used Date Smoking Tobacco: Never Smokeless Tobacco: Never Alcohol Use Standard Drinks/Week Comments No 0 (1 standard drink = 0.6 oz pur e alcohol) OASIS D0700: Social Isolation Answer Da te Recorded Frequency of experiencing loneliness or isolatio n Never 07/08/2024 [facility] Utilities Answer Date Recorded In the past 12 months has e [employer], [employer], oil, or water [employer] threatened to shut off services in your [...] often do you attend chur ch or gnosticist services? Patient declined 06/28/2024 Do you belong to any clubs o r organizations such as evangelical groups, unions, fraternal or athletic groups, or [...] any time in the past 12 m [facility], were you homeless or living in a skilled nursing (including now)? No 04/23/2024 Personal Safety Answer Date Recorded Have you ever been in or are you currently in a harmful physical or emotional relationship or is someone making you feel afraid or unsafe? Denies 06/28/2024 Comments No Sex and Gender Information Value Date Recorded Sex Assigned at Not on file Legal Sex Female 11:25 PM CREDIT REVIEW ANALYST Gender Identity Not on file Sexual Orientation Not on file Obstetrics History Last Filed Vital Signs Vital Sign Reading Time Taken Comments Blood Pressure 118/68 07/12/2024 11:06 AM CREDIT REVIEW ANALYST Pulse 66 07/12/2024 11:06 AM CREDIT REVIEW ANALYST Temperature 37.1 C (98.7 F) 07/08/2024 1:35 PM CREDIT REVIEW ANALYST Respiratory Rate 18 07/12/2024 11:06 AM CREDIT REVIEW ANALYST Oxygen Saturation 100% 07/12/2024 11:06 AM CREDIT REVIEW ANALYST Inhaled Oxygen Concentration - - Weight 73 kg (161 lb) 06/29/2024 11:02 AM CREDIT REVIEW ANALYST Height 139.7 cm (4' 7) 06/28/2024 2:00 AM CREDIT REVIEW ANALYST Body Mass Index 37.42 06/28/2024 2:00 AM CREDIT REVIEW ANALYST Plan of Treatment Health Maintenance Due Date Last Done Comments Albumin Creatinine Ratio, Urine 1969 Cervical Cancer Screening 1969 Colon Cancer Screening-Colonoscopy 1969 Dilated Eye Exam 1969 Foot Exam 1969 Regular Well Visit/Exam 18-64 12/15/1987 Breast Cancer Screening-Mammogram 10/18/2015 015 Pneumococcal vaccine <65 (2 of 2 - PCV) 07/30/2017 07/30/2016 DTaP/Tdap/Td Vaccine (6 - Td or Tdap) 12/17/2018 12/17/2008, 06/06/2008, 05/25/2007, Additional history exists Zoster Vaccine (1 of 2) 12/15/2019 Hemoglobin A1C 05/03/2024 11/01/2023, 02/03/2021 Depression Screening 02/26/2025 02/27/2024, 01/12/20 21 Lipid Panel 02/26/2025 02/27/2024, 09/0 06/2020, 12/09/2020, Additional history exists eGFR 07/04/2025 07/04/2024, 06/07, 07/02/2024, Additional history exists Influenza Vaccine Completed 05/01/2024, , 02/04/2007, Additional history exists Hepatitis C Screening Completed 07/03/2024, 021 Procedures Procedure Name Priority Date/Time Associated Diagnosis Comments EGFR Routine 07/04/2024 3:41 AM CREDIT REVIEW ANALYST HEPATITIS PANEL, ACUTE Routine 07/03/2024 3:22 AM CREDIT REVIEW ANALYST LIPID PANEL STAT 02/27/2024 9:20 PM CDT HEMOGLOBIN A1C Routine 02/03/2021 12:38 PM CDT DIGITAL MAMMOGRAPHY Routine 10/17/2014 2 :44 PM CDT from Last 3 Months or Most Recently Relevant to Health Maintenance Results * eGFR (07/04/2024 3:41 AM CREDIT REVIEW ANALYST) eGFR >90 >=60 mL/min/1. 73 m2 Comment: [...] Inclusion of Race in Diagnosing Kidney Disease, JASN 2020). The CKD-EPI equation should not be used for patients with unstable renal function and has not been validated in children and those over 70. Current interpretive data was last reviewed 2021. Blood 07/04/2024 3:41 AM CREDIT REVIEW ANALYST 07/04/2024 3:47 AM CREDIT REVIEW ANALYST us Rinku Macdonald MD LAB BLOOD ORDERABLES Final Resu lt Performing Organization Address City/[facility]/ZIP Co de Phone Number MAN NUR (BHASKAR) 1 [facility] Department [place] [address] * Hepatitis panel, acute Blood (07/03/2024 3:22 AM CREDIT REVIEW ANALYST) Hep A IgM Nonreactive Nonreactive Comment: Interpretive Data: If Hep A IgM Ab is reported as Equivocal, a new sample should be drawn in two weeks for testing. Current interpretive data was last revised on 19. Testing performed by: [address] [address] Hep B core IgM Nonreactive Nonreactive [facility] (BH[place]AR) Comment: Interpretive Data If HepB Core IgM Ab is reported as Equivocal, a new sample should be drawn in two weeks for testing. Current interpretive data was last revised on 19. Testing performed by: [facility], [address] [place] [address]., [address] Hep C Ab Nonreactive Nonreactive MAN NUR [...] last revised on 2019. Testing performed by: [facility], [address] [place] [address]., [address] HepBsAg Nonreactive Nonreactive MAN NUR (BHASKAR) Comment:Testing performed by : [address] [address] Blood 07/03/2024 3:22 AM CREDIT REVIEW ANALYST 07/03/2024 11:41 AM CREDIT REVIEW ANALYST us Jumana QUILES LAB MICROBIOLOGY - GENER AL ORDERABLES Final Result Performing Organization Address City/[facility] Co de Phone Number MAN AMH BH[place]AR 1 [facility] Department [place] [address] * (ABNORMAL) Lipid panel (02/27/2024 9:20 PM [...] revised on 2018. Triglycerides 156(H) <=149 mg/dL [facility] Comment: Interpretive Data Ages < or = [...] revised on 2018. HDL 34(L) >=40 mg/dL [facility] Comment: Interpretive Data Ages < or = [...] on 2018. LDL, calculated 251(H) <=129 mg/dL [facility] Comment: Interpretive Data Ages < or = [...] revised on 2024. Non-HDL Cholesterol 281 mg/dL [facility] Comment: Interpretive Data Ages < or = [...] last revised on 2018. Chol/HDL ratio 9 [facility] Blood 02/27/2024 9:20 PM CDT 02/27/2024 10:01 PM CDT Narrative [facility] - 02/28/2024 8:22 AM CDT reflex us Susy George MD LAB BLOOD ORDERABLES Fin al Result [facility] Department [place] [address] * (ABNORMAL) Hemoglobin A1c (02/03/2021 12:38 PM CDT) Hgb A1C 10.3(H) 4.0 - 5.6 % [facility] Estimated Average Glucose 249 mg/dL [facility] Comment: The ADA recommends reporting an estimated Average Glucose (eAG) with all Hemoglobin A1c results using the equation derived from a study of 507 normal and diabetic adults. Minority populations were underrepresented and children were not included. (Diabetes Care 31:4680-1575, 2008). The eAG is not equivalent to a fasting glucose. Blood 02/03/2021 12:3 8 PM CDT 02/03/2021 1:06 PM CDT us Ruth Ann Carreon DO LAB BLOOD ORDERABLES Final Result [facility] [address] Department [place] [address] * DIGITAL MAMMOGRAPHY (10/17/2014 2:44 PM CDT) Anatomical Region Laterality Modality Breast Mammography 10/17/2014 2:44 PM CDT Narrative 10/18/2014 1:48 PM CDT Mr Screening Mamm Bi Acc#: [id number] DATE OF EXAM: Oct 17 2014 Performed [...] on: Oct 17 2014 2:44P Transcribed by: peri On: Oct 17 2014 4:13P Approved Electronically by: ROSIE FINK M.D. on: Oct 18 2014 1:48P Attending: NEEMA DANIELS Requesting: DR NEEMA DANIELS K Requesting Fax: -- Attending Fax: -- Attending ID: [id number] Requesting ID: [id number] Report To 1 ID: [id number] Report To 1 Name: NEEMA DANIELS Report To 1 FAX: -- NextGen Order #: Procedure Note Provider, MD Toy - 09/23/2016 Mr Screening Mamm Bi Acc#: [id number] DATE OF EXAM: Oct 17 2014 Performed [...] on: Oct 17 2014 2:44P Transcribed by: peri On: Oct 17 2014 4:13P Approved Electronically by: ROSIE FINK M.D. on: Oct 18 2014 1:48P Attending: NEEMA DANIELS Requesting: DR NEEMA DANIELS Requesting Fax: -- Attending Fax: -- Attending ID: [id number] Requesting ID: [id number] Report To 1 ID: [id number] Report To 1 Name: NEEMA DANIELS Report To 1 FAX: -- NextGen Order #: Historical Provider MD [facility] PROCEDURES Ursula l Result from Last 3 Months or Most Recently Relevant to Health Maintenance Insurance [facility] CHOICE PLUS Advance Directives For more information, please contact: [phone] * Full Code (Latest Code Status on [...] 11:30 AM 04/24/2024 12:10 PM Care Teams Stumper Feller Relationship Specialty [place] [id number] [address] PCP - General Internal Medicine 02/27/24 Jacob Malone MD Consulting Physician Gastroenterology 01/14/21 Jailene Paz MD [address] [facility] [address] [place] [address] Endocrinology Diabetes & Metabolism 02/12/21
--- OUTSIDE RECORDS SUMMARY | 2024-10-29 10:08 | XMS_ITS | Encounter Summary ---
Author Organization [facility] [employer] [facility] Address [address] [place] [address] Care Team Providers Care Kohinoor Operator Name Role Phone Joss Carpio MD Primary Care Provider Encounter Details Date Type Department Care Team (Latest Contact Info) Description 09/27/2004 Outpatient Historical [facility] [place]orie Cazares MD CERVICALGIA (Primary Dx) Social History Tobacco Use Types Packs/Day Years Used Date Smoking Tobacco: Never Assessed Comments Unknown Sex and Gender Information Value Date Recorded Sex Assigned at Not on file Legal Sex Female 2:51 AM LAST REPAIRER Gender Identity Not on file Sexual Orientation Not on file documented as of this encounter Plan of Treatment Not on file documented as of this encounter Visit Diagnoses Diagnosis Cervicalgia- Primary documented in this encounter Additional Health Concerns Infection Onset Date Last Indicated Resolved Time R/O C. diff 11/21/2023 11/21/2023 11/21/2023 12:5 2 PM CDT C Diff Comment:11/21/23 11/21/2023 11/21/2023 01/20/2024 1:16 AM C DT documented as of this encounter Care Teams Kohinoor Operator Relationship Specialty [place] [address] [address] PCP - General Communication Equipment Repairer 09/26/23 documented as of this encounter
--- OUTSIDE RECORDS SUMMARY | 2024-10-29 10:09 | XMS_ITS | Encounter Summary ---
Author Organization [facility] Address [address] [place] [address] Care Team Providers Care Uncrater Name Role Phone Joss Carpio MD Primary Care Provider Encounter Details Date Type Department Care Team (Late st Contact Info) Description 10/27/2000 Outpatient Historical [facility] [address] [address] Stormy Garcia MD NO ADDRESS ON FILE Social History Tobacco Use Types Packs/Day Years Used Date Smoking Tobacco: Never Assessed Comments Unknown Sex and Gender Information Value Date Recorded Sex Assigned at Not on file Legal Sex Female 2:51 AM ENVIRONMENTAL AID Gender Identity Not on file Sexual Orientation [...] documented as of this encounter Care Teams Uncrater Relationship Specialty [place] [address] [facility] [address] [place] [address] PCP - General Manager Programming 09/26/23 documented as of this encounter
--- OUTSIDE RECORDS SUMMARY | 2024-10-29 10:09 | XMS_ITS | Encounter Summary ---
Author Organization [facility] Address [address] [place] [address] Care Team Providers Care Bakery Sales Clerk Name Role Phone Joss Carpio MD Primary Care Provider Encounter Details Date Type Department Care Team (Late st Contact Info) Description 10/19/2000 Outpatient Historical [facility] [address] [address] Stormy Garcia MD NO ADDRESS ON FILE Social History Tobacco Use Types Packs/Day Years Used Date Smoking Tobacco: Never Assessed Comments Unknown Sex and Gender Information Value Date Recorded Sex Assigned at Not on file Legal Sex Female 2:51 AM PIPING SUPERVISOR Gender Identity Not on file Sexual [...] documented as of this encounter Care Teams Bakery Sales Clerk Relationship Specialty [place] [address] [facility] [address] [place] [address] PCP - General Station Detective 09/26/23 documented as of this encounter
--- OUTSIDE RECORDS SUMMARY | 2024-10-29 10:09 | XMS_ITS | Encounter Summary ---
Author Organization [facility] Address [address] [place] [address] Care Team Providers Care Work Car Operator Name Role Phone Joss Carpio MD Primary Care Provider Encounter Details Date Type Department Care Team (Late st Contact Info) Description 01/26/2001 Outpatient Historical [facility] [address] [address] Stormy Garcia MD NO ADDRESS ON FILE Social History Tobacco Use Types Packs/Day Years Used Date Smoking Tobacco: Never Assessed Comments Unknown Sex and Gender Information Value Date Recorded Sex Assigned at Not on file Legal Sex Female 2:51 AM DATA MODELER Gender Identity Not on file Sexual Orientation [...] documented as of this encounter Care Teams Work Car Operator Relationship Specialty [place] [address] [facility] [address] [place] [address] PCP - General Warehouse Associate 09/26/23 documented as of this encounter
--- OUTSIDE RECORDS SUMMARY | 2024-10-29 10:09 | XMS_ITS | Encounter Summary ---
Author Organization [facility] Address [address] [place] [address] Care Team Providers Care Academic Associate Name Role Phone Joss Carpio MD Primary Care Provider Encounter Details Date Type Department Care Team (Late st Contact Info) Description 07/18/2007 Outpatient [facility] Internal Medicine [address] [address] Enrike Little MD [address] [place] [address] Social History Tobacco Use Types Packs/Day Years Used Date Smoking Tobacco: Never Assessed Comments Unknown Sex and Gender Information Value Date Recorded Sex Assigned at Not on file Legal Sex Female 2:51 AM ACCOUNT MANAGER Gender Identity Not on file Sexual Orientation [...] documented as of this encounter Care Teams Academic Associate Relationship Specialty [place] [address] [address] PCP - General Marketing Account Manager 09/26/23 documented as of this encounter
--- OUTSIDE RECORDS SUMMARY | 2024-10-29 10:09 | XMS_ITS | Encounter Summary ---
Author Organization [employer] Address [address] [place] [address] Care Team Providers Care Clay Mine Cutting Machine Operator Name Role Phone Joss Carpio MD Primary Care Provider [phone] Encounter Details Date Type Department Care Team (Latest Contact Info) Description 02/08/2001 Outpatient Historical HIS PATIENT IN A BED Stormy Garcia MD NO ADDRESS ON FILE Threatened premature labor, antepartum(644.03) (Primary Dx) Social History Tobacco Use Types Packs/Day Years Used Date Smoking Tobacco: Never Assessed Comments Unknown Sex and Gender Information Value Date Recorded Sex Assigned at Not on file Legal Sex Female 2:51 AM MECHANICAL MAINTENANCE TECHNICIAN Gender Identity Not on file Sexual Orientation Not on file documented as of this encounter Plan of Treatment Not on file documented as of this encounter Visit Diagnoses Diagnosis Threatened premature labor, antepartum(644.03)- Primary Threatened premature labor, antepartum documented in this encounter Additional Health Concerns Infection Onset Date Last Indicated Resolved Time R/O C. diff 11/21/2023 11/21/2023 11/21/2023 12:5 2 PM CDT C Diff Comment:11/21/23 11/21/2023 11/21/2023 01/20/2024 1:16 AM C DT documented as of this encounter Care Teams [place] Cutting Machine Operator Relationship Specialty [place] [address] [address] PCP - General Beamster 09/26/23 documented as of this encounter
--- OUTSIDE RECORDS SUMMARY | 2024-10-29 10:09 | XMS_ITS | Encounter Summary ---
Author Organization [facility] Address [address] [place] [address] Care Team Providers Care Draftsperson Name Role Phone Joss Carpio MD Primary Care Provider [phone] Encounter Details Date Type Department Care Team (Late st Contact Info) Description 11/09/2000 Outpatient Historical [address] [place] [phone] Brad Hernandez MD Social History Tobacco Use Types Packs/Day Years Used Date Smoking Tobacco: Never Assessed Comments Unknown Sex and Gender Information Value Date Recorded Sex Assigned at Not on file Legal Sex Female 2:51 AM FINANCE LECTURER Gender Identity Not on file Sexual Orientation [...] documented as of this encounter Care Teams Draftsperson Relationship Specialty [place] [address] [address] PCP - General Call Taker 09/26/23 documented as of this encounter
--- OUTSIDE RECORDS SUMMARY | 2024-10-29 10:09 | XMS_ITS | Encounter Summary ---
Author Organization [facility] Address [address] [place] [address] Care Team Providers Care Ship Surveyor Name Role Phone Joss Carpio MD Primary Care Provider [phone] Encounter Details Date Type Department Care Team (Late st Contact Info) Description 06/13/[address] [facility] [address] [place] [address] Marlo Joyner MD [address] [place] [address] Social History Tobacco Use Types Packs/Day Years Used Date Smoking Tobacco: Never Assessed Comments Unknown Sex and Gender Information Value Date Recorded Sex Assigned at Not on file Legal Sex Female 2:51 AM SPEEDOMETER INSPECTOR Gender Identity Not on file Sexual Orientation [...] documented as of this encounter Care Teams Ship Surveyor Relationship Specialty [place] [address] [address] PCP - General Automobile Drivers 09/26/23 documented as of this encounter
--- OUTSIDE RECORDS SUMMARY | 2024-10-29 10:09 | XMS_ITS | Encounter Summary ---
Author Organization [employer] Address [address] [place] [address] Care Team Providers Care Office Spec Name Role Phone Joss Carpio MD Primary Care Provider [phone] Encounter Details Date Type Department Care Team (Late st Contact Info) Description 03/20/2008 Outpatient Historical [facility] [place] [address] [address] Pain in Joint, Forearm Social History Tobacco Use Types Packs/Day Years Used Date Smoking Tobacco: Never Assessed Comments No Sex and Gender Information Value Date Recorded Sex Assigned at Not on file Legal Sex Female 2:51 AM ASSOCIATE PROFESSOR OF GEOLOGY Gender Identity Not on file Sexual Orientation Not on file documented as of this encounter Plan of Treatment Not on file documented as of this encounter Procedures Procedure Name Priority Date/Time Associated Diagnosis Comments XR WRIST 3+ VW LEFT Routine 03/20/2008 1 2:56 PM CDT documented in this encounter Results * XR WRIST 3+ VW LEFT (03/20/2008 12:56 PM CDT) Anatomical Region Laterality Modality Wrist / Hand Other 03/20/2008 12:5 6 PM CDT Narrative 03/21/2008 11:35 AM CDT [address] [address] Admit Date: 03/20/2008 KRYSTIN COLUNGA Sex: F Admit Prov: DELIA JOSE Date: 1970 Primary Care Prov: PCP , NONE CMRN: [id number] Room: [facility]: [address] [place] [address] IMAGING SERVICES Ordering Prov: N/A Accession Number: [id number] Interpretation Clinical Indication: 37-year-old woman with history of fall, pain. REPORT: AP, LATERAL AND OBLIQUE RADIOGRAPHS OF THE LEFT WRIST DATED 03/20/08 Comparisons: None. Findings: There appears to be some soft tissue swelling along the ulnar side of the wrist. No definite acute fracture or dislocation is seen. The joint spaces are preserved. . Dictated by: PRIMITIVO GRAFF 03/20/2008 14:29 Electronically signed by: PRIMITIVO GRAFF 03/21/2008 11:34 Transcribed: 03/20/2008 17:23 SMM Procedure Note Primitivo Graff - 03/21/2008 [facility] [address] [facility] [place], [place] [address] Admit Date: 03/20/2008 KRYSTIN COLUNGA Sex: F Admit Prov: DELIA JOSE Date: 1970 Primary Care Prov: PCP , NONE CMRN: [id number] Room: [facility]: [address] [place] [address] IMAGING SERVICES Ordering Prov: N/A Interpretation Clinical Indication: 37-year-old woman with history of fall, pain. REPORT: AP, LATERAL AND OBLIQUE RADIOGRAPHS OF THE LEFT WRIST DATED 03/20/08 Comparisons: None. Findings: There appears to be some soft tissue swelling along theulnar side of the wrist. No definite acute fracture or dislocation is seen.The joint spaces are preserved. . Dictated by: PRIMITIVO GRAFF 03/20/2008 14:29 Electronically signed by: PRIMITIVO GRAFF 03/21/2008 11:34 Transcribed: 03/20/2008 17:23 SMM Delia Jose MD DIAGNOSTIC IMAGING ORDERABL ES Final Result documented in this encounter Visit Diagnoses Diagnosis Pain in joint, forearm documented in this encounter Additional Health Concerns Infection Onset Date Last Indicated Resolved Time R/O C. diff 11/21/2023 11/21/2023 11/21/2023 12:5 2 PM CDT C Diff Comment:11/21/23 11/21/2023 11/21/2023 01/20/2024 1:16 AM C DT documented as of this encounter Care Teams Office Spec Relationship Specialty [place] [address] [address] PCP - General Welder Apprentice 09/26/23 documented as of this encounter
--- OUTSIDE RECORDS SUMMARY | 2024-10-29 10:09 | XMS_ITS | Encounter Summary ---
Author Organization [facility] Address 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
--- OUTSIDE RECORDS SUMMARY | 2024-10-29 10:09 | XMS_ITS | Encounter Summary ---
Author Organization [facility] Address 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 [phone] PHARMACY NUMBER: request refill of tramadol 50 mg. # 60 LF 01/20/07 SECTION 1: DOCTOR`S RESPONSE: autumn 03/03/07 at 09:52 am MEDICATIONS: TRAMADOL HCL ORAL TABLET 50 MG, 1 Every Six Hours, As Needed, 60 Dispensed, 1 Fills, 90 Duration/Days Supply, status: CONTINUED, 03/03/2007. FINAL ACTION: gladys 03/03/07 at 10:29 am Called pharmacy at 03/03/07 at 10:30 am. Electronically Signed by: Valorie Agosto on Saturday, March 03, 2007 documented in this encounter Plan of Treatment Not on file documented as of this encounter Visit Diagnoses Not on filedocumented in this encounter Additional Health Concerns Infection Onset Date Last Indicated Resolved Time R/O C. diff 11/21/2023 11/21/2023 11/21/2023 12:5 2 PM CDT C Diff Comment:11/21/23 11/21/2023 11/21/2023 01/20/2024 1:16 AM C DT documented as of this encounter Care Teams Marketing Producer Relationship Specialty [place] [address] [address] PCP - General Corporate Event Planner 09/26/23 documented as of this encounter
--- OUTSIDE RECORDS SUMMARY | 2024-10-29 10:09 | XMS_ITS | Encounter Summary ---
Author Organization [employer] Address 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
--- OUTSIDE RECORDS SUMMARY | 2024-10-29 10:09 | XMS_ITS | Encounter Summary ---
Author Organization [employer] Address 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 diff 11/21/2023 11/21/2023 11/21/2023 12:5 2 PM CDT C Diff Comment:11/21/23 11/21/2023 11/21/2023 01/20/2024 1:16 AM C DT documented as of this encounter Care Teams Residence Director Relationship Specialty [place] [address] [address] PCP - General Midwife 09/26/23 documented as of this encounter
--- OUTSIDE RECORDS SUMMARY | 2024-10-29 10:09 | XMS_ITS | Encounter Summary ---
Author Organization [employer] Address [address] [place] [address] Care Team Providers Care Import Export Agent Name Role Phone Joss Carpio MD Primary Care Provider [phone] Encounter Details Date Type Department Care Team (Latest Contact Info) Description 04/17/2007 Outpatient Historical [facility] Christopher Cazares MD NO ADDRESS ON FILE Lateral Epicondylitis of Elbow (Primary Dx); Unspecified Otitis Media; Arthralgia of Temporomandibular Joint Social History Tobacco Use Types Packs/Day Years Used Date Smoking Tobacco: Never Assessed Comments Unknown Sex and Gender Information Value Date Recorded Sex Assigned at Not on file Legal 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 diff 11/21/2023 11/21/2023 11/21/2023 12:5 2 PM CDT C Diff Comment:11/21/23 11/21/2023 11/21/2023 01/20/2024 1:16 AM C DT documented as of this encounter Care Teams Import Export Agent Relationship Specialty [place] [address] [address] PCP - General Business Strategy Manager 09/26/23 documented as of this encounter
--- OUTSIDE RECORDS SUMMARY | 2024-10-29 10:09 | XMS_ITS | Encounter Summary ---
Author Organization [employer] Address 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 diff 11/21/2023 11/21/2023 11/21/2023 12:5 2 PM CDT C Diff Comment:11/21/23 11/21/2023 11/21/2023 01/20/2024 1:16 AM C DT documented as of this encounter Care Teams Compression Molding Machine Operator Relationship Specialty [place] [address] [address] PCP - General Fur Coat Sewer 09/26/23 documented as of this encounter
--- OUTSIDE RECORDS SUMMARY | 2024-10-29 10:09 | XMS_ITS | Encounter Summary ---
Author Organization [facility] Address [address] [place] [address] Care Team Providers Care Labor Relations Specialist Name Role Phone Joss Carpio MD Primary Care Provider [phone] Encounter Details Date Type Department Care Team (Late st Contact Info) Description 04/12/2007 Outpatient Historical [facility] [address] [facility] [address] [place] [address] Desmond Grullon MD [address] [place] [address] Social History Tobacco Use Types Packs/Day Years Used Date Smoking Tobacco: Never Assessed Comments Unknown Sex and Gender Information Value Date Recorded Sex Assigned at Not on file Legal Sex Female 2:51 AM VETERINARIAN SMALL ANIMAL Gender Identity Not on file Sexual Orientation [...] documented as of this encounter Care Teams Labor Relations Specialist Relationship Specialty [place] [address] [address] PCP - General Personnel Analyst 09/26/23 documented as of this encounter
--- OUTSIDE RECORDS SUMMARY | 2024-10-29 10:09 | XMS_ITS | Encounter Summary ---
Author Organization [facility] Address 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 BEST TIME TO CALL: AFTERNOON. ANYTIME. MAY WE LEAVE MESSAGE AT THAT NUMBER: YES, LEAVE MESSAGE. PLEASE SCHEDULE THE APPOINTMENT AT THE FOLLOWING LOCATION: [facility] [phone]. TEST PRIORITY: URGENT/SAME DAY. [facility] SPECIAL SCHEDULING INSTRUCTIONS: ORDERING PHYSICIAN: MELISSA ROBERTSON MD OFFICE CORPORATE QUALITY ASSURANCE MANAGER & PHONE: Cleopatra Limon L ORDER PRINTED BY: JUL 20, 2007 Luis Fernando Flaherty L 04:54 p FOR SCHEDULING USE ONLY: FIRST ATTEMPT Date:JUL 20, 2007 Maricel Uribe 05:04 p Left message on Recorder. at home. Called work but pt no longer works there. SECOND ATTEMPT: Date:JUL 21, 2007 Mirtha Sher T 10:19 a Left Message on Recorder. LETTER SENT: Date JUL 21, 2007 Mirtha Sher T 10:19 a Letter Sent to Patient. AUG 02, 2007 Cyndee Lorenz A 01:49 p TEST SCHEDULE [facility] LOCATION. [facility].-PT REQUEST APPOINTMENT DATE : 08/03/2007 ( 2:45) The appointment was scheduled by Cyndee Lorenz A at [phone] AUG 02, 2007 aMriano LorenzaEmelia 01:50 p Pre-authorization number: NN FINAL ACTION Follow up completed. REC'D letter that said pt did not show for her echo that was scheduled for 08-03-07...... noted * Melissa Robertson MD - 10/18/2007 12:10 PM CDT WHO TOOK THE CALL: Melissa Robertson M TIME:01:08 pm reviewed chart, last Tetanus could find 1996, rec comes back for TDP this week(due to finger) tddam 07/18/07 01:09 pm ADDITIONAL TEST REQUESTS/ORDERS: . 682.3-OTHER CELLULITIS AND ABSCESS LAB ORDERS: Order number: [id number] Test Ordered: INJ-DTAP 11 YRS OR OLDER [id number] farrjr 07/18/07 01:50 pm STAFF FOLLOW UP: Left following message. to call back. rust 07/18/07 1:45p spoke with pt schedule appt for injed Electronically Signed by: Narda Stover on Wednesday, July 18, 2007 * Melissa Robertson MD - 10/18/2007 12:10 PM CDT WEIGHT: 176lbs BLOOD PRESSURE: 140/90 Right Arm Sitting TEMPERATURE: 37.17??c Oral NURSE NAME: Yamini FloresJoel álvarez TOBACCO USE Patient does not currently use tobacco. CHIEF COMPLAINT pain in Lt. elbow and 5th finger of Lt. hand red and swollen. HISTORY: HISTORY: 461.9-SINUSITIS UNSPECIFIED occ vertigo sx drainage 524.64-TMJ SOUNDS OPENING &OR CLOSING JAW has pain on and off 796.2-BLOOD PRESSURE ELEVATED W/O DX OF HTN high readings multiple V17.3-FAMILY HISTORY OF ISCHEMIC HEART DISEASE mother had valve disease [place] 427.2-CARDIAC DYSRHYTHMIAS notes tachycardia, occ palpitations, deconditioned, denies sx of sleep apnea 715.17-OSTEOARTHROSIS AND ALLIED DISORDERS several weeks lat elbow tender 682.3-OTHER CELLULITIS AND ABSCESS several days ingrown finger nail now redness on finger ROS: ENDOCRINE: No heat or cold intolerance, no excessive thirst. CARDIAC: See HISTORY OF PRESENT ILLNESS. RESPIRATORY: No dyspnea, cough, hemoptysis or wheezing. : No frequency, urgency, hematuria or dysuria. GI: No abdominal pain, nausea, vomiting, diarrhea, constipation, melena, or hematochezia. FAMILY HISTORY: mother CAD SOCIAL HISTORY: TOBACCO USE: Has no significant smoking history. DISCUSSED SMOKING: neg. PHYSICAL EXAMINATION: CONSTITUTIONAL: GENERAL APPEARANCE: Healthy appearing patient in no distress. EARS, NOSE, MOUTH AND THROAT: EARS: EFFUSION PRESENT IN THE LEFT EAR, LEFT TYMPANIC MEMBRANE INFLAMED.scarring right tm ORAL: Inspection of gums, lips, palate, and teeth normal. No scars, lesions, or masses. Oral mucosaunremarkable with non-inflamed posterior pharynx. NECK/THYROID: Trachea midline. No thyroid enlargement, tenderness, or mass. No supraclavicular or cervical adenopathy. RESPIRATORY: Clear to auscultation and percussion. Normal respiratory effort. CARDIOVASCULAR: pulse 104 CARDIAC: Regular rhythm. No murmurs, rubs, or gallops. ARTERIAL: No aortic bruits. EDEMA/VARICOSITIES OF EXTREMITIES: No edema or varicosities. GASTROINTESTINAL: ABDOMEN: Soft, non-tender, without masses. Bowel sounds active. LIVER/SPLEEN/KIDNEY: No hepatosplenomegaly, tenderness or nodularity. Kidneys not palpable. MUSCULOSKELETAL EXAM: left lat elbow tender SKIN: finger no drainage, small amt drainage OFFICE PROCEDURES: EKG INTERPRETATION EKG RHYTHM: The EKG shows normal sinus rhythm.poor R wave progression ASSESSMENT/PLAN: 461.9-SINUSITIS UNSPECIFIED discussed rx if worsens 524.64-TMJ SOUNDS OPENING &OR CLOSING JAW med prn 401.1-HYPERTENSION ESSENTIAL BENIGN start med, check lab MEDICATIONS: TOPROL XL ORAL TABLET 24 HR 50 MG, 1 Every Day, 30 Dispensed, 4 Fills, status: NEW PRESCRIPTION, 07/18/2007. LAB ORDERS: Order number: [id number] Test Ordered: ECHO/COMPLETE DOPPLER Madi 715.17-OSTEOARTHROSIS AND ALLIED DISORDERS consider cortisone, elbow splint at night try med, ibuprofen otc bid MEDICATIONS: FLECTOR EXTERNAL PATCH 1.3 %, DIRECTED, 4 Dispensed, status: NEW PRESCRIPTION, 07/18/2007. TRAMADOL HCL ORAL TABLET 50 MG, 1 Every Six Hours, As Needed, 100 Dispensed, 1 Fills, 90 Duration/Days Supply, status: CONTINUED, 07/18/2007. 427.2-CARDIAC DYSRHYTHMIAS check lab , reassess LAB ORDERS: Order number: [id number] Test Ordered: CBC W/ DIFFERENTIAL 3150 Order number: [id number] Test Ordered: COMPREHENSIVE METABOLIC PANEL & GFR 1112 Order number: [id number] Test Ordered: LIPID PANEL 1078 Order number: [id number] Test Ordered: TSH 1720 Order number: [id number] Test Ordered: EKG W/ INTERPRETATION & REPORT [id number] 682.3-OTHER CELLULITIS AND ABSCESS risk mrsa expained , pt instructed to return if redness inc or drainage , soak betadine and water tid MEDICATIONS: DOXYCYCLINE HYCLATE ORAL TABLET 100 MG, 1 Two Times A Day, 18 Dispensed, status: NEW PRESCRIPTION, 07/18/2007. ALTABAX EXTERNAL OINTMENT 1 %, DIRECTED, 7 Duration/Days Supply, status: NEW PRESCRIPTION, 07/18/2007, Comment: use bid. PREVENTIVE COUNSELING The patient was counseled regarding diet, regular sustained exercise for at least 30 minutes 3-4 times per week. pend echo Patient Education: Risks, benefits, and possible side effects of medication(s) were reviewed with the patient. The patient was allowed to ask questions to stated satisfaction. RETURN VISIT : Patient instructed to return in 1 month. Electronically Signed by: Melissa Robertson MD on Wednesday, July 18, 2007 documented in this encounter Plan of Treatment Not on file documented as of this encounter Visit Diagnoses Not on filedocumented in this encounter Additional Health Concerns Infection Onset Date Last Indicated Resolved Time R/O C. diff 11/21/2023 11/21/2023 11/21/2023 12:5 2 PM CDT C Diff Comment:11/21/23 11/21/2023 11/21/2023 01/20/2024 1:16 AM C DT documented as of this encounter Care Teams French Edge Operator Relationship Specialty [place] [address] [address] PCP - General Lead Portfolio Manager 09/26/23 documented as of this encounter
--- OUTSIDE RECORDS SUMMARY | 2024-10-29 10:09 | XMS_ITS | Encounter Summary ---
Author Organization [facility] Address [address] [place] [address] Care Team Providers Care Railway Signalling Engineer Name Role Phone Joss Carpio MD Primary Care Provider [phone] Encounter Details Date Type Department Care Team (Late st Contact Info) Description 02/23/[address] [facility] [address] [place] [address] Marlo Joyner MD [address] [place] [address] Social History Tobacco Use Types Packs/Day Years Used Date Smoking Tobacco: Never Assessed Comments Unknown Sex and Gender Information Value Date Recorded Sex Assigned at Not on file Legal Sex Female 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
--- OUTSIDE RECORDS SUMMARY | 2024-10-29 10:09 | XMS_ITS | Encounter Summary ---
Author Organization [facility] Address 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
--- OUTSIDE RECORDS SUMMARY | 2024-10-29 10:09 | XMS_ITS | Encounter Summary ---
Author Organization [facility] Address 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
--- OUTSIDE RECORDS SUMMARY | 2024-10-29 10:09 | XMS_ITS | Encounter Summary ---
Author Organization [facility] Address [address] [place] [address] Care Team Providers Care Fast Food Fry Cook Name Role Phone Joss Carpio MD Primary Care Provider [phone] Encounter Details Date Type Department Care Team (Late st Contact Info) Description 07/18/2007 Outpatient [facility] Internal Medicine [address] [address] Enrike Little MD [address] [place] [phone] Social History Tobacco Use Types Packs/Day Years Used Date Smoking Tobacco: Never Assessed Comments Unknown Sex and Gender Information Value Date Recorded Sex Assigned at Not on file Legal Sex Female 2:51 AM ACCOUNT MANAGER FOREST SERVICE Gender Identity Not on file Sexual Orientation [...] documented as of this encounter Care Teams Fast Food Fry Cook Relationship Specialty [place] [address] [address] PCP - General Aircraft Lay Out Worker 09/26/23 documented as of this encounter
--- OUTSIDE RECORDS SUMMARY | 2024-10-29 10:09 | XMS_ITS | Encounter Summary ---
Author Organization [facility] Address 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
--- OUTSIDE RECORDS SUMMARY | 2024-10-29 10:09 | XMS_ITS | Encounter Summary ---
Author Organization [facility] Address [address] [place] [address] Care Team Providers Care Crime Scene Specialist Name Role Phone Joss Carpio MD Primary Care Provider [phone] Encounter Details Date Type Department Care Team (Latest Contact Info) Description 02/08/2001 Outpatient Historical [facility] [address] Stormy Garcia MD NO ADDRESS ON FILE Laboratory examination (Primary Dx) Social History Tobacco Use Types Packs/Day Years Used Date Smoking Tobacco: Never Assessed Comments Unknown Sex and Gender Information Value Date Recorded Sex Assigned at Not on file Legal Sex Female 2:51 AM ASSURANCE SENIOR Gender Identity Not on file Sexual Orientation Not on file documented as of this encounter Plan of Treatment Not on file documented as of this encounter Visit Diagnoses Diagnosis Laboratory examination- Primary documented in this encounter Additional Health Concerns Infection Onset Date Last Indicated Resolved Time R/O C. diff 11/21/2023 11/21/2023 11/21/2023 12:5 2 PM CDT C Diff Comment:11/21/23 11/21/2023 11/21/2023 01/20/2024 1:16 AM C DT documented as of this encounter Care Teams Crime Scene Specialist Relationship Specialty [place] [address] [address] PCP - General Arbor Press Operator 09/26/23 documented as of this encounter
--- OUTSIDE RECORDS SUMMARY | 2024-10-29 10:09 | XMS_ITS | Encounter Summary ---
Author Organization [facility] Address [address] [place] [address] Care Team Providers Care Forensic Nurse Name Role Phone Joss Carpio MD Primary Care Provider [phone] Encounter Details Date Type Department Care Team (Late st Contact Info) Description 07/18/2007 Outpatient [facility] Internal Medicine [address] [address] Enrike Little MD [address] [place] [phone] Social History Tobacco Use Types Packs/Day Years Used Date Smoking Tobacco: Never Assessed Comments Unknown Sex and Gender Information Value Date Recorded Sex Assigned at Not on file Legal Sex Female 2:51 AM RESIDENTIAL PROPERTY TAX APPRAISER Gender Identity Not on file Sexual Orientation [...] documented as of this encounter Care Teams Forensic Nurse Relationship Specialty [place] [address] [address] PCP - General Ssis Developer 09/26/23 documented as of this encounter
--- OUTSIDE RECORDS SUMMARY | 2024-10-29 10:09 | XMS_ITS | Encounter Summary ---
Author Organization [facility] Address [address] [place] [address] Care Team Providers Care Oracle Identity Management Consultant Name Role Phone Joss Carpio MD Primary Care Provider [phone] Encounter Details Date Type Department Care Team (Latest Contact Info) Description 10/19/2000 Outpatient Historical [facility] Stormy Garcia MD NO ADDRESS ON FILE Unspecified antepartum hemorrhage, unspecified as to episode of care(641.90) (Primary Dx) Social History Tobacco Use Types Packs/Day Years Used Date Smoking Tobacco: Never Assessed Comments Unknown Sex and Gender Information Value Date Recorded Sex Assigned at Not on file 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 diff 11/21/2023 11/21/2023 11/21/2023 12:5 2 PM CDT C Diff Comment:11/21/23 11/21/2023 11/21/2023 01/20/2024 1:16 AM C DT documented as of this encounter Care Teams Oracle Identity Management Consultant Relationship Specialty [place] [address] [address] PCP - General Biomedical Equipment Support Specialist 09/26/23 documented as of this encounter
--- OUTSIDE RECORDS SUMMARY | 2024-10-29 10:09 | XMS_ITS | Encounter Summary ---
Author Organization [facility] Address 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
--- OUTSIDE RECORDS SUMMARY | 2024-10-29 10:09 | XMS_ITS | Encounter Summary ---
Author Organization [facility] Address 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 diff 11/21/2023 11/21/2023 11/21/2023 12:5 2 PM CDT C Diff Comment:11/21/23 11/21/2023 11/21/2023 01/20/2024 1:16 AM C DT documented as of this encounter Care Teams Farm Machinery Assembler Relationship Specialty [place] [address] [address] PCP - General Dental Professional 09/26/23 documented as of this encounter
--- OUTSIDE RECORDS SUMMARY | 2024-10-29 10:09 | XMS_ITS | Encounter Summary ---
Author Organization [employer] Address [address] [place] [address] Care Team Providers Care Alemite Operator Name Role Phone Joss Carpio MD Primary Care Provider [phone] Encounter Details Date Type Department Care Team (Latest Contact Info) Description 04/30/2007 Outpatient Historical [facility] Andressa Talavera MD NO ADDRESS ON FILE Unspecified Disorder of the Teeth and Supporting Structures (Primary Dx); Unspecified Essential Hypertension Social History Tobacco Use Types Packs/Day Years Used Date Smoking Tobacco: Never Assessed Comments Unknown Sex and Gender Information Value Date Recorded Sex Assigned at Not on file 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 diff 11/21/2023 11/21/2023 11/21/2023 12:5 2 PM CDT C Diff Comment:11/21/23 11/21/2023 11/21/2023 01/20/2024 1:16 AM C DT documented as of this encounter Care Teams Alemite Operator Relationship Specialty [place] [address] [address] PCP - General Half Section Ironer 09/26/23 documented as of this encounter
--- OUTSIDE RECORDS SUMMARY | 2024-10-29 10:09 | XMS_ITS | Encounter Summary ---
Author Organization [facility] Address 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
--- OUTSIDE RECORDS SUMMARY | 2024-10-29 10:09 | XMS_ITS | Encounter Summary ---
Author Organization [facility] Address 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
--- OUTSIDE RECORDS SUMMARY | 2024-10-29 10:09 | XMS_ITS | Encounter Summary ---
Author Organization [employer] Address [address] [place] [address] Care Team Providers Care Supervisor Engraving Name Role Phone Joss Carpio MD Primary Care Provider [phone] Encounter Details Date Type Department Care Team (Late st Contact Info) Description 08/16/2022 Lab Requisition [facility] [address] [place] [address] Danisha Morrison, [address] [facility] [address] [place] [address] Social History Tobacco Use Types Packs/Day Years Used Date Smoking Tobacco: Never Smokeless Tobacco: Never Alcohol Use Standard Drinks/Week Comments Yes 0 (1 standard drink = 0.6 oz pur e alcohol) Comments No Sex and Gender Information Value Date Recorded Sex Assigned at Not on file Legal Sex Female 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 Gender Identity Not on file Sexual Orientation Not on file Occupation Industry Job Start Date Job End Date Not on file Not on file Not on file Not on file documented as of this encounter Plan of Treatment Not on file documented as of this encounter Procedures Procedure Name Priority Date/Time Associated Diagnosis Comments MAGNESIUM LEVEL Stat 08/16/2022 4:41 PM CDT BASIC METABOLIC PANEL Stat 08/16/2022 4:41 PM CDT documented in this encounter Results * MAGNESIUM LEVEL (08/16/2022 4:41 PM CDT) MAGNESIUM 1.6 1.6 - 2.6 mg/dL 08/16/2022 6:14 PM CDT [facility] Blood Collection / Unknown 08/16/2022 4:41 PM CDT 08/16/2022 5:41 PM CDT Danisha Morrison DO CHEMISTRY ORDERABLES Final Res ult [id number] [address] [facility] [place] [address] * (ABNORMAL) BASIC METABOLIC PANEL (08/16/2022 4:41 PM CDT) SODIUM 138 136 - 145 mmol/L 08/16/2022 6:14 PM T [facility] POTASSIUM 3.7 3.5 - 5.0 mmol/L 08/16/2022 6:14 PM T [employer] [facility] Comment: Testing was performed on Serum. Specimen of choice is [place] Heparinized Plasma. Serum Potassium Reference Range: 0 years - 150 years 3.5 - 5.1 mmol/L CHLORIDE 98 98 - 107 mmol/L 08/16/2022 6:14 PM CDT [employer] [facility] CO2 27 22 - 29 mmol/L 08/16/2022 6:14 PM CDT [employer] [facility]ORATORY SERVICES [facility] CALCIUM 10.2 8.6 - 10.2 mg/dL 08/16/2022 6:14 PM CDT [employer] LABORATORY SERVICES [facility]. [facility] BUN 14 6 - 20 mg/dL 08/16/2022 6:14 PM CDT [employer] LABORATORY SERVICES [facility]. [facility] CREATININE 0.65 0.51 - 0.95 mg/dL 08/16/2022 6:14 PM T [employer] LABORATORY SERVICES [facility] GLUCOSE 199(H) 74 - 99 mg/dL 08/16/2022 6:14 PM CDT [employer] [facility] GFR >60 >=60 mL/min/1.7 3 sq meter 08/16/2022 6:14 PM CDT [facility] Comment:eGFR calculated with 2020 CKD-EPI equation. Vegetarian diet, extremely high or low muscle mass, and may affect results. Cystatin C with Glomerular Filtration Rate is a suitable alternative for these patients. ANION GAP 13 8 - 16 mmol/L 08/16/2022 6:14 PM CDT [facility] Blood Collection / Unknown 08/16/2022 4:41 PM CDT 08/16/2022 5:41 PM CDT us Danisha Morrison DO CHEMISTRY ORDERABLES Final Res ult [facility] CLIA# [id number] [address] [facility] [place] [address] documented in this encounter Visit Diagnoses Not on filedocumented in this encounter Additional Health Concerns Infection Onset Date Last Indicated Resolved Time R/O C. diff 11/21/2023 11/21/2023 11/21/2023 12:5 2 PM CDT C Diff Comment:11/21/23 11/21/2023 11/21/2023 01/20/2024 1:16 AM C DT documented as of this encounter Care Teams Supervisor Engraving Relationship Specialty [place] [address] [address] PCP - General Bridge Painter 09/26/23 documented as of this encounter
--- OUTSIDE RECORDS SUMMARY | 2024-10-29 10:09 | XMS_ITS | Encounter Summary ---
Author Organization [facility] Address 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 Electronically Signed by: Kathi Penn on Saturday, December 16, 2006 * Enrike Little MD - 10/25/2007 10:21 AM CDT WEIGHT: 166lbs BLOOD PRESSURE: 164/100 Right Arm Sitting TEMPERATURE: 36.72??c Oral NURSE NAME: Jenni Flores R TOBACCO USE Patient does not currently use tobacco. CHIEF COMPLAINT Patient complains of fever, earaches. and elevated B/P. HISTORY: ear pain and fever again, occ use pain med for tmj SOCIAL HISTORY: TOBACCO USE: Has no significant smoking history. DISCUSSED SMOKING: neg. PHYSICAL EXAMINATION: EARS, NOSE, MOUTH AND THROAT: EARS: EFFUSION PRESENT IN THE LEFT EAR, LEFT TYMPANIC MEMBRANE INFLAMED.scarring right tm ORAL: NECK/THYROID: Trachea midline. No thyroid enlargement, tenderness, or mass. No supraclavicular or cervical adenopathy. RESPIRATORY: Clear to auscultation and percussion. Normal respiratory effort. CARDIOVASCULAR: CARDIAC: Regular rhythm. No murmurs, rubs, or gallops. EDEMA/VARICOSITIES OF EXTREMITIES: No edema or varicosities. ASSESSMENT/PLAN: 461.9-SINUSITIS UNSPECIFIED re rx, ent if not improved MEDICATIONS: LEVAQUIN ORAL TABLET 750 MG, 1 Every Day, 5 Dispensed, status: NEW PRESCRIPTION, 12/16/2006. NASONEX NASAL SUSPENSION 50 MCG/ACT, 2 Every Morning, 2 Dispensed, status: NEW PRESCRIPTION, 12/16/2006. 524.64-TMJ SOUNDS OPENING &OR CLOSING JAW med prn fu dentist MEDICATIONS: TRAMADOL HCL ORAL TABLET 50 MG, 1 Every Six Hours, As Needed, 60 Dispensed, 1 Fills, 90 Duration/Days Supply, status: CONTINUED, 12/16/2006. 796.2-BLOOD PRESSURE ELEVATED W/O DX OF HTN home monitor, fu jan, need med RETURN VISIT : Instructed to call if not improving. Electronically Signed by: Enrike Little MD on Saturday, December 16, 2006 documented in this encounter Plan of Treatment Not on file documented as of this encounter Visit Diagnoses Not on filedocumented in this encounter Additional Health Concerns Infection Onset Date Last Indicated Resolved Time R/O C. diff 11/21/2023 11/21/2023 11/21/2023 12:5 2 PM CDT C Diff Comment:11/21/23 11/21/2023 11/21/2023 01/20/2024 1:16 AM C DT documented as of this encounter Care Teams Fabric Worker Supervisor Relationship Specialty [place] [address] [address] PCP - General Driver 09/26/23 documented as of this encounter
--- OUTSIDE RECORDS SUMMARY | 2024-10-29 10:09 | XMS_ITS | Encounter Summary ---
Author Organization [facility] Address 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
--- OUTSIDE RECORDS SUMMARY | 2024-10-29 10:09 | XMS_ITS | Encounter Summary ---
Author Organization [employer] Address 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
--- OUTSIDE RECORDS SUMMARY | 2024-10-29 10:09 | XMS_ITS | Encounter Summary ---
Author Organization [facility] Address 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
--- OUTSIDE RECORDS SUMMARY | 2024-10-29 10:09 | XMS_ITS | Clinical Summary ---
Author Organization [facility] Address [address] [place] [address] Phone Care Team Providers Care Store Assistant Name Role Phone Joss Carpio Primary Care Provider [phone] Allergies Active Allergy Reactions Criticality Noted Date Comments Propranolol Other (see Comments) 06/09/2024 Pt states her BP bottoms out Morphine Itching Low 11/20/2023 Sulfa Antibiotics Hives 04/14/2015 Medications FLUoxetine (PROZAC) 40 MG Capsule Take 2 Caps by mouth daily. 90 Cap 0 7 Active losartan (COZAAR) 100 MG Tablet Take 1 Tablet by mouth daily. 90 Tablet 1 Active pantoprazole (PROTONIX) 40 MG Tablet Delayed Response Take 1 Tablet by mouth daily (with breakfast). 30 Tablet 3 1 Active LORazepam (ATIVAN) 1 MG Tablet Take 1 mg by mouth every 8 hours as needed for Other. 5 Active losartan (COZAAR) 100 MG Tablet Take 1 Tablet by mouth daily. 8 Active amLODIPine (NORVASC) 10 MG Tablet Take 10 mg by mouth daily. Active folic acid (FOLVITE) 1 MG Tablet Take 1 mg by mouth daily. 4 025 Active Lactulose Encephalopathy 10 GM/15ML Solution Take 30 mL by mouth 3 times daily. 4 Active rifAXIMin (XIFAXAN) 200 MG Tablet Take 550 mg by mouth 2 times daily. Active zinc sulfate (ZINCATE) 220 (50 Zn) MG Capsule Take 220 mg by mouth 2 times daily. Active HYDROcodone-acetam inophen (NORCO) 5-325 MG TabletIndications: Acute pyelonephritis,Cho lecystitis Take 1 Tablet by mouth every 6 hours as needed for Moderate or more severe pain. 20 Tablet 5 Active naloxone HCl (Narcan) 4 MG/0.1ML Liquid 1 [place] by Nasal route as needed for Opioid Reversal. Administer in one nostril for symptoms of overdose (severe sleepiness, breathing problems, not responsive). Call 911. May repeat 1 spray in alternate nostril in 2-3 minutes if needed. 2 Each 5 Active Active Problems Problem Noted Date Diagnosed Date Breakthrough seizure 06/10/2024 Erosive gastritis 12/15/2020 Uncontrolled type 2 diabetes mellitus with hyper glycemia 2020 Cirrhosis, nonalcoholic 12/13/2020 RUQ abdominal pain 12/13/2020 NSAID long-term use 12/13/2020 CAP (community acquired pneumonia) 12/13/2020 Constipation 12/13/2020 Hypertension, uncontrolled 07/29/2016 Morbid obesity due to excess calories 07/29/2016 Dilated pupil 07/29/2016 Ataxia 08/19/2015 Dilantin toxicity 08/19/2015 Seizures (<HCC>) 08/19/2015 Resolved Problems Problem Noted Date Diagnosed Date Resolved Date FRAN (acute kidney injury) 06/09/2024 ETOH abuse 06/18/2024 Immunizations Immunization Administration Dates Next Due Pneumococcal Vaccine Adult - 23 Valent 7 Family History Medical History Relation Name Comments Diabetes Father High Cholesterol Father Osteoarthritis Father Cancer Mother Congestive Heart Failure Mother Diabetes Mother Heart Attack Mother Hypertension Mother Relation Name Status Comments Father Mother Social History Tobacco Use Types Packs/Day Years Used Date Smoking Tobacco: Never Smokeless Tobacco: Never Alcohol Use Standard Drinks/Week Comments Not Currently 2 (1 standard drink = 0.6 oz pur e alcohol) occasionally [facility] Utilities Answer Date Recorded In the past 12 months has e [employer], gas, oil, or water [employer] threatened to shut off services in your home? Patient declined 06/09/2024 Social Connection and Isolation Panel [NHANES] A nswer Date Recorded In a typical week, how many times do you talk on the phone with family, friends, or neighbors? Patient declined 06/09/2024 How often do you get togethe r with friends or relatives? Patient declined 06/09/2024 How often do you attend voodoo or religion serv ices? Patient declined 06/09/2024 Do you belong to any clubs o r organizations such as voodoo groups, unions, fraternal or athletic groups, or school groups? Patient declined 06/09/2024 How often do you attend meet ings of the clubs or organizations you belong to? Patient declined 06/09/2024 Are you , , di vorced, , never , or living with a partner? Patient declined 06/09/2024 AUDIT-C Answer Date Recorded Q1: How often do you have a drink containing alc ohol? Patient declined 06/09/2024 Q2: How many drinks containi ng alcohol do you have on a typical day when you are drinking? Patient declined 06/09/2024 Q3: How often do you have si x or more drinks on one occasion? Patient declined 06/09/2024 Overall Financial Resource Strain (CARDIA) Answe r Date Recorded How hard is it for you to pa y for the very basics like food, housing, medical care, and heating? Patient declined 06/09/2024 [facility] - Occupational Stress Questionnaire Answer Date Recorded Do you feel stress - tense, restless, nervous, or anxious, or unable to sleep at night because your mind is troubled all the time - these days? Patient declined 06/09/2024 Exercise Vital Sign Answer Date Recorde d On average, how many days pe r week do you engage in moderate to strenuous exercise (like a brisk walk)? Patient declined On average, how many minutes do you engage in exercise at this level? Patient declined 06/09/2024 Hunger Vital Sign Answer Date Recorded Within the past 12 months, y ou worried that your food would run out before you got the money to buy more. Patient declined Within the past 12 months, t he food you bought just didn't last and you didn't have money to get more. Patient declined 09/2024 PRAPARE - Transportation Answer Date Re corded In the past 12 months, has l ack of transportation kept you from medical appointments or from getting medications? Patient declined 06/09/2024 In the past 12 months, has l ack of transportation kept you from meetings, work, or from getting things needed for daily living? Patient declined 06/09/2024 Housing Stability Vital Sign Answer Kevon e Recorded In the last 12 months, was t here a time when you were not able to pay the mortgage or rent on time? Patient declined 06/09/19 25 In the past 12 months, how m any times have you moved where you were living? 1 06/09/2024 At any time in the past 12 m [facility], were you homeless or living in a fdc (including now)? Patient declined 06/09/2024 Sexually Active Control Partners Comments Yes Male Comments No Sex and Gender Information Value Date Recorded Sex Assigned at Not on file Legal Sex Female 11:39 PM CDT Gender Identity Not on file Sexual Orientation Not on file Last Filed Vital Signs Vital Sign Reading Time Taken Comments Blood Pressure 126/76 06/19/2024 8:34 PM SHORER Pulse 70 06/19/2024 8:34 PM SHORER Temperature 36.1 C (96.9 F) 06/19/2024 6:07 PM SHORER Respiratory Rate 18 06/19/2024 8:34 PM SHORER Oxygen Saturation 100% 06/19/2024 8:34 PM SHORER Inhaled Oxygen Concentration - - Weight 70.3 kg (155 lb) 06/19/2024 6:07 PM SHORER Height 141 cm (4' 7.5) 06/19/2024 6:07 PM SHORER Body Mass Index 35.38 06/19/2024 6:07 PM SHORER Plan of Treatment Health Maintenance Due Date Last Done Comments Diabetes: Eye Exam 1969 Diabetes: Foot Exam 1969 Mammogram 1969 Pap Smear 1990 Cervical Cancer Screening (CCS) 12/15/1999 HPV/Cotest 12/15/1999 Colonoscopy 2014 Colorectal Cancer Screening 2014 Pneumococcal Immunization (50+ years) (2 of 2 - PCV) 07/30/2017 07/30/2016 Cologuard 12/15/2019 Immunochemical Fecal Occult Blood 12/15/2019 Zoster Immunization (1 of 2) 12/15/2019 SARS-COV-2 Immunization (3 - season) 2024 07/17/2020, 06/26/2020 Diabetes: Hemoglobin A1c 12/07/2024 025, 11/01/2023, 09/26/2023, Additional history exists Diabetes: Nephropathy Screening 06/09/2025 06/09/2024, 06/07/2024, 11/20/2023, Additional history exists Respiratory Syncytial Virus (RSV) Immunization (Adult) (1 - 1-dose 75+ series) 2044 Hepatitis B Immunization Completed 999, 07/07/1998, 06/06/1996, Additional history exists DTaP/Tdap/Td Immunization Discontinued 2008, 06/06/2008, 05/25/2007, Additional history exists TdaP Immunization Completed 12/17/2008, , 05/25/2007, Additional history exists Pneumococcal Immunization Combined Discontinued 07/30/2016 Hepatitis C Virus (HCV) Screening Completed 12/13/2020 Influenza Immunization Completed , 03/10/2023, 02/04/2007, Additional history exists Meningococcal Immunization (ACWY) Aged Out No longer eligible based on patient's age to complete this topic Rotavirus Immunization Aged Out No lo nger eligible based on patient's age to complete this topic Procedures Procedure Name Priority Date/Time Associated Diagnosis Comments CMP (COMPREHENSIVE METABOLIC PANEL) STAT 06/09/2024 5:15 PM SHORER HEMOGLOBIN A1C W/ ESTIMATED GLUCOSE Routine 06/09/2024 5:15 PM SHORER HEPATITIS PANEL ACUTE (AHP) Routine 12/13/2020 1:37 PM CDT from Last 3 Months or Most Recently Relevant to Health Maintenance Results * (ABNORMAL) Hemoglobin A1C (if indicated) (06/09/2024 5:15 PM SHORER) HGB-A1C 6.7(H) 4.0 - 6.0 % 06/09/2024 10:36 PM SHORER [facility] Est Average Glucose 145.6 mg/dL 06/09/2024 10:36 PM SHORER [facility] Blood Venipuncture / Unknown 06/09/2024 5:15 PM SHORER 06/09/2024 5:49 PM SHORER Narrative [facility] - 06/09/2024 10:36 PM SHORER HEMOGLOBIN A1C: DIABETIC PATIENTS: WELL-CONTROLLED: 6.2 - 7.0 INTERMEDIATE WELL-CONTROLLED: 7.0 - 9.0 POORLY-CONTROLLED: >9.0 us Jana Joyner INSOLE TOE SNIPPING MACHINE OPERATOR, BASEBALL GLOVE STUFFER CHEMISTRY ORDERABLES Fi nal Result [facility] [address] [place] [address] * (ABNORMAL) CMP (Comprehensive Metabolic Panel) (06/09/2024 5:15 PM SHORER) SODIUM 137 136 - 145 mmol/L 06/09/2024 6:40 PM [facility] POTASSIUM 3.4(L) 3.5 - 5.1 mmol/L 06/09/2024 6:40 PM [facility] CHLORIDE 104 98 - 107 mmol/L 06/09/2024 6:40 PM [facility] CO2, VENOUS 23 22 - 30 mmol/L 06/09/2024 6:40 PM [facility] ANION GAP 13.4 <18.0 mmol/L 06/09/2024 6:40 PM [facility] GLUCOSE 212(H) 70 - 99 mg/dL 06/09/2024 6:40 PM [facility] BUN 25(H) 10 - 20 mg/dL 06/09/2024 6:40 PM [facility] CREATININE, BLOOD 2.88(H) 0.60 - 1.00 mg/dL 06/09/2024 6:40 PM [facility] BUN/CREATININE RATIO 9(L) 12 - 20 ratio 06/09/2024 6:40 PM [facility] TOTAL PROTEIN 5.6(L) 6.3 - 8.2 g/dL 06/09/2024 6:40 PM [facility] ALBUMIN 3.1(L) 3.5 - 5.0 g/dL 06/09/2024 6:40 PM [facility] A/G RATIO 1.2 1.0 - 2.2 06/09/2024 6:40 PM [facility] CALCIUM 8.0(L) 8.7 - 10.5 mg/dL 06/09/2024 6:40 PM [facility] T BILI 3.0(H) 0.2 - 1.2 mg/dL 06/09/2024 6:40 PM [facility] SGOT (AST) 46(H) 5 - 34 U/L 06/09/2024 6:40 PM [facility] SGPT (ALT) 26 0 - 55 U/L 06/09/2024 6:40 PM [facility] ALKALINE PHOSPHATASE 210(H) 40 - 150 U/L 06/09/2024 6:40 PM [facility] GFR, ESTIMATED 19(L) >=60 06/09/2024 6:40 PM [facility] Comment: Creatinine Clearance is the preferred criteria for selecting drug dose adjustments in renally impaired patients. The GFR is provided as additional pertinent clinical information. GFR is reported in mL/min/1.73 sq m. Calculation based on the Chronic Kidney Disease Epidemiology Collaboration (CKD- EPI) equation refit without adjustment for race. Creatinine Clearance is the preferred criteria for selecting drug dose adjustments in renally impaired patients. The GFR is provided as additional pertinent clinical information. GFR is reported in mL/min/1.73 sq m. Calculation based on the Chronic Kidney Disease Epidemiology Collaboration (CKD- EPI) equation refit without adjustment for race. GFR, EST. 21(L) >=60 025 6:40 PM [facility] GFR, EST. NONAFRICAN 17(L) >=60 06/09/2024 6:40 PM [facility] Blood Venipuncture / Unknown 06/09/2024 5:15 PM SHORER 06/09/2024 5:49 PM SHORER Brandyn Contreras MD CHEMISTRY ORDERABLES Fin al Result [facility] [address] [place] [address] * Hepatitis Panel Acute (AHP) (12/13/2020 1:37 PM CDT) HEPATITIS A IGM ANTIBODY NON DETECTED NON DETECTED [facility] [id number] 12/13/2020 9:41 PM CDT [facility] Comment: IGM Antibodies to HAV not detected. Does not exclude early acute or recovered HAV infection. HEP B CORE AB (IGM) NON DETECTED NON DETECTED [place] [id number] 12/13/2020 9:41 PM CDT [facility] Comment:IGM anti-HBC not det ected. Does not exclude the possibility of exposure to or infection with HBV. HEPATITIS B SURFACE ANTIGEN NON DETECTED NON DETECTED [place] [id number] 12/13/2020 9:41 PM CDT [facility] Comment:A nonreactive test r esult does not exclude the possibility of exposure to or infection with Hepatitis B virus. A nonreactive test result in individuals with prior exposure to hepatitis B may be due to antigen levels below the detection limit of this assay or lack of antigen reactivity to the antibodies in this assay. hepatitis C antibody 0.22 <1 S/CO [facility] [id number] 12/13/2020 9:41 PM CDT [facility] Comment: Signal/Cutoff ratio < 0.79 is Nondetected Signal/Cutoff ratio 0.80-0.99 is Grayzone Signal/Cutoff ratio > 0.99 is Detected Supplemental assays are recommended if signal/cutoff ratio is >/=1.00. Signal/cutoff ratio result >/= 5.00 is 97% predictive of positivity for recombinant immunoblot assay (RIBA) and will be reported to the [place] Department of Public Health as required. Blood Venipuncture / Unknown 12/13/2020 1:37 PM CDT 12/13/2020 1:53 PM CDT Danny Love MD HEMATOLOGY ORDERABLES Fi nal Result [facility] [address] [place] [address], from Last 3 Months or Most Recently Relevant to Health Maintenance Insurance [facility] Advance Directives * Full Code (Latest Code Status on File) Date Activated Date Inactivated Comments 06/09/2024 10:13 PM CPR-Full Treat ment: FULL ARREST: Attempt Resuscitation/CPR wit intubation and mechanical ventilation. PRE-ARREST: Use entire range of life support measures to stabilize the patient. * Full Code Date Activated Date Inactivated Comments 12/09/2020 5:25 AM 12/15/2020 8:15 PM CPR-Full Alina tment: FULL ARREST: Attempt Resuscitation/CPR wit intubation and mechanical ventilation. PRE-ARREST: Use entire range of life support measures to stabilize the patient. * Full Code Date Activated Date Inactivated Comments 07/29/2016 7:08 PM 07/30/2016 11:05 PM CPR-Full Tr eatment: FULL ARREST: Attempt Resuscitation/CPR wit intubation and mechanical ventilation. PRE-ARREST: Use entire range of life support measures to stabilize the patient. Care Teams Store Assistant Relationship Specialty Start Date End Date Joss Carpio [id number] [address] [facility] - General 06/07/24
--- OUTSIDE RECORDS SUMMARY | 2024-10-29 10:09 | XMS_ITS | Encounter Summary ---
Author Organization [facility] Address 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
--- OUTSIDE RECORDS SUMMARY | 2024-10-29 10:09 | XMS_ITS | Encounter Summary ---
Author Organization [facility] Address [address] [place] [address] Care Team Providers Care Community Ambassador Name Role Phone Joss Carpio MD Primary Care Provider Encounter Details Date Type Department Care Team (Late st Contact Info) Description 04/11/2001 Outpatient Historical [facility] [address] [address] Stormy Garcia MD NO ADDRESS ON FILE Social History Tobacco Use Types Packs/Day Years Used Date Smoking Tobacco: Never Assessed Comments Unknown Sex and Gender Information Value Date Recorded Sex Assigned at Not on file Legal Sex Female 2:51 AM TOLL GATE TENDER Gender Identity Not on file Sexual [...] as of this encounter Care Teams Community Ambassador Relationship Specialty [place] [address] [facility] [address] [place] [address] PCP - General Copper Tapper 09/26/23 documented as of this encounter
--- OUTSIDE RECORDS SUMMARY | 2024-10-29 10:09 | XMS_ITS | Encounter Summary ---
Author Organization [email or web address] Address 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 diff 11/21/2023 11/21/2023 11/21/2023 12:5 2 PM CDT C Diff Comment:11/21/23 11/21/2023 11/21/2023 01/20/2024 1:16 AM C DT documented as of this encounter Care Teams Interactive Media Director Relationship Specialty [place] [address] [phone] PCP - General Press Service Reader 09/26/23 documented as of this encounter
--- OUTSIDE RECORDS SUMMARY | 2024-10-29 10:09 | XMS_ITS | Encounter Summary ---
Author Organization [facility] Address 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
--- OUTSIDE RECORDS SUMMARY | 2024-10-29 10:09 | XMS_ITS | Encounter Summary ---
Author Organization [facility] Address [address] [place] [address] Care Team Providers Care Switchboard Operator Helper Name Role Phone Joss Carpio MD Primary Care Provider [phone] Encounter Details Date Type Department Care Team (Late st Contact Info) Description 07/21/2000 Outpatient Historical [address] [place] [phone] Brad Hernandez MD Social History Tobacco Use Types Packs/Day Years Used Date Smoking Tobacco: Never Assessed Comments Unknown Sex and Gender Information Value Date Recorded Sex Assigned at Not on file Legal Sex Female 2:51 AM EQUIPMENT ENGINEER Gender Identity Not on file Sexual [...] documented as of this encounter Care Teams Switchboard Operator Helper Relationship Specialty [place] [address] [address] PCP - General Sales Operations Coordinator 09/26/23 documented as of this encounter
--- OUTSIDE RECORDS SUMMARY | 2024-10-29 10:09 | XMS_ITS | Encounter Summary ---
Author Organization [facility] Address [address] [place] [address] Care Team Providers Care Proposal Lead Writer Name Role Phone Joss Carpio MD Primary Care Provider [phone] Encounter Details Date Type Department Care Team (Late st Contact Info) Description 08/17/[address] [facility] [address] [place] [address] Marlo Joyner MD [address] [place] [address] Social History Tobacco Use Types Packs/Day Years Used Date Smoking Tobacco: Never Assessed Comments Unknown Sex and Gender Information Value Date Recorded Sex Assigned at Not on file Legal Sex Female 2:51 AM TELEPHONE OPERATORS 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
--- OUTSIDE RECORDS SUMMARY | 2024-10-29 10:09 | XMS_ITS | Encounter Summary ---
Author Organization [facility] Address 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
--- OUTSIDE RECORDS SUMMARY | 2024-10-29 10:09 | XMS_ITS | Encounter Summary ---
Author Organization [facility] Address 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
--- OUTSIDE RECORDS SUMMARY | 2024-10-29 10:09 | XMS_ITS | Clinical Summary ---
Author Organization [facility] Address [address] [place] [address] [place] [address] Phone Care Team Providers Care Conciliation Court Judge Name Role Phone Joss Carpio MD Primary Care Provider [phone] Allergies Active Allergy Reactions Criticality Noted Date Comments Aspirin Nausea and Vomiting Low 12/29/2017 Lisinopril Cough Low 12/29/2017 Morphine Itching Low 12/29/2017 Sulfa (Sulfonamide Antibiotics) Unknown Medications losartan (COZAAR) 100 mg tabletIndications: Encounter to establish care,Type 2 diabetes mellitus without complication, unspecified whether mcc insulin use ([facility]),Type 2 diabetes mellitus with hyperglycemia, without long-term current use of insulin ([facility]),Essentia l hypertension, benign Take 1 Tablet (100 mg) by mouth daily. 90 Tablet 1 4 10:08 AM CDT 09/26/19 24 Active Blood-Glucose Meter KitIndications:Enc ounter to establish care,Type 2 diabetes mellitus without complication, unspecified whether mcc insulin use ([facility]),Type 2 diabetes mellitus with hyperglycemia, without long-term current use of insulin ([facility]) Use as directed to check blood sugar three times a day 1 Kit 09/26/19 24 Active Additional Information Patient not taking.Reported on 11/29/2023 blood sugar diagnostic StripIndications:E ncounter to establish care,Type 2 diabetes mellitus without complication, unspecified whether mcc insulin use (CMS/HCC),Type 2 diabetes mellitus with hyperglycemia, without long-term current use of insulin ([facility]) Use to check sugars three times daily 200 Strip 1 09/26/19 Active Additional Information Patient not taking.Reported on 11/29/2023 lancets 28 gaugeIndications:E ncounter to establish care,Type 2 diabetes mellitus without complication, unspecified whether mcc insulin use ([facility]),Type 2 diabetes mellitus with hyperglycemia, without long-term current use of insulin ([facility]) Use to check blood sugar 3 times daily 200 Each 1 09/26/19 Active semaglutide (Ozempic) 0.25 mg or 0.5 mg (2 mg/3 mL) Pen InjectorIndication s:Type 2 diabetes mellitus with hyperglycemia, without long-term current use of insulin ([facility]) Inject 0.25 mg by subcutaneous injection every 7 days. 9 mL 1 10/13/19 Active Additional Information Patient not taking.Reported on 11/29/2023 ergocalciferol (VITAMIN D2) 50,000 unit capsuleIndications :Hypovitaminosis D Take 1 Capsule (50,000 Units) by mouth every 7 days. Take ONCE WEEKLY for total of 8 weeks. Take in addition to daily Vitamin D 3 supplement. 8 Capsule 10/25/19 Active Additional Information Patient not taking.Reported on 11/29/2023 metFORMIN (GLUCOPHAGE) 1,000 mg tablet Take 1,000 mg by mouth 2 times daily with meals. Active lactulose (ENULOSE) 10 gram/15 mL 10 gram/15 mL solution Take 30 mL by mouth 3 times daily. Can take an extra 4th dose for worsening confusion 2700 mL 11/25/19 Active spironolactone (ALDACTONE) 50 mg tablet Take 1 Tablet (50 mg) by mouth daily. 90 Tablet 4 1:46 PM CDT 11/26/19 Active ezetimibe (Zetia) 10 mg tabletIndications: Hyperlipidemia, unspecified hyperlipidemia type Take 1 Tablet (10 mg) by mouth daily. 90 Tablet 1 11/29/19 Active furosemide (LASIX) 20 mg tablet Take 1 Tablet (20 mg) by mouth daily. 90 Tablet 11/29/19 Active FLUoxetine (PROzac) 40 mg capsuleIndications :Encounter to establish care,Congestive heart failure, unspecified HF chronicity, unspecified heart failure type (CMS/HCC),Recurren t major depressive disorder, in full remission Take 1 Capsule (40 mg) by mouth daily. 60 Capsule 3 11/29/19 24 Active Active Problems Problem Noted Date Diagnosed Date Alcoholic cirrhosis of liver without ascites Increased ammonia level 11/21/2023 Clostridioides difficile infection 11/21/2023 Thrombocytopenia 11/21/2023 Bleeding esophageal varices 11/16/2023 Type 2 diabetes mellitus wit h hyperglycemia, without long-term current use of insulin 11/15/2023 Hypertensive heart disease with congestive heart failure 11/15/2023 Lung mass 11/15/2023 History of rheumatic fever 11/15/2023 Alcoholic cirrhosis of liver with ascites 2023 Portal hypertension 11/15/2023 UGIB (upper gastrointestinal bleed) 11/15/2023 Calculus of gallbladder 11/15/2023 Black stool 11/15/2023 Epigastric pain 11/15/2023 QT prolongation 11/03/2023 Uncontrolled hypertension 11/03/2023 Uncontrolled type 2 diabetes mellitus with hyper glycemia 11/03/2023 Alcohol withdrawal syndrome without complication 11/03/2023 Abnormal cardiovascular stress test 11/02/2023 Chest pain 11/01/2023 Alcohol abuse 11/01/2023 Elevated ferritin 10/25/2023 History of meningitis 02/04/2021 Overview (11/15/2023): viral 1998 and 2007 Pyelonephritis 01/11/2021 Erosive gastritis 12/15/2020 Elevated LFTs 09/08/2018 Mild episode of recurrent major depressive disor fanny 12/28/2017 Hypovitaminosis D 12/28/2017 Proteinuria 12/28/2017 Hyperlipidemia 12/28/2017 Chronic diastolic congestive heart failure 05/21 Seizures 08/19/2015 Dilantin toxicity 08/19/2015 Alcohol dependence in remission 12/25/2013 Overview (11/15/2023): Alcohol addiction in remission Last Assessment & Plan: Continue with Prozac and lorazepam Moderate obesity 10/20/2013 Overview (11/15/2023): OBESITY NOS Last Assessment & Plan: Weight loss encouraged History of drug abuse 06/06/2013 Overview (11/15/2023): History of drug abuse Low back pain 05/10/2012 Essential hypertension, benign 07/18/2007 Primary localized osteoarthrosis, ankle and foot 07/18/2007 Cellulitis and abscess of upper arm and forearm 07/18/2007 Elevated blood pressure read ing without diagnosis of hypertension 11/15/2006 Acute sinusitis, unspecified 11/15/2006 Temporomandibular joint soun ds on opening and/or closing the jaw 05/11/2005 Family history of ischemic heart disease 005 Screening for lipoid disorders 05/11/2005 Resolved Problems Problem Noted Date Diagnosed Date Resolved Date Protein-calorie malnutrition, moderate 11/16/2023 11/22/2023 CHF (congestive heart failure) 12/28/2017 11/15/2023 DM (diabetes mellitus) 12/28/201711/14 Paroxysmal tachycardia, unspecified 07/18/2007 09/26/2023 Encounters Date Type Department Care Team Description 10/09/2024 External Device Data ST[facility] ABSTRACTION Provider, Abstract 09/18/2024 External Device Data ST[facility] ABSTRACTION Provider, Abstract 09/11/2024 External Device Data [facility] ABSTRACTION Provider, Abstract 08/15/2024 External Device Data [facility] ABSTRACTION Provider, Abstract from Last 3 Months Immunizations Immunization Administration Dates Next Due (ADACEL/BOOSTRIX)(10 YR UP) TDAP VACCINE, 0.5ML, IM 12/17/2008,06/06/2008,05/25/2007,06/06 (HAVRIX/VAQTA)(12 MO-18 YRS) HEPATITIS A VACCINE 0.5 ML PED/ADOL 2 DOSE, IM 11/04/1998,06/06/1998 (IPOL)(6 WKS AND UP) POLIOVI TRISH VACCINE, INACTIVATED (IPV), 3 DOSE, SUBCUT OR IM 06/06/1996 (M-M-R II/PRIORIX)(12 MO UP) MEASLES, MUMPS AND RUBELLA VIRUS VACCINE, 0.5 ML IM/SUBCUT 06/06/1996 (PNEUMOVAX 23)(50 YRS UP) PN EUMOCOCCAL POLYSACCHARIDE (PPV23) 0.5 ML, IM 07/30/2016 (RECOMBIVAX HB/ENGERIX-B)(0- 19 YRS) HEPATITIS B VACCINE 5 MCG/0.5 ML OR 10 MCG/0.5 ML PED OR ADOL 3 DOSE (PF), IM 11/04/1989,07/07/1989,06/06/1989 (TDVAX)(7 YRS UP) TETANUS AN D DIPHTHERIA TOXOIDS, ADSORBED (2 LF OF TETANUS TOXOID AND 2 LF OF DIPHTHERIA TOXOID), 0.5ML (PF), IM 06/06/1996 Diptheria, Tetanus Toxoids, And Whole Cell Pertussis Vaccine (DTP), for intramuscular use 06/06/1996 Hepatitis A Vaccine 06/06/1996 Hepatitis A Vaccine, Pediatr ic Dosage, Unspecified Formulatn 06/06/2020,11/04/1998 Hepatitis B Vaccine 06/06/1996 Hepatitis B Vaccine, Unspeci fied Formulation 11/04/1998,07/07/1998,06/06/1996 Influenza Seasonal Unspecifi ed Formulation IM 03/10/2023,02/04/2007,06/06/2006 Oral Polio Vaccine, Unspecif ied Formulation 06/06/1996 Poliovirus Vaccine Live Oral 06/06/1996 Family History Medical History Relation Name Comments Healthy Brother 1 brother 1 Healthy Brother 2 brother 2 No Known Problems Daughter Diabetes Father High Cholesterol Father Hypertension Father Cancer Mother Depression Mother Diabetes Mother Heart Disease Mother High Cholesterol Mother Hypertension Mother No Known Problems Son Colon Cancer Neg Hx Esophageal Cancer Neg Hx Gastric Cancer Neg Hx Liver Cancer Neg Hx Pancreatic Cancer Neg Hx Relation Name Status Comments Brother 1 brother 1 Alive Brother 2 brother 2 Alive Daughter Alive Father Maternal Grandfather Maternal Grandmother Mother Paternal Grandfather Paternal Grandmother Son Alive Social History Tobacco Use Types Packs/Day Years [...] No 11/20/2023 Food Insecurity Answer Date Recorded Patient needs follow up regardin 09/27/2024 Transportation Needs Answer Date Record ed Patient needs follow up regardin 09/27/2024 Housing Stability Answer Date Recorded Social/Environmental Concerns No concerns Utility Needs Answer Date Recorded Patient needs follow up regardin 09/27/2024 Comments No Sex and Gender Information Value Date Recorded Sex Assigned at Not on file Legal Sex Female 2:51 AM DIRECTOR OF ROOMS Gender Identity Not on file Sexual Orientation Not on file Occupation Industry Job Start Date Job End Date Not on file Not on file Not on file Not on file Last Filed Vital Signs Vital Sign Reading Time Taken Comments Blood Pressure 177/83 12/26/2023 12:43 PM CDT Pulse 96 12/26/2023 12:43 PM CDT Temperature 37 C (98.6 F) 12/26/2023 12:43 PM CDT Respiratory Rate 16 12/26/2023 12:43 PM CDT Oxygen Saturation 100% 12/26/2023 12:43 PM CDT Inhaled Oxygen Concentration - - Weight 73 kg (161 lb) 12/26/2023 12:43 PM CDT Height 142.2 cm (4' 8) 12/26/2023 12:43 PM CDT Body Mass Index 36.1 12/26/2023 12:43 PM CDT Plan of Treatment Health Maintenance Due Date Last Done Comments DIABETES ANNUAL RETINAL EXAM 12/15/1987 HPV/Cotest (21-29) 1990 CERVICAL CANCER SCREENING 12/15/1999 HPV/Cotest (30-65) 12/15/1999 PAP SMEAR 12/15/1999 COLORECTAL SCREENING 2014 Colorectal Cancer Screening 2014 FIT-DNA Q 3 years 2014 FIT/FOBT Q 1 year 2014 Flex Sig/CT Colonography Q 5 years 2014 BREAST CANCER SCREENING 10/18/2015 10/17/2014 DTAP/TDAP/TD VACCINES (6 - T d or Tdap) 12/17/2018 12/17/2008, 06/06/2008, 05/25/2007, Additional history exists ZOSTER VACCINE (1 of 2) 12/15/2019 COVID-19 Vaccine (3 - 2024-2 5 season) 2024 07/17/2020, 06/26/2020 Preventative Visit- Commercial 06/06/2024 DIABETES ANNUAL FOOT EXAM 09/25/2024 09/26/2023 DIABETES MICROALBUMIN ANNUAL SCREEN 10/23/2024 10/24/2023 LDL CHOLESTEROL ANNUAL 10/23/2024 10/24/2023 DIABETES HBA1C Q 6 MONTHS 12/07/20242024, 11/01/2023, 09/26/2023, Additional history exists DIABETES: A1C (Auto Order) 06/09/202506/09, 11/01/2023, 09/26/2023, Additional history exists HEPATITIS B VACCINES Completed 11/04/1998, 07/07/1998, 06/06/1996, Additional history exists INFLUENZA VACCINE Completed 05/01/2024, , 02/04/2007, Additional history exists Procedures Procedure Name Priority Date/Time Associated Diagnosis Comments HEMOGLOBIN A1C Routine 11/01/2023 8:48 AM CDT MICROALBUMIN/CREATI NINE RATIO, RANDOM UR Routine 10/24/2023 8:10 AM CDT Encounter to establish care Type 2 diabetes mellitus without complication, unspecified whether intermediate teacher insulin use ([facility]) Type 2 diabetes mellitus with hyperglycemia, without long-term current use of insulin ([facility]) Essential hypertension, benign LIPID PANEL Routine 10/24/2023 7:54 AM CDT Encounter to establish care Type 2 diabetes mellitus without complication, unspecified whether mcc insulin use ([facility]) Type 2 diabetes mellitus with hyperglycemia, without long-term current use of insulin ([facility]) Essential hypertension, benign Morbid obesity ([facility]) from Last 3 Months or Most Recently Relevant to Health Maintenance Results * (ABNORMAL) HEMOGLOBIN A1C (11/01/2023 8:48 AM CDT) HEMOGLOBIN A1C 9.1(H) <=5.6 % 11/02/2023 5:44 AM CDT [facility]. AVG GLUCOSE, A1C 214 mg/dL 11/02/2023 5:44 AM CDT [facility] Blood Venipuncture / Unknown 11/01/2023 8:48 AM CDT 11/01/2023 8:54 AM CDT Narrative [facility] - 11/02/2023 5:44 AM CDT HGB A1C INTERPRETATION NORMAL: <5.7% PRE-DIABETES: 5.7 - 6.4% DIABETES: 6.5% OR GREATER us Fidelina Sorensen MD CHEMISTRY ORDERABLES Final Re sult [facility] CLIA# [id number] [place] [address] * (ABNORMAL) MICROALBUMIN/CREATININE RATIO, RANDOM UR (10/24/2023 8:10 AM CDT) Creatinine, Urine 140 20 - 275 mg/dL [facility] MICROALBUMIN, URINE 10.7 See Note: mg/dL [facility] Comment: Reference Range: Reference Range Not established MICROALBUMIN/CREAT RATIO, UR 76(H) <30 mg/g creat [facility] Comment: The ADA defines abnormalities in albumin excretion as follows: Albuminuria Category Result (mg/g creatinine) Normal to Mildly increased <30 Moderately increased 30-299 Severely increased > OR = 300 The ADA recommends that at least two of three specimens collected within a 3-6 month period be abnormal before considering a patient to be within a diagnostic category. FASTING:YES FASTING: YES Test Performed at: [facility] [address] [place] [address] Esmer Lopez MD Urine URINE SPECIMEN OBTAINED BY CLEAN CATCH PROCEDURE / Unknown 10/24/2023 8:10 AM CDT 10/24/2023 8:11 AM CDT us Sushma Salazar PA URINE ORDERABLES Final R esult [facility] [phone] [facility] [address] [place] [address] * (ABNORMAL) LIPID PANEL (10/24/2023 7:54 AM CDT) CHOLESTEROL 258(H) <200 mg/dL [facility] HDL 31(L) > OR = 50 mg/dL [facility] TRIGLYCERIDE 283(H) <150 mg/dL [facility] Comment: If a non-fasting specimen was collected, consider repeat triglyceride testing on a fasting specimen if clinically indicated. Bernabe et al. J. of Clin. Lipidol. 2015;9:129-169. LDL CALCULATED 176(H) mg/dL (calc) [facility] Comment: Reference range: <100 Desirable range <100 mg/dL for primary prevention; <70 mg/dL for patients with CHD or diabetic patients with > or = 2 CHD risk factors. LDL-C is now calculated using the Lenin-Lindsey calculation, which is a validated novel method providing better accuracy than the Friedewald equation in the estimation of LDL-C. Lenin PETERSON et al. CATALINA. 2013;310(19): 2618-9555 (http://education.Trading Metrics/faq/MHU246) CHOL/HDL RATIO 8.3(H) <5.0 (calc) [facility] TOTAL NON-HDL CHOL(LDL+VLDL) 227(H) <130 mg/dL (calc) [facility] Comment: Non-HDL level > or = 220 is very high and may indicate genetic familial hypercholesterolemia (FH). Clinical assessment and measurement of blood lipid levels should be considered for all first-degree relatives of patients with an FH diagnosis. For patients with diabetes plus 1 major ASCVD risk factor, treating to a non-HDL-C goal of <100 mg/dL (LDL-C of <70 mg/dL) is considered a therapeutic option. Test Performed at: [facility] [address] [place] [address] Esmer Leija Vo Blood 10/24/2023 7:54 AM CDT 10/24/2023 7:57 AM CDT us Sushma QUILES CHEMISTRY ORDERABLES Fin al Result [facility] [phone] [facility] [address] [place] [address] from Last 3 Months or Most Recently Relevant to Health Maintenance Insurance RX [employer] (INTERNAL) [facility] [employer] RX [facility] [employer] Advance Directives For more information, please contact: [phone] * Full Code (Latest Code Status on File) Date Activated Date Inactivated Comments 11/20/2023 10:05 PM 11/25/2023 4:15 PM * Full Code Date Activated Date Inactivated Comments 11/15/2023 9:35 PM 11/17/2023 4:37 PM * Full Code Date Activated Date Inactivated Comments 11/01/2023 4:37 PM 11/03/2023 8:30 PM Care Teams Conciliation Court Judge Relationship Specialty [place] [address] [address] PCP - General Rehab Office Coordinator 09/26/23
--- OUTSIDE RECORDS SUMMARY | 2024-10-29 10:09 | XMS_ITS | Encounter Summary ---
Author Organization [facility] Address [address] [place] [address] Care Team Providers Care Post Tensioning Ironworker Name Role Phone Joss Carpio MD Primary Care Provider Encounter Details Date Type Department Care Team (Late st Contact Info) Description 10/27/2000 Outpatient Historical [facility] [address] [address] Stormy Garcia MD NO ADDRESS ON FILE Social History Tobacco Use Types Packs/Day Years Used Date Smoking Tobacco: Never Assessed Comments Unknown Sex and Gender Information Value Date Recorded Sex Assigned at Not on file Legal Sex Female 2:51 AM IT SYSTEMS ENGINEER Gender Identity Not on file Sexual [...] documented as of this encounter Care Teams Post Tensioning Ironworker Relationship Specialty [place] [address] [facility] [address] [place] [address] PCP - General Fixed Route Operator 09/26/23 documented as of this encounter
--- OUTSIDE RECORDS SUMMARY | 2024-10-29 10:09 | XMS_ITS | Encounter Summary ---
Author Organization [facility] Address 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
--- OUTSIDE RECORDS SUMMARY | 2024-10-29 10:09 | XMS_ITS | Encounter Summary ---
Author Organization [facility] Address [address] [place] [address] Care Team Providers Care Certified Coder Name Role Phone Joss Carpio MD Primary Care Provider [phone] Encounter Details Date Type Department Care Team (Late st Contact Info) Description 12/26/[address] [facility] [address] [place] [address] Marlo Joyner MD [address] [place] [address] Social History Tobacco Use Types Packs/Day Years Used Date Smoking Tobacco: Never Assessed Comments Unknown Sex and Gender Information Value Date Recorded Sex Assigned at Not on file Legal Sex Female 2:51 AM EYEGLASS FITTER Gender Identity Not on file Sexual Orientation [...] documented as of this encounter Care Teams Certified Coder Relationship Specialty [place] [address] [address] PCP - General Manager Materials Management 09/26/23 documented as of this encounter
--- OUTSIDE RECORDS SUMMARY | 2024-10-29 10:09 | XMS_ITS | Encounter Summary ---
Author Organization [facility] Address [address] [place] [address] Care Team Providers Care Lime Sludge Kiln Operator Name Role Phone Joss Carpio MD Primary Care Provider Encounter Details Date Type Department Care Team (Late st Contact Info) Description 03/30/2001 Outpatient Historical [facility] [address] [address] Stormy Garcia MD NO ADDRESS ON FILE Social History Tobacco Use Types Packs/Day Years Used Date Smoking Tobacco: Never Assessed Comments Unknown Sex and Gender Information Value Date Recorded Sex Assigned at Not on file Legal Sex Female 2:51 AM MOBILE DEVELOPMENT MANAGER Gender Identity Not on file Sexual [...] documented as of this encounter Care Teams Lime Sludge Kiln Operator Relationship Specialty [place] [address] [facility] [address] [place] [address] PCP - General Electrical Installer 09/26/23 documented as of this encounter
--- OUTSIDE RECORDS SUMMARY | 2024-10-29 10:09 | XMS_ITS | Encounter Summary ---
Author Organization [facility] Address [address] [place] [address] Care Team Providers Care Tankage Grinder Operator Name Role Phone Joss Carpio MD Primary Care Provider Encounter Details Date Type Department Care Team (Late st Contact Info) Description 03/03/2001 Outpatient Historical [address] [place] [phone] Brad Hernandez MD Social History Tobacco Use Types Packs/Day Years Used Date Smoking Tobacco: Never Assessed Comments Unknown Sex and Gender Information Value Date Recorded Sex Assigned at Not on file Legal Sex Female 2:51 AM INVASIVE CARDIOVASCULAR TECHNOLOGIST Gender Identity Not on file Sexual Orientation [...] documented as of this encounter Care Teams Tankage Grinder Operator Relationship Specialty [place] [address] [address] PCP - General Fish Hatchery Assistant 09/26/23 documented as of this encounter
--- OUTSIDE RECORDS SUMMARY | 2024-10-29 10:09 | XMS_ITS | Encounter Summary ---
Author Organization [facility] Address [address] [place] [address] Care Team Providers Care Cement Kiln Operator Name Role Phone Joss Carpio MD Primary Care Provider [phone] Encounter Details Date Type Department Care Team (Latest Contact Info) Description 09/28/2000 Outpatient Historical [facility] LISA Garcia, Stormy Maldonado MD NO ADDRESS ON FILE Screening for malignant neoplasm of the cervix (Primary Dx) Social History Tobacco Use Types Packs/Day Years Used Date Smoking Tobacco: Never Assessed Comments Unknown Sex and Gender Information Value Date Recorded Sex Assigned at Not on file Legal Sex Female 2:51 AM SUPERVISOR AIRCRAFT MAINTENANCE Gender Identity Not on file Sexual Orientation [...] documented as of this encounter Care Teams Cement Kiln Operator Relationship Specialty [place] [address] [address] PCP - General Geothermal Sheet Metal Worker 09/26/23 documented as of this encounter
[2024-10-29 10:10] VITALS: BP 177/84; PULSE 101; RESP 16; TEMP 37.3; O2SAT 98
--- NOTE | 2024-10-29 10:10 | ED.SOB ---
HPI - SOB/Dyspnea General Chief Complaint: Shortness of Breath/Dyspnea Stated Complaint: Shortness of Breath Time Seen by Provider: 10/29/24 10:10 Source: patient Mode of arrival: ambulatory Limitations: no limitations History of Present Illness HPI Narrative: 53 y/o female with hx DM, CHF and HTN presented for c/o shortness of breath with exertion for one week, stating she has been out of her Lasix for over one week. Reports taking 80mg Lasix for a long time. Says she does not have a pcp or insurance. She has had previous med refills in Jul from a [employer] she worked with briefly. Denies chest pain, palpitations, leg swelling, dizziness, n/v. Related Data Home Medications ?Medication ?Instructions ?Recorded ?Confirmed ?Last Taken ?Type metformin 1,000 mg tablet 1,000 mg PO BID 05/12/24 05/12/24 Unknown History pantoprazole 40 mg tablet,delayed 40 mg PO DAILY 05/12/24 05/12/24 Unknown History release Allergies Allergy/AdvReac Type Severity Reaction Status Date / Time Sulfa (Sulfonamide Allergy Intermediate Rash Verified 10/29/24 10:16 Antibiotics) Review of Systems Review of Systems: CONSTITUTIONAL: Denies body aches, fever, chills, or sweats. EYES: Denies visual changes, redness, or discharge. CARDIOVASCULAR: Denies chest pain, palpitations, or edema. RESPIRATORY: Reports sob, denies wheezing. GASTROINTESTINAL: Denies abdominal pain, nausea, vomiting, or diarrhea. SKIN: Denies rash. MUSCULOSKELETAL: Denies back pain, joint pain, or myalgia. NEUROLOGIC: Denies headache, numbness, tingling, or weakness. All systems reviewed & are unremarkable except as noted in HPI and below PMFSH Past Medical History Medical History Fever COVID-19 Abdominal pain Closed fracture of one rib of left side Dyspnea Type 2 diabetes mellitus without complication Wheezing Vitamin D deficiency Upper respiratory infection with cough and congestion Sinus pressure Seizure Pleurisy VANESSA (obstructive sleep apnea) Mild diastolic dysfunction Malignant hypertensive urgency LVH (left ventricular hypertrophy) Impacted cerumen of right ear HTN (hypertension), benign H/O ETOH abuse GERD without esophagitis EKG abnormalities Drug intolerance Cough CHF exacerbation Bronchitis Breast lump in female Abnormal LFTs Anxiety and depression Pneumonia Sleep apnea HLD (hyperlipidemia) HTN (hypertension) Diabetes mellitus Surgical History Surgical History History of ear surgery History of carpal tunnel surgery Family History Family History Mother Depression Hypertension Family history of diabetes mellitus in first degree relative Family history of elevated blood lipids Diabetes mellitus, Onset Age: 64 Family history of coronary artery disease, Onset Age: 64 Family history of congestive heart failure Father Patient's father is in good health Family history of elevated blood lipids Family history of diabetes mellitus in first degree relative Hypertension Diabetes mellitus Acute myocardial infarction Family history of chronic obstructive pulmonary disease Sibling Patient's brother is in good health Other Cerebrovascular accident Family history of attention deficit hyperactivity disorder (ADHD) Family history of cardiovascular disease Family history of malignant neoplasm Family history of malignant neoplasm of breast Family history of premature coronary heart disease Social History Social History Smoking status: Never smoker Alcohol intake: former Drinks per week: 112 Substance use type: does not use Living arrangements: with family Gender identity (if verbalized by the patient): Female Spiritual care concerns: No Comments At time of signature, I have reviewed and agree with nursing past medical, surgical, social and family history unless otherwise noted. Please see nursing chart for further information. There is no relevant family history pertinent to the presenting complaint Exam Narrative: GENERAL: Well-appearing, in no acute distress. EYES: EOMI. No redness or drainage. Conjunctivae normal. ENT: Mucous membranes pink and moist. No rhinorrhea. TMs normal bilaterally. Throat normal. Uvula midline. NECK: Normal AROM. Supple. CHEST: No respiratory distress. lungs clear to all esqueda. HEART: Regular rate and rhythm. Cardiac murmur appreciated. ABDOMEN: Soft, nontender, nondistended, normal active bowel sounds. EXTREMITIES: Normal range of motion. No edema. SKIN: Warm, dry, no rash. Capillary refill normal. Normal skin turgor. NEURO: Alert and oriented x3. Gait steady. PSYCH: Normal affect. Course Course Emergency Course: Patient is aware of diagnosis, understands and agrees to treatment plan. Anticipatory guidance given. Patient agrees to follow-up as directed and is aware of reasons to seek care at the emergency department. Portions of this record may have been created with voice recognition software Level of Care: Express Care Visit Vital Signs Vital signs: Vital Signs Temperature 99.1 F 10/29/24 10:10 Pulse Rate 101 H 10/29/24 10:10 Respiratory Rate 16 10/29/24 10:10 Blood Pressure 177/84 H 10/29/24 10:10 Pulse Oximetry 98 10/29/24 10:10 Oxygen Delivery Room Air 10/29/24 10:10 Temperature 99.1 F 10/29/24 10:10 Pulse Rate 101 H 10/29/24 10:10 Respiratory Rate 16 10/29/24 10:10 Blood Pressure 177/84 H 10/29/24 10:10 Pulse Oximetry 98 10/29/24 10:10 Oxygen Delivery Room Air 10/29/24 10:10 MDM - SOB/Dyspnea MDM Narrative Medical decision making narrative: Discussed physical exam findings. Pt presented with HUTCHISON, and states she is out of lasix. Unclear how often she takes the medication, it appears she has not had the medication filled for several months. Pt is advised labs and cardiac evaluation before a refill. Pt has no close f/u available. Advised ER transfer. Differential Diagnosis Differential diagnosis: Likely acute exacerbation of chronic obstructive airways disease, congestive heart failure, community acquired pneumonia, pulmonary embolism and other (Angioedema, perforation, tension pneumothorax, cardiac tamponade [place], pericarditis, pleural effusion, CHF, bronchitis, cardiac arrhythmia) Discharge Plan Discharge Clinical Impression: HUTCHISON (dyspnea on exertion) Patient Disposition: Acute Care Hospital Condition: Stable Patient Language: Greek Prescriptions: No Action metformin 1,000 mg tablet 1,000 mg PO BID pantoprazole 40 mg tablet,delayed release (DR/EC) 40 mg PO DAILY lorazepam 1 mg tablet 1 mg PO TID PRN (Reason: alcohol withdrawal) Qty: 6 0RF Follow-up/Referrals: PHYSICIAN,PRESS DEPARTMENT MANAGER [Primary Care Provider] - Time of Disposition: 10:41
--- OUTSIDE RECORDS SUMMARY | 2024-10-29 10:10 | XMS_ITS | CONTINUITY OF CARE DOCUMENT ---
Author Name anahi stephenfarzaneh Address Unknown Organization [facility] Address [address] [place] [address] [address] [place] [address] Phone [phone] Care Team Providers Care Workers' Compensation Claims Supervisor Name Role Phone Azael Tariq MD Unavailable [phone] RODERICK MCGHEE MD Unavailable [phone] RODERICK MCGHEE MD Unavailable [phone] PROBLEMS Condition Status Date Provider Notes Tachycardia active Azael Tariq MD Elevated LFT's active Azael Tariq MD Diabetes mellitus active Azael Tariq MD Obesity active Azael Tariq MD CHEST PAIN active Azael Tariq MD Hypertension active Azael Tariq MD Abnormal EKG active Azael Tariq MD Edema active Azael Tariq MD Palpitations active Azael Tariq MD Leg pain, bilateral active Azael Tariq MD Dyspnea on exertion active Azael Tariq MD Hyperlipidemia active ? Azael Tariq MD Congestive Heart Failure active ? Azael Tariq MD ENCOUNTERS Date Type Provider Location Encounter Diag nosis - In-person encounter Office Visit Azael Tariq MD [facility] Elevated LFT'sTachycardia - In-person encounter Office Visit Azael Tariq MD [facility] Leg pain, bilateralAbnormal EKGHypertensionCHEST PAINObesityDiabetes mellitus - In-person encounter Office Visit Azael Tariq MD [facility] - In-person encounter Office Visit Azael Tariq MD [facility] Congestive Heart FailureHyperlipidemiaDyspnea on exertionLeg pain, [...] alberto Body Mass Index (Ratio) 41.54 kg/m2 [facility] blood pressure, resting Yes Azael Tariq [...] [lb_av] Aneatris Shay height E&M 57 [in_i] [facility] ALL[facility] Allergy Name Onset Date Reaction [...] Policy type / Coverage type Tiny red democrat ID [facility] [id number] Other [id number] ADVANCE DIRECTIVES Name Date DISCUSSED - NO DECISION MADE TREATMENT PLAN Date Name Performer Cardiology:LDL at AM H was 211, however her LFT's are elevated. She reports she has been tested for hepatitis and was negative. [facility] Cardiology:LDL at AM H was 211, however her LFT's are elevated. She reports she has been tested for hepatitis and was negative. [facility] Cardiology:BP is maria del carmen [...] one week, then one tablet daily [facility] Cardiology:EKG showe d sinus tachycardia, with no new changes otherwise since EKG in 2013. [facility] Cardiology:Pt compla ins of episodes of palpitations and tachycardia with HR in 150's-180's for the past few nights, waking her up from sleep. She also complains of dyspnea with minimal exertion. EKG showed sinus tachycardia, with no new changes otherwise since EKG in 2013. We will obtain a home sleep study, echo, and telesentry. [facility] Cardiology:Pt compla ins of episodes of palpitations and tachycardia with HR in 150's-180's for the past few nights, waking her up from sleep. She also complains of dyspnea with minimal exertion. EKG showed sinus tachycardia, with no new changes otherwise since EKG in 2013. We will obtain a home sleep study, echo, and telesentry. [facility] Cardiology:Pt compla ins of episodes of palpitations [...] for one week, then one tablet daily [facility] Cardiology:She compl ains of dyspnea with minimal exertion. EKG showed sinus tachycardia, with no new changes otherwise since EKG in 2013. We will obtain PFT's, echo. She will take 80mg of Lasix everyday for a week and then reduce to 40mg daily with additional 40mg PRN. [facility] follow up:Metoprolol increased. BP today: 188/102 P rior BP: 134/79 (05/22/2014) Her updated medication list for this problem includes: Metoprolol Tartrate 100 Mg Oral Tablet (Metoprolol tartrate) ..... One tablet twice daily Losartan Potassium 100 Mg Oral Tablet (Losartan potassium) ..... Take once a day Lasix 40 Mg Oral Tablet (Furosemide) ..... Take one tablet daily Orders: E KG (CPT-40999) R enal Artery Duplex (CPT-82298) S leep Study (CPT-72711) [facility] follow up:Orders: E KG (CPT-12493) F VC - 66421 (12912) F RC - 18488 (59198) D LCO - 23130 (20679) [facility] follow up:Her updated medication list for this problem includes: Metoprolol Tartrate 100 Mg Oral Tablet (Metoprolol tartrate) ..... One tablet twice daily Losartan Potassium 100 Mg Oral Tablet (Losartan potassium) ..... Take once a day Lasix 40 Mg Oral Tablet (Furosemide) ..... Take one tablet daily Interested in [facility]. Orders: E KG (CPT-78282) S leep Study (CPT-03298) [facility] Date Name Renal Artery Duplex DLCO - 15909 FRC - 57952 FVC - 51056 Mobile Cardiac Tele Sleep Study Home Complete Echo Sleep Study DLCO - 36742 FRC - 64050 FVC - 36007 Renal Artery Duplex Sleep Study Full PFT [...]
== END 2024-10-29 10:35 | disposition short-term general hospital (02) ==
PROVIDERS: Emergency Provider Nurse Practitioner Family
DX: R06.09 Other forms of dyspnea (principal); E11.9 Type 2 diabetes mellitus without complications; Z79.84 Long term (current) use of oral hypoglycemic drugs; I11.0 Hypertensive heart disease with heart failure; I50.9 Heart failure, unspecified; K21.9 Gastro-esophageal reflux disease without esophagitis; F41.9 Anxiety disorder, unspecified; Z86.16 Personal history of COVID-19
CPT/HCPCS: 99212; G0463